=== PATIENT | female | born 1970 | race African-American/Black ===

== ENCOUNTER 2016-12-02 04:33 | Emergency (ER) | payer BC, OTHER ==
[2016-12-02 04:46] VITALS: BMI 28.7
--- NOTE | 2016-12-02 05:44 | PDOC ---
[id number] [id number] CHEST PAIN Time Seen by Provider: 12/02/16 05:09 History Source: Patient Exam Limitations: No Limitations - History of Present Illness Initial Comments: 12/02/16 05:37 46 yo Female patient presents to ED c/o chest pains, bilateral rib pain and left arm pain/heaviness. Patient states symptoms began at 0230 today, which woke her up out her sleep. She reports being recently diagnosed with Bronchitis at [facility] and prescribed Abx. Patient report hx HTN. LNMP: 4 months ago. Denies abd pain, back pain, n/v/d, fever, diff breathing, constipation, or any other complaints at this time. Presenting Symptoms: Chest Pain Severity/Quality: reports: moderate, sharp Location: reports: substernal Chest Pain Radiation: reports: arms (LEFT) Activities at Onset: reports: none Prior Chest Pain/Cardiac Workup: reports: No prior chest pain Modifying Factors: worse with: antacids, breathing, coughing, defecating, eating , exercise, lying down, morphine, movement, nitroglycerin, oxygen, palpation, rest, other Nitro Today/Relief: No: no nitro taken today, 0.4 mg x 1, 0.4 mg x 2, 0.4 mg x 3 , 0.4 mg x 4, provided by EMS, provided by ED, provided at home, no relief, mild relief, complete relief Aspirin Received prior to arrival (Core Measure): Yes: unknown Associated Symptoms: Yes: Cough. No: Denies symptoms, Abdominal pain, Back Pain , Chest Pain/pressure, Diaphoresis, Dizziness, Edema, Fatigue, Fever/chills, Headache, Heartburn, Loss of Appetite, Nausea, Palpitations, Rash, Shortness of Breath, Swelling/lump in chest, Syncope, Vomiting, Weakness Past History - Travel Traveled outside of the country in the last 30 days: No Close contact w/someone who was outside of country & ill: No - Past Medical History Allergies/Adverse Reactions: Allergies Allergy/AdvReac Type Severity Reaction Status Date / Time amoxicillin trihydrate Allergy Verified 12/02/16 04:43 [From Augmentin] azithromycin [From Zithromax] Allergy Verified 12/02/16 04:43 potassium clavulanate Allergy Verified 12/02/16 04:43 [From Augmentin] Home Medications: Ambulatory Orders Aspirin [ASA -] 81 mg PO DAILY 12/13/14 Colesevelam HCl [Welchol] 1,875 mg PO DAILY PRN 02/28/15 Albuterol Sulfate Inhaler - [Ventolin HFA Inhaler -] 1 - 2 inh PO Q4H #1 inhaler 07/04/16 Acetaminophen [Tylenol .Regular Strength -] 650 mg PO Q6H PRN #0 tablet Albuterol 0.083% Nebulizer Nida [Ventolin 0.083% Nebulizer Soln -] 1 amp NEB Q6H PRN #0 amp 01/09/17 Albuterol 2.5/Ipratropium 0.5 [Duoneb -] 1 amp NEB Q6H PRN #0 amp 01/09/17 Losartan Potassium [Cozaar -] 50 mg PO DAILY tablet 01/09/17 Pantoprazole Sodium [Protonix -] 40 mg PO DAILY #30 01/09/17 Rosuvastatin [Crestor -] 5 mg PO HS tablet 01/09/17 Sulfamethoxazole/Trimethoprim [Bactrim DS -] 1 each PO BID #14 tablet 01/09/17 Loratadine [Claritin -] 10 mg PO DAILY PRN 01/27/17 Anemia: No Asthma: Yes Cancer: No Cardiac Disorders: No CVA: No COPD: Yes CHF: No Dementia: No Diabetes: No GI Disorders: No Disorders: No HTN: Yes Hypercholesterolemia: Yes (on medication) Kidney Stones: No Liver Disease: No Psychiatric Problems: Yes (bipolar) Suicide Attempt (Hx): No Seizures: No Thyroid Disease: No - Surgical History Abdominal Surgery: No Appendectomy: No Cardiac Surgery: Yes (SX R CAROTID ARTERY FOR A CLOT IN 2004) Cholecystectomy: No Gastric Stapling: No GI Surgery: No Lung Surgery: No Neurologic Surgery: No Orthopedic Surgery: No - Reproductive History PID: No - Immunization History Td Vaccination: Yes Immunization Up to Date: Yes - Psycho/Social/Smoking Cessation Hx Anxiety: No Suicidal Ideation: No Smoking Status: Yes Smoking History: Former smoker Years of Tobacco Use: 20 Have you smoked in the past 12 months: No Number of Cigarettes Smoked Daily: 20 Cigars Per Day: 0 Information on smoking cessation initiated: No 'Breaking Loose' booklet given: 02/05/16 Hx Alcohol Use: No Drug/Substance Use Hx: No Substance Use Type: None, Opiates Hx Substance Use Treatment: Yes (IOP) Cardiac Specific PMH - Complaint Specific PMHX Abdominal Aortic Aneurysm: No Angina: No Cardiac Arrhythmia: No Cardiac Stent: No GERD: No Myocardial Infarction: No Pacemaker: No Pulmonary Embolus: No Valvular Heart Disease: No Peripheral Vascular Disease: No Review of Systems - Review of Systems Able to Perform ROS?: Yes Is the patient limited [place] proficient: No Constitutional: No: Chills, Fever Respiratory: Yes: Cough. No: Orthopnea, Shortness of Breath, Stridor, Wheezing Cardiac (ROS): Yes: Chest Pain. No: Edema, Lightheadedness, Palpitations, Syncope, Chest Tightness ABD/GI: No: Constipated, Diarrhea, Nausea, Poor Appetite, Poor Fluid Intake, Rectal Bleeding, Vomiting : No: Dysuria, Flank Pain, Hematuria Musculoskeletal: No: Back Pain, Gout, Joint Swelling, Muscle Weakness, Neck Pain Integumentary: No: Bruising, Erythema, Rash Neurological: No: Headache, Numbness, Paresthesia, Seizure, Tingling, Tremors, Weakness, Unsteady Gait, Ataxia, Dizziness All Other Systems: Reviewed and Negative *Physical Exam - Vital Signs Last Vital Signs Temp Pulse Resp BP Pulse Ox 97.3 F L 58 L 18 153/76 98 12/02/16 08:29 12/02/16 08:29 12/02/16 08:29 12/02/16 08:29 12/02/16 08:29 - Physical Exam General Appearance: Yes: Nourished, Appropriately Dressed. No: Apparent Distress, Mild Distress, Moderate Distress, Severe Distress Neck: positive: Trachea midline, Supple. negative: Decreased range of motion, Stridor, Lymphadenopathy (R), Lymphadenopathy (L) Respiratory/Chest: positive: Lungs Clear, Normal Breath Sounds. negative: Respiratory Distress, Accessory Muscle Use, Labored Respiration, Rapid RR Cardiovascular: positive: Regular Rhythm, Regular Rate. negative: Edema, JVD, Murmur Musculoskeletal: positive: Normal Inspection. negative: CVA Tenderness Extremity: positive: Normal Capillary Refill, Normal Inspection, Normal Range of Motion. negative: Pedal Edema, Swelling Integumentary: positive: Normal Color, Dry, Warm. 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, Fully Oriented, Alert, Normal Mood/ Affect, Normal Response, Motor Strength 03/07 ED Treatment Course - LABORATORY CBC & Chemistry Diagram: 12/02/16 05:35 12/02/16 05:35 - ADDITIONAL ORDERS Additional order review: 12/02/16 05:35 RBC 4.32 MCV 98.1 H MCHC 33.4 RDW 13.5 MPV 7.4 L Neutrophils % 30.0 L D Lymphocytes % 58.0 H D Monocytes % 11.0 H Eosinophils % 1.0 - RADIOLOGY Radiology Studies Ordered: Category Date Time Status CHEST CTA [CT] Stat CT Scan 12/02/16 06:43 Completed CHEST PA & LAT [RAD] Stat Radiology 12/02/16 05:22 Completed *DC/Admit/Observation/Transfer Diagnosis at time of Disposition: Atypical chest pain, Bronchitis - Discharge Dispostion Disposition: HOME Condition at time of disposition: Good Admit: No - Referrals Referrals: Marv Rm [Primary Care Provider] - Call tomorrow - Patient Instructions Printed Discharge Instructions: DI for Atypical Chest Pain Additional Instructions: Discharge Instructions: -The cat scan of your chest was normal -Your EKG and labs were normal -Please take Motrin for pain if needed with food -Follow up with Dr. Rm this week if symptoms continue Print Language: [place]OT[place]
[2016-12-02 05:50] LABS: MCH 32.8 pg (25.7-33.7); MCHC 33.4 g/dl (32.0-36.0); MEAN CELL VOLUME 98.1 fl (80-96); MEAN PLT VOLUME 7.4 fl (7.5-11.1); PLATELET COUNT 245 K/MM3 (134-434); RDW 13.5 % (11.6-15.6); WHITE BLOOD COUNT 7.5 K/mm3 (4.0-10.0)
[2016-12-02 05:55] LABS: URINE APPEARANCE CLEAR; URINE BILIRUBIN NEGATIVE (NEGATIVE); URINE COLOR STRAW; URINE GLUCOSE (UA) NEGATIVE (NEGATIVE); URINE KETONE NEGATIVE (NEGATIVE); URINE LEUK ESTERASE NEGATIVE (NEGATIVE); URINE NITRITE NEGATIVE (NEGATIVE); URINE PROTEIN NEGATIVE (NEGATIVE); URINE UROBILINOGEN NEGATIVE E.U./dl (0.2-1.0)
[2016-12-02 05:58] LABS: URINE BLOOD 2+ (NEGATIVE)
[2016-12-02 06:00] LABS: URINE HYALINE CAST 1 /lpf; URINE MUCUS RARE; URINE RBC 1 /hpf (0-3); URINE WBC <1 /hpf (3-5)
[2016-12-02 06:33] LABS: ALBUMIN 3.7 g/dl (3.4-5.0); ANION GAP 12 (8-16); BILIRUBIN,TOTAL 0.3 mg/dL (0.2-1.0); CO2 24 mmol/L (21-32); CREATININE 0.8 mg/dL (0.55-1.02); GLUCOSE,RANDOM 85 mg/dL (74-106); SGOT/AST 18 U/L (15-37); SGPT/ALT 17 U/L (12-78); TOT PROT 7.5 g/dl (6.4-8.2)
[2016-12-02 06:36] LABS: ALK PHOS 79 U/L (45-117); TROPONIN I < 0.02 ng/ml (0.00-0.05)
--- NOTE | 2016-12-02 07:20 | PDOC ---
ED Treatment Course - LABORATORY CBC & Chemistry Diagram: 12/02/16 05:35 12/02/16 05:35 - ADDITIONAL ORDERS Additional order review: Laboratory Results 12/02/16 12/02/16 12/02/16 05:35 05:35 05:35 D-Dimer 302 H Sodium 139 Potassium 3.6 Chloride 103 Carbon Dioxide 24 Anion Gap 12 BUN 16 Creatinine 0.8 Creat Clearance w eGFR > 60 Random Glucose 85 Calcium 9.0 Total Bilirubin 0.3 AST 18 ALT 17 Alkaline Phosphatase 79 Creatine Kinase 246 H D CK-MB (CK-2) 1.770 Troponin I < 0.02 Total Protein 7.5 Albumin 3.7 Urine Color Straw Urine Appearance Clear Urine pH 5.0 Ur Specific [place] 1.016 Urine Protein Negative Urine Glucose (UA) Negative Urine Ketones Negative Urine Blood 2+ H Urine Nitrite Negative Urine Bilirubin Negative Urine Urobilinogen Negative Ur Leukocyte Esterase Negative Urine RBC 1 Urine WBC <1 Ur Epithelial Cells Rare Hyaline Casts 1 Urine Mucus Rare Urine HCG, Qual Negative 12/02/16 05:35 RBC 4.32 MCV 98.1 H MCHC 33.4 RDW 13.5 MPV 7.4 L Neutrophils % Y Lymphocytes % Y Progress Note - Progress Note Progress Note: I have received report from CAROL Liao regarding this patient. Pt's initial chief complaint: chest pain, b/l rib pain, left arm pain. Pt's work up completed prior to sign out: labs, EKG, CXR Pt treatment given from prior staff: none Pt plan to be completed: U tox, chest CTA Dispo: Pending Medical Decision Making - Medical Decision Making A/P: 46 y/o female c/o CP, b/l rib pain and left arm pain. The patient was initially evaulated by CAROL Liao. Her D-dimer was found to be elevated. She is waiting for a chest CTA. The patient is comfortable without any pain medication. CTA IMPRESSION: No evidence of pulmonary embolism or acute pathology in the chest. The patient was given all of her results. She will be discharged to home with supportive care instructions. She was instructed to f/u with her PCP and return to the ER with any worsening or concerning symptoms. The patient verbalizes understanding of all instructions, has no further questions and is awaiting discharge. *DC/Admit/Observation/Transfer Diagnosis at time of Disposition: Atypical chest pain - Discharge Dispostion Disposition: HOME Condition at time of disposition: Good - Referrals Referrals: Marv Rm [Primary Care Provider] - Call tomorrow - Patient Instructions Printed Discharge Instructions: DI for Atypical Chest Pain Additional Instructions: Discharge Instructions: -The cat scan of your chest was normal -Your EKG and labs were normal -Please take Motrin for pain if needed with food -Follow up with Dr. Rm this week if symptoms continue
[2016-12-02 07:28] LABS: PLATELET ESTIMATE ADEQUATE (NORMAL)
[2016-12-02 08:30] VITALS: BP 153/76; PULSE 58; TEMP 97.3
[2016-12-02 15:04] LABS: URINE MARIJUANA THC NEGATIVE ng/ml (CUTOFF=50)
--- NOTE | 2016-12-10 17:52 | EKG ---
Test Reason : Blood Pressure : / mmHG Vent. Rate : 058 BPM Atrial Rate : 058 BPM P-R Int : 140 ms QRS Dur : 074 ms QT Int : 428 ms P-R-T Axes : 053 -13 -04 degrees QTc Int : 420 ms SINUS BRADYCARDIA OTHERWISE NORMAL ECG WHEN COMPARED WITH ECG OF 14-AUG-2016 03:43, NO SIGNIFICANT CHANGE WAS FOUND Confirmed by QUEENEI TY MD ([id number]) on 12/10/2016 5:52:13 PM Referred By: Confirmed By:QUEENIE TY MD
== END 2016-12-02 09:41 | disposition home or self-care (01) ==
LOC: JER 04:33
DX: R07.89 Other chest pain (principal); I10 Essential (primary) hypertension; J44.9 Chronic obstructive pulmonary disease, unspecified; J45.909 Unspecified asthma, uncomplicated; F31.9 Bipolar disorder, unspecified
CPT/HCPCS: 36415; 71020-TC; 71275-TC; 80053; 80307; 81003; 81015; 82550; 82553; 84484; 84703; 85025; 85379; 93005; 93010; 99282-25

== ENCOUNTER 2017-01-05 23:32 | Inpatient (IN) | payer BC, OTHER ==
--- NOTE | 2017-01-06 00:30 | PDOC ---
History of Present Illness - General History Source: Patient Exam Limitations: No Limitations - History of Present Illness Initial Comments: 01/06/17 02:03 The patient is a 46 year old female with a significant past medical history of bipolar disorder, rheumatoid arthritis, anxiety, HTN and asthma, who presents to the emergency department today for further evaluation of a wound for 2 days s /p abscess removal at [facility]. The patient reports that her wound is very painful. The patient states that she did not follow up to have the wound changed and dressed. The patient denies being given any antibiotics for her wound. In the ED the patients packing material was removed and pus was pouring out of the wound. The patient denies fever, chills, and sweats. The patient denies nausea, vomiting, and diarrhea. The patient denies chest pain, cough, and shortness of breath. PAST MEDICAL HISTORY: As per HPI PAST SURGICAL HISTORY: Recent abscess removal FAMILY HISTORY: No pertinent history reported SOCIAL HISTORY: None reported MEDICATIONS: Reviewed ALLERGIES: As per nursing notes <Jamie Berry - Last Filed: 01/06/17 02:02> <Dianna Aldana - Last Filed: 01/07/17 14:30> - General Chief Complaint: Pain, Acute Stated Complaint: PAIN Time Seen by Provider: 01/05/17 23:57 Past History <Jamie Berry - Last Filed: 01/06/17 02:02> - Past Medical History Anemia: No Asthma: Yes Cancer: No Cardiac Disorders: No CVA: No COPD: Yes CHF: No Dementia: No Diabetes: No GI Disorders: No Disorders: No HTN: Yes Hypercholesterolemia: Yes (on medication) Kidney Stones: No Liver Disease: No Psychiatric Problems: Yes (bipolar) Suicide Attempt (Hx): No Seizures: No Thyroid Disease: No - Surgical History Abdominal Surgery: No Appendectomy: No Cardiac Surgery: Yes (SX R CAROTID ARTERY FOR A CLOT IN 2004) Cholecystectomy: No Gastric Stapling: No GI Surgery: No Lung Surgery: No Neurologic Surgery: No Orthopedic Surgery: No - Reproductive History PID: No - Immunization History Td Vaccination: Yes Immunization Up to Date: Yes - Psycho/Social/Smoking Cessation Hx Anxiety: No Suicidal Ideation: No Smoking Status: Yes Smoking History: Current every day smoker Years of Tobacco Use: 20 Have you smoked in the past 12 months: No Number of Cigarettes Smoked Daily: 20 Cigars Per Day: 0 Information on smoking cessation initiated: No 'Breaking Loose' booklet given: 02/05/16 Hx Alcohol Use: No Drug/Substance Use Hx: No Substance Use Type: None, Opiates Hx Substance Use Treatment: Yes (IOP) <Dianna Aldana - Last Filed: 01/07/17 14:30> - Past Medical History Allergies/Adverse Reactions: Allergies Allergy/AdvReac Type Severity Reaction Status Date / Time amoxicillin trihydrate Allergy Verified 01/05/17 23:35 [From Augmentin] azithromycin [From Zithromax] Allergy Verified 01/05/17 23:35 potassium clavulanate Allergy Verified 01/05/17 23:35 [From Augmentin] Home Medications: Ambulatory Orders Aspirin [ASA -] 81 mg PO DAILY 12/13/14 Colesevelam HCl [Welchol] 1,875 mg PO DAILY 02/28/15 Olmesartan/Hydrochlorothiazide [Benicar Hct 20-12.5 mg Tablet] 1 tab PO DAILY Rosuvastatin Calcium [Crestor] 0 mg PO DAILY 02/05/16 Loratadine [Claritin] 10 mg PO DAILY #30 tablet 04/17/16 Albuterol Sulfate Inhaler - [Ventolin Hfa Inhaler -] 1 - 2 inh PO Q4H #1 inhaler 07/04/16 Review of Systems - Review of Systems Able to Perform ROS?: Yes Comments:: 01/06/17 02:03 GENERAL/CONSTITUTIONAL: No fever or chills. No weakness. HEAD, EYES, EARS, NOSE AND THROAT: No change in vision. No ear pain or discharge. No sore throat. CARDIOVASCULAR: No chest pain or shortness of breath. RESPIRATORY: No cough, wheezing, or hemoptysis. GASTROINTESTINAL: No nausea, vomiting, diarrhea or constipation. GENITOURINARY: No dysuria, frequency, or change in urination. MUSCULOSKELETAL: No joint or muscle swelling or pain. No neck or back pain. SKIN: No rash NEUROLOGIC: No headache, vertigo, loss of consciousness, or change in strength/ sensation. ENDOCRINE: No increased thirst. No abnormal weight change. HEMATOLOGIC/LYMPHATIC: No anemia, easy bleeding, or history of blood clots. ALLERGIC/IMMUNOLOGIC: No hives or skin allergy. <Jamie Berry - Last Filed: 01/06/17 02:02> *Physical Exam - Vital Signs Last Vital Signs Temp Pulse Resp BP Pulse Ox 98.6 F 100 H 22 116/77 97 01/05/17 23:42 01/05/17 23:42 01/05/17 23:42 01/05/17 23:42 01/05/17 23:42 - Physical Exam Comments: 01/06/17 02:03 GENERAL: Awake, alert, and fully oriented, in no acute distress HEAD: No signs of trauma EYES: PERRLA, EOMI, sclera anicteric, conjunctiva clear ENT: Auricles normal inspection, hearing grossly normal, nares patent, oropharynx clear without exudates. Moist mucosa NECK: Normal ROM, supple, no lymphadenopathy, JVD, or masses LUNGS: Breath sounds equal, clear to auscultation bilaterally. No wheezes, and no crackles HEART: Regular rate and rhythm, normal S1 and S2, no murmurs, rubs or gallops ABDOMEN: Soft, nontender, normoactive bowel sounds. No guarding, no rebound. No masses BUTTOX: (+) Infected abscess right medial buttox. EXTREMITIES: Normal range of motion, no edema. No clubbing or cyanosis. No cords, erythema, or tenderness NEUROLOGICAL: Cranial nerves II through XII grossly intact. Normal speech, normal gait SKIN: Warm, Dry, normal turgor, no rashes or lesions noted. <Jamie Berry - Last Filed: 01/06/17 02:02> - Vital Signs Last Vital Signs Temp Pulse Resp BP Pulse Ox 98.6 F 100 H 22 116/77 97 01/05/17 23:42 01/05/17 23:42 01/05/17 23:42 01/05/17 23:42 01/05/17 23:42 <Dianna Aldana - Last Filed: 01/07/17 14:30> ED Treatment Course - LABORATORY CBC & Chemistry Diagram: 01/07/17 07:15 01/07/17 07:15 <Dianna Aldana - Last Filed: 01/07/17 14:30> Medical Decision Making - Medical Decision Making 01/06/17 05:07 THIS IS A PRELIMINARY REPORT FROM [facility] DATE OF SERVICE: 2017-01-06 04:04:58.0 IMAGES: 308 EXAM: PELVIS CT WITH CONTRAST HISTORY:right buttock abscess COMPARISON: None. IMPRESSION: Right gluteal superficial soft tissue fat stranding and dermal thickening suggestive of cellulitis. Small area of phlegmonous change seen in the medial right buttock measuring 19.5 x 26.5 mm ( axial image 139) which may represent developing and/or partially drained/ draining abscess. No soft tissue emphysema. No CT evidence of osteomyelitis. Normal ischiorectal fossa. Suggestion of ileal wall thickening and fat stranding. correlate clinically to exclude enteritis. Small fat containing umbilical hernia. Normal appendix. No intra pelvic abscess. Arthrosis of the imaged spine and hip joints. Small posterior disc herniations at L4-5 with mild spinal stenosis at this level. Moderate sized herniation at L5-S1 causing spinal canal stenosis and lateral recess stenosis with mass effect on descending S1 nerve roots. Disc material at L5-S1 extends into the neural formani as well and is in close proximity to the L5 nerve roots. Underdistension versus wall thickening of bladder. Correlate clinically to exclude cystitis. A 2.5 cm right adnexal cyst ./follicle THIS DOCUMENT HAS BEEN ELECTRONICALLY SIGNED 01/07/17 14:26 Pt came after I+D was performed on her buttock 1 or 2 days ago at [facility]. She had minimal placement of packing strip placed in the wound. She had a small puncture site, which drained copious purulent material when I squeezed the right buttock. Wound culture was sent. Pt sent for CT scan. SHe will require proper I&D by surgical team. SHe was treated with Vancomycin and clinda. Pt states that she was given no antibiotics at [facility]; regardless, pt has not been on any antibiotics since the abscess began. SHe will be admitted for IV abx and for I&D. <Dianna Aldana - Last Filed: 01/07/17 14:30> *DC/Admit/Observation/Transfer - Attestations Scribe Attestion: 01/06/17 02:05 Documentation prepared by Jamie Berry, acting as biomedical equipment support specialist for Dianna Aldana MD/DO. <Jamie Berry - Last Filed: 01/06/17 02:02> - Discharge Dispostion Admit: Yes <Dianna Aldana - Last Filed: 01/07/17 14:30> Diagnosis at time of Disposition: Abscess of right buttock, Bipolar I disorder - Referrals
[2017-01-06] MEDS ORDERED: VANCOMYCIN 1,000 MG in DEXTROSE 5%-WATER - 250 ML IVPB ONE (01:46)
[2017-01-06] MEDS ORDERED: CLINDAMYCIN 900 MG PREMIX IVPB 50 ML IVPB ONE (01:47)
[2017-01-06] MEDS ORDERED: VANCOMYCIN 1 GRAM (PRE-DOCKED) 250 ML IVPB ONE (01:55)
[2017-01-06 02:10] LABS: BASOPHIL 0.4 % (0-2.0); EOSINOPHIL 0.1 % (0-4.5); MCH 32.5 pg (25.7-33.7); MCHC 33.6 g/dl (32.0-36.0); MEAN CELL VOLUME 96.5 fl (80-96); NEUTROPHILS 86.9 % (42.8-82.8); PLATELET COUNT 199 K/MM3 (134-434); RDW 13.3 % (11.6-15.6); WHITE BLOOD COUNT 13.5 K/mm3 (4.0-10.0)
[2017-01-06 02:53] LABS: INR 1.28 (0.82-1.09); PROTHROMBIN TIME (PATIENT) 14.2 SEC (9.98-11.88)
[2017-01-06 02:55] LABS: ACTIVATED PTT 35.7 SECONDS (26.9-34.4)
[2017-01-06 02:59] LABS: ALBUMIN 3.3 g/dl (3.4-5.0); BILIRUBIN,TOTAL 0.5 mg/dL (0.2-1.0); CALCIUM 9.1 mg/dL (8.5-10.1); TOT PROT 7.7 g/dl (6.4-8.2)
[2017-01-06] MEDS ORDERED: morphine CARPU-JECT 2 MG/1 ML DISP.SYRIN ONE (07:02)
[2017-01-06] MEDS ORDERED: morphine CARPU-JECT 2 MG/1 ML DISP.SYRIN IVPUSH ONE ×2 (07:05→07:18)
[2017-01-06] MEDS ORDERED: ALBUTEROL SO4 2.5/IPRATROPIUM 0.5 INH SOL 3 ML VIAL.NEB. NEB PRN (07:30)
--- NOTE | 2017-01-06 09:06 | CONSULT ---
[id number] Surgery) CONSULT REQUEST: We have been asked to surgically evaluate this patient for gluteal abscess. PCP: Quentin John HPI: Called to eval 46yo female with PMHx noted below. Presents to [facility] ED for further evaluation of her gluteal wound. Informs me that she was seen/evaluated at [facility] ER for same complaint and they performed an I&D 2 days ago. She is still c/o pain at said site. According to ER documentation, she is non- compliant with dressing changes. Her wound packing was removed in ED and found to have purulent drainage. A CT Scan 01/06/17 was performed in ED and identified a superficial subcutaneous gluteal region abscess with associated subcutaneous cellulitis. No deep extension identified. She denies n/v/f/c or diaphoresis. Denies CP or palpitation. Denies cough or SOB. Denies abd pain or melena. PMHx: COPD, RA, OA, HLD, HTN, IBS, glaucoma, bipolar disorder, asthma, cerebral aneurysm, DVT, CAD, PSA, bronchitis PSHx: Right carotid artery clot 2004 Social Hx: PCP, marijuana, EtOH, tranquilizer HOME MEDS: 3 Aspirin [ASA -] 81 mg PO DAILY 12/13/14 Colesevelam HCl [Welchol] 1,875 mg PO DAILY 02/28/15 Olmesartan/Hydrochlorothiazide 1 tab PO DAILY 08/03/15 [Benicar Hct 20-12.5 mg Tablet] Rosuvastatin Calcium [Crestor] 0 mg PO DAILY 02/05/16 Loratadine [Claritin] 10 mg PO DAILY #30 tablet 04/17/16 Albuterol Sulfate Inhaler - 1 - 2 inh PO Q4H #1 inhaler 07/04/16 Allergies 3 amoxicillin trihydrate Allergy Verified 01/05/17 23:35 azithromycin [From Zithromax] Allergy Verified 01/05/17 23:35 potassium clavulanate Allergy Verified 01/05/17 23:35 ROS: CONSTITUTIONAL: Absent: SEE ABOVE. generalized weakness, malaise, loss of appetite, weight change CARDIOVASCULAR: Absent: SEE ABOVE. syncope, irregular heart rate, lightheadedness, peripheral edema RESPIRATORY: Absent: SEE ABOVE. dyspnea with exertion, wheezing, stridor, hemoptysis GASTROINTESTINAL:Absent: SEE ABOVE. GENITOURINARY: Absent: dysuria, frequency, urgency, hesitancy, hematuria, flank pain, genital pain MUSCULOSKELETAL: Absent: myalgia, arthralgia, joint swelling, back pain, neck pain SKIN: Absent: SEE ABOVE. HEMATOLOGIC/IMMUNOLOGIC: Absent: easy bleeding, easy bruising, lymphadenopathy NEUROLOGIC: Absent: headache, focal weakness, paresthesias, dizziness, unsteady gait, seizure, mental status changes PSYCHIATRIC: Absent: anxiety, depression, suicidal or homicidal ideation, hallucinations. Last Vital Signs Temp Pulse Resp BP Pulse Ox 97.7 F 92 H 16 105/70 95 01/06/17 06:21 01/06/17 06:21 01/06/17 06:21 01/06/17 06:21 01/06/17 06:21 PE: GENERAL: Awake, alert, and fully oriented, in no acute distress. HEAD: Normal with no signs of trauma. EYES: PERRL, sclera anicteric, conjunctiva clear. NECK: Normal ROM, supple without lymphadenopathy, JVD, or masses. LUNGS: Clear to auscultation bilat anteriorly. No wheezes, and no crackles. No accessory muscle use. HEART: Regular rate and rhythm. No murmurs ABDOMEN: Soft, nontender, not distended, normoactive bowel sounds, no guarding, no rebound, no masses. No organomegaly. MUSCULOSKELETAL: Normal ROM at all joints. No bony deformities or tenderness. No CVA tenderness. UPPER EXTREMITIES: 2+ pulses, warm, well-perfused. No cyanosis. Cap refill <2 seconds. No peripheral edema. LOWER EXTREMITIES: 2+ pulses, warm, well-perfused. No calf tenderness. No peripheral edema. NEUROLOGICAL: Normal speech, gait not observed. PSYCH: Cooperative. Good eye contact. Appropriate mood and affect. SKIN: Right glute (superior aspect near fold), +induration/bogginess, surrounding erythema, painful to touch, purulent drainage CBC, BMP 01/06/17 01:52 01/06/17 01:52 INR, PTT INR 1.28 (0.82-1.09) H 01/06/17 01:52 Blood Type Blood Type A NEGATIVE 01/06/17 01:52 Problem List - Problems (1) Abscess of right buttock Assessment/Plan: Will need bedside I&D Risks, benefits, alternatives discussed with patient and she agrees with above procedure. Opportunity for questions, patient had none. Above discussed with Dr. Phelps and agrees. Code(s): L02.31 - CUTANEOUS ABSCESS OF BUTTOCK Visit type - Case Type Case Type: ED Admission - Emergency Emergency Visit: Yes ED Registration Date: 01/06/17 Care time: The patient presented to the Emergency Department on the above date and was hospitalized for further evaluation of their emergent condition. - New patient This patient is new to me today: Yes Date on this admission: 01/06/17 <Raad Phelps - Last Filed: 01/06/17 12:12> - Consultation REQUESTING PROVIDER: CONSULT REQUEST: We have been asked to surgically evaluate this patient for ( specify). PCP:Quentin John HISTORY OF PRESENT ILLNESS: PMHx: PSHx: Home Medications Medication Instructions Recorded Aspirin [ASA -] 81 mg PO DAILY 12/13/14 Colesevelam HCl [Welchol] 1,875 mg PO DAILY 02/28/15 Olmesartan/Hydrochlorothiazide 1 tab PO DAILY 08/03/15 [Benicar Hct 20-12.5 mg Tablet] Rosuvastatin Calcium [Crestor] 0 mg PO DAILY 02/05/16 Loratadine [Claritin] 10 mg PO DAILY #30 tablet 04/17/16 Albuterol Sulfate Inhaler - 1 - 2 inh PO Q4H #1 inhaler 07/04/16 [Ventolin Hfa Inhaler -] Allergies Allergy/AdvReac Type Severity Reaction Status Date / Time amoxicillin trihydrate Allergy Verified 01/05/17 23:35 [From Augmentin] azithromycin [From Zithromax] Allergy Verified 01/05/17 23:35 potassium clavulanate Allergy Verified 01/05/17 23:35 [From Augmentin] REVIEW OF SYSTEMS: CONSTITUTIONAL: Absent: fever, chills, diaphoresis, generalized weakness, malaise, loss of appetite, weight change CARDIOVASCULAR: Absent: chest pain, syncope, palpitations, irregular heart rate, lightheadedness , peripheral edema RESPIRATORY: Absent: cough, shortness of breath, dyspnea with exertion, wheezing, stridor, hemoptysis GASTROINTESTINAL: Absent: abdominal pain, abdominal distension, nausea, vomiting, diarrhea, constipation, melena, hematochezia GENITOURINARY: Absent: dysuria, frequency, urgency, hesitancy, hematuria, flank pain, genital pain MUSCULOSKELETAL: Absent: myalgia, arthralgia, joint swelling, back pain, neck pain SKIN: Absent: rash, itching, pallor HEMATOLOGIC/IMMUNOLOGIC: Absent: easy bleeding, easy bruising, lymphadenopathy NEUROLOGIC: Absent: headache, focal weakness, paresthesias, dizziness, unsteady gait, seizure, mental status changes, bladder or bowel incontinence PSYCHIATRIC: Absent: anxiety, depression, suicidal or homicidal ideation, hallucinations. PHYSICAL EXAM: GENERAL: Awake, alert, and fully oriented, in no acute distress. HEAD: Normal with no signs of trauma. EYES: PERRL, sclera anicteric, conjunctiva clear. NECK: Normal ROM, supple without lymphadenopathy, JVD, or masses. LUNGS: Clear to auscultation bilat anteriorly. No wheezes, and no crackles. No accessory muscle use. HEART: Regular rate and rhythm. No murmurs ABDOMEN: Soft, nontender, not distended, normoactive bowel sounds, no guarding, no rebound, no masses. No organomegaly. MUSCULOSKELETAL: Normal ROM at all joints. No bony deformities or tenderness. No CVA tenderness. UPPER EXTREMITIES: 2+ pulses, warm, well-perfused. No cyanosis. Cap refill <2 seconds. No peripheral edema. LOWER EXTREMITIES: 2+ pulses, warm, well-perfused. No calf tenderness. No peripheral edema. NEUROLOGICAL: Normal speech, gait not observed. PSYCH: Cooperative. Good eye contact. Appropriate mood and affect. SKIN: Warm, dry, normal turgor, no rashes or lesions noted. Vital Signs Temperature 97.7 F 01/06/17 06:21 Pulse Rate 92 H 01/06/17 06:21 Respiratory Rate 16 01/06/17 06:21 Blood Pressure 105/70 01/06/17 06:21 O2 Sat by Pulse Oximetry (%) 95 01/06/17 06:21 Lab Results WBC 13.5 K/mm3 (4.0-10.0) H D 01/06/17 01:52 RBC 3.59 M/mm3 (3.60-5.2) L 01/06/17 01:52 Hgb 11.7 GM/dL (10.7-15.3) D 01/06/17 01:52 Hct 34.7 % (32.4-45.2) D 01/06/17 01:52 MCV 96.5 fl (80-96) H 01/06/17 01:52 MCHC 33.6 g/dl (32.0-36.0) 01/06/17 01:52 RDW 13.3 % (11.6-15.6) 01/06/17 01:52 Plt Count 199 K/MM3 (134-434) 01/06/17 01:52 Sodium 139 mmol/L (136-145) 01/06/17 01:52 Potassium 3.7 mmol/L (3.5-5.1) 01/06/17 01:52 Chloride 100 mmol/L (98-107) 01/06/17 01:52 Carbon Dioxide 26 mmol/L (21-32) 01/06/17 01:52 Anion Gap 13 (8-16) 01/06/17 01:52 BUN 17 mg/dL (7-18) 01/06/17 01:52 Creatinine 1.0 mg/dL (0.55-1.02) D 01/06/17 01:52 Random Glucose 129 mg/dL (74-106) H D 01/06/17 01:52 Calcium 9.1 mg/dL (8.5-10.1) 01/06/17 01:52 Blood Type A NEGATIVE 01/06/17 01:52 Antibody Screen Negative 01/06/17 01:52 INR 1.28 (0.82-1.09) H 01/06/17 01:52 Agree Right buttock/gluteal abscess Incision and drainage Antibiotics Wound care
[2017-01-06] MEDS ORDERED: LIDOCAINE HCL/PF 2% SDV 5ML VIAL ONE ×2 (09:53)
[2017-01-06] MEDS ORDERED: LOSARTAN 50MG/HCTZ 12.5MG 1 TAB (FP) PO SCH (10:00)
--- NOTE | 2017-01-06 10:04 | PN ---
Progress Note (short form) - Note Progress Note: ID Consult dictated Selected Entries 01/06/17 06:21 Temperature 97.7 F Pulse Rate [ 92 H Left] Respiratory 16 Rate Blood Pressure 105/70 [Right Arm] Microbiology Laboratory Tests 01/06/17 01/06/17 01/06/17 01:52 01:52 01:52 WBC 13.5 H D Hgb 11.7 D Plt Count 199 INR 1.28 H Random Glucose 129 H D Total Protein 7.7 Serum , Qual 01/06/17 02:38 WBC Hgb Plt Count INR Random Glucose Total Protein Serum , Qual Negative Assessment RIght gluteal cellulitis with abscess ? MRSA Plan vancomycin Zosyn pendng c/s Tori OWEN Problem List - Problems (1) Abscess of right buttock Code(s): L02.31 - CUTANEOUS ABSCESS OF BUTTOCK (2) Cellulitis, gluteal Code(s): L03.317 - CELLULITIS OF BUTTOCK
--- NOTE | 2017-01-06 10:19 | PROC ---
Incision and Drainage Indication/Location: Right glute Risks and Benefits Explained: Yes Consent on Chart: Yes Betadine cleansed: Yes Anesthesia: 2% Lidocaine Blade Size: 11 Drainage: Willie pus (~5cc) Irrigated with Normal Saline: Yes (100mL) Iodinated Packin/2 in Sterile Dressing Applied: Yes - Remarks Remarks: Wound cultured. IV ABX per ID Patient tolerated procedure well.
[2017-01-06] MEDS ORDERED: ACETAMINOPHEN 1000 MG/100 ML VIAL (NON FORMULARY) IVPB ONE (10:45)
[2017-01-06] MEDS: HYDROCHLOROTHIAZIDE 12.5 MG CAPSULE (FP) PO SCH (11:08)
[2017-01-06] MEDS: LOSARTAN POTASSIUM 50 MG TABLET (FP) PO SCH (11:08)
[2017-01-06] MEDS ORDERED: TIGECYCLINE 100 MG in DEXTROSE 5%-WATER - 100 ML IVPB ONE (11:15)
[2017-01-06 14:37] VITALS: BMI 27.8
--- NOTE | 2017-01-06 17:55 | HP ---
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 Cardiovascular: Yes: HTN, Hyperlipdemia Pulmonary: Yes: COPD ...LMP: 07/06/16 ...: No Psych: Yes: Bipolar Rheumatology: Yes: Rheumatoid Arthritis - Smoking History Smoking history: Current every day smoker Have you smoked in the past 12 months: No Aproximately how many cigarettes per day: 10 - Alcohol/Substance Use Hx Alcohol Use: No History of Substance Use: reports: Marijuana (and PCP) - Social History ADL: Independent History of Recent Travel: No Home Medications - Allergies Allergies/Adverse Reactions: Allergies Allergy/AdvReac Type Severity Reaction Status Date / Time amoxicillin trihydrate Allergy Verified 01/05/17 23:35 [From Augmentin] azithromycin [From Zithromax] Allergy Verified 01/05/17 23:35 potassium clavulanate Allergy Verified 01/05/17 23:35 [From Augmentin] - Home Medications Home Medications: Ambulatory Orders Aspirin [ASA -] 81 mg PO DAILY 12/13/14 Colesevelam HCl [Welchol] 1,875 mg PO DAILY 02/28/15 Olmesartan/Hydrochlorothiazide [Benicar Hct 20-12.5 mg Tablet] 1 tab PO DAILY Rosuvastatin Calcium [Crestor] 0 mg PO DAILY 02/05/16 Loratadine [Claritin] 10 mg PO DAILY #30 tablet 04/17/16 Albuterol Sulfate Inhaler - [Ventolin Hfa Inhaler -] 1 - 2 inh PO Q4H #1 inhaler 07/04/16 Family Disease History - Family Disease History Family Disease History: Heart Disease: Grandparent, Father ( ETOH DEPENDENT AND FROM CAD), Mother ( FROM CAD), Brother (PARANOID SCHIZOPHRENIA) Review of Systems - Review of Systems Cardiovascular: denies: Chest Pain Respiratory: denies: SOB Gastrointestinal: denies: Abdominal Pain Physical Examination Vital Signs: Vital Signs Temperature 98.3 F 01/06/17 15:29 Pulse Rate 81 01/06/17 15:29 Respiratory Rate 20 01/06/17 15:29 Blood Pressure 111/66 01/06/17 15:29 O2 Sat by Pulse Oximetry (%) 95 03/06/17 14:41 Findings/Remarks: SITTING ON EDGE OF BED EATING NO COMPLAINTS PAIN NOW CONTROLLED Constitutional: Yes: Calm Cardiovascular: Yes: Regular Rate and Rhythm, S1, S2 Respiratory: Yes: CTA Bilaterally Gastrointestinal: Yes: Normal Bowel Sounds, Soft Edema: No Imaging - Results Chest X-ray: Report Reviewed Cat Scan: Report Reviewed Problem List - Problems (1) Abscess of right buttock Code(s): L02.31 - CUTANEOUS ABSCESS OF BUTTOCK (2) Bipolar I disorder Code(s): F31.9 - BIPOLAR DISORDER, UNSPECIFIED (3) COPD (chronic obstructive pulmonary disease) Code(s): J44.9 - CHRONIC OBSTRUCTIVE PULMONARY DISEASE, UNSPECIFIED (4) Hypertension Code(s): I10 - ESSENTIAL (PRIMARY) HYPERTENSION Qualifiers: Qualified Code(s): I10 - Essential (primary) hypertension (5) Rheumatoid arthritis Code(s): M06.9 - RHEUMATOID ARTHRITIS, UNSPECIFIED Assessment/Plan The patient is a 46 year old female with a significant past medical history of bipolar disorder, rheumatoid arthritis, anxiety, HTN and asthma, who presents to the emergency department today for further evaluation of a wound for 2 days s /p abscess removal at [facility]. The patient reports that her wound is very painful. The patient states that she did not follow up to have the wound changed and dressed. The patient denies being given any antibiotics for her wound. In the ED the patients packing material was removed and pus was pouring out of the wound. 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
[2017-01-06] MEDS ORDERED: ALBUTEROL SO4 0.083% IH SOL 2.5 MG/3 ML VIAL.NEB. NEB PRN (17:56)
[2017-01-06] MEDS: ACETAMINOPHEN 325 MG TABLET (FP) PO PRN (20:15)
--- NOTE | 2017-01-06 21:25 | CONS ---
DATE OF CONSULTATION: 01/06/2017 This is a 46-year-old female with a history of multiple co-morbidities including bipolar disorder who presented to the emergency room for evaluation of a draining right gluteal abscess. She has no idea how this started, and she denied any history of trauma to the area. She was in the [facility] emergency room where she had a stab-limited incision and drainage done. A culture may have been sent, and I am attempting to find out the results. She was prescribed Bactrim but apparently never took it. She had no fever or chills, and when she presented to the ER, had a packing in the area of the right buttock with purulent drainage noted. PAST MEDICAL HISTORY: Includes bipolar disorder, rheumatoid arthritis, hypertension, anxiety, and substance abuse. MEDICATIONS: Aspirin, Welchol, Benicar, Crestor, Claritin, Ventolin. ALLERGIES: TO AMOXICILLIN AND AZITHROMYCIN. SOCIAL HISTORY: Current every-day smoker, polysubstance abuse. States HIV tested previously. FAMILY HISTORY: Reviewed and noncontributory. REVIEW OF SYSTEMS: Respiratory: No cough, shortness of breath. Cardiac: No chest pain, palpitations, syncope. Gastrointestinal: No nausea, vomiting, diarrhea. Genitourinary: No dysuria, hematuria. PHYSICAL EXAMINATION: General: She was an alert female in no acute distress. Vital signs: The temperature was 97.7, pulse 92, blood pressure 105/70, respirations 16. Neck: Supple. Lungs: Clear. Heart: S1, S2, regular rhythm. Abdomen: Soft, nontender without hepatosplenomegaly. Extremities: Revealed a right gluteal abscess with a puncture wound noted, purulent drainage, diffuse tenderness, erythema and fluctuance. The white count is 13.5, hemoglobin 11.7, platelets of 199. BUN of 17, creatinine 1.0. Wound culture pending. ASSESSMENT: A 46-year-old female presents with right gluteal abscess, fluctuant. Needs to be incised and drained more thoroughly. Possibilities include staphylococcus including MRSA as well as streptococcus and gram-negative organisms. She has a history of AMOXICILLIN ALLERGY. In an effort to cover multiple organisms, will give her tigecycline and pending wound culture, we will attempt to get the culture report from [facility], which may be available by now. JACKIE MANDEL M.D. ARLINE/[id number]
[2017-01-06] MEDS ORDERED: PT OWN MED DRAWER 7, Y5N ONE (22:25)
[2017-01-06] MEDS: TIGECYCLINE 50 MG in DEXTROSE 5%-WATER - 100 ML IVPB SCH (22:29)
[2017-01-06] MEDS: oxyCODONE HCL 5 MG TABLET PO PRN (22:29)
[2017-01-07 01:36] LABS: URINE MARIJUANA THC NEGATIVE ng/ml (CUTOFF=50)
[2017-01-07] MEDS: HYDROmorphone HCL CARPU-JECT 1 MG/1 ML DISP.SYRIN IVPB PRN ×2 (01:49→13:22)
--- NOTE | 2017-01-07 03:22 | HOSP ---
Subjective - Review of Symptoms Events since last encounter: Nurse call to katlyn m that patient is complaining of itching all over her body and on face after getting dilaudid. patient seen and examined: Patient is lying in bed complaining of itching on whole body. Denies shortness of breath, chest pain, palpitations. T 97.6 bp 118/79 spo2 96 on room air Chest ; b/l air entry present no wheez cvs s1s2 normal skin: no urticarea, no erythema, patient kept on itching whole body Plan : IV benadryl 25 mg once monitor vitals Physical Examination Vital Signs: Vital Signs Temperature 97.7 F 01/06/17 18:33 Pulse Rate 79 01/06/17 18:33 Respiratory Rate 20 01/06/17 18:33 Blood Pressure 107/70 01/06/17 18:33 O2 Sat by Pulse Oximetry (%) 95 01/06/17 14:41 Visit type - Emergency Visit Emergency Visit: Yes ED Registration Date: 01/06/17 Care time: The patient presented to the Emergency Department on the above date and was hospitalized for further evaluation of their emergent condition. - New Patient This patient is new to me today: Yes Date on this admission: 01/07/17 - Critical Care Critical Care patient: No
[2017-01-07] MEDS: ROSUVASTATIN CA 5 MG TABLET (FP) PO SCH ×2 (03:30→21:17)
[2017-01-07] MEDS: oxyCODONE HCL 5 MG TABLET PO PRN ×2 (05:36→12:19)
[2017-01-07 08:49] LABS: ALBUMIN 2.8 g/dl (3.4-5.0); ANION GAP 8 (8-16); BILIRUBIN,TOTAL 0.2 mg/dL (0.2-1.0); CALCIUM 8.8 mg/dL (8.5-10.1); CO2 27 mmol/L (21-32); CREATININE 0.8 mg/dL (0.55-1.02); GLUCOSE,RANDOM 84 mg/dL (74-106); SGOT/AST 19 U/L (15-37); SGPT/ALT 30 U/L (12-78)
[2017-01-07 08:50] LABS: ALK PHOS 89 U/L (45-117)
[2017-01-07] MEDS: PANTOPRAZOLE 40 MG TABLET (FP) PO SCH (11:00)
[2017-01-07] MEDS: LOSARTAN POTASSIUM 50 MG TABLET (FP) PO SCH (11:00)
[2017-01-07] MEDS: HYDROCHLOROTHIAZIDE 12.5 MG CAPSULE (FP) PO SCH (11:00)
[2017-01-07] MEDS: TIGECYCLINE 50 MG in DEXTROSE 5%-WATER - 100 ML IVPB SCH (11:01)
[2017-01-07 13:12] LABS: MCHC 33.5 g/dl (32.0-36.0); MEAN CELL VOLUME 98.5 fl (80-96); PLATELET COUNT 221 K/MM3 (134-434); RDW 13.6 % (11.6-15.6); WHITE BLOOD COUNT 10.4 K/mm3 (4.0-10.0)
--- NOTE | 2017-01-07 14:28 | PN ---
Progress Note (short form) - Note Progress Note: still some pain no fevers Vital Signs Period Temp Pulse Resp BP Sys/Wilson Pulse Ox Last 24 Hr 97.5 F-98.3 F 69-96 14-20 107-127/66-80 95-95 cor-rrr llungs clear abd soft,nt dressing intact ext no edema CBC, BMP 01/07/17 07:15 01/07/17 07:15 Microbiology 01/06/17 10:00 Abscess Gram Stain - Final 01/06/17 10:00 Abscess Wound Culture - Preliminary Staphylococcus Latex Coag Pos 01/06/17 01:40 Buttock - Right Gram Stain - Final 01/06/17 01:40 Buttock - Right Wound Culture - Preliminary Staphylococcus Latex Coag Pos a/p staphylococcus gluteal abscess- s/p incision and drainage staph aureus , no GNR switch to vancomycin f/u culture in am
--- NOTE | 2017-01-07 16:04 | PN ---
Progress Note, Physician Chief Complaint: AWAKE, CRYING, I ADDRESSED HER PROBLEM FOR 2 MINUTES AND ASSURED HER THAT SHE WOULD BE FINE LONG SHE IS COMPLIANT WITH ABX AND WOUND CARE. - Current Medication List Current Medications: Active Medications Acetaminophen (Tylenol -) 650 mg PO Q6H PRN PRN Reason: FEVER OR PAIN Last Admin: 01/06/17 20:15 Dose: 650 mg Albuterol Sulfate (Ventolin 0.083% Nebulizer Soln -) 1 amp NEB Q6H PRN PRN Reason: SHORT OF BREATH/WHEEZING Albuterol/Ipratropium (Duoneb -) 1 amp NEB Q6H PRN PRN Reason: SHORTNESS OF BREATH Hydrochlorothiazide (Hctz -) 12.5 mg PO DAILY [facility] Last Admin: 01/07/17 11:00 Dose: 12.5 mg Hydromorphone HCl (Dilaudid Injection -) 1 mg IVPB Q6H PRN Last Admin: 01/07/17 13:22 Dose: 1 mg Losartan Potassium (Cozaar -) 50 mg PO DAILY [facility] Last Admin: 01/07/17 11:00 Dose: 50 mg Oxycodone HCl (Roxicodone -) 5 mg PO Q6H PRN PRN Reason: PAIN Last Admin: 01/07/17 12:19 Dose: 5 mg Pantoprazole Sodium (Protonix -) 40 mg PO DAILY [facility] Last Admin: 01/07/17 11:00 Dose: 40 mg Rosuvastatin Calcium (Crestor -) 5 mg PO HS [facility] Last Admin: 01/07/17 03:30 Dose: Not Given Vancomycin HCl (Vancomycin (Pre-Docked)) 1,000 mg IVPB BID [facility] PRN Reason: Protocol - Objective Vital Signs: Vital Signs Temperature 98.0 F 01/07/17 14:12 Pulse Rate 82 01/07/17 14:12 Respiratory Rate 20 01/07/17 14:12 Blood Pressure 116/71 01/07/17 14:12 O2 Sat by Pulse Oximetry (%) 95 01/06/17 21:00 Constitutional: Yes: Mild Distress Eyes: Yes: WNL HENT: Yes: WNL Neck: Yes: WNL Cardiovascular: Yes: WNL Respiratory: Yes: WNL Gastrointestinal: Yes: WNL Genitourinary: Yes: WNL Musculoskeletal: Yes: WNL Extremities: Yes: WNL Edema: No Peripheral Pulses WNL: Yes Integumentary: Yes: WNL Wound/Incision: Yes: Clean/Dry Neurological: Yes: WNL ...Motor Strength: WNL Psychiatric: Yes: Other Labs: CBC, BMP 01/07/17 07:15 01/07/17 07:15 INR, PTT INR 1.28 (0.82-1.09) H 01/06/17 01:52 Assessment/Plan IV ABX PER ID ON VANCO IV NOW WOUND CARE SURGERY EVAL APPRECIATED PSYCHIATRY EVAL FOR UTOX+ AND LABILE MOOD. NO SUICIDAL OR HOMICIDAL THOUGHTS.
[2017-01-07] MEDS ORDERED: KETOROLAC TROMETHAMINE 30 MG/1 ML VIAL IVPUSH ONE (16:57)
--- NOTE | 2017-01-07 17:51 | PN ---
Progress Note (short form) - Note Progress Note: s/p bedside i&d day 1 Alert. Doing well. C/o incisional tenderness but feeling much better compared to when she was admitted. Denies n/v/f/c. ID note appreciated. Last Vital Signs Temp Pulse Resp BP Pulse Ox 98.0 F 82 20 116/71 95 01/07/17 14:12 01/07/17 14:12 01/07/17 14:12 01/07/17 14:12 01/06/17 21:00 WBC TREND 01/06/17 01/07/17 01:52 07:15 WBC 13.5 H D 10.4 H Microbiology 01/06/17 01:40 Buttock - Right Gram Stain - Final 01/06/17 01:40 Buttock - Right Wound Culture - Preliminary: Presumptive Mssa (Pbp2a Neg) 01/06/17 10:00 Abscess Gram Stain - Final 01/06/17 10:00 Abscess Wound Culture - Preliminary: Staphylococcus Latex Coag Pos PE General: alert. nad. Pulm: cta b/l anteriorly Cor: rrr Skin: significant decrease in erythema to right glute. Less tissue induration compared to initial exam. Seropurulent drainage Problem List - Problems (1) Abscess of right buttock Assessment/Plan: Dressing changed on rounds and orders placed from continued wound care Patient started on Vanco per ID Continue medical management No further surgical intervention Reconsult prn Above plan discussed with Dr. Phelps and agrees. Code(s): L02.31 - CUTANEOUS ABSCESS OF BUTTOCK
[2017-01-07 18:47] LABS: TROPONIN I < 0.02 ng/ml (0.00-0.05)
[2017-01-07] MEDS ORDERED: PT OWN MED DRAWER 7, Y5N ONE (21:01)
[2017-01-07] MEDS: LATANOPROST 0.005% OU SCH (21:16)
[2017-01-07] MEDS: OPTHALMIC OU SCH (21:16)
[2017-01-07] MEDS: VANCOMYCIN 1 GRAM (PRE-DOCKED) 1,000 MG/250 ML BAG IVPB SCH (21:17)
[2017-01-08] MEDS: oxyCODONE HCL 5 MG TABLET PO PRN ×2 (00:02→22:36)
[2017-01-08] MEDS: ACETAMINOPHEN 325 MG TABLET (FP) PO PRN ×2 (00:03→22:36)
[2017-01-08 07:27] LABS: MCH 32.4 pg (25.7-33.7); MCHC 33.1 g/dl (32.0-36.0); MEAN CELL VOLUME 97.8 fl (80-96); MEAN PLT VOLUME 7.7 fl (7.5-11.1); PLATELET COUNT 233 K/MM3 (134-434); RDW 13.3 % (11.6-15.6); WHITE BLOOD COUNT 5.4 K/mm3 (4.0-10.0)
[2017-01-08] MEDS ORDERED: PT OWN MED DRAWER 7, Y5N ONE ×3 (07:33→22:29)
[2017-01-08 08:13] LABS: ALBUMIN 2.7 g/dl (3.4-5.0); ANION GAP 8 (8-16); CALCIUM 8.6 mg/dL (8.5-10.1); CO2 30 mmol/L (21-32); GLUCOSE,RANDOM 82 mg/dL (74-106)
[2017-01-08 08:16] LABS: ALK PHOS 83 U/L (45-117); BILIRUBIN,TOTAL 0.2 mg/dL (0.2-1.0); CREATININE 0.8 mg/dL (0.55-1.02); SGOT/AST 13 U/L (15-37); SGPT/ALT 24 U/L (12-78); TOT PROT 6.4 g/dl (6.4-8.2)
[2017-01-08] MEDS: HYDROmorphone HCL CARPU-JECT 1 MG/1 ML DISP.SYRIN IVPB PRN ×2 (08:36→15:07)
[2017-01-08] MEDS: LOSARTAN POTASSIUM 50 MG TABLET (FP) PO SCH (09:53)
[2017-01-08] MEDS: HYDROCHLOROTHIAZIDE 12.5 MG CAPSULE (FP) PO SCH (09:53)
[2017-01-08] MEDS: PANTOPRAZOLE 40 MG TABLET (FP) PO SCH (09:53)
[2017-01-08] MEDS: VANCOMYCIN 1 GRAM (PRE-DOCKED) 1,000 MG/250 ML BAG IVPB SCH ×2 (09:54→22:34)
--- NOTE | 2017-01-08 12:05 | PN ---
Progress Note (short form) - Note Progress Note: still some pain and drainage from the wound Vital Signs Period Temp Pulse Resp BP Sys/Wilson Pulse Ox Last 24 Hr 97.4 F-98.2 F 61-82 18-20 115-128/67-81 90 cor-rrr lungs clear abd soft, nt ext no edema still some induration and purulent drainage CBC, BMP 01/08/17 05:45 01/08/17 05:45 Microbiology 01/06/17 10:00 Abscess Gram Stain - Final 01/06/17 10:00 Abscess Wound Culture - Preliminary Staphylococcus Aureus 01/06/17 01:40 Buttock - Right Gram Stain - Final 01/06/17 01:40 Buttock - Right Wound Culture - Preliminary Staphylococcus Aureus a/p MSSA wound infection amox allergy continue vancomycin today suspect she can go home in am with po bactrim will need VNS for wound care
[2017-01-08] MEDS ORDERED: MAGNESIUM HYDROX 2400MG/30ML ORAL SUSPENSION 30 ML CUP PO ONE (13:15)
[2017-01-08] MEDS ORDERED: MAG HYDROX/AL HYDROX/SIMETH 30 ML UNIT-DOSE CUP PO ONE (13:20)
--- NOTE | 2017-01-08 14:12 | EKG ---
Test Reason : Blood Pressure : / mmHG Vent. Rate : 069 BPM Atrial Rate : 069 BPM P-R Int : 128 ms QRS Dur : 072 ms QT Int : 396 ms P-R-T Axes : 056 024 008 degrees QTc Int : 424 ms NORMAL SINUS RHYTHM WITH SINUS ARRHYTHMIA NORMAL ECG WHEN COMPARED WITH ECG OF 02-DEC-2016 05:27, NONSPECIFIC T WAVE ABNORMALITY, IMPROVED IN ANTERIOR LEADS Confirmed by DESIRAE OWEN, LANA ([id number]) on 01/08/2017 2:11:51 PM Referred By: Confirmed By:LANA MERRILL MD
--- NOTE | 2017-01-08 17:28 | DS ---
Physical Examination Vital Signs: Vital Signs Temperature 97.5 F L 01/08/17 14:00 Pulse Rate 67 01/08/17 14:00 Respiratory Rate 20 01/08/17 14:00 Blood Pressure 113/63 01/08/17 14:00 O2 Sat by Pulse Oximetry (%) 95 01/08/17 09:00 Constitutional: Yes: Mild Distress Eyes: Yes: WNL HENT: Yes: WNL Neck: Yes: WNL Cardiovascular: Yes: WNL Respiratory: Yes: WNL Gastrointestinal: Yes: WNL Renal/: Yes: WNL Musculoskeletal: Yes: WNL Extremities: Yes: WNL Edema: No Peripheral Pulses WNL: Yes Integumentary: Yes: Other Wound/Incision: Yes: Dressing Dry and Intact, Unapproximated Neurological: Yes: WNL ...Motor Strength: WNL Psychiatric: Yes: Other Labs: CBC, BMP 01/08/17 05:45 01/08/17 05:45 Discharge Summary Reason For Visit: ABSCESS OF RT BUTTOCK BIPOLAR DISORDER Current Active Problems Abscess of right buttock (Acute) Cellulitis, gluteal (Acute) Bipolar I disorder (Chronic) Procedures: Principal: I AND D WOUND BUTTOCK Other Procedures: LABS Hospital Course: ADMITTED I AND D BUTTOCK, IV ABX AND PAIN MEDS, PATIENT TO F/U WITH HOME VNS WOUND CARE AND SEE HER PMD IN 3-4 DAYS Condition: Improved - Instructions Diet, Activity, Other Instructions: LOW FAT/SODIUM Referrals: Marv Rm [Primary Care Provider] - Disposition: VNS/HOME HEALTH CARE - Home Medications Comprehensive Discharge Medication List: Ambulatory Orders Aspirin [ASA -] 81 mg PO DAILY 12/13/14 Colesevelam HCl [Welchol] 1,875 mg PO DAILY 02/28/15 Olmesartan/Hydrochlorothiazide [Benicar Hct 20-12.5 mg Tablet] 1 tab PO DAILY Rosuvastatin Calcium [Crestor] 0 mg PO DAILY 02/05/16 Loratadine [Claritin] 10 mg PO DAILY #30 tablet 04/17/16 Albuterol Sulfate Inhaler - [Ventolin Hfa Inhaler -] 1 - 2 inh PO Q4H #1 inhaler 07/04/16
[2017-01-08] MEDS: LATANOPROST 0.005% OU SCH (22:33)
[2017-01-08] MEDS: OPTHALMIC OU SCH (22:33)
[2017-01-08] MEDS: ROSUVASTATIN CA 5 MG TABLET (FP) PO SCH (23:02)
[2017-01-09] MEDS: LOSARTAN POTASSIUM 50 MG TABLET (FP) PO SCH (09:40)
[2017-01-09] MEDS: HYDROCHLOROTHIAZIDE 12.5 MG CAPSULE (FP) PO SCH (09:40)
[2017-01-09] MEDS: SULFAMETHOXAZOLE/TRIMETHOPRIM 800MG/160MG D.S. TABLET PO SCH ×2 (09:40→13:13)
[2017-01-09] MEDS: PANTOPRAZOLE 40 MG TABLET (FP) PO SCH (09:40)
[2017-01-09] MEDS: VANCOMYCIN 1 GRAM (PRE-DOCKED) 1,000 MG/250 ML BAG IVPB SCH (09:41)
[2017-01-09] MEDS ORDERED: MAG HYDROX/AL HYDROX/SIMETH 30 ML UNIT-DOSE CUP PO PRN (10:00)
[2017-01-09] MEDS: oxyCODONE HCL 5 MG TABLET PO PRN (14:00)
--- NOTE | 2017-01-09 18:03 | CONSULT ---
[id number] CONSULT REQUEST: We have been asked to surgically evaluate this patient for left arm swelling/pain. PCP:Wali Rascon HISTORY OF PRESENT ILLNESS:The patient is a 46 yo female who presented to the ER for right gluteal wound. She is s/p I&D x 2. The first I&D was completed by [facility] and recently at [facility] on 01/06 by the surgical team. She was found to have MSSA in her wound culture and is being treated with Bactrim. She is being discharged today and noted left deltoid pain/redness by herself and the nursing staff. She denies any vaccinations/shots/trauma to this arm and only noted the pain since this am. The patient has a history of a RUE DVT in 2005 for which she was on coumadin and then had a right first rib excision. She denies any further history of DVT/swelling and takes an aspirin daily. While in the hospital her IV was in the left hand. PMHx: COPD, RA, OA, HLD, HTN, IBS, glaucoma, bipolar disorder, asthma, cerebral aneurysm, DVT, CAD, PSA, bronchitis PSHx: Right first rib resection Social HX: smoker Home Medications Medication Instructions Recorded Aspirin [ASA -] 81 mg PO DAILY 12/13/14 Colesevelam HCl [Welchol] 1,875 mg PO DAILY 02/28/15 Olmesartan/Hydrochlorothiazide 1 tab PO DAILY 08/03/15 [Benicar Hct 20-12.5 mg Tablet] Rosuvastatin Calcium [Crestor] 0 mg PO DAILY 02/05/16 Loratadine [Claritin] 10 mg PO DAILY #30 tablet 04/17/16 Albuterol Sulfate Inhaler - 1 - 2 inh PO Q4H #1 inhaler 07/04/16 [Ventolin Hfa Inhaler -] Allergies Allergy/AdvReac Type Severity Reaction Status Date / Time amoxicillin trihydrate Allergy Verified 01/05/17 23:35 [From Augmentin] azithromycin [From Zithromax] Allergy Verified 01/05/17 23:35 potassium clavulanate Allergy Verified 01/05/17 23:35 [From Augmentin] REVIEW OF SYSTEMS: CONSTITUTIONAL: Absent: fever, chills. CARDIOVASCULAR: Absent: chest pain, palpitations, peripheral edema RESPIRATORY: Absent: cough, shortness of breath, dyspnea GENITOURINARY: Absent: dysuria, frequency MUSCULOSKELETAL: Absent: joint pain/swelling. PSYCHIATRIC: Present: bipolar. PHYSICAL EXAM: GENERAL: Awake, alert, and fully oriented, in no acute distress. HEAD: Normal with no signs of trauma. NECK: Normal ROM, supple without lymphadenopathy, JVD, or masses. LUNGS: Clear to auscultation bilat anteriorly. No wheezes, and no crackles. No accessory muscle use. HEART: Regular rate and rhythm. No murmurs MUSCULOSKELETAL: Normal ROM at all joints. No bony deformities or tenderness. No tenderness with palpation of left shoulder joint. left shoulder with normal ROM. UPPER EXTREMITIES: 2+ pulses, warm, well-perfused. No cyanosis. Cap refill <2 seconds. No peripheral edema. No erythema/masses noted to left deltoid. No palpable cord to left shoulder. No left hand swelling. Mild tenderness to touch to left deltoid. No open skin over this area. LOWER EXTREMITIES: 2+ pulses, warm, well-perfused. No calf tenderness. No peripheral edema. No calf tenderness. NEUROLOGICAL: Normal speech, gait normal. PSYCH: Cooperative. Good eye contact. Appropriate mood and affect. SKIN: Warm, dry, normal turgor, no rashes or lesions noted. Vital Signs Temperature 98.1 F 01/09/17 14:55 Pulse Rate 57 L 01/09/17 14:55 Respiratory Rate 20 01/09/17 14:55 Blood Pressure 108/58 01/09/17 14:55 O2 Sat by Pulse Oximetry (%) 96 01/09/17 10:00 Lab Results WBC 5.4 K/mm3 (4.0-10.0) D 01/08/17 05:45 RBC 3.54 M/mm3 (3.60-5.2) L 01/08/17 05:45 Hgb 11.5 GM/dL (10.7-15.3) 01/08/17 05:45 Hct 34.6 % (32.4-45.2) 01/08/17 05:45 MCV 97.8 fl (80-96) H 01/08/17 05:45 MCHC 33.1 g/dl (32.0-36.0) 01/08/17 05:45 RDW 13.3 % (11.6-15.6) 01/08/17 05:45 Plt Count 233 K/MM3 (134-434) 01/08/17 05:45 Sodium 139 mmol/L (136-145) 01/08/17 05:45 Potassium 4.1 mmol/L (3.5-5.1) 01/08/17 05:45 Chloride 101 mmol/L (98-107) 01/08/17 05:45 Carbon Dioxide 30 mmol/L (21-32) 01/08/17 05:45 Anion Gap 8 (8-16) 01/08/17 05:45 BUN 23 mg/dL (7-18) H 01/08/17 05:45 Creatinine 0.8 mg/dL (0.55-1.02) 01/08/17 05:45 Random Glucose 82 mg/dL (74-106) 01/08/17 05:45 Calcium 8.6 mg/dL (8.5-10.1) 01/08/17 05:45 Blood Type A NEGATIVE 01/06/17 01:52 Antibody Screen Negative 01/06/17 01:52 INR 1.28 (0.82-1.09) H 01/06/17 01:52 vascular study: 01/09- No evidnece of DVT to left cephalic/basilic/median/RIJ/ subclavian/axillary/radial or ulnar. A/P: 46 yo female s/p right gluteal I&D No evidence of DVT on radiographic studies or physical exam. Case D/w Dr. Wilson. Also of note, there is no evidence of any acute infectious process to the left deltoid. Plan is for discharge today to home on oral bactrim/local wound care. Recommend to follow-up with Dr. Phelps in the clinic next week to monitor wound healing. No acute further surgical needs. Visit type - Case Type Case Type: ED Admission - Emergency Emergency Visit: Yes ED Registration Date: 01/07/17 Care time: The patient presented to the Emergency Department on the above date and was hospitalized for further evaluation of their emergent condition. - New patient This patient is new to me today: No - Critical Care Critical Care patient: No <Óscar Wilson - Last Filed: 01/11/17 10:12> - Consultation REQUESTING PROVIDER: CONSULT REQUEST: We have been asked to surgically evaluate this patient for ( specify). PCP:Wali Rascon HISTORY OF PRESENT ILLNESS: PMHx: PSHx: Home Medications Medication Instructions Recorded Aspirin [ASA -] 81 mg PO DAILY 12/13/14 Colesevelam HCl [Welchol] 1,875 mg PO DAILY 02/28/15 Rosuvastatin Calcium [Crestor] 0 mg PO DAILY 02/05/16 Loratadine [Claritin -] 10 mg PO DAILY #30 tablet 04/17/16 Albuterol Sulfate Inhaler - 1 - 2 inh PO Q4H #1 inhaler 07/04/16 [Ventolin HFA Inhaler -] Acetaminophen [Tylenol .Regular 650 mg PO Q6H PRN #0 tablet 01/09/17 Strength -] Albuterol 0.083% Nebulizer Nida 1 amp NEB Q6H PRN #0 amp 01/09/17 [Ventolin 0.083% Nebulizer Soln -] Albuterol 2.5/Ipratropium 0.5 1 amp NEB Q6H PRN #0 amp 01/09/17 [Duoneb -] Hydrochlorothiazide [Hctz -] 12.5 mg PO DAILY cap 01/09/17 Losartan Potassium [Cozaar -] 50 mg PO DAILY tablet 01/09/17 Mag Hydrox/Al Hydrox/Simeth 30 ml PO DAILY PRN #1 bottle 01/09/17 [Mylanta Oral Suspension -] Pantoprazole Sodium [Protonix -] 40 mg PO DAILY #30 01/09/17 Rosuvastatin [Crestor -] 5 mg PO HS tablet 01/09/17 Sulfamethoxazole/Trimethoprim 1 each PO BID #14 tablet 01/09/17 [Bactrim DS -] Allergies Allergy/AdvReac Type Severity Reaction Status Date / Time amoxicillin trihydrate Allergy Verified 01/05/17 23:35 [From Augmentin] azithromycin [From Zithromax] Allergy Verified 01/05/17 23:35 potassium clavulanate Allergy Verified 01/05/17 23:35 [From Augmentin] REVIEW OF SYSTEMS: CONSTITUTIONAL: Absent: fever, chills, diaphoresis, generalized weakness, malaise, loss of appetite, weight change CARDIOVASCULAR: Absent: chest pain, syncope, palpitations, irregular heart rate, lightheadedness , peripheral edema RESPIRATORY: Absent: cough, shortness of breath, dyspnea with exertion, wheezing, stridor, hemoptysis GASTROINTESTINAL: Absent: abdominal pain, abdominal distension, nausea, vomiting, diarrhea, constipation, melena, hematochezia GENITOURINARY: Absent: dysuria, frequency, urgency, hesitancy, hematuria, flank pain, genital pain MUSCULOSKELETAL: Absent: myalgia, arthralgia, joint swelling, back pain, neck pain SKIN: Absent: rash, itching, pallor HEMATOLOGIC/IMMUNOLOGIC: Absent: easy bleeding, easy bruising, lymphadenopathy NEUROLOGIC: Absent: headache, focal weakness, paresthesias, dizziness, unsteady gait, seizure, mental status changes, bladder or bowel incontinence PSYCHIATRIC: Absent: anxiety, depression, suicidal or homicidal ideation, hallucinations. PHYSICAL EXAM: GENERAL: Awake, alert, and fully oriented, in no acute distress. HEAD: Normal with no signs of trauma. EYES: PERRL, sclera anicteric, conjunctiva clear. NECK: Normal ROM, supple without lymphadenopathy, JVD, or masses. LUNGS: Clear to auscultation bilat anteriorly. No wheezes, and no crackles. No accessory muscle use. HEART: Regular rate and rhythm. No murmurs ABDOMEN: Soft, nontender, not distended, normoactive bowel sounds, no guarding, no rebound, no masses. No organomegaly. MUSCULOSKELETAL: Normal ROM at all joints. No bony deformities or tenderness. No CVA tenderness. UPPER EXTREMITIES: 2+ pulses, warm, well-perfused. No cyanosis. Cap refill <2 seconds. No peripheral edema. LOWER EXTREMITIES: 2+ pulses, warm, well-perfused. No calf tenderness. No peripheral edema. NEUROLOGICAL: Normal speech, gait not observed. PSYCH: Cooperative. Good eye contact. Appropriate mood and affect. SKIN: Warm, dry, normal turgor, no rashes or lesions noted. Vital Signs Temperature 98.2 F 01/09/17 18:00 Pulse Rate 74 01/09/17 18:00 Respiratory Rate 20 01/09/17 18:00 Blood Pressure 122/74 01/09/17 18:00 O2 Sat by Pulse Oximetry (%) 96 01/09/17 10:00 Lab Results WBC 5.4 K/mm3 (4.0-10.0) D 01/08/17 05:45 RBC 3.54 M/mm3 (3.60-5.2) L 01/08/17 05:45 Hgb 11.5 GM/dL (10.7-15.3) 01/08/17 05:45 Hct 34.6 % (32.4-45.2) 01/08/17 05:45 MCV 97.8 fl (80-96) H 01/08/17 05:45 MCHC 33.1 g/dl (32.0-36.0) 01/08/17 05:45 RDW 13.3 % (11.6-15.6) 01/08/17 05:45 Plt Count 233 K/MM3 (134-434) 01/08/17 05:45 Sodium 139 mmol/L (136-145) 01/08/17 05:45 Potassium 4.1 mmol/L (3.5-5.1) 01/08/17 05:45 Chloride 101 mmol/L (98-107) 01/08/17 05:45 Carbon Dioxide 30 mmol/L (21-32) 01/08/17 05:45 Anion Gap 8 (8-16) 01/08/17 05:45 BUN 23 mg/dL (7-18) H 01/08/17 05:45 Creatinine 0.8 mg/dL (0.55-1.02) 01/08/17 05:45 Random Glucose 82 mg/dL (74-106) 01/08/17 05:45 Calcium 8.6 mg/dL (8.5-10.1) 01/08/17 05:45 Blood Type A NEGATIVE 01/06/17 01:52 Antibody Screen Negative 01/06/17 01:52 INR 1.28 (0.82-1.09) H 01/06/17 01:52 Case discussed with SIVAN. No evidence for phlebitis. Analgesia ordered.
[2017-01-09 18:42] VITALS: BP 122/74; PULSE 74; TEMP 98.2
[2017-01-09] MEDS ORDERED: PT OWN MED DRAWER 7, Y5N ONE (20:20)
== END 2017-01-09 20:22 | disposition home health service (06) | DRG 580 ==
LOC: JER 23:32 → UNDOADMOB 01-06 05:29 → INTOOBSV 01-06 05:29 → JERBED 01-06 05:29 → J5S 01-06 08:44 → JERBED 01-06 08:44 → J5S 01-06 12:20 → OBSVTOIN 01-07 09:00
PROVIDERS: ADMIT Family Medicine; ATTEND Family Medicine
PROC: 0J990ZZ Drainage of Buttock Subcutaneous Tissue and Fascia, Open Approach (ICD-10-PCS; principal; 2017-01-06)
DX: L02.31 Cutaneous abscess of buttock (principal); F31.89 Other bipolar disorder; J44.9 Chronic obstructive pulmonary disease, unspecified; M06.80 Other specified rheumatoid arthritis, unspecified site; E78.5 Hyperlipidemia, unspecified; I10 Essential (primary) hypertension; H40.89 Other specified glaucoma; J45.909 Unspecified asthma, uncomplicated; I25.10 Atherosclerotic heart disease of native coronary artery without angina pectoris; K58.8 Other irritable bowel syndrome; L03.317 Cellulitis of buttock; F17.210 Nicotine dependence, cigarettes, uncomplicated; A49.01 Methicillin susceptible Staphylococcus aureus infection, unspecified site; M79.89 Other specified soft tissue disorders; Z86.73 Personal history of transient ischemic attack (TIA), and cerebral infarction without residual deficits; Z86.718 Personal history of other venous thrombosis and embolism
CPT/HCPCS: 36415; 71010-TC; 72193-TC; 80053; 80307; 82550; 84484; 84703; 85025; 85027; 85610; 85651; 85730; 86140; 86850; 86900; 86901; 87070; 87186; 87205; 93005; 93010; 93971; 94640; 99285-25; G0378; J3243

== ENCOUNTER 2017-01-15 05:25 | Emergency (ER) | payer BC, OTHER ==
[2017-01-15 05:33] VITALS: TEMP 97.7; BMI 26.5
--- NOTE | 2017-01-15 06:03 | PDOC ---
History of Present Illness - General Chief Complaint: Wound Infection Stated Complaint: ABSCESS Time Seen by Provider: 01/15/17 05:37 - History of Present Illness Initial Comments: 01/15/17 06:02 CHIEF COMPLAINT: needs packing for abscess HISTORY OF PRESENT ILLNESS: 46 yo with a significant PMH of COPD, glaucoma, cerebral aneurysm, DVT, CAD, IBS, bipolar disorder, rheumatoid arthritis, anxiety, HTN and asthma presents to the ED today for "packing of my abscess that was drained five days ago." Patient had I&D procedure completed in this hospital last week. Patient denies fever, nausea, vomiting, diarrhea. No recent travel or sick contacts. PAST MEDICAL HISTORY: Denies past medical history FAMILY HISTORY: Denies SOCIAL HISTORY: Current smoker, ~15 cigarettes daily. PCP, etOH, tranquilizer use. SURGICAL HISTORY: right rib resection ALLERGIES: amoxicillin, azithromycin, potassium clavulanate REVIEW OF SYSTEMS General/Constitutional: Denies fever or chills. Denies weakness, weight change. HEENT: Denies change in vision. Denies ear pain or discharge. Denies sore throat. Cardiovascular: Denies chest pain or shortness of breath. Respiratory: Denies cough, wheezing, or hemoptysis. Gastrointestinal: Denies nausea, vomiting, diarrhea or constipation. Denies rectal bleeding. Genitourinary: Denies dysuria, frequency, or change in urination. Musculoskeletal: Denies joint or muscle swelling or pain. Denies neck or back pain. Skin and breasts: abscess to buttock Neurologic: Denies headache, vertigo, loss of consciousness, or loss of sensation. PHYSICAL EXAM General Appearance: Well-appearing, appropriately dressed. No apparent distress , no intoxication. Respiratory/Chest: Lungs CTAB. Cardiovascular: RRR. S1, S2. Musculoskeletal/Extremities: Normal inspection. FROM of all extremities, normal capillary refill. No tenderness to extremities, pedal edema, swelling, erythema or deformity. Integumentary: Indurated abscess to right buttock s/p I&D with 1cm x 1 cm open wound, tender to touch. No redness, warmth, swelling. 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 Fully oriented, alert. Appropriate mood/affect. Motor strength 5/5. No appreciable EOM palsy, facial droop or sensory deficit. Past History - Past Medical History Allergies/Adverse Reactions: Allergies Allergy/AdvReac Type Severity Reaction Status Date / Time amoxicillin trihydrate Allergy Verified 01/15/17 05:33 [From Augmentin] azithromycin [From Zithromax] Allergy Verified 01/15/17 05:33 potassium clavulanate Allergy Verified 01/15/17 05:33 [From Augmentin] Home Medications: Ambulatory Orders Aspirin [ASA -] 81 mg PO DAILY 12/13/14 Colesevelam HCl [Welchol] 1,875 mg PO DAILY 02/28/15 Loratadine [Claritin -] 10 mg PO DAILY #30 tablet 04/17/16 Albuterol Sulfate Inhaler - [Ventolin HFA Inhaler -] 1 - 2 inh PO Q4H #1 inhaler 07/04/16 Acetaminophen [Tylenol .Regular Strength -] 650 mg PO Q6H PRN #0 tablet Albuterol 0.083% Nebulizer Nida [Ventolin 0.083% Nebulizer Soln -] 1 amp NEB Q6H PRN #0 amp 01/09/17 Albuterol 2.5/Ipratropium 0.5 [Duoneb -] 1 amp NEB Q6H PRN #0 amp 01/09/17 Hydrochlorothiazide [Hctz -] 12.5 mg PO DAILY cap 01/09/17 Losartan Potassium [Cozaar -] 50 mg PO DAILY tablet 01/09/17 Mag Hydrox/Al Hydrox/Simeth [Mylanta Oral Suspension -] 30 ml PO DAILY PRN #1 bottle 01/09/17 Pantoprazole Sodium [Protonix -] 40 mg PO DAILY #30 01/09/17 Rosuvastatin [Crestor -] 5 mg PO HS tablet 01/09/17 Sulfamethoxazole/Trimethoprim [Bactrim DS -] 1 each PO BID #14 tablet 01/09/17 Anemia: No Asthma: Yes Cancer: No Cardiac Disorders: No CVA: No COPD: Yes CHF: No Dementia: No Diabetes: No GI Disorders: No Disorders: No HTN: Yes Hypercholesterolemia: Yes (on medication) Kidney Stones: No Liver Disease: No Psychiatric Problems: Yes (bipolar) Suicide Attempt (Hx): No Seizures: No Thyroid Disease: No - Surgical History Abdominal Surgery: No Appendectomy: No Cardiac Surgery: Yes (SX R CAROTID ARTERY FOR A CLOT IN 2004) Cholecystectomy: No Gastric Stapling: No GI Surgery: No Lung Surgery: No Neurologic Surgery: No Orthopedic Surgery: No - Reproductive History PID: No - Immunization History Td Vaccination: Yes Immunization Up to Date: Yes - Psycho/Social/Smoking Cessation Hx Anxiety: No Suicidal Ideation: No Smoking Status: Yes Smoking History: Current every day smoker Years of Tobacco Use: 20 Have you smoked in the past 12 months: No Number of Cigarettes Smoked Daily: 20 Cigars Per Day: 0 Information on smoking cessation initiated: No 'Breaking Loose' booklet given: 02/05/16 Hx Alcohol Use: No Drug/Substance Use Hx: No Substance Use Type: None, Opiates Hx Substance Use Treatment: Yes (IOP) *Physical Exam - Vital Signs Last Vital Signs Temp Pulse Resp BP Pulse Ox 97.7 F 96 H 18 136/80 98 01/15/17 05:32 01/15/17 05:32 01/15/17 05:32 01/15/17 05:32 01/15/17 05:32 Medical Decision Making - Medical Decision Making 01/15/17 06:08 46 year old female with a significant past medical history of bipolar disorder, rheumatoid arthritis, anxiety, HTN and asthma, who presents to the emergency department today for repacking of wound. -Wound repacked with packing material, covered with xeroform dressing and dry gauze. ADvised patient to follow up with Dr. Rascon this week. Advised patient of signs and symptoms for return to ER; patient verbalized understanding and agrees to plan. 01/15/17 06:13 *DC/Admit/Observation/Transfer Diagnosis at time of Disposition: Cellulitis, gluteal, Wound check, abscess - Discharge Dispostion Disposition: HOME Condition at time of disposition: Stable Admit: No - Referrals Referrals: Marv Rm [Primary Care Provider] - - Patient Instructions Printed Discharge Instructions: DI for Wound Infection Additional Instructions: Please keep the area of the abscess clean and dry. You MUST follow up with Dr. Rascon within the next 48 hours. If you experience any fever, nausea, vomiting , diarrhea, or notice any spreading, redness, warmth, of the site of your abscess, please return to the ER.
--- NOTE | 2017-01-15 06:24 | PDOC ---
*Physical Exam - Vital Signs Last Vital Signs Temp Pulse Resp BP Pulse Ox 97.7 F 96 H 18 136/80 98 01/15/17 05:32 01/15/17 05:32 01/15/17 05:32 01/15/17 05:32 01/15/17 05:32 Medical Decision Making - Medical Decision Making 01/15/17 06:23 agree with care from CAROL Short. *DC/Admit/Observation/Transfer Diagnosis at time of Disposition: Cellulitis, gluteal, Wound check, abscess - Discharge Dispostion Disposition: HOME Condition at time of disposition: Stable - Referrals Referrals: Marv Rm [Primary Care Provider] - - Patient Instructions Printed Discharge Instructions: DI for Wound Infection Additional Instructions: Please keep the area of the abscess clean and dry. You MUST follow up with Dr. Rascon within the next 48 hours. If you experience any fever, nausea, vomiting , diarrhea, or notice any spreading, redness, warmth, of the site of your abscess, please return to the ER. - Post Discharge Activity
[2017-01-15 11:23] VITALS: BP 132/78; PULSE 88
== END 2017-01-15 07:40 | disposition home or self-care (01) ==
LOC: JER 05:25
DX: Z48.01 Encounter for change or removal of surgical wound dressing (principal); L02.31 Cutaneous abscess of buttock; L03.317 Cellulitis of buttock; Z86.718 Personal history of other venous thrombosis and embolism; I10 Essential (primary) hypertension; E78.00 Pure hypercholesterolemia, unspecified; F31.9 Bipolar disorder, unspecified; J45.909 Unspecified asthma, uncomplicated; J44.9 Chronic obstructive pulmonary disease, unspecified; I67.1 Cerebral aneurysm, nonruptured; K58.9 Irritable bowel syndrome, unspecified; I25.10 Atherosclerotic heart disease of native coronary artery without angina pectoris; F17.210 Nicotine dependence, cigarettes, uncomplicated
CPT/HCPCS: 99281-25

== ENCOUNTER 2017-01-15 09:42 | Emergency (ER) | payer BC, OTHER ==
[2017-01-15 09:50] VITALS: BP 135/89; PULSE 89; TEMP 97.9; BMI 28.0
[2017-01-15] MEDS ORDERED: IBUPROFEN 600 MG TABLET (FP) PO ONE ×2 (10:46→10:47)
--- NOTE | 2017-01-15 10:50 | PDOC ---
History of Present Illness - General Chief Complaint: Pain Stated Complaint: FEVER, SWOLLEN RT LEG Time Seen by Provider: 01/15/17 10:26 History Source: Patient Exam Limitations: No Limitations - History of Present Illness Initial Comments: 01/15/17 10:49 Patient just discharged from emergency department for reevaluation and wound check/wound care of abscess to her right leg. Upon discharge from main emergency department , SHE reinstated for a new ER visit to be evaluated for hand pain . Patient has multiple complaints, but appears to be manic, talking in some gibberish, with multiple questions about discharge planning, and follow- up purpose. when asked specific questions, patient unwilling to answer directly , changes subject and reverts back to "VEIN PAIN and her blood illness".Has changed stories 3 times discussing medications and that reports has not taken medications for 3 weeks as she had some insurance issues, then changed saying that Dr. Rascon renewed all of her medications including the Seraquel, but diod not report that she was taking them. Patient continues to complain of multiple medical problems including blood problems and stated had not taken medications for 3 weeks. Had been admitted for 5 days for wound management. Has history of bipolar disease and multiple other medical issues including COPD , glaucoma, cerebral aneurysm, DVT, CAD, IBS, bipolar disorder, rheumatoid arthritis, anxiety, HTN and asthma. 01/15/17 10:51 Severity: reports: mild, moderate Pain Location: reports: upper extremity (handsa ) Associated Symptoms (Fall): denies symptoms Past History - Travel Traveled outside of the country in the last 30 days: No Close contact w/someone who was outside of country & ill: No - Past Medical History Allergies/Adverse Reactions: Allergies Allergy/AdvReac Type Severity Reaction Status Date / Time amoxicillin trihydrate Allergy Verified 01/15/17 09:51 [From Augmentin] azithromycin [From Zithromax] Allergy Verified 01/15/17 09:51 potassium clavulanate Allergy Verified 01/15/17 09:51 [From Augmentin] Home Medications: Ambulatory Orders Aspirin [ASA -] 81 mg PO DAILY 12/13/14 Colesevelam HCl [Welchol] 1,875 mg PO DAILY 02/28/15 Loratadine [Claritin -] 10 mg PO DAILY #30 tablet 04/17/16 Albuterol Sulfate Inhaler - [Ventolin HFA Inhaler -] 1 - 2 inh PO Q4H #1 inhaler 07/04/16 Acetaminophen [Tylenol .Regular Strength -] 650 mg PO Q6H PRN #0 tablet Albuterol 0.083% Nebulizer Nida [Ventolin 0.083% Nebulizer Soln -] 1 amp NEB Q6H PRN #0 amp 01/09/17 Albuterol 2.5/Ipratropium 0.5 [Duoneb -] 1 amp NEB Q6H PRN #0 amp 01/09/17 Hydrochlorothiazide [Hctz -] 12.5 mg PO DAILY cap 01/09/17 Losartan Potassium [Cozaar -] 50 mg PO DAILY tablet 01/09/17 Mag Hydrox/Al Hydrox/Simeth [Mylanta Oral Suspension -] 30 ml PO DAILY PRN #1 bottle 01/09/17 Pantoprazole Sodium [Protonix -] 40 mg PO DAILY #30 01/09/17 Rosuvastatin [Crestor -] 5 mg PO HS tablet 01/09/17 Sulfamethoxazole/Trimethoprim [Bactrim DS -] 1 each PO BID #14 tablet 01/09/17 Anemia: No Asthma: Yes Cancer: No Cardiac Disorders: No CVA: No COPD: Yes CHF: No Dementia: No Diabetes: No GI Disorders: No Disorders: No HTN: Yes Hypercholesterolemia: Yes (on medication) Kidney Stones: No Liver Disease: No Psychiatric Problems: Yes (bipolar) Suicide Attempt (Hx): No Seizures: No Thyroid Disease: No Other medical history: GLAUCOMA, ARTHRITIS - Surgical History Abdominal Surgery: No Appendectomy: No Cardiac Surgery: Yes (SX R CAROTID ARTERY FOR A CLOT IN 2004) Cholecystectomy: No Gastric Stapling: No GI Surgery: No Lung Surgery: No Neurologic Surgery: No Orthopedic Surgery: No - Reproductive History PID: No - Immunization History Td Vaccination: Yes Immunization Up to Date: Yes - Psycho/Social/Smoking Cessation Hx Anxiety: Yes Suicidal Ideation: No Smoking Status: Yes Smoking History: Current every day smoker Years of Tobacco Use: 20 Have you smoked in the past 12 months: No Number of Cigarettes Smoked Daily: 10 Cigars Per Day: 0 Information on smoking cessation initiated: No 'Breaking Loose' booklet given: 02/05/16 Hx Alcohol Use: No Drug/Substance Use Hx: Yes (PCP) Substance Use Type: Opiates Hx Substance Use Treatment: Yes (IOP) Trauma Specific PMHX - Complaint Specific PMHX Arthritis: Yes (Osteoarthritis) Review of Systems - Review of Systems Able to Perform ROS?: Yes Is the patient limited Kyrgyz proficient: Yes Constitutional: Yes: Symptoms Reported, See HPI, Malaise HEENTM: No: Symptoms Reported Respiratory: Yes: See HPI. No: Symptoms reported, Cough Musculoskeletal: Yes: See HPI, Joint Swelling. No: Symptoms Reported Integumentary: Yes: Symptoms Reported Neurological: Yes: Symptoms reported, See HPI All Other Systems: Reviewed and Negative *Physical Exam - Vital Signs Last Vital Signs Temp Pulse Resp BP Pulse Ox 97.9 F 89 18 135/89 98 01/15/17 09:46 01/15/17 09:46 01/15/17 09:46 01/15/17 09:46 01/15/17 09:46 - Physical Exam General Appearance: Yes: Nourished, Appropriately Dressed. No: Apparent Distress, Mild Distress HEENT: positive: MAX, Normal ENT Inspection, Normal Voice, TMs Normal, Pharynx Normal Neck: positive: Supple. negative: Lymphadenopathy (R), Lymphadenopathy (L) Respiratory/Chest: positive: Lungs Clear, Normal Breath Sounds Musculoskeletal: positive: Normal Inspection Extremity: positive: Normal Capillary Refill, Normal Inspection, Normal Range of Motion (patient without swelling, sweats redness, immobility to hands. No phlebitis noted, has full range of motion all digits with strong grasp flexion and extension to fingers. Neurovascular intact.) Integumentary: positive: Normal Color, Dry, Warm. negative: Erythema, Ecchymosis, Bruising Neurologic: positive: steel cutter II-XII NML intact, Alert, Normal Mood/Affect (patient appears agitated with excessive talking and sometimes gibberish), Normal Response, Motor Strength 5/5 Progress Note - Progress Note Progress Note: Gen. hand pain treated with ibuprofen. She need, social work assisted patient in obtaining transportation home from this emergency department. *DC/Admit/Observation/Transfer Diagnosis at time of Disposition: Bilateral hand pain - Discharge Dispostion Disposition: HOME Condition at time of disposition: Stable Admit: No - Referrals Referrals: Marv Rm [Primary Care Provider] - - Patient Instructions Printed Discharge Instructions: DI for Hand Pain Additional Instructions: Keep hand elevated, keep dry and warm May use ibuprofen for pain relief Continue all other medications as prescribed See Dr. Rm or private physician for follow-up
== END 2017-01-15 10:53 | disposition home or self-care (01) ==
LOC: JERFT 09:42
DX: M79.642 Pain in left hand (principal); M79.641 Pain in right hand; F31.9 Bipolar disorder, unspecified; I10 Essential (primary) hypertension; E78.00 Pure hypercholesterolemia, unspecified; J44.9 Chronic obstructive pulmonary disease, unspecified; J45.909 Unspecified asthma, uncomplicated
CPT/HCPCS: 99281-25

== ENCOUNTER 2017-01-26 22:54 | Emergency (ER) | payer BC, OTHER ==
[2017-01-26 23:03] VITALS: BMI 28.0
--- NOTE | 2017-01-26 23:17 | PDOC ---
[id number]: No Limitations - History of Present Illness Initial Comments: 01/27/17 00:04 The patient is a 46 year old female, poor historian, with a significant past medical history of bipolar disorder, rheumatoid arthritis, anxiety, HTN and asthma, who presents to the emergency room today s/p mechanical fall. The patient reports that this morning she was sitting in the chair when the chair gave way and she hit her head. The patient reports associated general left sided pain and headache. In the emergency department, upon examination, the patient has slurred speech. <Jamie Berry - Last Filed: 01/27/17 01:35> <Tiffani Haque - Last Filed: 01/27/17 16:43> - General Chief Complaint: Injury Stated Complaint: FALL Time Seen by Provider: 01/26/17 23:16 Past History <Jamie Berry - Last Filed: 01/27/17 01:35> - Past Medical History Anemia: No Asthma: Yes Cancer: No Cardiac Disorders: No CVA: No COPD: Yes CHF: No Dementia: No Diabetes: No GI Disorders: No Disorders: No HTN: Yes Hypercholesterolemia: Yes (on medication) Kidney Stones: No Liver Disease: No Psychiatric Problems: Yes (bipolar) Suicide Attempt (Hx): No Seizures: No Thyroid Disease: No - Surgical History Abdominal Surgery: No Appendectomy: No Cardiac Surgery: Yes (SX R CAROTID ARTERY FOR A CLOT IN 2004) Cholecystectomy: No Gastric Stapling: No GI Surgery: No Lung Surgery: No Neurologic Surgery: No Orthopedic Surgery: No - Reproductive History PID: No - Immunization History Td Vaccination: Yes Immunization Up to Date: Yes - Psycho/Social/Smoking Cessation Hx Anxiety: Yes Suicidal Ideation: No Smoking Status: Yes Smoking History: Current every day smoker Years of Tobacco Use: 20 Have you smoked in the past 12 months: No Number of Cigarettes Smoked Daily: 20 Cigars Per Day: 0 Information on smoking cessation initiated: No 'Breaking Loose' booklet given: 02/05/16 Hx Alcohol Use: No Drug/Substance Use Hx: No Substance Use Type: Opiates Hx Substance Use Treatment: Yes (IOP) <Tiffani Haque - Last Filed: 01/27/17 16:43> - Past Medical History Allergies/Adverse Reactions: Allergies Allergy/AdvReac Type Severity Reaction Status Date / Time amoxicillin trihydrate Allergy Verified 01/26/17 23:01 [From Augmentin] azithromycin [From Zithromax] Allergy Verified 01/26/17 23:01 potassium clavulanate Allergy Verified 01/26/17 23:01 [From Augmentin] Home Medications: Ambulatory Orders Aspirin [ASA -] 81 mg PO DAILY 12/13/14 Colesevelam HCl [Welchol] 1,875 mg PO DAILY PRN 02/28/15 Albuterol Sulfate Inhaler - [Ventolin HFA Inhaler -] 1 - 2 inh PO Q4H #1 inhaler 07/04/16 Acetaminophen [Tylenol .Regular Strength -] 650 mg PO Q6H PRN #0 tablet Albuterol 0.083% Nebulizer Nida [Ventolin 0.083% Nebulizer Soln -] 1 amp NEB Q6H PRN #0 amp 01/09/17 Albuterol 2.5/Ipratropium 0.5 [Duoneb -] 1 amp NEB Q6H PRN #0 amp 01/09/17 Losartan Potassium [Cozaar -] 50 mg PO DAILY tablet 01/09/17 Pantoprazole Sodium [Protonix -] 40 mg PO DAILY #30 01/09/17 Rosuvastatin [Crestor -] 5 mg PO HS tablet 01/09/17 Sulfamethoxazole/Trimethoprim [Bactrim DS -] 1 each PO BID #14 tablet 01/09/17 Loratadine [Claritin -] 10 mg PO DAILY PRN 01/27/17 Trauma Specific PMHX - Complaint Specific PMHX Arthritis: Yes (Osteoarthritis) <Tiffani Haque - Last Filed: 01/27/17 16:43> Review of Systems - Review of Systems Able to Perform ROS?: Yes Comments:: 01/27/17 00:05 CONSTITUTIONAL: Absent: fever, chills, diaphoresis, generalized weakness, malaise, loss of appetite HEENT: Absent: rhinorrhea, nasal congestion, throat pain, throat swelling, difficulty swallowing, mouth swelling, ear pain, eye pain, visual Changes CARDIOVASCULAR: Absent: chest pain, syncope, palpitations, irregular heart rate, lightheadedness , peripheral edema RESPIRATORY: Absent: cough, shortness of breath, dyspnea with exertion, orthopnea, wheezing, stridor, hemoptysis GASTROINTESTINAL: Absent: abdominal pain, abdominal distension, nausea, vomiting, diarrhea, constipation, melena, hematochezia GENITOURINARY: Absent: dysuria, frequency, urgency, hesitancy, hematuria, flank pain, genital pain MUSCULOSKELETAL: Present: Left sided pain Absent: myalgia, arthralgia, joint swelling SKIN: Absent: rash, itching, pallor HEMATOLOGIC/IMMUNOLOGIC: Absent: easy bleeding, easy bruising, lymphadenopathy, frequent infections ENDOCRINE: Absent: unexplained weight gain, unexplained weight loss, heat intolerance, cold intolerance NEUROLOGIC: Present: headache Absent: focal weakness or paresthesias, dizziness, unsteady gait, seizure, mental status changes, bladder or bowel incontinence PSYCHIATRIC: Absent: anxiety, depression, suicidal or homicidal ideation, hallucinations. <Jamie Berry - Last Filed: 01/27/17 01:35> *Physical Exam - Vital Signs Last Vital Signs Temp Pulse Resp BP Pulse Ox 97.8 F 103 H 14 111/75 97 01/26/17 23:02 01/26/17 23:02 01/26/17 23:02 01/26/17 23:02 01/26/17 23:02 - Physical Exam Comments: 01/27/17 00:05 GENERAL: Well developed, well nourished. Awake and alert. No acute distress. HEENT: Normocephalic, atraumatic. PERRLA, EOMI. No conjunctival pallor. Sclera are non- icteric. Moist mucous membranes. Oropharynx is clear. NECK: Supple. Full ROM. No JVD. Carotid pulses 2+ and symmetric, without bruits. No thyromegaly. No lymphadenopathy. CARDIOVASCULAR: Regular rate and rhythm. No murmurs, rubs, or gallops. Distal pulses are 2+ and symmetric. PULMONARY: No evidence of respiratory distress. Lungs clear to auscultation bilaterally. No wheezing, rales or rhonchi. ABDOMINAL: Soft. Non-tender. Non-distended. No rebound or guarding. No organomegaly. Normoactive bowel sounds. MUSCULOSKELETAL Normal range of motion at all joints. No bony deformities or tenderness. No CVA tenderness. EXTREMITIES: No cyanosis. No clubbing. No edema. No calf tenderness. SKIN: Warm and dry. Normal capillary refill. No rashes. No jaundice. NEUROLOGICAL: (+) Slurred speech. Alert, awake, appropriate. Cranial nerves 2- 12 intact. No deficits to light touch and temperature in face, upper extremities and lower extremities. No motor deficits in the in face, upper extremities and lower extremities. Normoreflexic in the upper and lower extremities. Toes are down-going bilaterally. Gait is normal without ataxia. PSYCHIATRIC: Cooperative. Good eye contact. Appropriate mood and affect. <Jamie Berry - Last Filed: 01/27/17 01:35> - Vital Signs Last Vital Signs Temp Pulse Resp BP Pulse Ox 97.8 F 103 H 14 111/75 97 01/26/17 23:02 01/26/17 23:02 01/26/17 23:02 01/26/17 23:02 01/26/17 23:02 <Tiffani Haque - Last Filed: 01/27/17 16:43> ED Treatment Course - RADIOLOGY Radiograph Interpretation: 01/27/17 01:36 EXAM: CT brain without contrast IMAGES: 135 EXAM DATE AND TIME: 2017-01-27 00: 46:47.0 REASON FOR EXAM: Patient fell COMPARISON: None FINDINGS: Normal brain. No acute intracranial abnormality. No hemorrhage. No visible infarct or mass. Osseous structures are intact. THIS DOCUMENT HAS BEEN ELECTRONICALLY SIGNED Jonatan Pedersen MD <Jamie Berry - Last Filed: 01/27/17 01:35> *DC/Admit/Observation/Transfer - Attestations Scribe Attestion: 01/27/17 00:05 Documentation prepared by Jamie Berry, acting as medical attendant for Tiffani Haque MD. <Jamie Berry - Last Filed: 01/27/17 01:35> <Tiffani Haque - Last Filed: 01/27/17 16:43> Diagnosis at time of Disposition: Pain - Discharge Dispostion Disposition: HOME Condition at time of disposition: Good - Patient Instructions Additional Instructions: Please follow up with your PMD. Do not use PCP.
[2017-01-27] MEDS ORDERED: ACETAMINOPHEN 500 MG TABLET (FP) PO ONE (01:35)
[2017-01-27] MEDS ORDERED: ACETAMINOPHEN 325 MG TABLET (FP) ONE (01:43)
[2017-01-27] MEDS ORDERED: KETOROLAC TROMETHAMINE 60 MG/2 ML VIAL IM ONE (02:12)
[2017-01-27] MEDS ORDERED: KETOROLAC TROMETHAMINE 60 MG/2 ML VIAL ONE (02:28)
[2017-01-27 03:11] VITALS: BP 139/91; PULSE 86; TEMP 98.1
--- NOTE | 2017-01-27 03:18 | PDOC ---
*Physical Exam - Vital Signs Last Vital Signs Temp Pulse Resp BP Pulse Ox 98.1 F 86 17 139/91 100 01/27/17 03:10 01/27/17 03:10 01/27/17 03:10 01/27/17 03:10 01/27/17 03:10 ED Treatment Course - Medications Given in the ED: ED Medications Discontinued Medications Generic Name Dose Route Start Last Admin Trade Name Yves PRN Reason Stop Dose Admin Acetaminophen 975 mg 01/27/17 01:35 01/27/17 01:47 Tylenol - PO 01/27/17 01:36 975 mg ONCE ONE Administration Ketorolac Tromethamine 60 mg 01/27/17 02:12 01/27/17 02:33 Toradol Injection - IM 01/27/17 02:13 60 mg ONCE ONE Administration *DC/Admit/Observation/Transfer Diagnosis at time of Disposition: Pain - Discharge Dispostion Disposition: HOME Condition at time of disposition: Good Admit: No Decision to Admit order Date/Time: 01/27/17 03:16 - Patient Instructions Additional Instructions: Please follow up with your PMD. Do not use PCP. - Attestations Physician Attestion: 01/27/17 03:18 01/27/17 03:18
== END 2017-01-27 04:02 | disposition home or self-care (01) ==
LOC: JER 22:54
PROC: 3E0233Z Introduction of Anti-inflammatory into Muscle, Percutaneous Approach (ICD-10-PCS; principal; 2017-01-26)
DX: R52 Pain, unspecified (principal); W07.XXXA Fall from chair, initial encounter; Y93.89 Activity, other specified; Y92.89 Other specified places as the place of occurrence of the external cause; I10 Essential (primary) hypertension; J45.909 Unspecified asthma, uncomplicated; F41.9 Anxiety disorder, unspecified; F31.9 Bipolar disorder, unspecified
CPT/HCPCS: 70450-TC; 96372; 99282-25

== ENCOUNTER 2017-04-07 12:59 | Emergency (ER) | payer BC, OTHER ==
[2017-04-07 13:09] VITALS: TEMP 97.6; BMI 35.4
--- NOTE | 2017-04-07 13:18 | PDOC ---
History of Present Illness - General History Source: Patient Exam Limitations: No Limitations - History of Present Illness Initial Comments: 04/07/17 15:27 The patient is a 46 year old female with a significant past medical history of HTN, HLD, COPD, TIA, bipolar disorder, rheumatoid arthritis, anxiety, and asthma , who presents to the ED from [facility] with left sided weakness, and drooling since yesterday. Patient complains of numbness in the left hand and left foot as well. Patient states she went to [facility] yesterday for left sided pain but was discharged with normal labs. Patient denies fever, chills, nausea, vomiting, diarrhea. Patient denies chest pain, SOB, palpitations. <Jorge L Sierra - Last Filed: 04/07/17 18:32> <Sarah Neff - Last Filed: 04/11/17 16:58> - General Chief Complaint: Weakness Stated Complaint: WEAKNESS Time Seen by Provider: 04/07/17 13:17 tPA Exclusion checklist 3-4.5h - Time Elapsed Date last known well: 04/06/17 Time last known well: 23:30 Elaspsed time: 4 Day(s) and 17 Hour(s) and 28 Minutes - Thrombolytic Therapy Candidate Is patient eligible for thrombolytic therapy: No - Ineligibility reason(s) Reasons No tPA given: Outside of window - delayed arrival <Sarah Neff - Last Filed: 04/11/17 16:58> NIH Stroke Scale - Last Known Well Date/Time & Onset Date Last Known Well: 04/06/17 Time Last Known Well: 23:30 - Initial Evaluation Level of consciousness: Alert Ask patient the month and their age: Answers both correctly Ask patient to open & close eyes; make fist and let go: Obeys both correctly Best gaze (horizontal eye movement): Normal Visual field testing: No visual field loss Facial paresis (Show teeth/raise eyebrows/close eyes tight): Normal symmetrical movement Motor Function: Left Arm: Normal Motor Function: Right Arm: Normal (extends arm 90 (or 45) degrees for 10 seconds without drift Motor Function: Left Leg: Normal (extends leg 30 degrees for 5 seconds without drift) Motor Function: Right Leg: Normal (extends leg 30 degrees for 5 seconds without drift) Limb Ataxia: No ataxia Sensory(Use pinprick test arms,legs,trunk,face/side to side): Normal Best language (Describe picture, name items, read sentences): No Aphasia Dysarthria (read several words): Normal articulation Extinction and Inattention: No abnormality - Total Score NIH Stroke Scale Score: 0 <Sarah Neff - Last Filed: 04/11/17 16:58> Past History <Jorge L Sierra - Last Filed: 04/07/17 18:32> - Past Medical History Anemia: No Asthma: Yes Cancer: No Cardiac Disorders: No CVA: No COPD: Yes CHF: No Dementia: No Diabetes: No GI Disorders: No Disorders: No HTN: Yes Hypercholesterolemia: Yes (on medication) Kidney Stones: No Liver Disease: No Psychiatric Problems: Yes (bipolar) Suicide Attempt (Hx): No Seizures: No Thyroid Disease: No Other medical history: pcp user - Surgical History Abdominal Surgery: No Appendectomy: No Cardiac Surgery: Yes (SX R CAROTID ARTERY FOR A CLOT IN 2004) Cholecystectomy: No Gastric Stapling: No GI Surgery: No Lung Surgery: No Neurologic Surgery: No Orthopedic Surgery: No - Reproductive History PID: No - Immunization History Td Vaccination: Yes Immunization Up to Date: Yes - Psycho/Social/Smoking Cessation Hx Anxiety: Yes Suicidal Ideation: No Smoking Status: Yes Smoking History: Current every day smoker Years of Tobacco Use: 20 Have you smoked in the past 12 months: No Number of Cigarettes Smoked Daily: 20 Cigars Per Day: 0 Information on smoking cessation initiated: No 'Breaking Loose' booklet given: 02/05/16 Hx Alcohol Use: No Drug/Substance Use Hx: No Substance Use Type: None, Opiates Hx Substance Use Treatment: Yes (IOP) <Sarah Neff - Last Filed: 04/11/17 16:58> - Past Medical History Allergies/Adverse Reactions: Allergies Allergy/AdvReac Type Severity Reaction Status Date / Time amoxicillin trihydrate Allergy Verified 04/07/17 13:11 [From Augmentin] azithromycin [From Zithromax] Allergy Verified 04/07/17 13:11 potassium clavulanate Allergy Verified 04/07/17 13:11 [From Augmentin] Home Medications: Ambulatory Orders Aspirin [ASA -] 81 mg PO DAILY 12/13/14 Colesevelam HCl [Welchol] 1,875 mg PO DAILY PRN 02/28/15 Albuterol Sulfate Inhaler - [Ventolin HFA Inhaler -] 1 - 2 inh PO Q4H #1 inhaler 07/04/16 Acetaminophen [Tylenol .Regular Strength -] 650 mg PO Q6H PRN #0 tablet Albuterol 0.083% Nebulizer Nida [Ventolin 0.083% Nebulizer Soln -] 1 amp NEB Q6H PRN #0 amp 01/09/17 Losartan Potassium [Cozaar -] 50 mg PO DAILY tablet 01/09/17 Pantoprazole Sodium [Protonix -] 40 mg PO DAILY #30 01/09/17 Rosuvastatin [Crestor -] 5 mg PO HS tablet 01/09/17 Loratadine [Claritin -] 10 mg PO DAILY PRN 01/27/17 Review of Systems - Review of Systems Able to Perform ROS?: Yes Comments:: 04/07/17 15:27 GENERAL/CONSTITUTIONAL: No fever or chills. + drooling. HEAD, EYES, EARS, NOSE AND THROAT: No change in vision. No ear pain or discharge. No sore throat. CARDIOVASCULAR: No chest pain or shortness of breath. RESPIRATORY: No cough, wheezing, or hemoptysis. GASTROINTESTINAL: No nausea, vomiting, diarrhea or constipation. GENITOURINARY: No dysuria, frequency, or change in urination. MUSCULOSKELETAL: No joint or muscle swelling or pain. No neck or back pain. SKIN: No rash NEUROLOGIC: + left sided weakness. + numbness in the left hand and left foot. No headache, vertigo, loss of consciousness. ENDOCRINE: No increased thirst. No abnormal weight change. HEMATOLOGIC/LYMPHATIC: No anemia, easy bleeding, or history of blood clots. ALLERGIC/IMMUNOLOGIC: No hives or skin allergy. <Jorge L Sierra - Last Filed: 04/07/17 18:32> *Physical Exam - Vital Signs Last Vital Signs Temp Pulse Resp BP Pulse Ox 97.6 F 70 18 183/127 100 04/07/17 12:59 04/07/17 12:59 04/07/17 12:59 04/07/17 12:59 04/07/17 12:59 - Physical Exam Comments: 04/07/17 15:30 GENERAL: Awake, alert, and fully oriented, in no acute distress HEAD: No signs of trauma EYES: PERRLA, EOMI, sclera anicteric, conjunctiva clear ENT: Auricles normal inspection, hearing grossly normal, nares patent, oropharynx clear without exudates. Moist mucosa NECK: Normal ROM, supple, no lymphadenopathy, JVD, or masses LUNGS: Breath sounds equal, clear to auscultation bilaterally. No wheezes, and no crackles HEART: Regular rate and rhythm, normal S1 and S2, no murmurs, rubs or gallops ABDOMEN: Soft, nontender, normoactive bowel sounds. No guarding, no rebound. No masses EXTREMITIES: Normal range of motion, no edema. No clubbing or cyanosis. No cords, erythema, or tenderness NEUROLOGICAL: Cranial nerves II through XII grossly intact. Alert and oriented x3. She is slumping to the left side but jose to right herself with re- direction. Neuro exam is limited due to lack of cooperation. Was able to lift both her extremities with no pronator drift. Able to extend both her arms without pronator drift. 5/5 strength bilaterally in biceps and triceps. Able to lift both legs against gravity. 5/5 strength plantar flexion bilaterally. Speech was fluent and clear. SKIN: Warm, Dry, normal turgor, no rashes or lesions noted. <Jorge L Sierra - Last Filed: 04/07/17 18:32> - Vital Signs Last Vital Signs Temp Pulse Resp BP Pulse Ox 97.6 F 70 18 183/127 100 04/07/17 12:59 04/07/17 12:59 04/07/17 12:59 04/07/17 12:59 04/07/17 12:59 <Sarah Neff - Last Filed: 04/11/17 16:58> ED Treatment Course - LABORATORY CBC & Chemistry Diagram: 04/07/17 14:15 04/07/17 14:15 <Jorge L Sierra - Last Filed: 04/07/17 18:32> - LABORATORY CBC & Chemistry Diagram: 04/07/17 14:15 04/07/17 14:15 <Sarha Neff - Last Filed: 04/11/17 16:58> Medical Decision Making - Medical Decision Making 04/07/17 18:[address] Berman. Dr. Berman is familiar with him. He is attempting to attain records for patient and possible prior TIA's <Jorge L Sierra - Last Filed: 04/07/17 18:32> - Medical Decision Making 04/07/17 18:50 Pt presents to the ED complaining of L sided weakness that began at 11:30 last night. States that she was seen at [facility] last night, where they did " nothing" for her. Presents to the ED today because she fell out of a chair in rehab. Also complaining of sharp left sided chest pain. Patient is poorly cooperative with neurologic exam, but with maximal encouragement NIH stroke scale is 0. Given hypertension and CVA symptoms, initial plan was to admit the patient for TIA work up. Case discussed with Dr. Berman, who is familiar with the patient and recalls her having a recent TIA work up. Dr. Berman is attempting to obtain old records. <Sarha Neff - Last Filed: 04/11/17 16:58> *DC/Admit/Observation/Transfer - Attestations Scribe Attestion: 04/07/17 15:31 Documentation prepared by Jorge L Sierra, acting as biomedical field service engineer for Sarah Neff MD, . <Jorge L Sierra - Last Filed: 04/07/17 18:32> <Sarah Neff - Last Filed: 04/11/17 16:58> Diagnosis at time of Disposition: Pain - Discharge Dispostion Disposition: HOME Condition at time of disposition: Stable - Referrals Referrals: Marv Rm [Primary Care Provider] - Wali Rascon MD [Staff Physician] - - Patient Instructions Printed Discharge Instructions: DI for Musculoskeletal Pain Additional Instructions: Please follow up with DR. Rascon tomorrow in the morning. Go to his office for follow up. Your Head CT and blood work showed no acute findings.
[2017-04-07 16:07] LABS: ALBUMIN 3.6 g/dl (3.4-5.0); ANION GAP 11 (8-16); BILIRUBIN,TOTAL 0.3 mg/dL (0.2-1.0); CALCIUM 9.1 mg/dL (8.5-10.1); CO2 27 mmol/L (21-32); COCKROFT - GAULT 124.4995; CREATININE 0.8 mg/dL (0.55-1.02); GLUCOSE,RANDOM 82 mg/dL (74-106); SGOT/AST 19 U/L (15-37); SGPT/ALT 32 U/L (12-78); TOT PROT 7.2 g/dl (6.4-8.2)
[2017-04-07 16:08] LABS: BASOPHIL 0.2 % (0-2.0); EOSINOPHIL 0.9 % (0-4.5); MCH 33.1 pg (25.7-33.7); MEAN CELL VOLUME 100.2 fl (80-96); MEAN PLT VOLUME 8.1 fl (7.5-11.1); NEUTROPHILS 50.3 % (42.8-82.8); PLATELET COUNT 191 K/MM3 (134-434); RDW 14.5 % (11.6-15.6); WHITE BLOOD COUNT 6.4 K/mm3 (4.0-10.0)
[2017-04-07 16:10] LABS: ALK PHOS 78 U/L (45-117); TROPONIN I < 0.02 ng/ml (0.00-0.05)
[2017-04-07 19:11] VITALS: BP 144/86; PULSE 82
[2017-04-07 20:14] LABS: PLATELET ESTIMATE ADEQUATE (NORMAL)
--- NOTE | 2017-04-07 20:21 | PDOC ---
*Physical Exam - Vital Signs Last Vital Signs Temp Pulse Resp BP Pulse Ox 97.6 F 82 18 144/86 98 04/07/17 12:59 04/07/17 18:55 04/07/17 18:55 04/07/17 18:55 04/07/17 18:55 ED Treatment Course - LABORATORY CBC & Chemistry Diagram: 04/07/17 14:15 04/07/17 14:15 - ADDITIONAL ORDERS Additional order review: Laboratory Results 04/07/17 14:15 Sodium 143 Potassium 3.8 Chloride 105 Carbon Dioxide 27 Anion Gap 11 BUN 20 H Creatinine 0.8 Creat Clearance w eGFR > 60 Random Glucose 82 Calcium 9.1 Total Bilirubin 0.3 D AST 19 D ALT 32 D Alkaline Phosphatase 78 Creatine Kinase 211 H D CK-MB (CK-2) 2.128 Troponin I < 0.02 Total Protein 7.2 Albumin 3.6 D 04/07/17 14:15 RBC 3.91 MCV 100.2 H MCHC 33.0 RDW 14.5 MPV 8.1 Neutrophils % 50.3 D Lymphocytes % 43.6 H D Monocytes % 5.0 Eosinophils % 0.9 D Basophils % 0.2 Medical Decision Making - Medical Decision Making 04/07/17 20:21 Sign-out received from outgoing Emergency Physician Dr. Neff Pt interviewed and examined Ancillary studies reviewed Case discussed in detail with oncoming Emergency Physician including history, physical exam and ancillary studies. Pt had told me that the pain is a twisting type of pain and that she feels like she is having spasms. She denies any illicit drug use or other regular drug use. At this time, patient does not want any medications or prescriptions. Case discussed with DR. Rascon, who knows her well and wants her to follow up in his office tomorrow AM. Imaging and labs reviewed. Will follow up tomorrow morning in Dr. Rascon's office. Pt given results of tests. I discussed the physical exam findings, ancillary test results and final diagnoses with the patient. I answered all of the patient's questions. The patient was satisfied with the care received and felt comfortable with the discharge plan and treatment plan. The patient will call their primary care physician within 24 hours to arrange follow-up and will return to the Emergency Department with any new, persistant or worsening symptoms. 04/07/17 20:39 *DC/Admit/Observation/Transfer Diagnosis at time of Disposition: Pain - Discharge Dispostion Disposition: HOME Condition at time of disposition: Stable Admit: No - Referrals Referrals: Marv Rm [Primary Care Provider] - Wali Rascon MD [Staff Physician] - - Patient Instructions Printed Discharge Instructions: DI for Musculoskeletal Pain Additional Instructions: Please follow up with DR. Rascon tomorrow in the morning. Go to his office for follow up. Your Head CT and blood work showed no acute findings. - Post Discharge Activity
--- NOTE | 2017-04-08 11:42 | EKG ---
Test Reason : Blood Pressure : / mmHG Vent. Rate : 062 BPM Atrial Rate : 062 BPM P-R Int : 138 ms QRS Dur : 068 ms QT Int : 412 ms P-R-T Axes : 052 030 -02 degrees QTc Int : 418 ms NORMAL SINUS RHYTHM NORMAL ECG WHEN COMPARED WITH ECG OF 07-APR-2017 13:05, NO SIGNIFICANT CHANGE WAS FOUND Confirmed by SHANE STODDARD MD ([id number]) on 04/08/2017 11:41:49 AM Referred By: Confirmed By:SHANE STODDARD MD
--- NOTE | 2017-04-13 15:43 | EKG ---
Test Reason : Blood Pressure : / mmHG Vent. Rate : 059 BPM Atrial Rate : 059 BPM P-R Int : 128 ms QRS Dur : 070 ms QT Int : 414 ms P-R-T Axes : 058 023 006 degrees QTc Int : 409 ms SINUS BRADYCARDIA OTHERWISE NORMAL ECG WHEN COMPARED WITH ECG OF 07-JAN-2017 16:51, NO SIGNIFICANT CHANGE WAS FOUND Confirmed by SHANE STODDARD MD ([id number]) on 04/13/2017 3:43:30 PM Referred By: Confirmed By:SHANE STODDARD MD
== END 2017-04-07 20:44 | disposition home or self-care (01) ==
LOC: JER 12:59
DX: M62.81 Muscle weakness (generalized) (principal); R52 Pain, unspecified; I10 Essential (primary) hypertension; E78.00 Pure hypercholesterolemia, unspecified; J44.9 Chronic obstructive pulmonary disease, unspecified; F31.9 Bipolar disorder, unspecified; F41.9 Anxiety disorder, unspecified; J45.909 Unspecified asthma, uncomplicated; M06.9 Rheumatoid arthritis, unspecified; F17.210 Nicotine dependence, cigarettes, uncomplicated
CPT/HCPCS: 36415; 70450-TC; 71010-TC; 80053; 82550; 82553; 84484; 85025; 93005; 93010; 99285-25

== ENCOUNTER 2017-06-22 09:40 | Inpatient (IN) | payer BC, OTHER ==
[2017-06-22 09:49] VITALS: BMI 30.4
--- NOTE | 2017-06-22 09:57 | PDOC ---
History of Present Illness <Willie Crowley - Last Filed: 06/22/17 11:19> - General History Source: Patient, Old Records Exam Limitations: Other (poor historian) - History of Present Illness Initial Comments: 06/22/17 10:50 The patient is a 46 year old female with past medical history of hypertension, hyperlipidemia, COPD, asthma, bipolar disorder, anxiety, RA, alcohol abuse with multiple visits to detox who presents to the ED with multiple complaints. The patient was initially seen at [facility] where she was treated for her wheezing. In the ED, she is complaining of chest pressure, a pressure-like headache as well left arm and leg numbness and weakness which all began once she arrived to the ED. She states her last drink was yesterday where she shared a Nutcracker with a friend. The patient is a poor historian and is changing her story multiple times upon presentation. No further history is obtained. PCP: Marv Rm <Ange Dominguez - Last Filed: 06/22/17 12:00> - General Chief Complaint: Chest Pain Stated Complaint: WHEEZING Time Seen by Provider: 06/22/17 09:55 NIH Stroke Scale - Last Known Well Date/Time & Onset Date Last Known Well: 06/22/17 Time Last Known Well: 10:27 (Started 5 minutes ago) - Initial Evaluation Level of consciousness: Alert Ask patient the month and their age: Answers both correctly Ask patient to open & close eyes; make fist and let go: Obeys both correctly Best gaze (horizontal eye movement): Normal Visual field testing: No visual field loss Facial paresis (Show teeth/raise eyebrows/close eyes tight): Normal symmetrical movement Motor Function: Left Arm: Drift Motor Function: Right Arm: Normal (extends arm 90 (or 45) degrees for 10 seconds without drift Motor Function: Left Leg: Normal (extends leg 30 degrees for 5 seconds without drift) Motor Function: Right Leg: Normal (extends leg 30 degrees for 5 seconds without drift) Limb Ataxia: No ataxia Sensory(Use pinprick test arms,legs,trunk,face/side to side): Normal Best language (Describe picture, name items, read sentences): No Aphasia Dysarthria (read several words): Normal articulation Extinction and Inattention: No abnormality - Total Score NIH Stroke Scale Score: 1 <Willie Crowley - Last Filed: 06/22/17 11:19> Past History - Past Medical History Anemia: No Asthma: Yes Cancer: No Cardiac Disorders: No CVA: No COPD: Yes CHF: No Dementia: No Diabetes: No GI Disorders: No Disorders: No HTN: Yes Hypercholesterolemia: Yes (on medication) Kidney Stones: No Liver Disease: No Psychiatric Problems: Yes (bipolar) Suicide Attempt (Hx): No Seizures: No Thyroid Disease: No - Surgical History Abdominal Surgery: No Appendectomy: No Cardiac Surgery: Yes (SX R CAROTID ARTERY FOR A CLOT IN 2004) Cholecystectomy: No Gastric Stapling: No GI Surgery: No Lung Surgery: No Neurologic Surgery: No Orthopedic Surgery: No - Reproductive History PID: No - Immunization History Td Vaccination: Yes Immunization Up to Date: Yes - Psycho/Social/Smoking Cessation Hx Anxiety: Yes Suicidal Ideation: No Smoking Status: Yes Smoking History: Current every day smoker Years of Tobacco Use: 20 Have you smoked in the past 12 months: No Number of Cigarettes Smoked Daily: 20 Cigars Per Day: 0 Information on smoking cessation initiated: No 'Breaking Loose' booklet given: 02/05/16 Hx Alcohol Use: No Drug/Substance Use Hx: No Substance Use Type: None, Opiates Hx Substance Use Treatment: Yes (IOP) <Willie Crowley - Last Filed: 06/22/17 11:19> <Ange Dominguez - Last Filed: 06/22/17 12:00> - Past Medical History Allergies/Adverse Reactions: Allergies Allergy/AdvReac Type Severity Reaction Status Date / Time amoxicillin trihydrate Allergy Verified 06/22/17 09:50 [From Augmentin] azithromycin [From Zithromax] Allergy Verified 06/22/17 09:50 potassium clavulanate Allergy Verified 06/22/17 09:50 [From Augmentin] Home Medications: Ambulatory Orders Aspirin [ASA -] 81 mg PO DAILY 06/22/17 Atorvastatin Ca [Lipitor] 40 mg PO HS 06/22/17 Olmesartan/Hydrochlorothiazide [Benicar Hct 40-12.5 mg Tablet] 1 each PO DAILY 06/22/17 Review of Systems - Review of Systems Able to Perform ROS?: Yes Comments:: 06/22/17 10:50 GENERAL/CONSTITUTIONAL: No fever or chills. No weakness. HEAD, EYES, EARS, NOSE AND THROAT: No change in vision. No ear pain or discharge. No sore throat. CARDIOVASCULAR: Present: chest pain No shortness of breath. RESPIRATORY: No cough, wheezing, or hemoptysis. GASTROINTESTINAL: No nausea, vomiting, diarrhea or constipation. GENITOURINARY: No dysuria, frequency, or change in urination. MUSCULOSKELETAL: No joint or muscle swelling or pain. No neck or back pain. SKIN: No rash NEUROLOGIC: Pressure: headache, LUE and LLE weakness No vertigo, loss of consciousness ENDOCRINE: No increased thirst. No abnormal weight change. HEMATOLOGIC/LYMPHATIC: No anemia, easy bleeding, or history of blood clots. ALLERGIC/IMMUNOLOGIC: No hives or skin allergy. All Other Systems: Reviewed and Negative <Ange Dominguez - Last Filed: 06/22/17 12:00> *Physical Exam - Vital Signs Last Vital Signs Temp Pulse Resp BP Pulse Ox 97.3 F L 82 18 157/105 99 06/22/17 09:44 06/22/17 09:44 06/22/17 09:44 06/22/17 09:44 06/22/17 09:44 <Willie Crowley - Last Filed: 06/22/17 11:19> - Vital Signs Last Vital Signs Temp Pulse Resp BP Pulse Ox 97.3 F L 82 18 157/105 99 06/22/17 09:44 06/22/17 09:44 06/22/17 09:44 06/22/17 09:44 06/22/17 09:44 - Physical Exam Comments: 06/22/17 10:53 GENERAL: Awake, alert, and fully oriented, hysterical and crying HEAD: No signs of trauma EYES: PERRLA, EOMI, sclera anicteric, conjunctiva clear ENT: Auricles normal inspection, hearing grossly normal, nares patent, oropharynx clear without exudates. Moist mucosa NECK: Normal ROM, supple, no lymphadenopathy, JVD, or masses LUNGS: Breath sounds equal, clear to auscultation bilaterally. No wheezes, and no crackles HEART: Regular rate and rhythm, normal S1 and S2, no murmurs, rubs or gallops ABDOMEN: Soft, nontender, normoactive bowel sounds. No guarding, no rebound. No masses EXTREMITIES: Normal range of motion, no edema. No clubbing or cyanosis. No cords, erythema, or tenderness NEUROLOGICAL: Cranial nerves II through XII grossly intact. Normal speech. Weakness of left hand only, arm appears to be uninvolved. SKIN: Warm, Dry, normal turgor, no rashes or lesions noted. <Ange Dominguez - Last Filed: 06/22/17 12:00> ED Treatment Course - LABORATORY CBC & Chemistry Diagram: 06/22/17 10:25 06/22/17 10:25 <Willie Crowley - Last Filed: 06/22/17 11:19> - LABORATORY CBC & Chemistry Diagram: 06/22/17 10:25 06/22/17 10:25 - ADDITIONAL ORDERS Additional order review: 06/22/17 10:25 RBC 4.02 MCV 99.4 H MCHC 33.4 RDW 14.3 MPV 7.6 Neutrophils % 44.3 Lymphocytes % 48.0 H Monocytes % 5.4 Eosinophils % 0.6 Basophils % 1.7 D - RADIOLOGY Radiograph Interpretation: 06/22/17 11:[address] as reviewed by Dr. Pollard reports no acute intracranial pathology. Chest X-ray as reviewed by Dr. Bunch reports no acute pathology with good inspiration. <Ange Dominguez Filed: 06/22/17 12:00> Medical Decision Making - Medical Decision Making 06/22/17 11:19 Dr. Harper correctional supply supervisor for Neuro..... low NISS scale, no evidence of large vessel disease, No TPA Will admit to Stroke Tele Will call Dr. Rascon <Willie Crowley - Last Filed: 06/22/17 11:19> - Medical Decision Making 06/22/17 10:55 It appears to be that the best we could possibly give the patient on the NIHSS was a score of 1, possibly 2. The patient is not a candidate for TPA. 06/22/17 11:31 Case discussed with Neuro correctional supply supervisor, Dr. Varner and case discusssed. Phone call placed to admitting physician Dr. Rascon for patient's PCP Dr. Rm. Awaiting call back. 06/22/17 11:37 Phone call returned by the [facility] working with Dr. Rascon, case discussed. <Ange Dominguez - Last Filed: 06/22/17 12:00> *DC/Admit/Observation/Transfer - Discharge Dispostion Admit: Yes - Attestations Physician Attestion: 06/22/17 09:56 I, Dr. Willie Crowley, attest that this document has been prepared under my direction and personally reviewed by me in its entirety. I further attest, that it accurately reflects all work, treatment, procedures and medical decision -making performed by me. <Willie Crowley - Last Filed: 06/22/17 11:19> - Attestations Scribe Attestion: 06/22/17 11:01 Documentation prepared by Ange Dominguez, acting as medical screener for Willie Crowley DO. <Ange Dominguez - Last Filed: 06/22/17 12:00> Diagnosis at time of Disposition: Chest pain at rest, Bipolar depression, Hysteria, Malingering TIA (transient ischemic attack) Qualifiers: Transient cerebral ischemia type: unspecified Qualified Code(s): G45.9 - Transient cerebral ischemic attack, unspecified - Discharge Dispostion Condition at time of disposition: Unchanged/Unknown - Referrals Referrals: Marv Rm [Primary Care Provider] -
[2017-06-22 10:39] LABS: BASOPHIL 1.7 % (0-2.0); EOSINOPHIL 0.6 % (0-4.5); MCH 33.2 pg (25.7-33.7); MCHC 33.4 g/dl (32.0-36.0); MEAN CELL VOLUME 99.4 fl (80-96); MEAN PLT VOLUME 7.6 fl (7.5-11.1); NEUTROPHILS 44.3 % (42.8-82.8); PLATELET COUNT 272 K/MM3 (134-434); RDW 14.3 % (11.6-15.6); WHITE BLOOD COUNT 11.3 K/mm3 (4.0-10.0)
[2017-06-22 10:53] LABS: INR 0.95 (0.82-1.09); PROTHROMBIN TIME (PATIENT) 10.4 SEC (9.98-11.88)
[2017-06-22 11:16] LABS: ALBUMIN 3.8 g/dl (3.4-5.0); ANION GAP 7 (8-16); BILIRUBIN,TOTAL 0.2 mg/dL (0.2-1.0); CALCIUM 8.9 mg/dL (8.5-10.1); CO2 27 mmol/L (21-32); CREATININE 0.8 mg/dL (0.55-1.02); GLUCOSE,RANDOM 86 mg/dL (74-106); MAGNESIUM 2.4 mg/dL (1.8-2.4); SGOT/AST 13 U/L (15-37); SGPT/ALT 21 U/L (12-78); TOT PROT 7.5 g/dl (6.4-8.2)
[2017-06-22 11:18] LABS: ALK PHOS 75 U/L (45-117); CPK 186 IU/L (26-192); TROPONIN I < 0.02 ng/ml (0.00-0.05)
[2017-06-22] MEDS ORDERED: METOPROLOL TARTRATE 25 MG TABLET (FP) PO ONE (11:28)
[2017-06-22] MEDS ORDERED: NITROGLYCERIN SUBLINGUAL 1/150 0.4 MG TAB SL ONE (11:28)
[2017-06-22] MEDS ORDERED: ASPIRIN 81 MG CHEWABLE TABLETS PO ONE (11:28)
[2017-06-22] MEDS ORDERED: METOPROLOL TARTRATE 25 MG TABLET (FP) ONE (11:32)
[2017-06-22] MEDS ORDERED: ASPIRIN 81 MG CHEWABLE TABLETS ONE (11:32)
[2017-06-22 11:44] LABS: URINE APPEARANCE SLCLOUDY; URINE BILIRUBIN NEGATIVE (NEGATIVE); URINE BLOOD 1+ (NEGATIVE); URINE COLOR YELLOW; URINE GLUCOSE (UA) NEGATIVE (NEGATIVE); URINE KETONE NEGATIVE (NEGATIVE); URINE LEUK ESTERASE TRACE (NEGATIVE); URINE NITRITE NEGATIVE (NEGATIVE); URINE PROTEIN NEGATIVE (NEGATIVE); URINE UROBILINOGEN NEGATIVE mg/dL (0.2-1.0)
[2017-06-22 11:46] LABS: URINE MUCUS FEW; URINE RBC 10 /hpf (0-3); URINE WBC 3 /hpf (3-5)
[2017-06-22 12:08] LABS: URINE MARIJUANA THC NEGATIVE ng/ml (CUTOFF=50)
--- NOTE | 2017-06-22 12:47 | EKG ---
Test Reason : Blood Pressure : / mmHG Vent. Rate : 082 BPM Atrial Rate : 082 BPM P-R Int : 136 ms QRS Dur : 074 ms QT Int : 374 ms P-R-T Axes : 055 011 -01 degrees QTc Int : 436 ms NORMAL SINUS RHYTHM NORMAL ECG WHEN COMPARED WITH ECG OF 07-APR-2017 19:19, NO SIGNIFICANT CHANGE WAS FOUND Confirmed by HAWK PICKERING MD ([id number]) on 06/22/2017 12:47:12 PM Referred By: Confirmed By:HAWK PICKERING MD
[2017-06-22] MEDS ORDERED: PATIENT'S OWN MEDICATION (NON-FORMULARY) (Olmesartan/Hydrochlorothiazide [Benicar Hct 40-1 PO SCH (16:45)
[2017-06-22] MEDS ORDERED: VALSARTAN 80 MG TABLET (UD) ONE (17:43)
[2017-06-22] MEDS ORDERED: HYDROCHLOROTHIAZIDE 25 MG TABLET (FP) ONE (17:43)
[2017-06-22] MEDS: VALSARTAN 160 MG TABLET (UD) PO SCH (17:52)
[2017-06-22] MEDS: HYDROCHLOROTHIAZIDE 12.5 MG CAPSULE (FP) PO SCH (17:52)
--- NOTE | 2017-06-22 18:31 | HP ---
Admitting History and Physical - Primary Care Physician PCP: Wali Rascon - Admission Chief Complaint: I have chest pain and weakness on my left hand History of Present Illness: The patient is a 46 year old female with past medical history of HTN, HLD, CAD, COPD, asthma, bipolar disorder, anxiety, RA, ETOH abuse with multiple visits to detox who presents to the ED with multiple complaints. A week prior to admission, patient have cough and colds which she claimed was bothering her but did not take any medications. She also complained of pressure in the head 2 days prior and complained of chest and dizziness today. The patient was initially seen at [facility] where she was treated for her wheezing. In the ED, she is complaining of chest pressure, a pressure-like headache as well left arm and leg numbness and weakness. The patient is a poor historian and is changing her story multiple times upon presentation. In the ED, patient was given nitrol and lopressor. At the time I saw the patient, she denies chest pain, SOB, and palpitation. Although she still complains of pressure in her head and weakness on her left hand. 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 Cardiovascular: Yes: CAD, HTN, Hyperlipdemia Pulmonary: Yes: COPD ...LMP: 07/06/16 Psych: Yes: Bipolar Rheumatology: Yes: Rheumatoid Arthritis - Smoking History Smoking history: Current every day smoker Have you smoked in the past 12 months: No Aproximately how many cigarettes per day: 20 - Alcohol/Substance Use Hx Alcohol Use: No History of Substance Use: reports: Marijuana (and PCP) - Social History ADL: Independent History of Recent Travel: No Home Medications - Allergies Allergies/Adverse Reactions: Allergies Allergy/AdvReac Type Severity Reaction Status Date / Time amoxicillin trihydrate Allergy Verified 06/22/17 09:50 [From Augmentin] azithromycin [From Zithromax] Allergy Verified 06/22/17 09:50 potassium clavulanate Allergy Verified 06/22/17 09:50 [From Augmentin] - Home Medications Home Medications: Ambulatory Orders Aspirin [ASA -] 81 mg PO DAILY 06/22/17 Atorvastatin Ca [Lipitor] 40 mg PO HS 06/22/17 Olmesartan/Hydrochlorothiazide [Benicar Hct 40-12.5 mg Tablet] 1 each PO DAILY 06/22/17 Family Disease History - Family Disease History Family Disease History: Diabetes: Brother (HTN, Cancer), Heart Disease: Grandparent, Father ( ETOH DEPENDENT AND FROM CAD), Mother ( FROM CAD) , Brother, [place]: Brother Review of Systems - Review of Systems Constitutional: denies: Chills, Fever Eyes: denies: Blurred Vision, Double Vision HENT: denies: Ear Discharge, Ear Pain Neck: denies: Stiffness Cardiovascular: denies: Palpitations, Shortness of Breath Respiratory: reports: Cough Gastrointestinal: denies: Abdominal Pain Genitourinary: denies: Dysuria Musculoskeletal: reports: Muscle Weakness (Left hand weakness and numbness) Neurological: reports: Headache (Described as deep pressure inside her head) Hematology/Lymphatic: denies: Excessive Bleeding Psychiatric: reports: Altered Sleep Pattern Physical Examination Vital Signs: Vital Signs Temperature 97.3 F L 06/22/17 09:44 Pulse Rate 66 06/22/17 17:02 Respiratory Rate 20 06/22/17 17:02 Blood Pressure 123/92 06/22/17 17:02 O2 Sat by Pulse Oximetry (%) 99 06/22/17 17:02 Constitutional: Yes: No Distress Eyes: Yes: Conjunctiva Clear, EOM Intact HENT: Yes: Normocephalic Neck: Yes: Supple Cardiovascular: Yes: Regular Rate and Rhythm Respiratory: Yes: Regular, CTA Bilaterally Gastrointestinal: Yes: Normal Bowel Sounds, Soft Musculoskeletal: Yes: Muscle Weakness (left hand) Extremities: Yes: Other (Left extremity, strenght 4/5, decreased sensation 80%) . No: Calf Tenderness Edema: No Peripheral Pulses WNL: Yes Neurological: Yes: Alert, Oriented Problem List - Problems (1) TIA (transient ischemic attack) Code(s): G45.9 - TRANSIENT CEREBRAL ISCHEMIC ATTACK, UNSPECIFIED Qualifiers: Transient cerebral ischemia type: unspecified Qualified Code(s): G45.9 - Transient cerebral ischemic attack, unspecified (2) Chest pain Code(s): R07.9 - CHEST PAIN, UNSPECIFIED Qualifiers: Chest pain type: unspecified Qualified Code(s): R07.9 - Chest pain, unspecified (3) Hypertension Code(s): I10 - ESSENTIAL (PRIMARY) HYPERTENSION Qualifiers: Hypertension type: essential hypertension Qualified Code(s): I10 - Essential (primary) hypertension (4) CAD (coronary artery disease) Code(s): I25.10 - ATHSCL HEART DISEASE OF [place] CORONARY ARTERY W/O ANG PCTRS Assessment/Plan (1) TIA (transient ischemic attack) Code(s): G45.9 - TRANSIENT CEREBRAL ISCHEMIC ATTACK, UNSPECIFIED Qualifiers: Transient cerebral ischemia type: unspecified Qualified Code(s): G45.9 - Transient cerebral ischemic attack, unspecified -CT head --> no acute process -Neurology referral -Neuro checks (2) Chest pain Code(s): R07.9 - CHEST PAIN, UNSPECIFIED Qualifiers: Chest pain type: unspecified Qualified Code(s): R07.9 - Chest pain, unspecified -Received a dose of Nitrol in the ED -Presently denies chest pain -Will monitor CE -Cardiology referral (3) Hypertension Code(s): I10 - ESSENTIAL (PRIMARY) HYPERTENSION Qualifiers: Hypertension type: essential hypertension Qualified Code(s): I10 - Essential (primary) hypertension -Continue valsartan and thiazide -Monitor BP (4) CAD (coronary artery disease) Code(s): I25.10 - ATHSCL HEART DISEASE OF [place] CORONARY ARTERY W/O ANG PCTRS -Continue statin and aspirin -Cardiology referral
[2017-06-22 18:58] LABS: CPK 140 IU/L (26-192); TROPONIN I < 0.02 ng/ml (0.00-0.05)
[2017-06-22] MEDS ORDERED: ATORVASTATIN CA 40 MG TABLET (FP) ONE (21:31)
[2017-06-22] MEDS: ATORVASTATIN CA 40 MG TABLET (FP) PO SCH (22:00)
[2017-06-23] MEDS: DOCUSATE SODIUM 100 MG CAPSULE (FP) PO PRN ×3 (00:35→21:53)
[2017-06-23] MEDS: ACETAMINOPHEN 325 MG TABLET (FP) PO PRN ×3 (00:36→21:54)
--- NOTE | 2017-06-23 05:03 | PN ---
Progress Note (short form) - Note Progress Note: Paged to evaluate EKG on Dr. Rascon's pt experiencing chest pain and having the appropriate interventions done. EKG -- NSR; bradycardiat at 55bpm. QTc 430. [place] interval WNL. No change from previous EKG Saw pt sleeping comfortably at bedside. Explained how EKG was unchanged.
[2017-06-23 06:41] LABS: BASOPHIL 0.2 % (0-2.0); EOSINOPHIL 1.5 % (0-4.5); MCH 33.6 pg (25.7-33.7); MCHC 33.5 g/dl (32.0-36.0); MEAN CELL VOLUME 100.2 fl (80-96); MEAN PLT VOLUME 7.4 fl (7.5-11.1); NEUTROPHILS 46.1 % (42.8-82.8); PLATELET COUNT 274 K/MM3 (134-434); WHITE BLOOD COUNT 7.2 K/mm3 (4.0-10.0)
[2017-06-23 07:24] LABS: ALBUMIN 3.5 g/dl (3.4-5.0); ANION GAP 9 (8-16); BILIRUBIN,TOTAL 0.4 mg/dL (0.2-1.0); CALCIUM 8.8 mg/dL (8.5-10.1); CO2 29 mmol/L (21-32); CREATININE 0.9 mg/dL (0.55-1.02); GLUCOSE,RANDOM 87 mg/dL (74-106); MAGNESIUM 2.3 mg/dL (1.8-2.4); PHOSPHOROUS 3.3 mg/dL (2.5-4.9); SGOT/AST 14 U/L (15-37); SGPT/ALT 23 U/L (12-78); TOT PROT 7.2 g/dl (6.4-8.2)
[2017-06-23 07:27] LABS: ALK PHOS 71 U/L (45-117); TROPONIN I < 0.02 ng/ml (0.00-0.05)
--- NOTE | 2017-06-23 07:30 | DS ---
Physical Examination Vital Signs: Vital Signs Temperature 97.7 F 06/23/17 05:23 Pulse Rate 67 06/23/17 05:23 Respiratory Rate 14 06/23/17 05:23 Blood Pressure 127/90 06/23/17 05:23 O2 Sat by Pulse Oximetry (%) 98 06/22/17 23:45 Findings/Remarks: Positive PCP on toxicology, will need outpatient rehab/support group, long history of ETOH Abuse/SUbstance Abuse I spoke with neurology over the phone last night, Dr Cruz reports all of her symptoms are from chronic substance abuse and can be managed as an outpatient. Constitutional: Yes: Mild Distress Eyes: Yes: WNL HENT: Yes: WNL Neck: Yes: WNL Cardiovascular: Yes: WNL Respiratory: Yes: WNL Gastrointestinal: Yes: WNL Renal/: Yes: WNL Musculoskeletal: Yes: Muscle Pain Extremities: Yes: WNL Edema: No Peripheral Pulses WNL: Yes Integumentary: Yes: WNL Wound/Incision: Yes: Clean/Dry Neurological: Yes: Pre-Existing Deficit ...Motor Strength: LLE, RLE Psychiatric: Yes: Other Labs: CBC, BMP 06/23/17 05:20 Discharge Summary Reason For Visit: TRANSIENT ISCHEMIC ATTACK;CHEST PAIN; BIPOLAR Current Active Problems Abscess of right buttock (Acute) Bipolar depression (Acute) CAD (coronary artery disease) (Acute) Chest pain at rest (Acute) Hysteria (Acute) Malingering (Acute) TIA (transient ischemic attack) (Acute) Bipolar I disorder (Chronic) Procedures: Principal: ct head Hospital Course: admitted for rule out cva, neurology and cardiology workup done with no acute changes, will need case managment to schedule outpatient support group for detox /rehab, follow up with neurology. Condition: Stable - Instructions Diet, Activity, Other Instructions: outpatient detox/rehab see pmd in 1-2 days neurology outpatient Referrals: Marv Rm [Primary Care Provider] - Disposition: VNS/HOME HEALTH CARE - Home Medications Comprehensive Discharge Medication List: Ambulatory Orders Aspirin [ASA -] 81 mg PO DAILY 06/22/17 Atorvastatin Ca [Lipitor] 40 mg PO HS 06/22/17 Olmesartan/Hydrochlorothiazide [Benicar Hct 40-12.5 mg Tablet] 1 each PO DAILY 06/22/17 Acetaminophen [Tylenol .Regular Strength -] 650 mg PO Q6H PRN #0 tablet
[2017-06-23 08:37] LABS: CHOLESTEROL 228 mg/dL (50-200); LDL CHOLESTEROL (ONLY SJRH) 142 mg/dL (5-100)
[2017-06-23] MEDS: ASPIRIN 81 MG CHEWABLE TABLETS PO SCH (09:32)
[2017-06-23] MEDS: VALSARTAN 160 MG TABLET (UD) PO SCH (09:32)
[2017-06-23] MEDS: HYDROCHLOROTHIAZIDE 12.5 MG CAPSULE (FP) PO SCH (09:32)
--- NOTE | 2017-06-23 10:59 | EKG ---
Test Reason : Blood Pressure : / mmHG Vent. Rate : 055 BPM Atrial Rate : 055 BPM P-R Int : 124 ms QRS Dur : 072 ms QT Int : 448 ms P-R-T Axes : 057 022 001 degrees QTc Int : 428 ms SINUS BRADYCARDIA OTHERWISE NORMAL ECG WHEN COMPARED WITH ECG OF 22-JUN-2017 18:24, NO SIGNIFICANT CHANGE WAS FOUND Confirmed by QUEENIE TY MD ([id number]) on 06/23/2017 10:58:53 AM Referred By: Confirmed By:QUEENIE TY MD
--- NOTE | 2017-06-23 11:25 | EKG ---
Test Reason : Blood Pressure : / mmHG Vent. Rate : 067 BPM Atrial Rate : 067 BPM P-R Int : 134 ms QRS Dur : 072 ms QT Int : 420 ms P-R-T Axes : 074 043 013 degrees QTc Int : 443 ms NORMAL SINUS RHYTHM NONSPECIFIC T WAVE ABNORMALITY ABNORMAL ECG WHEN COMPARED WITH ECG OF 22-JUN-2017 09:53, NO SIGNIFICANT CHANGE WAS FOUND Confirmed by QUEENIE TY MD ([id number]) on 06/23/2017 11:25:17 AM Referred By: Confirmed By:QUEENIE TY MD
--- NOTE | 2017-06-23 15:07 | CON.CARD ---
Consult Consult Specialty:: Cardiology Reason for Consultation:: Chest pain - History of Present Illness History of Present Illness: 46 F with HTN , COPD, ETOH abuse, smoker, RA who was admitted with arm numbness and episodic complaints of chest discomfort. SHe describes chronic intermittent pressure which is reproducible with cough and palpation. Able to walk long distances without CP. A stress echocardiogram 1 year a go was negative. 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 Cardio/Vascular: Yes: CAD, HTN, Hyperlipdemia Pulmonary: Yes: COPD ...LMP: 07/06/16 Psych: Yes: Bipolar Rheumatology: Yes: Rheumatoid Arthritis - Alcohol/Substance Use Hx Alcohol Use: Yes History of Substance Use: reports: Marijuana (and PCP) - Smoking History Smoking history: Current every day smoker Have you smoked in the past 12 months: No Aproximately how many cigarettes per day: 20 - Social History ADL: Independent History of Recent Travel: No Home Medications - Allergies Allergies/Adverse Reactions: Allergies Allergy/AdvReac Type Severity Reaction Status Date / Time amoxicillin trihydrate Allergy Verified 06/22/17 09:50 [From Augmentin] azithromycin [From Zithromax] Allergy Verified 06/22/17 09:50 potassium clavulanate Allergy Verified 06/22/17 09:50 [From Augmentin] - Home Medications Home Medications: Ambulatory Orders Aspirin [ASA -] 81 mg PO DAILY 06/22/17 Atorvastatin Ca [Lipitor] 40 mg PO HS 06/22/17 Olmesartan/Hydrochlorothiazide [Benicar Hct 40-12.5 mg Tablet] 1 each PO DAILY 06/22/17 Acetaminophen [Tylenol .Regular Strength -] 650 mg PO Q6H PRN #0 tablet Family Disease History - Family Disease History Family Disease History: Diabetes: Brother (HTN, Cancer), Heart Disease: Grandparent, Father ( ETOH DEPENDENT AND FROM CAD), Mother ( FROM CAD) , Brother, [place]: Brother Review of Systems - Review of Systems Constitutional: reports: No Symptoms Eyes: reports: No Symptoms HENT: reports: No Symptoms Neck: reports: Decreased ROM, Pain on Movement Cardiovascular: reports: No Symptoms Respiratory: reports: Cough Endocrine: reports: No Symptoms Hematology/Lymphatic: reports: No Symptoms Vital Signs: Vital Signs Temperature 98.2 F 06/23/17 10:00 Pulse Rate 100 H 06/23/17 10:00 Respiratory Rate 16 06/23/17 10:00 Blood Pressure 120/93 06/23/17 10:00 O2 Sat by Pulse Oximetry (%) 97 06/23/17 10:00 Constitutional: Yes: Well Nourished, No Distress, Calm Eyes: Yes: WNL HENT: Yes: Atraumatic, Normocephalic Neck: Yes: Supple Respiratory: Yes: Regular, Wheezes Gastrointestinal: Yes: Normal Bowel Sounds Cardiovascular: Yes: Regular Rate and Rhythm JVD: No Carotid Bruit: No Heart Sounds: Yes: S1, S2 Extremities: Yes: WNL Edema: No Integumentary: Yes: WNL Neurological: Yes: WNL - Other Data Labs, Other Data: CBC, BMP 06/23/17 05:20 06/23/17 05:20 INR, PTT INR 0.95 (0.82-1.09) 06/22/17 10:25 Troponin, BNP 06/22/17 06/23/17 18:20 05:20 Troponin I < 0.02 < 0.02 Troponin, BNP 06/22/17 06/23/17 18:20 05:20 Troponin I < 0.02 < 0.02 NSR no STT changes Echo: Report Reviewed Stress Echo: Report Reviewed Ejection Fraction %: LVEF > or = 40 % Problem List - Problems (1) Chest pain at rest Code(s): R07.9 - CHEST PAIN, UNSPECIFIED Assessment/Plan Atypical CP. Chronic and worsened when her COPD is exacerbated. Likely due to reactive airway disease. A stress test recently was negative. ECG shows no dynamic changes. Reconsult as needed.
[2017-06-23] MEDS ORDERED: MAGNESIUM HYDROX 2400MG/30ML ORAL SUSPENSION 30 ML CUP PO ONE (16:00)
[2017-06-23] MEDS: ATORVASTATIN CA 40 MG TABLET (FP) PO SCH (21:53)
--- NOTE | 2017-06-23 23:47 | CON.NEURO ---
Consult Consult Specialty:: NEUROLOGY-KENDRA OWEN Reason for Consultation:: left hand weakness upon admission and head"pressure" - History of Present Illness History of Present Illness: The patient is a 46 year old female with past medical history of HTN, HLD, CAD, COPD, asthma, bipolar disorder, anxiety, RA, ETOH abuse with multiple visits to detox who presents to the ED with multiple complaints. A week prior to admission, patient have cough and colds which she claimed was bothering her but did not take any medications. She also complained of pressure in the head 2 days prior and complained of chest and dizziness yesterday, the night prior to admission she reports using PCP"a little" . The patient was initially seen at [facility] where she was treated for her wheezing. In the ED, she complained of chest pressure, a pressure-like headache as well left arm and leg numbness and weakness. The patient is a poor historian and is changing her story multiple times upon presentation. In the ED, patient was given nitrol and lopressor. Now reports on admission she had 'tingling" in both legs that has waned off in addition to pressure type mild 2/10 intensity headache that has waned off too. She reports her bmother had a "blood disorder" and she had "clotting of vesewls in the neck 9 years ago ". Denies gait d/o, denies all other neurologic symptoms. 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 Cardio/Vascular: Yes: CAD, HTN, Hyperlipdemia Pulmonary: Yes: COPD ...LMP: 07/06/16 Psych: Yes: Bipolar Rheumatology: Yes: Rheumatoid Arthritis - Alcohol/Substance Use Hx Alcohol Use: Yes History of Substance Use: reports: Marijuana (and PCP) - Smoking History Smoking history: Current every day smoker Have you smoked in the past 12 months: No Aproximately how many cigarettes per day: 20 - Social History ADL: Independent History of Recent Travel: No Home Medications - Allergies Allergies/Adverse Reactions: Allergies Allergy/AdvReac Type Severity Reaction Status Date / Time amoxicillin trihydrate Allergy Verified 06/22/17 09:50 [From Augmentin] azithromycin [From Zithromax] Allergy Verified 06/22/17 09:50 potassium clavulanate Allergy Verified 06/22/17 09:50 [From Augmentin] - Home Medications Home Medications: Ambulatory Orders Aspirin [ASA -] 81 mg PO DAILY 06/22/17 Atorvastatin Ca [Lipitor] 40 mg PO HS 06/22/17 Olmesartan/Hydrochlorothiazide [Benicar Hct 40-12.5 mg Tablet] 1 each PO DAILY 06/22/17 Acetaminophen [Tylenol .Regular Strength -] 650 mg PO Q6H PRN #0 tablet Family Disease History - Family Disease History Family Disease History: Diabetes: Brother (HTN, Cancer), Heart Disease: Grandparent, Father ( ETOH DEPENDENT AND FROM CAD), Mother ( FROM CAD) , Brother, CA: Brother Physical Exam-Neuro Vital Signs: Vital Signs Temperature 98.2 F 06/23/17 19:00 Pulse Rate 93 H 06/23/17 19:00 Respiratory Rate 18 06/23/17 19:00 Blood Pressure 118/82 06/23/17 19:00 O2 Sat by Pulse Oximetry (%) 98 06/23/17 13:30 Labs: CBC, BMP 06/23/17 05:20 06/23/17 05:20 INR, PTT INR 0.95 (0.82-1.09) 06/22/17 10:25 - Neuro Exam Level Of Consciousness: Yes: Alert, Oriented to Person, Oriented to Place, Oriented to Time Eyes: Yes: PERRLA Speech: WNL Dominant Hand: Right (Right hand- swelling of PIP index finger) Cranial Nerves II-XII Intact: Yes DTR's: 2+ Left Bicep, 2+ Right Bicep, 2+ Left Tricep, 2+ Right Tricep, 2+ Left Brachioradialis, 2+ Right Brachioradialis, 2+ Left Achilles, 2+ Right Achilles Response to light touch: Normal Response to pain prick: Normal Response to vibration: Normal Coordination: Normal: Finger to Nose (Normal coordination) Motor Strength: 5/5: Left Arm, Right Arm, Left Leg, Right Leg Imaging - Results Cat Scan: Report Reviewed (CT head without acute abn.) Assessment/Plan Pt presented with chest pressure and now tells me she had bilat LE and left hanf tingling and weakness left hand that have resolved. She does not have weakness upon examination, her exam. is non-focal neurologically. One possibility is an acute self-limited neuropathy she may have had due to use of an illicit subsatnce(prob. mixed with unknown substances). Other diagnostic possibility is a chronic immune process trhat causes her to have neuropathic symptoms. I doubt any central process. Pt. is neurologically stable at this time , can be w/u as an outpatient- will obtain anticardiolipin antibodies, B12/B1/ B6 levels/EMGs as part of out pt. w/u. Kindly have the patient call my office to set up an appt. in my office as outpt.([place] [facility]). I have given her my # too). Thank you, Ashley Cruz MD. [phone]
[2017-06-24] MEDS: ACETAMINOPHEN 325 MG TABLET (FP) PO PRN (06:52)
[2017-06-24] MEDS ORDERED: ALBUTEROL SO4 2.5/IPRATROPIUM 0.5 INH SOL 3 ML VIAL.NEB. NEB ONE (07:30)
[2017-06-24] MEDS: HYDROCHLOROTHIAZIDE 12.5 MG CAPSULE (FP) PO SCH (09:11)
[2017-06-24] MEDS: VALSARTAN 160 MG TABLET (UD) PO SCH (09:12)
[2017-06-24] MEDS: ASPIRIN 81 MG CHEWABLE TABLETS PO SCH (09:12)
--- NOTE | 2017-06-24 11:20 | HOSP ---
Subjective - Review of Symptoms Events since last encounter: I was called to evaluate patient for chest pain. She describes 9/10 chest pressure that is constant and non-radiating. She states pain is worse with deep inspiration and palpation. No alleviating factors. Not related to activity or diaphoresis. Denies SOB, palpitations, abd. pain, n/v. General: No: Chills, Night Sweats, Fatigue HEENT: No: Head Aches, Visual Changes Pulmonary: Yes: Pleuritic Chest Pain Cardiovascular: Yes: Chest Pain Gastrointestinal: No: Nausea, Vomiting Musculoskeletal: Yes: No Symptoms Neurological: No: Weakness, Numbness Physical Examination Vital Signs: Vital Signs Temperature 98.4 F 06/24/17 09:16 Pulse Rate 81 06/24/17 09:16 Respiratory Rate 20 06/24/17 09:16 Blood Pressure 116/81 06/24/17 09:16 O2 Sat by Pulse Oximetry (%) 96 06/23/17 21:00 Constitutional: Yes: Calm Eyes: Yes: Conjunctiva Clear HENT: Yes: Atraumatic, Normocephalic Neck: Yes: Supple, Trachea Midline Cardiovascular: Yes: Regular Rate and Rhythm Respiratory: Yes: Regular, CTA Bilaterally Gastrointestinal: Yes: Normal Bowel Sounds Extremities: No: Calf Tenderness Peripheral Pulses WNL: Yes Peripheral Pulses: Left Radial: 2+, Right Radial: 2+, Left Doralis Pedis: 2+, Right Dorsalis Pedis: 2+, Left Femoral: 2+, Right Femoral: 2+ Neurological: Yes: Alert, Oriented Psychiatric: Yes: Alert, Oriented Labs: CBC, BMP 06/23/17 05:20 06/23/17 05:20 Hospitalist Encounter Assessment: A:46 F with HTN , COPD, ETOH abuse, smoker, RA who was admitted with arm numbness and episodic complaints of chest discomfort with recurrent chest pain P: * This atypical chest pain does not appear cardiac in nature. Will order stat: * STAT EKG * STAT CXR Outcome: * EKG shows no interval change * CXR shows no acute pathology. * CP most likely Musculoskeletal Visit type - Emergency Visit Emergency Visit: Yes ED Registration Date: 06/22/17 Care time: The patient presented to the Emergency Department on the above date and was hospitalized for further evaluation of their emergent condition. - New Patient This patient is new to me today: Yes Date on this admission: 06/27/17 - Critical Care Critical Care patient: No
--- NOTE | 2017-06-24 12:59 | EKG ---
Test Reason : Blood Pressure : / mmHG Vent. Rate : 084 BPM Atrial Rate : 084 BPM P-R Int : 118 ms QRS Dur : 072 ms QT Int : 352 ms P-R-T Axes : 057 027 -16 degrees QTc Int : 415 ms NORMAL SINUS RHYTHM NONSPECIFIC ST AND T WAVE ABNORMALITY ABNORMAL ECG WHEN COMPARED WITH ECG OF 23-JUN-2017 03:50, VENT. RATE HAS INCREASED BY 29 BPM Confirmed by MARINA LUJAN MD ([id number]) on 06/24/2017 12:59:11 PM Referred By: Garret ANTHONY Confirmed By:MARINA LUJAN MD
[2017-06-24 14:44] VITALS: BP 109/77; PULSE 88; TEMP 98.4
--- NOTE | 2017-06-24 16:04 | DS ---
Physical Examination Vital Signs: Vital Signs Temperature 98.4 F 06/24/17 14:41 Pulse Rate 88 06/24/17 14:41 Respiratory Rate 19 06/24/17 14:41 Blood Pressure 109/77 06/24/17 14:41 O2 Sat by Pulse Oximetry (%) 96 06/24/17 09:00 Findings/Remarks: discussed with nurse ashley and patient, ekg no acute changes, cxr normal, labs and troponins no active cardiac disease. LFT are elevated and needs a strong follow up with her PMD because she is on Lipitor and Tylenol and needs her liver examined by a GI specialist as an outpatient. Qould stop tylenol for now, but continue lipitor because of CAD. Constitutional: Yes: No Distress Eyes: Yes: WNL HENT: Yes: WNL Neck: Yes: WNL Cardiovascular: Yes: WNL Respiratory: Yes: WNL Gastrointestinal: Yes: WNL Renal/: Yes: WNL Musculoskeletal: Yes: Muscle Pain Extremities: Yes: WNL Edema: No Peripheral Pulses WNL: Yes Integumentary: Yes: WNL Wound/Incision: Yes: Clean/Dry Neurological: Yes: WNL ...Motor Strength: WNL Psychiatric: Yes: Agitated, Other Labs: CBC, BMP 06/23/17 05:20 06/23/17 05:20 Discharge Summary Reason For Visit: TRANSIENT ISCHEMIC ATTACK;CHEST PAIN; BIPOLAR Current Active Problems Abscess of right buttock (Acute) Bipolar depression (Acute) CAD (coronary artery disease) (Acute) Chest pain at rest (Acute) Hysteria (Acute) Malingering (Acute) TIA (transient ischemic attack) (Acute) Bipolar I disorder (Chronic) LFT Transaminitis Procedures: Principal: Ct Head Other Procedures: labs Hospital Course: admitted for headache/copd/fatigue and chest pain. PATIENT WORKED UP AND SEEN BY CARDIOLOGY AND NEUROLOGY CLEARED TO GO HOME AND F/U AN OUTPATIENT. PATIENT HAS ELEVATED LFT'S AND NEEDS A GI WORKUP AN OUTPATIENT. WILL NEED TO STOP TYLENOL FOR NOW, ON LIPITOR WITH HX OF CAD. NEEDS F/U IN MORNING WITH DR RM HER PMD. Condition: Stable - Instructions Diet, Activity, Other Instructions: outpatient detox/rehab see pmd in 1-2 days neurology outpatient GI EVAL STOP TYLENOL NEEDS LIVER FUNCTION FOLLOW UP WITH PRIMARY DOCTOR VNS FOLLOW UP AT HOME SMOKING CESSATION Referrals: Marv Rm [Primary Care Provider] - Disposition: VNS/HOME HEALTH CARE - Home Medications Comprehensive Discharge Medication List: Ambulatory Orders Aspirin [ASA -] 81 mg PO DAILY 06/22/17 Atorvastatin Ca [Lipitor] 40 mg PO HS 06/22/17 Olmesartan/Hydrochlorothiazide [Benicar Hct 40-12.5 mg Tablet] 1 each PO DAILY 06/22/17 Acetaminophen [Tylenol .Regular Strength -] 650 mg PO Q6H PRN #0 tablet
== END 2017-06-24 18:15 | disposition home health service (06) | DRG 313 ==
LOC: JER 09:40 → JERBED 11:25 → J2W 23:50 → J5S 06-23 13:04
PROVIDERS: ADMIT Family Medicine; ATTEND Family Medicine
DX: R07.89 Other chest pain (principal); I10 Essential (primary) hypertension; E78.5 Hyperlipidemia, unspecified; J44.9 Chronic obstructive pulmonary disease, unspecified; F31.9 Bipolar disorder, unspecified; F41.9 Anxiety disorder, unspecified; J45.909 Unspecified asthma, uncomplicated; F10.10 Alcohol abuse, uncomplicated; F17.210 Nicotine dependence, cigarettes, uncomplicated; I25.10 Atherosclerotic heart disease of native coronary artery without angina pectoris; M06.9 Rheumatoid arthritis, unspecified
CPT/HCPCS: 36415; 70450-TC; 71010-TC; 80053; 80061; 80307; 81003; 81015; 82553; 83721; 83735; 84100; 84484; 84703; 85025; 85610; 93005; 93010; 94640; 97116-GP; 97161-GP; 99285-25

== ENCOUNTER 2017-06-30 04:16 | Emergency (ER) | payer BC, OTHER ==
--- NOTE | 2017-06-30 06:53 | PDOC ---
History of Present Illness - General Chief Complaint: Pain Stated Complaint: STOMACH PAIN Time Seen by Provider: 06/30/17 06:06 History Source: Patient Exam Limitations: No Limitations - History of Present Illness Initial Comments: 06/30/17 06:43 Patient patient is a 46-year-old female with history of HTN, HLD, CAD, COPD/ asthma, bipolar disorder, anxiety, RA, EtOH abuse, "liver problems" complaining of abdominal pain and distention which started last night. Patient states she has a history of constipation and was recently admitted to the hospital. During her hospital stay she was given medications to have her passive bowel last bowel movement was Friday last week. Since then she's been straining to go with and thinks her abdomen looks more distended. She however has been eating well. Denies nausea, vomiting, dysuria. Also complains of her rash on her buttocks which is itching started 3 days ago. States she's thinks that the abscesses returning. Denies pain to the area. PMD: Dr. Llanes PMH: As above PSOCHx: etoh abuse, neg drug, ALL: PCN, zithromax, Potassium GENERAL/CONSTITUTIONAL: [No fever or chills. No weakness. No weight change.] HEAD, EYES, EARS, NOSE AND THROAT: [No change in vision. No ear pain or discharge. No sore throat.] CARDIOVASCULAR: [No chest pain or shortness of breath.] RESPIRATORY: (+) cough, wheezing, (-) hemoptysis.] GASTROINTESTINAL: [No nausea, vomiting, diarrhea or constipation. No rectal bleeding.] GENITOURINARY: [No dysuria, frequency, or change in urination.] MUSCULOSKELETAL: [No joint or muscle swelling or pain. No neck or back pain.] SKIN AND BREASTS: (+) rash (-) easy bruising.] NEUROLOGIC: [No headache, vertigo, loss of consciousness, or loss of sensation.] PSYCHIATRIC: [No depression or anxiety.] ENDOCRINE: [No increased thirst. No abnormal weight change.] HEMATOLOGIC/LYMPHATIC: [No anemia, easy bleeding, or history of blood clots.] ALLERGIC/IMMUNOLOGIC: [No hives or skin allergy. No latex allergy.] GENERAL: [The patient is awake, alert, and fully oriented, in no acute distress , coughing.] HEAD: [Normal with no signs of trauma.] EYES: [Pupils equal, round and reactive to light, extraocular movements intact, sclera anicteric, conjunctiva clear.] ENT: [Ears normal, nares patent, oropharynx clear without exudates. Moist mucous membranes.] NECK: [Normal range of motion, supple without lymphadenopathy, JVD, or masses.] LUNGS: [Breath sounds equal, clear to auscultation bilaterally. No wheezes, and no crackles.] HEART: [Regular rate and rhythm, normal S1 and S2 without murmur, rub.] ABDOMEN: [Soft, nontender, normoactive bowel sounds. No guarding, no rebound. No masses.] RECTAL: No stool in the vault, good tone EXTREMITIES: [Normal range of motion, no edema. No clubbing or cyanosis. No cords, erythema, or tenderness.] NEUROLOGICAL: [Cranial nerves II through XII grossly intact. Normal speech, normal gait.] PSYCH: [Normal mood, normal affect.] SKIN: [Herpetic lesion to the right buttocks, Warm, Dry, normal turgor. Past History - Past Medical History Allergies/Adverse Reactions: Allergies Allergy/AdvReac Type Severity Reaction Status Date / Time amoxicillin trihydrate Allergy Verified 06/22/17 09:50 [From Augmentin] azithromycin [From Zithromax] Allergy Verified 06/22/17 09:50 potassium clavulanate Allergy Verified 06/22/17 09:50 [From Augmentin] Home Medications: Ambulatory Orders Aspirin [ASA -] 81 mg PO DAILY 06/22/17 Atorvastatin Ca [Lipitor] 40 mg PO HS 06/22/17 Olmesartan/Hydrochlorothiazide [Benicar Hct 40-12.5 mg Tablet] 1 each PO DAILY 06/22/17 Anemia: No Asthma: Yes Cancer: No Cardiac Disorders: No CVA: No COPD: Yes CHF: No DVT: No Dementia: No Diabetes: No Dialysis: No GI Disorders: No Disorders: No HTN: Yes Hypercholesterolemia: Yes (on medication) HIV: No Kidney Stones: No Liver Disease: No Psychiatric Problems: No Suicide Attempt (Hx): No Seizures: No Thyroid Disease: No Lung CA: No - Surgical History Abdominal Surgery: No Appendectomy: No Cardiac Surgery: Yes (SX R CAROTID ARTERY FOR A CLOT IN 2004) Cholecystectomy: No Gastric Stapling: No GI Surgery: No Lung Surgery: No Neurologic Surgery: No Orthopedic Surgery: No - Reproductive History PID: No - Immunization History Td Vaccination: Yes Immunization Up to Date: Yes - Psycho/Social/Smoking Cessation Hx Anxiety: No Suicidal Ideation: No Smoking Status: Yes Smoking History: Current every day smoker Years of Tobacco Use: 20 Have you smoked in the past 12 months: Yes Number of Cigarettes Smoked Daily: 20 Cigars Per Day: 0 Information on smoking cessation initiated: No 'Breaking Loose' booklet given: 02/05/16 Hx Alcohol Use: No Drug/Substance Use Hx: No Substance Use Type: Alcohol Hx Substance Use Treatment: Yes (IOP) Abd/GI Specific PMHX - Complaint Specific PMHX GERD: No Hepatitis: No Pancreatitis: No *Physical Exam - Vital Signs Last Vital Signs Temp Pulse Resp BP Pulse Ox 97.7 F 73 18 131/93 100 06/30/17 05:15 06/30/17 05:15 06/30/17 05:15 06/30/17 05:15 06/30/17 05:15 ED Treatment Course - RADIOLOGY Radiology Studies Ordered: Category Date Time Status ABDOMEN-KUB FLAT PLATE [RAD] Stat Radiology 06/30/17 06:39 Ordered Medical Decision Making - Medical Decision Making 06/30/17 06:53 1. Patient patient is a 46-year-old female with history of HTN, HLD, CAD, COPD/ asthma, bipolar disorder, anxiety, RA, EtOH abuse, "liver problems" complaining of abdominal pain and distention which started last night consistent with constipation. xray abd KUB miralax for home duo neb treatment for the cough 2. Rash to the buttock consistent with herpetic lesion but out of the window for antiviral. will endorsed to the day team pending xray and discharge *DC/Admit/Observation/Transfer Diagnosis at time of Disposition: Constipation Qualifiers: Constipation type: unspecified constipation type Qualified Code(s): K59.00 - Constipation, unspecified - Patient Instructions Additional Instructions: Your Discharge Instructions: You must call primary care physician within 24 hours to arrange follow-up. Return to the Emergency Department with any new, persistent or worsening symptoms, for fever, chills, SOB, dizziness or any other concerning changes that may occur.
[2017-06-30 07:01] VITALS: TEMP 97.7; BMI 30.1
--- NOTE | 2017-06-30 07:30 | PDOC ---
*Physical Exam - Vital Signs Last Vital Signs Temp Pulse Resp BP Pulse Ox 97.7 F 73 18 131/93 100 06/30/17 05:15 06/30/17 05:15 06/30/17 05:15 06/30/17 05:15 06/30/17 05:15 ED Treatment Course - LABORATORY CBC & Chemistry Diagram: 06/30/17 09:34 06/30/17 09:34 - ADDITIONAL ORDERS Additional order review: Laboratory Results 06/30/17 06:45 Urine HCG, Qual Negative Medical Decision Making - Medical Decision Making 06/30/17 07:30 This is a 46-year-old female with history of HTN, HLD, CAD, COPD/asthma, bipolar disorder, anxiety, RA, EtOH abuse, "liver problems" who presented complaining of abdominal pain, subjective distention, and constipation. Exam is notable for: -Abdomen soft and non-tender -Scant wheezing Plan: -Abdominal labs -KUB to screen for obstruction -Miralax given 06/30/17 12:56 Labs unremarkable. AXR: Constipation, no obstructive pattern. Tolerated lunch. Will dc with Miralax, PCP followup. Return precautions reviewed. *DC/Admit/Observation/Transfer Diagnosis at time of Disposition: Constipation Qualifiers: Constipation type: unspecified constipation type Qualified Code(s): K59.00 - Constipation, unspecified - Discharge Dispostion Disposition: HOME Condition at time of disposition: Stable - Prescriptions Prescriptions: Polyethylene Glycol 3350 [Miralax (For Daily Use) -] 17 gm PO DAILY #1 bottle - Referrals Referrals: Marv Rm [Primary Care Provider] - Call tomorrow - Patient Instructions Printed Discharge Instructions: DI for Constipation, Increased Dietary Fiber May Improve Constipation Conditions With Pelvic Jose Additional Instructions: Drink plenty of fluids and eat a high fiber diet. Take Miralax as prescribed. Follow up with your primary care doctor this week. Return here if you are vomiting/unable to keep down fluids or if you have any other concerning symptoms. - Post Discharge Activity
[2017-06-30 09:53] LABS: BASOPHIL 1.7 % (0-2.0); EOSINOPHIL 1.4 % (0-4.5); MCH 33.6 pg (25.7-33.7); MEAN CELL VOLUME 98.7 fl (80-96); MEAN PLT VOLUME 7.1 fl (7.5-11.1); NEUTROPHILS 50.6 % (42.8-82.8); PLATELET COUNT 213 K/MM3 (134-434); RDW 13.8 % (11.6-15.6); WHITE BLOOD COUNT 5.9 K/mm3 (4.0-10.0)
[2017-06-30 10:13] LABS: ALBUMIN 3.1 g/dl (3.4-5.0); ALK PHOS 78 U/L (45-117); ANION GAP 7 (8-16); BILIRUBIN,TOTAL 0.3 mg/dL (0.2-1.0); CALCIUM 8.8 mg/dL (8.5-10.1); CO2 28 mmol/L (21-32); CREATININE 0.9 mg/dL (0.55-1.02); GLUCOSE,RANDOM 89 mg/dL (74-106); SGOT/AST 16 U/L (15-37); SGPT/ALT 25 U/L (12-78); TOT PROT 6.5 g/dl (6.4-8.2)
[2017-06-30 11:17] LABS: HIV 1 & 2 AB NEGATIVE; HIV 1 AGp24 NEGATIVE
[2017-06-30] MEDS ORDERED: MAGNESIUM CITRATE 300 ML BOTTLE PO ONE (12:09)
[2017-06-30] MEDS ORDERED: MAGNESIUM CITRATE 300 ML BOTTLE ONE (12:19)
[2017-06-30] MEDS ORDERED: ALBUTEROL SO4 2.5/IPRATROPIUM 0.5 INH SOL 3 ML VIAL.NEB. NEB ONE ×2 (12:56→13:00)
[2017-06-30 13:13] VITALS: BP 111/76; PULSE 72
== END 2017-06-30 13:14 | disposition home or self-care (01) ==
LOC: JER 04:16
PROC: 3E0F7GC Introduction of Other Therapeutic Substance into Respiratory Tract, Via Natural or Artificial Opening (ICD-10-PCS; principal; 2017-06-30)
DX: K59.09 Other constipation (principal); I25.10 Atherosclerotic heart disease of native coronary artery without angina pectoris; I10 Essential (primary) hypertension; F17.210 Nicotine dependence, cigarettes, uncomplicated; J44.9 Chronic obstructive pulmonary disease, unspecified; J45.909 Unspecified asthma, uncomplicated; E78.00 Pure hypercholesterolemia, unspecified; F31.9 Bipolar disorder, unspecified; F41.9 Anxiety disorder, unspecified; F10.10 Alcohol abuse, uncomplicated; M06.9 Rheumatoid arthritis, unspecified
CPT/HCPCS: 36415; 74000-TC; 80053; 83690; 84703; 85025; 87389; 94640; 99284-25

== ENCOUNTER 2017-09-15 12:41 | Emergency (ER) | payer BC, OTHER ==
[2017-09-15 12:53] VITALS: BP 143/80; PULSE 115; TEMP 97.7; BMI 30.1
[2017-09-15 15:10] LABS: BASOPHIL 0.2 % (0-2.0); EOSINOPHIL 0.8 % (0-4.5); MCH 32.4 pg (25.7-33.7); MCHC 33.8 g/dl (32.0-36.0); MEAN CELL VOLUME 95.8 fl (80-96); MEAN PLT VOLUME 7.3 fl (7.5-11.1); NEUTROPHILS 38.3 % (42.8-82.8); PLATELET COUNT 222 K/MM3 (134-434); RDW 13.3 % (11.6-15.6); WHITE BLOOD COUNT 5.9 K/mm3 (4.0-10.0)
--- NOTE | 2017-09-15 15:11 | PDOC ---
History of Present Illness - General Chief Complaint: Asthma Stated Complaint: Asthma Time Seen by Provider: 09/15/17 13:50 History Source: Patient Exam Limitations: No Limitations Past History - Past Medical History Allergies/Adverse Reactions: Allergies Allergy/AdvReac Type Severity Reaction Status Date / Time amoxicillin trihydrate Allergy Verified 09/15/17 12:49 [From Augmentin] azithromycin [From Zithromax] Allergy Verified 09/15/17 12:49 potassium clavulanate Allergy Verified 09/15/17 12:49 [From Augmentin] Home Medications: Ambulatory Orders Aspirin [ASA -] 81 mg PO DAILY 06/22/17 Atorvastatin Ca [Lipitor] 40 mg PO HS 06/22/17 Olmesartan/Hydrochlorothiazide [Benicar Hct 40-12.5 mg Tablet] 1 each PO DAILY 06/22/17 Gabapentin [Neurontin -] 300 mg PO DAILY 09/04/17 Linaclotide [Linzess] 72 mcg PO DAILY 09/12/17 Naproxen [Naprosyn -] 500 mg PO DAILY PRN 09/12/17 Albuterol Sulfate Inhaler - [Ventolin HFA Inhaler -] 1 - 2 inh PO Q4H #1 inhaler 09/15/17 Prednisone [Deltasone -] 40 mg PO DAILY #10 tablet 09/15/17 Anemia: No Asthma: Yes Cancer: No Cardiac Disorders: No CVA: No COPD: Yes CHF: No DVT: No Dementia: No Diabetes: No Dialysis: No GI Disorders: No Disorders: No HTN: Yes Hypercholesterolemia: Yes Kidney Stones: No Liver Disease: No Psychiatric Problems: No Seizures: No Thyroid Disease: No Lung CA: No - Surgical History Abdominal Surgery: No Appendectomy: No Cardiac Surgery: Yes (SX R CAROTID ARTERY FOR A CLOT IN 2004) Cholecystectomy: No Gastric Stapling: No GI Surgery: No Lung Surgery: No Neurologic Surgery: No Orthopedic Surgery: No - Reproductive History PID: No - Immunization History Td Vaccination: Yes Immunization Up to Date: Yes - Suicide/Smoking/Psychosocial Hx Smoking Status: Yes Smoking History: Current every day smoker Years of Tobacco Use: 20 Have you smoked in the past 12 months: Yes Number of Cigarettes Smoked Daily: 10 Cigars Per Day: 0 Information on smoking cessation initiated: No 'Breaking Loose' booklet given: 02/05/16 Hx Alcohol Use: No Drug/Substance Use Hx: No Substance Use Type: Alcohol Hx Substance Use Treatment: Yes (Positive Directions) Review of Systems - Review of Systems Able to Perform ROS?: Yes Comments:: 09/15/17 16:51 CONSTITUTIONAL: Absent: fever, chills, diaphoresis, generalized weakness, malaise, loss of appetite HEENT: Absent: rhinorrhea, nasal congestion, throat pain, throat swelling, difficulty swallowing, mouth swelling, ear pain, eye pain, visual Changes CARDIOVASCULAR: Present: chest pain Absent: chest pain, loss of consciousness, palpitations, irregular heart rate, peripheral edema RESPIRATORY: Present: productive cough, SOB Absent: dyspnea with exertion, orthopnea, wheezing, stridor, hemoptysis GASTROINTESTINAL: Absent: abdominal pain, abdominal distension, nausea, vomiting, diarrhea, constipation, melena, hematochezia GENITOURINARY: Absent: dysuria, frequency, urgency, hesitancy, hematuria, flank pain, genital pain MUSCULOSKELETAL: Absent: myalgia, arthralgia, joint swelling SKIN: Absent: rash, itching, pallor HEMATOLOGIC/IMMUNOLOGIC: Absent: easy bleeding, easy bruising, lymphadenopathy, frequent infections ENDOCRINE: Absent: unexplained weight gain, unexplained weight loss, heat intolerance, cold intolerance NEUROLOGIC: Absent: headache, focal weakness or paresthesias, dizziness, unsteady gait, seizure, mental status changes, bladder or bowel incontinence PSYCHIATRIC: Absent: anxiety, depression, suicidal or homicidal ideation, hallucinations. Is the patient limited Cuban proficient: No *Physical Exam - Vital Signs Last Vital Signs Temp Pulse Resp BP Pulse Ox 97.7 F 115 H 20 143/80 96 09/15/17 12:50 09/15/17 12:50 09/15/17 12:50 09/15/17 12:50 09/15/17 12:50 - Physical Exam Comments: 09/15/17 16:52 GENERAL: Well developed, well nourished. Awake and alert. No acute distress. HEENT: Normocephalic, atraumatic. PERRLA, EOMI. No conjunctival pallor. Sclera are non- icteric. Moist mucous membranes. Oropharynx is clear. NECK: Supple. Full ROM. No JVD. Carotid pulses 2+ and symmetric, without bruits. No thyromegaly. No lymphadenopathy. CARDIOVASCULAR: TTP of the mid chest and under the L breast. Regular rate and rhythm. No murmurs , rubs, or gallops. Distal pulses are 2+ and symmetric. PULMONARY: No evidence of respiratory distress. Lungs clear to auscultation bilaterally with fair aeration to bases. No wheezing, rales or rhonchi. ABDOMINAL: Soft. Non-tender. Non-distended. No rebound or guarding. No organomegaly. Normoactive bowel sounds. MUSCULOSKELETAL Normal range of motion at all joints. No bony deformities or tenderness. No CVA tenderness. EXTREMITIES: No cyanosis. No clubbing. No edema. No calf tenderness. SKIN: Warm and dry. Normal capillary refill. No rashes. No jaundice. NEUROLOGICAL: Alert, awake, appropriate. Cranial nerves 2-12 intact. No deficits to light touch and temperature in face, upper extremities and lower extremities. No motor deficits in the in face, upper extremities and lower extremities. Normoreflexic in the upper and lower extremities. Normal speech. Toes are down- going bilaterally. Gait is normal without ataxia. PSYCHIATRIC: Cooperative. Good eye contact. Appropriate mood and affect. Heart Score/ECG Review - History History: Slightly suspicious - Electrocardiogram EKG: Normal - Age Age: 45-65 - Risk Factors Risk Factors Heart Score: Yes Hx Hypercholesterolemia, Yes Hx Hypertension, Yes Hx Obesity Based on the list above the patient has:: >/=3 risk factors or Hx atherosclerotic disease - Troponin Troponin: </= normal limit - Score Heart Score - Total: 3 - [place]: Normal ED Treatment Course - LABORATORY CBC & Chemistry Diagram: 09/15/17 14:44 09/15/17 14:44 - ADDITIONAL ORDERS Additional order review: Laboratory Results 09/15/17 14:20 Urine HCG, Qual Negative - RADIOLOGY Radiology Studies Ordered: Category Date Time Status CHEST PA & LAT [RAD] Stat Radiology 09/15/17 13:50 Taken Medical Decision Making - Medical Decision Making 09/15/17 22:42 EKG: NSR, rate 94 normal intervals, non-specific t wave abnormality. No acute ST -T wave changes. Unchanged from EKG o 09/12/17 *DC/Admit/Observation/Transfer Diagnosis at time of Disposition: Atypical chest pain, Asthma exacerbation in COPD - Discharge Dispostion Disposition: HOME Condition at time of disposition: Improved Admit: No - Prescriptions Prescriptions: Albuterol Sulfate Inhaler - [Ventolin HFA Inhaler -] 1 - 2 inh PO Q4H #1 inhaler Prednisone [Deltasone -] 40 mg PO DAILY #10 tablet - Referrals Referrals: Marv Rm [Primary Care Provider] - - Patient Instructions Printed Discharge Instructions: Asthma -- Adult, DI for Atypical Chest Pain Additional Instructions: You had an asthma attack today. Please use your inhaler every 4 hours for the next week to help with the attack. Please take prednisose 40mg for 5 days to help with your symptoms. Drink plenty of fluids and follow up with your primary care doctor tomorrow. Return to the ED if your pain is worsening, you have trouble breathing, or have any changes in your symptoms - Post Discharge Activity
[2017-09-15 15:12] LABS: ALBUMIN 3.7 g/dl (3.4-5.0); ALK PHOS 79 U/L (45-117); ANION GAP 12 (8-16); BILIRUBIN,TOTAL 0.2 mg/dL (0.2-1.0); CALCIUM 9.2 mg/dL (8.5-10.1); CO2 24 mmol/L (21-32); CREATININE 0.9 mg/dL (0.55-1.02); GLUCOSE,RANDOM 110 mg/dL (74-106); SGOT/AST 18 U/L (15-37); SGPT/ALT 26 U/L (12-78); TOT PROT 7.5 g/dl (6.4-8.2)
[2017-09-15] MEDS ORDERED: ACETAMINOPHEN 325 MG TABLET (FP) PO ONE (15:12)
[2017-09-15 15:15] LABS: CPK 285 IU/L (26-192); TROPONIN I < 0.02 ng/ml (0.00-0.05)
[2017-09-15] MEDS ORDERED: ACETAMINOPHEN 325 MG TABLET (FP) ONE (15:19)
[2017-09-15] MEDS ORDERED: ALBUTEROL SO4 2.5/IPRATROPIUM 0.5 INH SOL 3 ML VIAL.NEB. NEB ONE ×2 (16:09→16:15)
--- NOTE | 2017-09-16 14:09 | EKG ---
Test Reason : Blood Pressure : / mmHG Vent. Rate : 094 BPM Atrial Rate : 094 BPM P-R Int : 130 ms QRS Dur : 072 ms QT Int : 348 ms P-R-T Axes : 050 004 -06 degrees QTc Int : 435 ms NORMAL SINUS RHYTHM POSSIBLE LEFT ATRIAL ENLARGEMENT NONSPECIFIC T WAVE ABNORMALITY ABNORMAL ECG WHEN COMPARED WITH ECG OF 12-SEP-2017 10:26, NO SIGNIFICANT CHANGE WAS FOUND Confirmed by MARINA LUJAN MD ([id number]) on 09/16/2017 2:08:50 PM Referred By: ROXIE Confirmed By:MARINA LUJAN MD
== END 2017-09-15 16:50 | disposition home or self-care (01) ==
LOC: JERFT 12:41
PROC: 3E0F7GC Introduction of Other Therapeutic Substance into Respiratory Tract, Via Natural or Artificial Opening (ICD-10-PCS; principal; 2017-09-15)
DX: J44.1 Chronic obstructive pulmonary disease with (acute) exacerbation (principal); J45.998 Other asthma; I10 Essential (primary) hypertension; E78.00 Pure hypercholesterolemia, unspecified
CPT/HCPCS: 36415; 71020-TC; 80053; 82550; 82553; 84484; 84703; 85025; 93005; 93010; 94640; 99282-25

== ENCOUNTER 2017-11-14 00:20 | Emergency (ER) | payer BC, OTHER ==
[2017-11-14 01:13] VITALS: BMI 30.4
--- NOTE | 2017-11-14 04:06 | PDOC ---
History of Present Illness - General Chief Complaint: Pain Stated Complaint: RIB PAIN Time Seen by Provider: 11/14/17 02:06 History Source: Patient Exam Limitations: No Limitations - History of Present Illness Initial Comments: 11/14/17 04:01 This 47-year-old patient with past medical history of hypertension presents emergency Department with 2 weeks of productive cough which is no causing her pain to her left upper quadrant. Patient states she's been unable to control her cough for the past 2 weeks which is productive with white sputum. She has not checked her temperature but reports subjective fevers. She states she's become increasingly short of breath with the cough. She denies chest pain, sore throat, headaches, nausea, vomiting. Past History - Past Medical History Allergies/Adverse Reactions: Allergies Allergy/AdvReac Type Severity Reaction Status Date / Time amoxicillin trihydrate Allergy Verified 11/14/17 01:11 [From Augmentin] azithromycin [From Zithromax] Allergy Verified 11/14/17 01:11 potassium clavulanate Allergy Verified 11/14/17 01:11 [From Augmentin] Home Medications: Ambulatory Orders Aspirin [ASA -] 81 mg PO DAILY 06/22/17 Atorvastatin Ca [Lipitor] 40 mg PO HS 06/22/17 Olmesartan/Hydrochlorothiazide [Benicar Hct 40-12.5 mg Tablet] 1 each PO DAILY 06/22/17 Gabapentin [Neurontin -] 300 mg PO DAILY 09/04/17 Linaclotide [Linzess] 72 mcg PO DAILY 09/12/17 Naproxen [Naprosyn -] 500 mg PO DAILY PRN 09/12/17 Albuterol Sulfate Inhaler - [Ventolin HFA Inhaler -] 1 - 2 inh PO Q4H #1 inhaler 09/15/17 Prednisone [Deltasone -] 40 mg PO DAILY #10 tablet 09/15/17 Anemia: No Asthma: Yes Cancer: No Cardiac Disorders: No CVA: No COPD: Yes CHF: No DVT: No Dementia: No Diabetes: No Dialysis: No GI Disorders: No Disorders: No HTN: Yes Hypercholesterolemia: Yes Kidney Stones: No Liver Disease: No Psychiatric Problems: No Seizures: No Thyroid Disease: No Lung CA: No - Surgical History Abdominal Surgery: No Appendectomy: No Cardiac Surgery: Yes (SX R CAROTID ARTERY FOR A CLOT IN 2004) Cholecystectomy: No Gastric Stapling: No GI Surgery: No Lung Surgery: No Neurologic Surgery: No Orthopedic Surgery: No - Reproductive History PID: No - Immunization History Td Vaccination: Yes Immunization Up to Date: Yes - Suicide/Smoking/Psychosocial Hx Smoking Status: Yes Smoking History: Current every day smoker Years of Tobacco Use: 20 Have you smoked in the past 12 months: Yes Number of Cigarettes Smoked Daily: 6 Cigars Per Day: 0 Information on smoking cessation initiated: No 'Breaking Loose' booklet given: 02/05/16 Hx Alcohol Use: No Drug/Substance Use Hx: Yes (pcp) Substance Use Type: Alcohol Hx Substance Use Treatment: Yes (Positive Directions) Respiratory Specific PMHX - Complaint Specific PMHX Angina: No Bronchitis: Yes Pulmonary Embolus: No TB (Tuberculosis): No Review of Systems - Review of Systems Able to Perform ROS?: Yes Is the patient limited Estonian proficient: No Constitutional: Yes: See HPI HEENTM: No: Symptoms Reported Respiratory: Yes: See HPI Cardiac (ROS): No: Symptoms Reported ABD/GI: Yes: See HPI : No: Symptoms Reported Musculoskeletal: No: Symptoms Reported Integumentary: No: Symptoms Reported Neurological: No: Symptoms reported *Physical Exam - Vital Signs Last Vital Signs Temp Pulse Resp BP Pulse Ox 98.5 F 95 H 18 132/92 100 11/14/17 01:11 11/14/17 01:11 11/14/17 01:11 11/14/17 01:11/14/17 01:11 - Physical Exam General Appearance: Yes: Appropriately Dressed. No: Apparent Distress HEENT: positive: Normal ENT Inspection Neck: positive: Trachea midline, Supple Respiratory/Chest: positive: Chest Tender (7th intercostal space midaxillary), Rhonchi (bibasal), Wheezing (bibasal). negative: Respiratory Distress, Accessory Muscle Use Cardiovascular: positive: Regular Rhythm, Regular Rate, S1, S2. negative: Edema , Murmur Gastrointestinal/Abdominal: positive: Normal Bowel Sounds, Soft. negative: Tender Musculoskeletal: positive: Normal Inspection. negative: CVA Tenderness Extremity: positive: Normal Inspection, Normal Range of Motion Integumentary: positive: Normal Color, Dry, Warm Neurologic: positive: track leader II-XII NML intact, Fully Oriented, Alert, Normal Mood/ Affect, Normal Response, Motor Strength 5/5 ED Treatment Course - RADIOLOGY Radiology Studies Ordered: Category Date Time Status CHEST PA & LAT [RAD] Stat Radiology 11/14/17 04:00 Ordered Medical Decision Making - Medical Decision Making 11/14/17 04:03 A/P: This 47-year-old patient with past medical history of hypertension presents emergency Department with 2 weeks of productive cough which is no causing her pain to her left upper quadrant. Patient states she's been unable to control her cough for the past 2 weeks which is productive with white sputum. She has not checked her temperature but reports subjective fevers. She states she's become increasingly short of breath with the cough. She denies chest pain, sore throat, headaches, nausea, vomiting. Breath sounds with wheezes and rhonchi at the bases. Respirations even and unlabored. Patient is speaking in full sentences. Chest tender between seventh and eighth ribs in the left midaxillary area. RRR. S1 and S2 present. No murmur rub or gallop noted. No pedal edema. Abdomen soft nontender nondistended. Normoactive bowel sounds present. Differential diagnoses include pneumonia versus bronchitis I'll perform a chest x-ray. I'll give the patient DuoNeb's 4. I'll reevaluate patient told test is complete. 11/14/17 07:04 X-rays read by me: Mediastinum is within normal limits. No infiltrates seen. Otoscopic a visualized osseous structures intact. All times discussed with patient's lung exam has improved and her lungs are currently clear to auscultation bilaterally. I will discharge the patient *DC/Admit/Observation/Transfer Diagnosis at time of Disposition: Bronchitis - Discharge Dispostion Disposition: HOME Condition at time of disposition: Stable Admit: No - Referrals Referrals: Marv Rm [Primary Care Provider] - - Patient Instructions Additional Instructions: Keep well-hydrated. Take DayQuil to help alleviate her symptoms. Use albuterol pump as needed to help to breathe better. Return to emergency department for worsening shortness of breath, fevers, worsening cough, chest pain or any other concerns. Thank you very much for choosing us to provide your emergent healthcare needs. - Post Discharge Activity
[2017-11-14] MEDS ORDERED: ALBUTEROL SO4 2.5/IPRATROPIUM 0.5 INH SOL 3 ML VIAL.NEB. NEB ONE (04:10)
[2017-11-14] MEDS: ALBUTEROL SO4 2.5/IPRATROPIUM 0.5 INH SOL 3 ML VIAL.NEB. NEB SCH ×3 (04:15→04:49)
[2017-11-14 05:25] VITALS: BP 132/88; PULSE 94; TEMP 98
--- NOTE | 2017-11-14 06:00 | PDOC ---
*Physical Exam - Vital Signs Last Vital Signs Temp Pulse Resp BP Pulse Ox 98 F 94 H 18 132/88 100 11/14/17 02:21 11/14/17 02:21 11/14/17 02:21 11/14/17 02:21 11/14/17 01:11 ED Treatment Course - Medications Given in the ED: ED Medications Discontinued Medications Generic Name Dose Route Start Last Admin Trade Name Freq PRN Reason Stop Dose Admin Albuterol/Ipratropium 1 amp 11/14/17 04:00 11/14/17 04:49 Duoneb - NEB 11/14/17 04:46 1 amp Q15M DELFINO Administration Medical Decision Making - Medical Decision Making 11/14/17 05:59 agree with care from CAROL Kraft *DC/Admit/Observation/Transfer Diagnosis at time of Disposition: Pain - Referrals Referrals: Marv Rm [Primary Care Provider] - - Patient Instructions - Post Discharge Activity
[2017-11-14] MEDS ORDERED: IBUPROFEN 400 MG TABLET (FP) PO ONE ×2 (07:18→07:21)
== END 2017-11-14 07:24 | disposition home or self-care (01) ==
LOC: JER 00:20
PROC: 3E0F7GC Introduction of Other Therapeutic Substance into Respiratory Tract, Via Natural or Artificial Opening (ICD-10-PCS; principal; 2017-11-14)
DX: J40 Bronchitis, not specified as acute or chronic (principal); I10 Essential (primary) hypertension; J45.909 Unspecified asthma, uncomplicated; J44.9 Chronic obstructive pulmonary disease, unspecified; F17.210 Nicotine dependence, cigarettes, uncomplicated
CPT/HCPCS: 71046-TC; 94640; 99282-25

== ENCOUNTER 2017-12-01 23:09 | Emergency (ER) | payer BC, OTHER ==
[2017-12-01 23:22] VITALS: BP 143/82; PULSE 88; TEMP 98.2; BMI 30.4
--- NOTE | 2017-12-02 01:07 | PDOC ---
History of Present Illness - General History Source: Patient Exam Limitations: No Limitations - History of Present Illness Initial Comments: 12/02/17 02:40 Patient is a 47 year old female who presents to the ED with complaints of Left sided abdominal pain that began 2 days ago. Patient reports experiencing sudden onset of left upper quadrant pain 2 days ago and has increased in pain over time. She reports left upper quadrant pain increases in intensity with exertion and stimulus. Patient reports experiencing headache, that she states is a pressure pain. She reports experiencing intermittent episodes of nasal bleeding, that began 2 days ago. Denies chest pain, Sob. Denies nausea, vomiting. Denies fevers, chills. Denies contact with sick individuals, out of state travels. Denies any other symptoms. PMHx: HTN, HLD, CAD, COPD, bipolar disorder, anxiety, RA, alcohol abuse and phencyclidine use Allergies: Amoxicillin trihydrate, Azithromycin, Potassium clavulanate Social history: Current smoker. No alcohol. Current PCP use (Last 2 weeks ago). Surgical history: Cardiac surgery. PMD: Dr. Rm <Kamari Fernandez - Last Filed: 12/02/17 03:45> <Marilyn Stevenson - Last Filed: 12/02/17 04:57> - General Chief Complaint: Pain Stated Complaint: PAIN Time Seen by Provider: 12/02/17 00:37 Past History <Kamari Fernandez - Last Filed: 12/02/17 03:45> - Past Medical History Anemia: No Asthma: Yes Cancer: No Cardiac Disorders: No CVA: No COPD: Yes CHF: No DVT: No Dementia: No Diabetes: No Dialysis: No GI Disorders: No Disorders: No HTN: Yes Hypercholesterolemia: Yes Kidney Stones: No Liver Disease: No Psychiatric Problems: No Seizures: No Thyroid Disease: No Lung CA: No - Surgical History Abdominal Surgery: No Appendectomy: No Cardiac Surgery: Yes (SX R CAROTID ARTERY FOR A CLOT IN 2004) Cholecystectomy: No Gastric Stapling: No GI Surgery: No Lung Surgery: No Neurologic Surgery: No Orthopedic Surgery: No - Reproductive History PID: No - Immunization History Td Vaccination: Yes Immunization Up to Date: Yes - Suicide/Smoking/Psychosocial Hx Smoking Status: Yes Smoking History: Current every day smoker Years of Tobacco Use: 20 Have you smoked in the past 12 months: Yes Number of Cigarettes Smoked Daily: 10 Cigars Per Day: 0 Information on smoking cessation initiated: No 'Breaking Loose' booklet given: 02/05/16 Hx Alcohol Use: No Drug/Substance Use Hx: No Substance Use Type: Alcohol Hx Substance Use Treatment: Yes (Positive Directions) <Marilyn Stevenson - Last Filed: 12/02/17 04:57> - Past Medical History Allergies/Adverse Reactions: Allergies Allergy/AdvReac Type Severity Reaction Status Date / Time amoxicillin trihydrate Allergy Verified 12/01/17 23:18 [From Augmentin] azithromycin [From Zithromax] Allergy Verified 12/01/17 23:18 potassium clavulanate Allergy Verified 12/01/17 23:18 [From Augmentin] Home Medications: Ambulatory Orders Aspirin [ASA -] 81 mg PO DAILY 06/22/17 Atorvastatin Ca [Lipitor] 40 mg PO HS 06/22/17 Olmesartan/Hydrochlorothiazide [Benicar Hct 40-12.5 mg Tablet] 1 each PO DAILY 06/22/17 Gabapentin [Neurontin -] 300 mg PO DAILY 09/04/17 Linaclotide [Linzess] 72 mcg PO DAILY 09/12/17 Albuterol Sulfate Inhaler - [Ventolin HFA Inhaler -] 1 - 2 inh PO Q4H #1 inhaler 09/15/17 Naproxen [Naprosyn -] 500 mg PO BID 7 Days #14 tablet 12/02/17 Review of Systems - Review of Systems Able to Perform ROS?: Yes Comments:: 12/02/17 03:45 See HPI. All other systems reviewed and unremarkable <Kamari Fernandez - Last Filed: 12/02/17 03:45> *Physical Exam - Vital Signs Last Vital Signs Temp Pulse Resp BP Pulse Ox 98.2 F 88 20 143/82 100 12/01/17 23:19 12/01/17 23:19 12/01/17 23:19 12/01/17 23:19 12/01/17 23:19 <Kamari Fernandez - Last Filed: 12/02/17 03:45> - Vital Signs Last Vital Signs Temp Pulse Resp BP Pulse Ox 98.2 F 88 20 143/82 100 12/01/17 23:19 12/01/17 23:19 12/01/17 23:19 12/01/17 23:19 12/01/17 23:19 - Physical Exam Comments: 12/02/17 03:42 NAD EOMI RRR CTABL soft NTND no rash tr peripheral edema A&O x 3 <Marilyn Stevenson - Last Filed: 12/02/17 04:57> ED Treatment Course - LABORATORY CBC & Chemistry Diagram: 12/02/17 01:40 12/02/17 01:40 - ADDITIONAL ORDERS Additional order review: Laboratory Results 12/02/17 01:40 Sodium 140 Potassium 4.0 Chloride 105 Carbon Dioxide 27 Anion Gap 8 BUN 24 H Creatinine 1.0 Creat Clearance w eGFR 59.18 Random Glucose 117 H Calcium 9.1 Total Bilirubin 0.3 D AST 43 H ALT 58 Alkaline Phosphatase 66 Total Protein 6.7 Albumin 3.4 12/02/17 01:40 RBC 3.50 L MCV 99.2 H MCHC 33.6 RDW 14.3 MPV 7.6 Neutrophils % 63.7 D Lymphocytes % 31.2 D Monocytes % 3.9 Eosinophils % 0.3 Basophils % 0.9 D - Medications Given in the ED: ED Medications Discontinued Medications Generic Name Dose Route Start Last Admin Trade Name Freq PRN Reason Stop Dose Admin Acetaminophen 650 mg 12/02/17 01:18 12/02/17 01:31 Tylenol - PO 12/02/17 01:19 650 mg ONCE ONE Administration Al Hydroxide/Mg Hydroxide 30 ml 12/02/17 01:18 12/02/17 01:31 Mylanta Oral Suspension - PO 12/02/17 01:19 30 ml ONCE ONE Administration Sodium Chloride 1,000 mls @ 1,000 mls/hr 12/02/17 01:19 12/02/17 01:43 Normal Saline - IV 12/02/17 02:18 1,000 mls/hr ASDIR STA Administration Metoclopramide HCl 10 mg 12/02/17 01:19 12/02/17 01:43 Reglan Injection - IVPUSH 12/02/17 01:20 10 mg ONCE ONE Administration Ranitidine HCl 150 mg 12/02/17 01:18 12/02/17 01:31 Zantac - PO 12/02/17 01:19 150 mg ONCE ONE Administration <Kamari Fernandez - Last Filed: 12/02/17 03:45> - LABORATORY CBC & Chemistry Diagram: 12/02/17 01:40 12/02/17 01:40 - RADIOLOGY Chest X-Ray Result: No Infiltrates <Marilyn Stevenson - Last Filed: 12/02/17 04:57> Medical Decision Making - Medical Decision Making 12/02/17 02:10 47yoF hx of PCP abuse presents w/ LUQ pain worse w/ movement and without accompanying /GI/Resp symptoms and a mild headache x 2 days. - labs - sxs control - CXR - reeval for dispo, likely DC home. 12/02/17 04:42 labs unremarkalbe. LFTs/lipase WNL Laboratory Tests 12/02/17 12/02/17 01:40 01:45 AST 43 H ALT 58 Alkaline Phosphatase 66 Lipase 161 CXR clear Cleared for DC. Musculoskeletal pain. <Marilyn Stevenson - Last Filed: 12/02/17 04:57> *DC/Admit/Observation/Transfer - Attestations Scribe Attestion: 12/02/17 02:41 Documentation prepared by Kamari Fernandez, acting as dental assistant medical assistant for Marilyn Stevenson MD, /DO. <Kamari Fernandez - Last Filed: 12/02/17 03:45> - Discharge Dispostion Admit: No <Marilyn Stevenson - Last Filed: 12/02/17 04:57> Diagnosis at time of Disposition: Musculoskeletal pain, chronic - Discharge Dispostion Disposition: HOME Condition at time of disposition: Good - Prescriptions Prescriptions: Naproxen [Naprosyn -] 500 mg PO BID 7 Days #14 tablet - Referrals Referrals: Marv Rm [Primary Care Provider] - - Patient Instructions Additional Instructions: medications have been sent to your pharmacy: naproxen take as directed see your primary doctor this week. - Post Discharge Activity
[2017-12-02] MEDS ORDERED: MAG HYDROX/AL HYDROX/SIMETH 30 ML UNIT-DOSE CUP PO ONE (01:18)
[2017-12-02] MEDS ORDERED: ACETAMINOPHEN 325 MG TABLET (FP) PO ONE (01:18)
[2017-12-02] MEDS ORDERED: RANITIDINE HCL 150 MG TABLET (FP) PO ONE (01:18)
[2017-12-02] MEDS ORDERED: SODIUM CHLORIDE 1,000 ML IV STA (01:19)
[2017-12-02] MEDS ORDERED: METOCLOPRAMIDE HCL INJECTION 10 MG/2 ML VIAL IVPUSH ONE (01:19)
[2017-12-02] MEDS ORDERED: KETOROLAC TROMETHAMINE 30 MG/1 ML VIAL ONE ×2 (01:24→05:09)
[2017-12-02] MEDS ORDERED: guaiFENesin 200 MG/10 ML 10 ML UNIT-DOSE CUPS ONE (01:24)
[2017-12-02] MEDS ORDERED: ACETAMINOPHEN 325 MG TABLET (FP) ONE ×2 (01:24→01:26)
[2017-12-02] MEDS ORDERED: METOCLOPRAMIDE HCL INJECTION 10 MG/2 ML VIAL ONE (01:26)
[2017-12-02] MEDS ORDERED: MAG HYDROX/AL HYDROX/SIMETH 30 ML UNIT-DOSE CUP ONE (01:27)
[2017-12-02] MEDS ORDERED: RANITIDINE HCL 150 MG TABLET (FP) ONE (01:27)
[2017-12-02 01:50] LABS: BASO % 0.9 % (0-2.0); EOS % 0.3 % (0-4.5); HEMATOCRIT 34.8 % (32.4-45.2); HEMOGLOBIN 11.7 GM/dL (10.7-15.3); LYMPH % 31.2 % (8-40); MCH 33.4 pg (25.7-33.7); MCHC 33.6 g/dl (32.0-36.0); MEAN CELL VOLUME 99.2 fl (80-96); MEAN PLT VOLUME 7.6 fl (7.5-11.1); MONO % 3.9 % (3.8-10.2); NEUT % 63.7 % (42.8-82.8); PLATELET COUNT 196 K/MM3 (134-434); RDW 14.3 % (11.6-15.6); WHITE BLOOD COUNT 5.7 K/mm3 (4.0-10.0)
[2017-12-02 02:19] LABS: ALBUMIN 3.4 g/dl (3.4-5.0); ALK PHOS 66 U/L (45-117); ANION GAP 8 (8-16); BILIRUBIN,TOTAL 0.3 mg/dL (0.2-1.0); BLOOD UREA NITROGEN 24 mg/dL (7-18); CALCIUM 9.1 mg/dL (8.5-10.1); CHLORIDE 105 mmol/L (98-107); CO2 27 mmol/L (21-32); GLUCOSE,RANDOM 117 mg/dL (74-106); SGOT/AST 43 U/L (15-37); SGPT/ALT 58 U/L (12-78); SODIUM 140 mmol/L (136-145); TOT PROT 6.7 g/dl (6.4-8.2)
[2017-12-02] MEDS ORDERED: KETOROLAC TROMETHAMINE 30 MG/1 ML VIAL IM ONE (04:49)
[2017-12-02] MEDS ORDERED: IBUPROFEN 600 MG TABLET (FP) PO ONE (05:08)
[2017-12-02] MEDS: IBUPROFEN 600 MG TABLET (FP) PO ONE ×2 (05:09→05:35)
== END 2017-12-02 05:56 | disposition home or self-care (01) ==
LOC: JER 23:09
PROC: 3E0333Z Introduction of Anti-inflammatory into Peripheral Vein, Percutaneous Approach (ICD-10-PCS; principal; 2017-12-01)
PROC: 3E033GC Introduction of Other Therapeutic Substance into Peripheral Vein, Percutaneous Approach (ICD-10-PCS; 2017-12-01)
DX: R10.12 Left upper quadrant pain (principal); I10 Essential (primary) hypertension; E78.00 Pure hypercholesterolemia, unspecified; J45.909 Unspecified asthma, uncomplicated; J44.9 Chronic obstructive pulmonary disease, unspecified
CPT/HCPCS: 36415; 71046-TC; 80053; 83690; 85025; 96372; 96374; 99281-25

== ENCOUNTER 2017-12-06 04:23 | Emergency (ER) | payer BC, OTHER ==
[2017-12-06] MEDS ORDERED: KETOROLAC TROMETHAMINE 60 MG/2 ML VIAL IM ONE (04:39)
[2017-12-06 04:41] VITALS: BP 123/89; PULSE 75; TEMP 98.7; BMI 30.7
--- NOTE | 2017-12-06 04:44 | PDOC ---
History of Present Illness - General Chief Complaint: Injury Stated Complaint: FALL Time Seen by Provider: 12/06/17 04:38 History Source: Patient Exam Limitations: No Limitations - History of Present Illness Initial Comments: 12/06/17 04:39 47-year-old female with a history of hyperlipidemia, hypertension, arthritis, glaucoma biba complaining of 2/10 dull nonradiating intermittent left occipital headache with left-sided body aches after falling 36 hours ago. Patient states while she was sitting on a chair, she fell asleep and fell onto her left side on carpeted area. Patient denies LOC, dizziness, lightheadedness, facial pain, neck pain/stiffness, back pains, chest pain, shortness of breath, abdominal pain , flank pains, urinary symptoms, extremity numbness or tingling sensation, bladder or bowel dysfunction. Patient states she is able to eat, ambulate without any difficulties. Patient states she was fine but her cousin was coming to the ER and asked Johanna to accompany him to br seen in the ER as well. Patient refuses any images but is requesting for pain medication. Patient advised she can get Toradol nothing stronger, patient agree with the plan. Occurred: reports: other (x1d ago) Past History - Past Medical History Allergies/Adverse Reactions: Allergies Allergy/AdvReac Type Severity Reaction Status Date / Time amoxicillin trihydrate Allergy Verified 12/01/17 23:18 [From Augmentin] azithromycin [From Zithromax] Allergy Verified 12/01/17 23:18 potassium clavulanate Allergy Verified 12/01/17 23:18 [From Augmentin] Home Medications: Ambulatory Orders Aspirin [ASA -] 81 mg PO DAILY 06/22/17 Atorvastatin Ca [Lipitor] 40 mg PO HS 06/22/17 Olmesartan/Hydrochlorothiazide [Benicar Hct 40-12.5 mg Tablet] 1 each PO DAILY 06/22/17 Gabapentin [Neurontin -] 300 mg PO DAILY 09/04/17 Linaclotide [Linzess] 72 mcg PO DAILY 09/12/17 Albuterol Sulfate Inhaler - [Ventolin HFA Inhaler -] 1 - 2 inh PO Q4H #1 inhaler 09/15/17 Naproxen [Naprosyn -] 500 mg PO BID 7 Days #14 tablet 12/02/17 Anemia: No Asthma: Yes Cancer: No Cardiac Disorders: No CVA: No COPD: Yes CHF: No DVT: No Dementia: No Diabetes: No Dialysis: No GI Disorders: No Disorders: No HTN: Yes Hypercholesterolemia: Yes Kidney Stones: No Liver Disease: No Psychiatric Problems: No Seizures: No Thyroid Disease: No Lung CA: No - Surgical History Abdominal Surgery: No Appendectomy: No Cardiac Surgery: Yes (SX R CAROTID ARTERY FOR A CLOT IN 2004) Cholecystectomy: No Gastric Stapling: No GI Surgery: No Lung Surgery: No Neurologic Surgery: No Orthopedic Surgery: No - Reproductive History PID: No - Immunization History Td Vaccination: Yes Immunization Up to Date: Yes - Suicide/Smoking/Psychosocial Hx Smoking Status: Yes Smoking History: Unknown if ever smoked Years of Tobacco Use: 20 Have you smoked in the past 12 months: Yes Number of Cigarettes Smoked Daily: 10 Cigars Per Day: 0 Information on smoking cessation initiated: No 'Breaking Loose' booklet given: 02/05/16 Hx Alcohol Use: No Drug/Substance Use Hx: No Substance Use Type: Alcohol Hx Substance Use Treatment: Yes (Positive Directions) Trauma Specific PMHX - Complaint Specific PMHX Arthritis: Yes (Osteoarthritis) Review of Systems - Review of Systems Able to Perform ROS?: Yes Comments:: 12/06/17 04:39 CONSTITUTIONAL: Absent: fever, chills, diaphoresis, generalized weakness, malaise, loss of appetite HEENT: Absent: rhinorrhea, nasal congestion, throat pain, throat swelling, difficulty swallowing, mouth swelling, ear pain, eye pain, visual Changes CARDIOVASCULAR: Absent: chest pain, loss of consciousness, palpitations, irregular heart rate, peripheral edema RESPIRATORY: Absent: cough, shortness of breath, dyspnea with exertion, orthopnea, wheezing, stridor, hemoptysis GASTROINTESTINAL: Absent: abdominal pain, abdominal distension, nausea, vomiting, diarrhea, constipation, melena, hematochezia GENITOURINARY: Absent: dysuria, frequency, urgency, hesitancy, hematuria, flank pain, genital pain MUSCULOSKELETAL: +myalgia Absent: arthralgia, joint swelling SKIN: Absent: rash, itching, pallor HEMATOLOGIC/IMMUNOLOGIC: Absent: easy bleeding, easy bruising, lymphadenopathy, frequent infections ENDOCRINE: Absent: unexplained weight gain, unexplained weight loss, heat intolerance, cold intolerance NEUROLOGIC: +left occipital erwin Absent: focal weakness or paresthesias, dizziness, unsteady gait, seizure, mental status changes, bladder or bowel incontinence PSYCHIATRIC: Absent: anxiety, depression, suicidal or homicidal ideation, hallucinations. Is the patient limited Mal[place]ian proficient: No *Physical Exam - Vital Signs Last Vital Signs Temp Pulse Resp BP Pulse Ox 98.7 F 75 14 123/89 100 12/06/17 04:28 12/06/17 04:28 12/06/17 04:28 12/06/17 04:28 12/06/17 04:28 - Physical Exam Comments: 12/06/17 04:39 GENERAL: +AOB Well developed, well nourished. Awake and alert. No acute distress. HEENT: Normocephalic, atraumatic. PERRLA, EOMI. No conjunctival pallor. Sclera are non- icteric. Moist mucous membranes. Oropharynx is clear. NECK: Supple. Full ROM. No JVD. Carotid pulses 2+ and symmetric, without bruits. No thyromegaly. No lymphadenopathy. CARDIOVASCULAR: Regular rate and rhythm. No murmurs, rubs, or gallops. Distal pulses are 2+ and symmetric. PULMONARY: No evidence of respiratory distress. Lungs clear to auscultation bilaterally. No wheezing, rales or rhonchi. ABDOMINAL: Soft. Non-tender. Non-distended. No rebound or guarding. No organomegaly. Normoactive bowel sounds. MUSCULOSKELETAL Normal range of motion at all joints. No bony deformities or tenderness. No CVA tenderness. EXTREMITIES: No cyanosis. No clubbing. No edema. No calf tenderness. SKIN: Warm and dry. Normal capillary refill. No rashes. No jaundice. NEUROLOGICAL: Alert, awake, appropriate. Cranial nerves 2-12 intact. No deficits to light touch and temperature in face, upper extremities and lower extremities. No motor deficits in the in face, upper extremities and lower extremities. Normoreflexic in the upper and lower extremities. Normal speech. Toes are down- going bilaterally. Gait is normal without ataxia. PSYCHIATRIC: Cooperative. Good eye contact. Appropriate mood and affect. *DC/Admit/Observation/Transfer Diagnosis at time of Disposition: Muscle ache Fall Qualifiers: Encounter type: initial encounter Qualified Code(s): W19.XXXA - Unspecified fall, initial encounter Headache Qualifiers: Headache type: other headache syndrome Qualified Code(s): G44.89 - Other headache syndrome - Discharge Dispostion Condition at time of disposition: Stable Admit: No - Referrals Referrals: Jonatan Jacobsen MD [Staff Physician] - Jonatan Berman MD [Staff Physician] - - Patient Instructions Printed Discharge Instructions: DI for Headache Additional Instructions: Please follow up with Dr. Jacobsen/orthopedics within 48 hours Tylenol alternating with motrin every 6 hours as needed for pain Return to the ER for severe/persistent/worsening symptoms - Post Discharge Activity
[2017-12-06] MEDS ORDERED: KETOROLAC TROMETHAMINE 60 MG/2 ML VIAL ONE (05:10)
--- NOTE | 2017-12-06 05:11 | PDOC ---
*Physical Exam - Vital Signs Last Vital Signs Temp Pulse Resp BP Pulse Ox 98.7 F 75 14 123/89 100 12/06/17 04:28 12/06/17 04:28 12/06/17 04:28 12/06/17 04:28 12/06/17 04:28 Medical Decision Making - Medical Decision Making 12/06/17 05:11 Pt seen by the Advanced Practice Provider under my direct supervision Ancillary studies reviewed I agree with plan as outlined by the Advanced Practice Provider SIVAN Turner *DC/Admit/Observation/Transfer Diagnosis at time of Disposition: Muscle ache Fall Qualifiers: Encounter type: initial encounter Qualified Code(s): W19.XXXA - Unspecified fall, initial encounter Headache Qualifiers: Headache type: other headache syndrome Qualified Code(s): G44.89 - Other headache syndrome - Discharge Dispostion Condition at time of disposition: Stable - Referrals Referrals: Jonatan Berman MD [Staff Physician] - Jonatan Jacobsen MD [Staff Physician] - - Patient Instructions Printed Discharge Instructions: DI for Headache Additional Instructions: Please follow up with Dr. Jacobsen/orthopedics within 48 hours Tylenol alternating with motrin every 6 hours as needed for pain Return to the ER for severe/persistent/worsening symptoms - Post Discharge Activity
== END 2017-12-06 05:47 | disposition home or self-care (01) ==
LOC: JER 04:23
PROC: 3E0233Z Introduction of Anti-inflammatory into Muscle, Percutaneous Approach (ICD-10-PCS; principal; 2017-12-06)
DX: G44.89 Other headache syndrome (principal); W07.XXXA Fall from chair, initial encounter; Y93.89 Activity, other specified; Y92.89 Other specified places as the place of occurrence of the external cause; Y99.8 Other external cause status; I10 Essential (primary) hypertension; M12.2 Villonodular synovitis (pigmented)
CPT/HCPCS: 96372; 99282-25

== ENCOUNTER 2017-12-29 10:17 | Emergency (ER) | payer BC, OTHER ==
[2017-12-29 10:26] VITALS: BP 138/84; PULSE 87; TEMP 98; BMI 31.5
--- NOTE | 2017-12-29 10:32 | PDOC ---
History of Present Illness - General History Source: Patient Exam Limitations: No Limitations - History of Present Illness Initial Comments: 12/29/17 10:56 The patient is a 47 year old female with a significant PMH of HLD, HTN, CAD, COPD, arthritis, bipolar disorder, anxiety, alcohol abuse and phencyclidine use who presents to the emergency department with worsening headache and left sided body aches. The patient reports she fell off a chair onto her left side approximately three weeks ago and has been experiencing headaches since. The patient describes the headache as constant, frontal, sharp, and worsened by light. The patient denies emesis, LOC, dizziness, lightheadedness, and extremity numbness or tingling sensation. Patient states she has been able to eat and is limping secondary to left sided body aches after falling. The patient was seen at our facility on 12/06/17 and told to return if the headaches worsened. The patient states she also had imaging done at [facility] recently and was told she had a contusion then. The patient denies chest pain, shortness of breath, headache and dizziness. Denies fever, chills, nausea, vomit, diarrhea and constipation. Denies dysuria, frequency, urgency and hematuria. Allergies: Amoxicillin trihydrate, Asithromycin, Potassium clavulanate. Past surgical history: Cardiac surgery. Social history: Current smoker. No alcohol use. PCP: Dr. Rm <Angelic Arriaga - Last Filed: 12/29/17 11:10> <Sarah Neff - Last Filed: 12/29/17 13:55> - General Chief Complaint: Pain Stated Complaint: Headache Time Seen by Provider: 12/29/17 10:32 Past History <Angelic Arriaga - Last Filed: 12/29/17 11:10> - Past Medical History Anemia: No Asthma: Yes Cancer: No Cardiac Disorders: No CVA: No COPD: No CHF: No DVT: No Dementia: No Diabetes: No Dialysis: No GI Disorders: No Disorders: No HTN: Yes Hypercholesterolemia: Yes Kidney Stones: No Liver Disease: No Psychiatric Problems: No Seizures: No Thyroid Disease: No Lung CA: No Other medical history: arthritis - Surgical History Abdominal Surgery: No Appendectomy: No Cardiac Surgery: Yes (SX R CAROTID ARTERY FOR A CLOT IN 2004) Cholecystectomy: No Gastric Stapling: No GI Surgery: No Lung Surgery: No Neurologic Surgery: No Orthopedic Surgery: No - Reproductive History PID: No - Immunization History Td Vaccination: Yes Immunization Up to Date: Yes - Suicide/Smoking/Psychosocial Hx Smoking Status: Yes Smoking History: Current every day smoker Years of Tobacco Use: 20 Have you smoked in the past 12 months: Yes Number of Cigarettes Smoked Daily: 10 Cigars Per Day: 0 Information on smoking cessation initiated: No 'Breaking Loose' booklet given: 02/05/16 Hx Alcohol Use: No Drug/Substance Use Hx: No Substance Use Type: Alcohol Hx Substance Use Treatment: Yes (Positive Directions) <Sarah Neff - Last Filed: 12/29/17 13:55> - Past Medical History Allergies/Adverse Reactions: Allergies Allergy/AdvReac Type Severity Reaction Status Date / Time amoxicillin trihydrate Allergy Verified 12/06/17 05:21 [From Augmentin] azithromycin [From Zithromax] Allergy Verified 12/06/17 05:21 potassium clavulanate Allergy Verified 12/06/17 05:21 [From Augmentin] Home Medications: Ambulatory Orders Aspirin [ASA -] 81 mg PO DAILY 06/22/17 Atorvastatin Ca [Lipitor] 40 mg PO HS 06/22/17 Olmesartan/Hydrochlorothiazide [Benicar Hct 40-12.5 mg Tablet] 1 each PO DAILY 06/22/17 Gabapentin [Neurontin -] 300 mg PO DAILY 09/04/17 Linaclotide [Linzess] 72 mcg PO DAILY 09/12/17 Albuterol Sulfate Inhaler - [Ventolin HFA Inhaler -] 1 - 2 inh PO Q4H #1 inhaler 09/15/17 Naproxen [Naprosyn -] 500 mg PO BID 7 Days #14 tablet 12/02/17 Review of Systems - Review of Systems Able to Perform ROS?: Yes Comments:: 12/29/17 10:55 GENERAL/CONSTITUTIONAL: No fever or chills. No weakness. HEAD, EYES, EARS, NOSE AND THROAT: No change in vision. No ear pain or discharge. No sore throat. CARDIOVASCULAR: No chest pain or shortness of breath. RESPIRATORY: No cough, wheezing, or hemoptysis. GASTROINTESTINAL: No nausea, vomiting, diarrhea or constipation. GENITOURINARY: No dysuria, frequency, or change in urination. MUSCULOSKELETAL: (+) Left sided body aches. No joint or muscle swelling or pain. No neck or back pain. SKIN: No rash NEUROLOGIC: (+) Headache. No vertigo, loss of consciousness, or change in strength/sensation. ENDOCRINE: No increased thirst. No abnormal weight change. HEMATOLOGIC/LYMPHATIC: No anemia, easy bleeding, or history of blood clots. ALLERGIC/IMMUNOLOGIC: No hives or skin allergy. <Angelic Arriaga - Last Filed: 12/29/17 11:10> *Physical Exam - Vital Signs Last Vital Signs Temp Pulse Resp BP Pulse Ox 98 F 87 20 138/84 98 12/29/17 10:22 12/29/17 10:22 12/29/17 10:22 12/29/17 10:22 12/29/17 10:22 - Physical Exam Comments: 12/29/17 10:55 GENERAL: Awake, alert, and fully oriented, in no acute distress HEAD: No signs of trauma EYES: PERRLA, EOMI, sclera anicteric, conjunctiva clear ENT: Auricles normal inspection, hearing grossly normal, nares patent, oropharynx clear without exudates. Moist mucosa NECK: Normal ROM, supple, no lymphadenopathy, JVD, or masses LUNGS: Breath sounds equal, clear to auscultation bilaterally. No wheezes, and no crackles HEART: Regular rate and rhythm, normal S1 and S2, no murmurs, rubs or gallops ABDOMEN: Soft, nontender, normoactive bowel sounds. No guarding, no rebound. No masses EXTREMITIES: Normal range of motion, no edema. No clubbing or cyanosis. No cords, erythema, or tenderness NEUROLOGICAL: Cranial nerves II through XII grossly intact. Normal speech. SKIN: Warm, Dry, normal turgor, no rashes or lesions noted. <Angelic Arriaga - Last Filed: 12/29/17 11:10> - Vital Signs Last Vital Signs Temp Pulse Resp BP Pulse Ox 98 F 87 20 138/84 98 12/29/17 10:22 12/29/17 10:22 12/29/17 10:22 12/29/17 10:22 12/29/17 10:22 <Sarah Neff - Last Filed: 12/29/17 13:55> ED Treatment Course - LABORATORY CBC & Chemistry Diagram: 12/29/17 11:09 12/29/17 11:09 <Sarah Neff - Last Filed: 12/29/17 13:55> Medical Decision Making - Medical Decision Making 12/29/17 11:56 Pt presents to the ED complaining of generalized body pain and headache after fall from a chair two weeks ago. Symptoms are unconcerning for intracranial or internal bleeding, but given that the headache is persistent and the patient was not imaged on her first visit, will check CT head now. Patient had been seen in the ED for both headache and abdominal pain prior to the fall two weeks ago. Will discharge home if CT head is negative. 12/29/17 13:43 Ct is negative. PAtient is resting comfortably. Will discharge home. <Sarah Neff - Last Filed: 12/29/17 13:55> *DC/Admit/Observation/Transfer - Attestations Scribe Attestion: 12/29/17 11:11 Documentation prepared by Angelic Arriaga, acting as medical lead for Sarah Neff MD. <Angelic Arriaga - Last Filed: 12/29/17 11:10> - Discharge Dispostion Admit: No <Sarah Neff - Last Filed: 12/29/17 13:55> Diagnosis at time of Disposition: Concussion Qualifiers: Encounter type: subsequent encounter Loss of consciousness presence/duration: without LOC Qualified Code(s): S06.0X0D - Concussion without loss of consciousness, subsequent encounter - Discharge Dispostion Disposition: HOME Condition at time of disposition: Good - Referrals Referrals: Marv Rm [Primary Care Provider] - - Patient Instructions Printed Discharge Instructions: DI for Concussion Additional Instructions: return to the ED for severe headache, passing out, severe nausea and vomiting, severe abdominal pain. Make sure that you follow up with your doctor within one week. - Post Discharge Activity
[2017-12-29] MEDS ORDERED: ACETAMINOPHEN 325 MG TABLET (FP) PO ONE (10:49)
[2017-12-29] MEDS ORDERED: ACETAMINOPHEN 325 MG TABLET (FP) ONE (10:53)
[2017-12-29 11:30] LABS: BASO % 0.8 % (0-2.0); EOS % 0.7 % (0-4.5); HEMATOCRIT 37.7 % (32.4-45.2); HEMOGLOBIN 12.4 GM/dL (10.7-15.3); MCHC 32.9 g/dl (32.0-36.0); MEAN PLT VOLUME 7.3 fl (7.5-11.1); MONO % 9.2 % (3.8-10.2); NEUT % 40.3 % (42.8-82.8); PLATELET COUNT 231 K/MM3 (134-434); RBC 3.77 M/mm3 (3.60-5.2); RDW 13.9 % (11.6-15.6); WHITE BLOOD COUNT 4.5 K/mm3 (4.0-10.0)
[2017-12-29 11:53] LABS: ALBUMIN 3.5 g/dl (3.4-5.0); ANION GAP 7 (8-16); BLOOD UREA NITROGEN 19 mg/dL (7-18); CALCIUM 8.7 mg/dL (8.5-10.1); CHLORIDE 111 mmol/L (98-107); CO2 27 mmol/L (21-32); CREATININE 0.9 mg/dL (0.55-1.02); GLUCOSE,RANDOM 92 mg/dL (74-106); POTASSIUM 3.7 mmol/L (3.5-5.1); SGOT/AST 24 U/L (15-37); SGPT/ALT 32 U/L (12-78); SODIUM 145 mmol/L (136-145)
[2017-12-29 11:56] LABS: ALK PHOS 75 U/L (45-117); BILIRUBIN,TOTAL 0.7 mg/dL (0.2-1.0); TOT PROT 7.1 g/dl (6.4-8.2)
== END 2017-12-29 14:30 | disposition home or self-care (01) ==
LOC: JER 10:17
DX: S06.0X9D Concussion with loss of consciousness of unspecified duration, subsequent encounter (principal); W07.XXXD Fall from chair, subsequent encounter; I10 Essential (primary) hypertension; E78.00 Pure hypercholesterolemia, unspecified; J44.9 Chronic obstructive pulmonary disease, unspecified; M12.9 Arthropathy, unspecified; F31.9 Bipolar disorder, unspecified; F41.9 Anxiety disorder, unspecified; F10.10 Alcohol abuse, uncomplicated; F16.10 Hallucinogen abuse, uncomplicated; F17.210 Nicotine dependence, cigarettes, uncomplicated
CPT/HCPCS: 36415; 70450-TC; 80053; 84702; 85025; 99283-25

== ENCOUNTER 2017-12-31 05:11 | Emergency (ER) | payer BC, OTHER ==
[2017-12-31 05:21] VITALS: BP 151/97; PULSE 66; TEMP 97.8; BMI 31.5
--- NOTE | 2017-12-31 05:41 | PDOC ---
History of Present Illness - General Chief Complaint: Headache Stated Complaint: PAIN Time Seen by Provider: 12/31/17 05:29 History Source: Patient - History of Present Illness Initial Comments: 12/31/17 05:47 The patient is a 47 year old female with a significant PMH of HLD, HTN, CAD, COPD, arthritis, bipolar disorder, anxiety, alcohol abuse and phencyclidine use who presents to the emergency department with worsening headache and left sided body aches. The patient reports she fell off a chair onto her left side approximately three weeks ago and has been experiencing headaches since. The patient describes the headache as constant. The patient denies emesis, LOC, dizziness, lightheadedness, and extremity numbness or tingling sensation. Patient states she has been able to eat and is limping secondary to left sided body aches after falling. The patient was seen at our facility on 12/06/17 and told to return if the headaches worsened. The patient states she also had imaging done at [facility] recently and was told she had a contusion then. Patient was most recenbtly seen in this ED on 12/29 and she was seen last night at [facility] for same symptoms. Head CT with no acute changes on 12/29. offered patient toradol for pain. Past History - Past Medical History Allergies/Adverse Reactions: Allergies Allergy/AdvReac Type Severity Reaction Status Date / Time amoxicillin trihydrate Allergy Verified 12/31/17 05:19 [From Augmentin] azithromycin [From Zithromax] Allergy Verified 12/31/17 05:19 potassium clavulanate Allergy Verified 12/31/17 05:19 [From Augmentin] Home Medications: Ambulatory Orders Aspirin [ASA -] 81 mg PO DAILY 06/22/17 Atorvastatin Ca [Lipitor] 40 mg PO HS 06/22/17 Olmesartan/Hydrochlorothiazide [Benicar Hct 40-12.5 mg Tablet] 1 each PO DAILY 06/22/17 Gabapentin [Neurontin -] 300 mg PO DAILY 09/04/17 Linaclotide [Linzess] 72 mcg PO DAILY 09/12/17 Albuterol Sulfate Inhaler - [Ventolin HFA Inhaler -] 1 - 2 inh PO Q4H #1 inhaler 09/15/17 Naproxen [Naprosyn -] 500 mg PO BID 7 Days #14 tablet 12/02/17 Anemia: No Asthma: Yes Cancer: No Cardiac Disorders: No CVA: No COPD: No CHF: No DVT: No Dementia: No Diabetes: No Dialysis: No GI Disorders: No Disorders: No HTN: Yes Hypercholesterolemia: Yes Kidney Stones: No Liver Disease: No Psychiatric Problems: No Seizures: No Thyroid Disease: No Lung CA: No - Surgical History Abdominal Surgery: No Appendectomy: No Cardiac Surgery: Yes (SX R CAROTID ARTERY FOR A CLOT IN 2004) Cholecystectomy: No Gastric Stapling: No GI Surgery: No Lung Surgery: No Neurologic Surgery: No Orthopedic Surgery: No - Reproductive History PID: No - Immunization History Td Vaccination: Yes Immunization Up to Date: Yes - Suicide/Smoking/Psychosocial Hx Smoking Status: Yes Smoking History: Never smoked Years of Tobacco Use: 20 Have you smoked in the past 12 months: No Number of Cigarettes Smoked Daily: 10 Cigars Per Day: 0 Information on smoking cessation initiated: No 'Breaking Loose' booklet given: 02/05/16 Hx Alcohol Use: No Drug/Substance Use Hx: No Substance Use Type: Alcohol Hx Substance Use Treatment: Yes (Positive Directions) Review of Systems - Review of Systems Able to Perform ROS?: Yes Is the patient limited French proficient: No Constitutional: No: Symptoms Reported, See HPI, Chills, Diaphoresis, Fever, Loss of Appetite, Malaise, Night Sweats, Weakness, Weight Stable, Unintentional Wgt. Loss, Unexplained wgt Loss, Other Neurological: Yes: Headache, Other (left sided pain). No: Symptoms reported, See HPI, Numbness, Paresthesia, Pre-Existing Deficit, Seizure, Tingling, Tremors , Weakness, Unsteady Gait, Ataxia, Dizziness *Physical Exam - Vital Signs Last Vital Signs Temp Pulse Resp BP Pulse Ox 97.8 F 66 20 151/97 99 12/31/17 05:19 12/31/17 05:19 12/31/17 05:19 12/31/17 05:19 12/31/17 05:19 - Physical Exam General Appearance: Yes: Appropriately Dressed Respiratory/Chest: positive: Lungs Clear, Normal Breath Sounds Gastrointestinal/Abdominal: positive: Normal Bowel Sounds, Soft Musculoskeletal: positive: Normal Inspection Extremity: positive: Normal Capillary Refill, Normal Inspection, Normal Range of Motion Integumentary: positive: Normal Color, Dry, Warm Neurologic: positive: Fully Oriented, Alert, Normal Mood/Affect *DC/Admit/Observation/Transfer Diagnosis at time of Disposition: Headache Qualifiers: Headache type: tension-type Headache chronicity pattern: chronic headache Intractability: not intractable Qualified Code(s): G44.229 - Chronic tension- type headache, not intractable - Discharge Dispostion Disposition: HOME - Referrals Referrals: Lonnie Stapleton MD [Staff Physician] - Call tomorrow - Patient Instructions Printed Discharge Instructions: DI for Headache Additional Instructions: follow up with neurology as soon as possible, return to the ER if symptoms worsen - Post Discharge Activity
[2017-12-31] MEDS ORDERED: KETOROLAC TROMETHAMINE 60 MG/2 ML VIAL ONE (05:42)
[2017-12-31] MEDS ORDERED: METOCLOPRAMIDE HCL 10 MG TABLET (FP) PO ONE ×2 (05:43→06:14)
[2017-12-31] MEDS ORDERED: KETOROLAC TROMETHAMINE 60 MG/2 ML VIAL IM ONE (05:43)
== END 2017-12-31 06:42 | disposition home or self-care (01) ==
LOC: JER 05:11
PROC: 3E0233Z Introduction of Anti-inflammatory into Muscle, Percutaneous Approach (ICD-10-PCS; principal; 2017-12-31)
DX: G44.229 Chronic tension-type headache, not intractable (principal); J45.909 Unspecified asthma, uncomplicated; I10 Essential (primary) hypertension; E78.00 Pure hypercholesterolemia, unspecified
CPT/HCPCS: 99281-25

== ENCOUNTER 2018-03-18 23:12 | Emergency (ER) | payer BC, OTHER ==
[2018-03-18 23:17] VITALS: PULSE 67; TEMP 97.9; BMI 31.3
--- NOTE | 2018-03-18 23:51 | PDOC ---
Attending Attestation - HPI HPI: 03/18/18 23:57 The patient is a 47 year old female with past medical history of HLD, Hypercholesterolemia, HTN, CAD, COPD, arthritis, bipolar disorder, anxiety presents to the emergency department with elevated blood pressure. The patient reports she hasn't taken her HTN medication for the past 3-4 days, she presents to the ED with blood pressure of 160/100. The patient reports currently she has a mild headache. Denies fever, chills, cough or wheezing. Denies nausea, vomiting, diarrhea or constipation. Denies dysuria, hematuria, frequency or urgency to urinate. Allergies: Amoxicillin trihydrate, Asithromycin, Potassium clavulanate. Past surgical history: Cardiac surgery (SX R CAROTID ARTERY FOR A CLOT IN 2004) Social history: Current smoker. alcohol abuse and phencyclidine use. PCP: Dr. Marv Rm - Medical Decision Making 03/18/18 23:58 Documentation prepared by Elda Carrasco, acting as medical practice administrator for Johann Serrano DO <Elda Carrasco - Last Filed: 03/18/18 23:57> - Resident Resident Name: Frederic Wilhelm - ED Attending Attestation I have performed the following: I have examined & evaluated the patient, The case was reviewed & discussed with the resident, I agree w/resident's findings & plan, Exceptions are as noted - Physicial Exam PE: 03/19/18 19:30 *Physical Exam General Appearance: Yes: Appropriately Dressed. No: Apparent Distress, Intoxicated HEENT: positive: EOMI, MAX, Normal ENT Inspection, Normal Voice, TMs Normal, Pharynx Normal. negative: Pale Conjunctivae, Photophobia, Scleral Icterus (R), Scleral Icterus (L) Neck: positive: Trachea midline, Normal Thyroid, Supple. negative: Tender, Rigid, Carotid bruit, Stridor, Lymphadenopathy (R), Lymphadenopathy (L), Thyromegaly Respiratory/Chest: positive: Lungs Clear, Normal Breath Sounds. negative: Chest Tender, Respiratory Distress, Accessory Muscle Use, Labored Respiration, RES, Crackles, Rales, Rhonchi, Stridor, Wheezing, Dullness Cardiovascular: positive: Regular Rhythm, Regular Rate, S1, S2. negative: Edema , JVD, Murmur, Bradycardia, Tachycardia Vascular Pulses: Dorsalis-Pedis (R): 2+, Doralis-Pedis (L): 2+ Gastrointestinal/Abdominal: positive: Normal Bowel Sounds, Flat, Soft. negative : Tender, Organomegaly, Pulsatile Mass, Increased Bowel Sounds, Decreased BS, Distended, Guarding, Rebound, Hernia, Hepatomegaly, Spleenomegaly Lymphatic: negative: Adenopathy, Tenderness Musculoskeletal: positive: Normal Inspection. negative: CVA Tenderness, Decreased Range of Motion Extremity: positive: Normal Capillary Refill, Normal Inspection, Normal Range of Motion, Pelvis Stable. negative: Tender, Pedal Edema, Swelling, Erythema Integumentary: positive: Normal Color, Dry, Warm. 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 negative: EOM Palsy, Facial Droop, Sensory Deficit - Medical Decision Making 03/19/18 19:30 Pt treated and released <Johann Serrano - Last Filed: 03/19/18 19:30>
[2018-03-19] MEDS ORDERED: VALSARTAN 160 MG TABLET (UD) PO ONE (00:12)
[2018-03-19] MEDS ORDERED: HYDROCHLOROTHIAZIDE 12.5 MG CAPSULE (FP) PO ONE (00:14)
[2018-03-19] MEDS ORDERED: ACETAMINOPHEN 325 MG TABLET (FP) PO ONE (00:16)
--- NOTE | 2018-03-19 00:16 | PDOC ---
History of Present Illness - General Chief Complaint: Blood Pressure Problem Stated Complaint: HYPERTENSION Time Seen by Provider: 03/18/18 23:44 History Source: Patient Exam Limitations: No Limitations - History of Present Illness Initial Comments: 03/19/18 00:15 The patient is a 47F with a PMH of HTN, bipolar, and anxiety disorder who presents to the ER stating that her BP has been elevated for the past few days. She states that she ran out of her BP meds 3-4 days ago and it has been elevated since. The patient denies any CP, SOB, fever, chills, nausea, vomiting , numbness, tingling, or weakness. She is complaining of a mild headache that is diffuse and is described as pressure that started today. She denies any FND. Past History - Past Medical History Allergies/Adverse Reactions: Allergies Allergy/AdvReac Type Severity Reaction Status Date / Time amoxicillin trihydrate Allergy Verified 03/18/18 23:14 [From Augmentin] azithromycin [From Zithromax] Allergy Verified 03/18/18 23:14 potassium clavulanate Allergy Verified 03/18/18 23:14 [From Augmentin] Home Medications: Ambulatory Orders Aspirin [ASA -] 81 mg PO DAILY 06/22/17 Atorvastatin Ca [Lipitor] 40 mg PO HS 06/22/17 Olmesartan/Hydrochlorothiazide [Benicar Hct 40-12.5 mg Tablet] 1 each PO DAILY 06/22/17 Gabapentin [Neurontin -] 300 mg PO DAILY 09/04/17 Linaclotide [Linzess] 72 mcg PO DAILY 09/12/17 Albuterol Sulfate Inhaler - [Ventolin HFA Inhaler -] 1 - 2 inh PO Q4H #1 inhaler 09/15/17 Naproxen [Naprosyn -] 500 mg PO BID 7 Days #14 tablet 12/02/17 Olmesartan/Hydrochlorothiazide [Benicar Hct 40-12.5MG Tab] 1 tab PO DAILY #14 tab 03/19/18 Anemia: No Asthma: Yes Cancer: No Cardiac Disorders: No CVA: No COPD: No CHF: No DVT: No Dementia: No Diabetes: No Dialysis: No GI Disorders: No Disorders: No HTN: Yes Hypercholesterolemia: Yes Kidney Stones: No Liver Disease: No Psychiatric Problems: No Seizures: No Thyroid Disease: No Lung CA: No - Surgical History Abdominal Surgery: No Appendectomy: No Cardiac Surgery: Yes (SX R CAROTID ARTERY FOR A CLOT IN 2005) Cholecystectomy: No Gastric Stapling: No GI Surgery: No Lung Surgery: No Neurologic Surgery: No Orthopedic Surgery: No - Reproductive History PID: No - Immunization History Td Vaccination: Yes Immunization Up to Date: Yes - Suicide/Smoking/Psychosocial Hx Smoking Status: Yes Smoking History: Current every day smoker Years of Tobacco Use: 20 Have you smoked in the past 12 months: No Number of Cigarettes Smoked Daily: 10 Cigars Per Day: 0 Information on smoking cessation initiated: No 'Breaking Loose' booklet given: 02/05/16 Hx Alcohol Use: Yes Drug/Substance Use Hx: No Substance Use Type: Alcohol Hx Substance Use Treatment: Yes (Positive Directions) Review of Systems - Review of Systems Able to Perform ROS?: Yes Comments:: 03/19/18 00:21 GENERAL/CONSTITUTIONAL: No fever or chills. No weakness. HEAD, EYES, EARS, NOSE AND THROAT: No change in vision. No ear pain or discharge. No sore throat. CARDIOVASCULAR: No chest pain, palpitations, or lightheadedness. RESPIRATORY: No cough, wheezing, shortness of breath, or hemoptysis. GASTROINTESTINAL: No nausea, vomiting, diarrhea, constipation, or abdominal pain. GENITOURINARY: No dysuria, frequency, hematuria, or change in urination. MUSCULOSKELETAL: No joint or muscle swelling or pain. No neck or back pain. SKIN: No rash or lesions. NEUROLOGIC: Positive for headache. No numbness, tingling, weakness, loss of consciousness, or change in strength/sensation. ENDOCRINE: No increased thirst. No abnormal weight change. HEMATOLOGIC/LYMPHATIC: No anemia, easy bleeding, or history of blood clots. ALLERGIC/IMMUNOLOGIC: No hives or skin allergy. Is the patient limited Sudanese proficient: No *Physical Exam - Vital Signs Last Vital Signs Temp Pulse Resp BP Pulse Ox 97.9 F 67 18 160/100 100 03/18/18 23:15 03/18/18 23:15 03/18/18 23:15 03/18/18 23:15 03/18/18 23:15 - Physical Exam Comments: 03/19/18 00:22 GENERAL: Well developed, well nourished. Awake and alert. No acute distress. HEENT: Normocephalic, atraumatic. Hearing grossly normal. Moist mucous membranes. PERRLA, EOMI. No conjunctival pallor. Sclera are non-icteric. Oropharynx is clear. NECK: Supple. Full ROM. CARDIOVASCULAR: Regular rate and rhythm. No murmurs, rubs, or gallops. PULMONARY: No evidence of respiratory distress. Lungs clear to auscultation bilaterally. No wheezing, rales or rhonchi. ABDOMINAL: Soft. Non-tender. Non-distended. No rebound or guarding. GENITOURINARY: No CVA tenderness bilaterally. MUSCULOSKELETAL: Normal range of motion at all joints. No bony deformities or tenderness. EXTREMITIES: No cyanosis. No clubbing. No edema. No calf tenderness or swelling. SKIN: Warm and dry. Normal capillary refill. No rashes. No jaundice. NEUROLOGICAL: Alert, awake, appropriate. Cranial nerves 2-12 intact. No deficits to light touch and temperature in face, upper extremities and lower extremities. No motor deficits in the in face, upper extremities and lower extremities. Finger to nose normal bilaterally. Normal speech. Gait is normal without ataxia. PSYCHIATRIC: Cooperative. Good eye contact. Appropriate mood and affect. ED Treatment Course - LABORATORY CBC & Chemistry Diagram: 03/19/18 04:42 03/19/18 04:42 Medical Decision Making - Medical Decision Making 03/19/18 00:23 The patient is a 47F with a PMH of HTN, bipolar, and anxiety disorder who presents to the ER with complaints of high BP readings. She has no other acute complaints and no FND on exam. Will tx her headache with acetaminophen and give home BP meds with prescription for 14 days until she can follow up with PCP. I am not concerned for intracranial process as the patient denies any numbness, tingling, weakness, or FND and has a negative neurologic exam. 03/19/18 03:39 BP is still high 180's/100's. Will give nitro and reassess. CTH negative. Pt complained of CP. EKG negative. Will give toradol for pain control. 03/19/18 04:[address] orders for troponin, CBC, and CMP to r/o other causes of HTN and CP. 03/19/18 06:10 CBC and CMP WNL. Will d/c pt back to [facility]. *DC/Admit/Observation/Transfer Diagnosis at time of Disposition: Hypertension Qualifiers: Hypertension type: unspecified Qualified Code(s): I10 - Essential (primary) hypertension - Discharge Dispostion Disposition: HOME Condition at time of disposition: Stable Decision to Admit order: No - Prescriptions Prescriptions: Olmesartan/Hydrochlorothiazide [Benicar Hct 40-12.5MG Tab] 1 tab PO DAILY #14 tab - Referrals - Patient Instructions Printed Discharge Instructions: DI for High Blood Pressure Additional Instructions: Please follow up with your primary care physician in 2-3 days. Please return to the ER if you have any signs or symptoms of chest pain, shortness of breath, uncontrollable fever, chills, nausea, vomiting, numbness, tingling, or weakness in any part of your body, changes in vision, or slurred speech. Please take your medications as prescribed. Please return to the ER if symptoms persist, worsen, or new symptoms arise. - Post Discharge Activity
[2018-03-19] MEDS ORDERED: HYDROCHLOROTHIAZIDE 25 MG TABLET (FP) ONE (00:23)
[2018-03-19] MEDS ORDERED: ACETAMINOPHEN 325 MG TABLET (FP) ONE (00:23)
[2018-03-19] MEDS ORDERED: VALSARTAN 80 MG TABLET (UD) ONE (00:23)
[2018-03-19] MEDS ORDERED: ALBUTEROL SO4 2.5/IPRATROPIUM 0.5 INH SOL 3 ML VIAL.NEB. NEB ONE (00:50)
[2018-03-19] MEDS ORDERED: KETOROLAC TROMETHAMINE 60 MG/2 ML VIAL IM ONE (03:10)
[2018-03-19] MEDS ORDERED: NITROGLYCERIN SUBLINGUAL 1/150 0.4 MG TAB SL ONE (03:10)
[2018-03-19] MEDS ORDERED: KETOROLAC TROMETHAMINE 60 MG/2 ML VIAL ONE (03:41)
[2018-03-19 04:33] VITALS: BP 131/94
[2018-03-19 05:02] LABS: BASO % 0.8 % (0-2.0); HEMATOCRIT 39.2 % (32.4-45.2); HEMOGLOBIN 13.2 GM/dL (10.7-15.3); MCH 32.5 pg (25.7-33.7); MCHC 33.6 g/dl (32.0-36.0); MEAN CELL VOLUME 96.9 fl (80-96); MEAN PLT VOLUME 7.4 fl (7.5-11.1); NEUT % 45.2 % (42.8-82.8); PLATELET COUNT 226 K/MM3 (134-434); RBC 4.05 M/mm3 (3.60-5.2); RDW 13.4 % (11.6-15.6); WHITE BLOOD COUNT 5.8 K/mm3 (4.0-10.0)
[2018-03-19 05:49] LABS: ALBUMIN 3.5 g/dl (3.4-5.0); ANION GAP 7 (8-16); BILIRUBIN,TOTAL 0.5 mg/dL (0.2-1.0); BLOOD UREA NITROGEN 17 mg/dL (7-18); CALCIUM 8.6 mg/dL (8.5-10.1); CHLORIDE 107 mmol/L (98-107); CO2 28 mmol/L (21-32); CREATININE 0.8 mg/dL (0.55-1.02); GLUCOSE,RANDOM 91 mg/dL (74-106); POTASSIUM 3.5 mmol/L (3.5-5.1); SGOT/AST 23 U/L (15-37); SGPT/ALT 25 U/L (12-78); SODIUM 142 mmol/L (136-145)
[2018-03-19 05:51] LABS: ALK PHOS 88 U/L (45-117)
--- NOTE | 2018-03-19 11:58 | EKG ---
Test Reason : Blood Pressure : / mmHG Vent. Rate : 074 BPM Atrial Rate : 074 BPM P-R Int : 128 ms QRS Dur : 076 ms QT Int : 406 ms P-R-T Axes : 058 -04 001 degrees QTc Int : 450 ms NORMAL SINUS RHYTHM POSSIBLE LEFT ATRIAL ENLARGEMENT NONSPECIFIC ST AND T WAVE ABNORMALITY ABNORMAL ECG WHEN COMPARED WITH ECG OF 15-SEP-2017 16:00, NO SIGNIFICANT CHANGE WAS FOUND Confirmed by JOHANA OWEN, RAMIREZ ([id number]) on 03/19/2018 11:58:24 AM Referred By: Confirmed By:RAMIREZ VAUGHN MD
== END 2018-03-19 06:25 | disposition home or self-care (01) ==
LOC: JER 23:12
PROC: 3E0233Z Introduction of Anti-inflammatory into Muscle, Percutaneous Approach (ICD-10-PCS; principal; 2018-03-18)
PROC: 3E0F7GC Introduction of Other Therapeutic Substance into Respiratory Tract, Via Natural or Artificial Opening (ICD-10-PCS; 2018-03-18)
DX: I10 Essential (primary) hypertension (principal); I25.10 Atherosclerotic heart disease of native coronary artery without angina pectoris; E78.00 Pure hypercholesterolemia, unspecified; E78.5 Hyperlipidemia, unspecified; J44.9 Chronic obstructive pulmonary disease, unspecified; F31.9 Bipolar disorder, unspecified; F41.9 Anxiety disorder, unspecified; M12.9 Arthropathy, unspecified; F17.210 Nicotine dependence, cigarettes, uncomplicated; J45.909 Unspecified asthma, uncomplicated; Z91.14 Patient's other noncompliance with medication regimen
CPT/HCPCS: 36415; 70450-TC; 80053; 82550; 82553; 84484; 84703; 85025; 93005; 93010; 99282-25; J7620

== ENCOUNTER 2018-03-19 06:54 | Emergency (ER) | payer BC, OTHER ==
[2018-03-19 07:08] VITALS: BMI 31.3
--- NOTE | 2018-03-19 07:27 | PDOC ---
History of Present Illness - General Chief Complaint: Blood Pressure Problem Stated Complaint: BLOOD PRESSURE PROBLEM - History of Present Illness Initial Comments: patient is a 47 year old female, with a significant past medical history of HTN , bipolar, and anxiety disorder, who recently presented to the emergency department complaining of COLON and chest pain secondary to HTN, now returning 10 minutes after discharge with complaints of COLON and HTN. Pt was seen in ED last night for same symptoms due to 3-4 days without BP meds due to lack of rx, received equivalent dose of home diuretics, toradol, nitro, asa. Chest pain resolved and work-up was unremarkable, so pt discharged. Then 10 minutes late, pt called 911 complaining of high blood pressure and was brought back in. Pt currently complaining of frontal COLON, L eye pain. Last BP was 150s/100s per pt. Unable to obtain bed at [facility] for PCP detox during visit due to lack of beds. Pt requesting detox. Patient denies chest pain, shortness of breath or dizziness. Denies fever, chills, nausea, vomiting, diarrhea.Denies dysuria, frequency, urgency and hematuria. +chronic constipation Allergies: Amoxicillin - hives Past surgical history: R arm blood clot Social History: Current smoker, 10 cigs/day; no alcohol; prior PCP use 5 days ago PMD: Dr. Rm 03/19/18 07:26 Past History - Past Medical History Allergies/Adverse Reactions: Allergies Allergy/AdvReac Type Severity Reaction Status Date / Time amoxicillin trihydrate Allergy Verified 03/19/18 07:08 [From Augmentin] azithromycin [From Zithromax] Allergy Verified 03/19/18 07:08 potassium clavulanate Allergy Verified 03/19/18 07:08 [From Augmentin] Home Medications: Ambulatory Orders Aspirin [ASA -] 81 mg PO DAILY 06/22/17 Atorvastatin Ca [Lipitor] 40 mg PO HS 06/22/17 Olmesartan/Hydrochlorothiazide [Benicar Hct 40-12.5 mg Tablet] 1 each PO DAILY 06/22/17 Gabapentin [Neurontin -] 300 mg PO DAILY 09/04/17 Linaclotide [Linzess] 72 mcg PO DAILY 09/12/17 Albuterol Sulfate Inhaler - [Ventolin HFA Inhaler -] 1 - 2 inh PO Q4H #1 inhaler 09/15/17 Naproxen [Naprosyn -] 500 mg PO BID 7 Days #14 tablet 12/02/17 Olmesartan/Hydrochlorothiazide [Benicar Hct 40-12.5MG Tab -] 1 tab PO DAILY #14 tab 03/19/18 Anemia: No Asthma: Yes Cancer: No Cardiac Disorders: No CVA: No COPD: No CHF: No DVT: No Dementia: No Diabetes: No Dialysis: No GI Disorders: No Disorders: No HTN: Yes Hypercholesterolemia: Yes Kidney Stones: No Liver Disease: No Psychiatric Problems: No Seizures: No Thyroid Disease: No Lung CA: No - Surgical History Abdominal Surgery: No Appendectomy: No Cardiac Surgery: Yes (SX R CAROTID ARTERY FOR A CLOT IN 2004) Cholecystectomy: No Gastric Stapling: No GI Surgery: No Lung Surgery: No Neurologic Surgery: No Orthopedic Surgery: No - Reproductive History PID: No - Immunization History Td Vaccination: Yes Immunization Up to Date: Yes - Suicide/Smoking/Psychosocial Hx Smoking Status: Yes Smoking History: Current every day smoker Years of Tobacco Use: 20 Have you smoked in the past 12 months: No Number of Cigarettes Smoked Daily: 10 Cigars Per Day: 0 Information on smoking cessation initiated: No 'Breaking Loose' booklet given: 02/05/16 Hx Alcohol Use: No Drug/Substance Use Hx: No Substance Use Type: Alcohol Hx Substance Use Treatment: Yes (Positive Directions) Review of Systems - Review of Systems Comments:: GENERAL/CONSTITUTIONAL: No fever or chills. No weakness. HEAD, EYES, EARS, NOSE AND THROAT: No change in vision. No ear pain or discharge. No sore throat. CARDIOVASCULAR: No chest pain or shortness of breath RESPIRATORY: No cough, wheezing, or hemoptysis. GASTROINTESTINAL: No nausea, vomiting, diarrhea or constipation. GENITOURINARY: No dysuria, frequency, or change in urination. MUSCULOSKELETAL: No joint or muscle swelling or pain. No neck or back pain. SKIN: No rash NEUROLOGIC: +COLON, left eye pain. vertigo, loss of consciousness, or change in strength/sensation. ENDOCRINE: No increased thirst. No abnormal weight change HEMATOLOGIC/LYMPHATIC: No anemia, easy bleeding, or history of blood clots. ALLERGIC/IMMUNOLOGIC: No hives or skin allergy. 03/19/18 07:26 *Physical Exam - Vital Signs Last Vital Signs Temp Pulse Resp BP Pulse Ox 97.6 F 72 20 158/104 97 03/19/18 07:04 03/19/18 07:04 03/19/18 07:04 03/19/18 07:04 03/19/18 07:04 - Physical Exam Comments: GENERAL: [place] woman, Awake, alert, and fully oriented, in no acute distress HEAD: No signs of trauma, normocephalic, atraumatic EYES: PERRLA, EOMI, sclera anicteric, conjunctiva clear ENT: Poor dentition. Auricles normal inspection, hearing grossly normal, nares patent, oropharynx clear without exudates. Moist mucosa NECK: Normal ROM, supple, no lymphadenopathy, JVD, or masses LUNGS: No distress, speaks full sentences, clear to auscultation bilaterally HEART: Regular rate and rhythm, normal S1 and S2, no murmurs, rubs or gallops, peripheral pulses normal and equal bilaterally. ABDOMEN: Soft, nontender, normoactive bowel sounds. No guarding, no rebound. No masses EXTREMITIES : Normal inspection, Normal range of motion, trace pedal edema. No clubbing or cyanosis. NEUROLOGICAL: Cranial nerves II through XII grossly intact. Normal speech, normal gait, no focal sensorimotor deficits SKIN: Warm, Dry, normal turgor, no rashes or lesions noted 03/19/18 07:27 Medical Decision Making - Medical Decision Making 47 year old female, with a significant past medical history of HTN, bipolar, and anxiety disorder, who recently presented to the emergency department complaining of COLON and chest pain secondary to HTN, now returning 10 minutes after discharge with complaints of COLON and HTN. Will give equivalent home dose of benicar and recheck BP, tylenol. Will discharge with list of local rehab centers for PCP detox. 03/19/18 08:07 03/19/18 09:14 Pt vitals stable, no pain. Will discharge home with outpt f/u with PMD for further BP management. Provided pt with list of rehab facilities for PCP detox. Provided a two week rx of benicar for interim time. *DC/Admit/Observation/Transfer Diagnosis at time of Disposition: Hypertension Qualifiers: Hypertension type: essential hypertension Qualified Code(s): I10 - Essential ( primary) hypertension - Discharge Dispostion Disposition: HOME Condition at time of disposition: Good Decision to Admit order: No - Prescriptions Prescriptions: Olmesartan/Hydrochlorothiazide [Benicar Hct 40-12.5MG Tab -] 1 tab PO DAILY #14 tab - Referrals Referrals: Marv Rm [Primary Care Provider] - - Patient Instructions Additional Instructions: You were seen at ED for headache and high blood pressure. You received a dose of your home blood pressure meds with improvement in your blood pressure and tylenol for your headache. You are being discharged home with a list of available drug detox centers for follow-up with your desired plan for PCP detox. Please follow-up with primary care provider within one week for further management of your blood pressure. You were provided a two week supply of your home BP meds (Benicar) - Post Discharge Activity
[2018-03-19] MEDS ORDERED: VALSARTAN 160 MG TABLET (UD) PO ONE (07:49)
[2018-03-19] MEDS ORDERED: HYDROCHLOROTHIAZIDE 12.5 MG CAPSULE (FP) PO ONE (07:53)
[2018-03-19] MEDS ORDERED: ACETAMINOPHEN 325 MG TABLET (FP) PO ONE (07:57)
[2018-03-19] MEDS ORDERED: ACETAMINOPHEN 325 MG TABLET (FP) ONE (08:01)
[2018-03-19] MEDS ORDERED: VALSARTAN 80 MG TABLET (UD) ONE (08:01)
[2018-03-19] MEDS ORDERED: HYDROCHLOROTHIAZIDE 25 MG TABLET (FP) ONE (08:01)
--- NOTE | 2018-03-19 08:18 | PDOC ---
Attending Attestation - Resident Resident Name: Michael Lee - ED Attending Attestation I have performed the following: I have examined & evaluated the patient, The case was reviewed & discussed with the resident, I agree w/resident's findings & plan, Exceptions are as noted - HPI HPI: 03/19/18 08:12 "The patient is a 47 year old female, with a significant past medical history of ETOH and PCP abuse, hypertension, COPD, asthma, bipolar disorder, and anxiety , who presents to the emergency department complaining of elevated blood pressure and requesting detox. Patient reports she was evaluated in the ED last night for chest pain, which has since resolved. At the time, patient was given Hydrochlorothiazide and Diovan. She returns because she states her BP is still elevated. Pt takes benicar and reports intermittent compliance. Pt also states that she wants detox for PCP. Pt was told last night that [facility] did not have any beds available. She denies any CP, shortness of breath, diaphoresis, or palpitations. She denies any fever, chills, cough, or dizziness. She denies any abdominal pain, nausea, vomiting, or changes in bowel/bladder habits. Patient reports she last used PCP 5 days ago and is a current everyday smoker. Denies daily ETOH use. " - Physicial Exam PE: 03/19/18 08:19 "GENERAL: Awake, alert, and fully oriented, in no acute distress. HEAD: No signs of trauma EYES: PERRLA, EOMI, sclera anicteric, conjunctiva clear ENT: Auricles normal inspection, hearing grossly normal, nares patent, oropharynx clear without exudates. Moist mucosa NECK: Nontender, no stepoffs, Normal ROM, supple, no lymphadenopathy, JVD, or masses LUNGS: Breath sounds equal, clear to auscultation bilaterally. No wheezes, and no crackles HEART: Regular rate and rhythm, normal S1 and S2, no murmurs, rubs or gallops ABDOMEN: Soft, nontender, normoactive bowel sounds. No guarding, no rebound. No masses EXTREMITIES: Normal range of motion, no edema. No clubbing or cyanosis. No cords, erythema, or tenderness NEUROLOGICAL: Cranial nerves II through XII intact. 5/5 strength and sensation in all extremities, Normal speech, normal gait, normal cerebellar function SKIN: Warm, Dry, normal turgor, no rashes or lesions noted. " - Medical Decision Making 03/19/18 08:19 47 F requesting detox for PCP. Pt with no signs of active withdrawal or intoxication on exam. Was seen here last night and cleared medically. Pt with no new complaints at this time other than elevated BP. - Home dose of benicar - Refer to detox/rehab facilities - F/u PMD for further BP management Pt is well appearing, with normal vitals. Clinically stable for DC at this time. I discussed the physical exam findings, ancillary test results and final diagnoses with the patient. I answered all of the patient's questions. The patient was satisfied with the care received and felt comfortable with the discharge plan and treatment plan. The patient agrees to follow up with the primary care physician within 24-72 hours.
[2018-03-19 09:24] VITALS: BP 135/95; PULSE 83; TEMP 98.3
[2018-03-19] MEDS ORDERED: ASPIRIN COATED 81 MG TABLET.EC PO SCH (10:00)
== END 2018-03-19 09:24 | disposition home or self-care (01) ==
LOC: JER 06:54
DX: I10 Essential (primary) hypertension (principal); F41.9 Anxiety disorder, unspecified; I25.10 Atherosclerotic heart disease of native coronary artery without angina pectoris; E78.5 Hyperlipidemia, unspecified; E78.00 Pure hypercholesterolemia, unspecified; J44.9 Chronic obstructive pulmonary disease, unspecified; J45.909 Unspecified asthma, uncomplicated; F31.9 Bipolar disorder, unspecified; M12.9 Arthropathy, unspecified; F17.210 Nicotine dependence, cigarettes, uncomplicated; F16.10 Hallucinogen abuse, uncomplicated; Z91.14 Patient's other noncompliance with medication regimen
CPT/HCPCS: 99281-25

== ENCOUNTER 2018-04-09 12:22 | Inpatient (IN) | payer BC, OTHER ==
--- NOTE | 2018-04-09 12:28 | PDOC ---
Attending Attestation - Resident Resident Name: Elliot Presleyson - ED Attending Attestation I have performed the following: I have examined & evaluated the patient, The case was reviewed & discussed with the resident, I agree w/resident's findings & plan, Exceptions are as noted - HPI HPI: 04/09/18 12:27 47y F hx of htn, hl, copd, asthma, substance abuse, bipolar disorder, tia presents with L sided weakness. Pt states she originally had a complaint of chest pain and hemoptysis around 4am went to [facility], was evalutaed and discharged. pt notes she felt mild weakness in her L arm at that time, she went to her day program and felt like the sypmtoms worsened around 9am and spoke to her counsolor who recommended talking to the nurse at 11am. On arrival the pt had some slurring of her speech and weakness of the LUE and LLE. code dodd was activated upon arrival (per EMS, onset was 1hr but after more careful history, pt notes sypmtoms started around 4am). ddx for pts symps include cva/tia, consider possible dissection in light of her complaint of L sided chest pain that started around the same time CT neg for blood neuro consulted, agree, outside of TPA window pt on cardiac omnitor CRITICAL CARE DOCUMENTATION: I spent ~35 minutes of Critical Care time, excluding separately billable procedures, involving high complexity decision making to assess, manipulate and support vital system function(s) to treat single or multiple vital organ system failure and/or to prevent further life threatening deterioration of the patient' s condition. - Physicial Exam PE: 04/13/18 17:45 see above - Medical Decision Making 04/13/18 17:45 see above Heart Score/ECG Review - ECG Impressions Comment:: 04/09/18 14:36 Twelve-lead EKG was performed and reviewed by me. There is normal sinus rhythm with a rate of 55 T wave inversion in V3 V4, flattening in V5 and V6 NIH Stroke Scale - Last Known Well Date/Time & Onset Date Last Known Well: 04/09/18 Time Last Known Well: 04:00 - Initial Evaluation Level of consciousness: Alert Ask patient the month and their age: Answers both correctly Ask patient to open & close eyes; make fist and let go: Obeys both correctly Best gaze (horizontal eye movement): Normal Visual field testing: No visual field loss Facial paresis (Show teeth/raise eyebrows/close eyes tight): Minor paralysis ( flattened nasolabial fold, asymmetry on smiling) Motor Function: Left Arm: Drift Motor Function: Right Arm: Normal (extends arm 90 (or 45) degrees for 10 seconds without drift Motor Function: Left Leg: Drift Motor Function: Right Leg: Normal (extends leg 30 degrees for 5 seconds without drift) Limb Ataxia: No ataxia Sensory(Use pinprick test arms,legs,trunk,face/side to side): Normal Best language (Describe picture, name items, read sentences): No Aphasia Dysarthria (read several words): Mild to moderate slurring of words Extinction and Inattention: No abnormality - Total Score NIH Stroke Scale Score: 4 tPA Exclusion checklist 3-4.5h - Time Elapsed Date last known well: 04/09/18 Time last known well: 04:00 Elaspsed time: 4 Day(s) and 13 Hour(s) and 45 Minutes - Thrombolytic Therapy Candidate Is patient eligible for thrombolytic therapy: No - Ineligibility reason(s) Reasons No tPA given: Outside of window - delayed arrival
--- NOTE | 2018-04-09 12:51 | PDOC ---
History of Present Illness - General Chief Complaint: CVA/TIA Stated Complaint: CVA/TIA Time Seen by Provider: 04/09/18 12:24 - History of Present Illness Initial Comments: 04/09/18 12:48 47 yo F h/o of HTN, bipolar, and anxiety disorder, TIA, polysubstance/PCP use ( seen at [facility] and [facility]) who p/w L sided weakness. Patient is poor historian. She reports acute onset of L sided weakness and sensation of "not feeling right." at approximately 0400 AM this morning while in ED at [facility] , being worked up for self reported hemoptysis and chest pain. Patient was discharged from facility and attended [facility]" for PCP use, polysubstance abuse/rehab. While in waiting room patient notedleft sided facial droop, worsening left arm, and leg weakness at approximately 0900 AM. The nurse at the facility called EMS at 1100. EMS states that patient has been seen in [place] for TIA in past. Patient currently endorsing left sided arm, leg, and facial weakness. Now endorses retrosternal, non radiating chest pain with no identifiable triggers or alleviators and SOB.+ Chronic cough, with absent hemoptysis. Denies fall, head/neck/back trauma, F/C, N/V, orthopnea, palpitations, PND, leg swelling/pain, abdominal pain, diarrhea, constipation, urinary complaints, weakness, lightheadedness, sensory changes. PMHx: as noted above. Denies h/o ACS/RI, stent, stress testing, or CABG. Does not f/w Neurology. ROS: as noted above SHx: PCP use for unknown amount of years. 1/2 ppd for 26 years. Denies Etoh use. Past History - Past Medical History Allergies/Adverse Reactions: Allergies Allergy/AdvReac Type Severity Reaction Status Date / Time amoxicillin trihydrate Allergy Verified 04/09/18 12:47 [From Augmentin] azithromycin [From Zithromax] Allergy Verified 04/09/18 12:47 potassium clavulanate Allergy Verified 04/09/18 12:47 [From Augmentin] Home Medications: Ambulatory Orders Aspirin [ASA -] 81 mg PO DAILY 06/22/17 Albuterol Sulfate Inhaler - [Ventolin Hfa Inhaler -] 2 inh PO Q4H PRN 03/19/18 Timolol 0.25% [Timoptic 0.25%] 1 drop BID 03/19/18 Budesonide/Formeterol Fumarate [SYMBICORT 160/4.5mcg -] 1 inh PO BID 04/09/18 Clonidine HCl [Clonidine HCl ER] 0.1 mg PO TID 04/09/18 Cyclobenzaprine HCl 10 mg PO TID PRN 04/09/18 Docusate Sodium 100 mg PO BID 04/09/18 Nicotine [Nicotine Patch 14mg/24 hr] 1 each TD DAILY 04/09/18 Pantoprazole Sodium 40 mg PO DAILY 04/09/18 Quetiapine Fumarate [Seroquel -] 25 mg PO AM 04/09/18 Quetiapine Fumarate [Seroquel] 100 mg PO HS 04/09/18 Sennosides [Senna] 8.6 mg PO HS 04/09/18 Topiramate [Topamax] 100 mg PO BID 04/09/18 Anemia: No Asthma: Yes Cancer: No Cardiac Disorders: No CVA: No COPD: No CHF: No DVT: No Dementia: No Diabetes: No Dialysis: No GI Disorders: No Disorders: No HTN: Yes Hypercholesterolemia: Yes Kidney Stones: No Liver Disease: No Psychiatric Problems: No Seizures: No Thyroid Disease: No Lung CA: No - Surgical History Abdominal Surgery: No Appendectomy: No Cardiac Surgery: Yes (SX R CAROTID ARTERY FOR A CLOT IN 2004) Cholecystectomy: No Gastric Stapling: No GI Surgery: No Lung Surgery: No Neurologic Surgery: No Orthopedic Surgery: No - Reproductive History PID: No - Immunization History Td Vaccination: Yes Immunization Up to Date: Yes - Suicide/Smoking/Psychosocial Hx Smoking Status: Yes Smoking History: Current every day smoker Years of Tobacco Use: 20 Have you smoked in the past 12 months: No Number of Cigarettes Smoked Daily: 10 Cigars Per Day: 0 'Breaking Loose' booklet given: 02/05/16 Hx Alcohol Use: No Drug/Substance Use Hx: No Substance Use Type: Alcohol Hx Substance Use Treatment: Yes ([facility]) Review of Systems - Review of Systems Comments:: 04/09/18 13:09 GENERAL/CONSTITUTIONAL: No fever or chills. No weakness. HEAD, EYES, EARS, NOSE AND THROAT: No change in vision. No ear pain or discharge. No sore throat. CARDIOVASCULAR: + chest pain and shortness of breath RESPIRATORY: No cough, wheezing, or hemoptysis. GASTROINTESTINAL: No nausea, vomiting, diarrhea or constipation. GENITOURINARY: No dysuria, frequency, or change in urination. MUSCULOSKELETAL: No joint or muscle swelling or pain. No neck or back pain. SKIN: No rash NEUROLOGIC:+ change in strength/sensation. No headache, vertigo, loss of consciousness, or ENDOCRINE: No increased thirst. No abnormal weight change HEMATOLOGIC/LYMPHATIC: No anemia, easy bleeding, or history of blood clots. ALLERGIC/IMMUNOLOGIC: No hives or skin allergy. *Physical Exam - Physical Exam Comments: 04/09/18 13:10 GENERAL: Awake, alert, and fully oriented, in no acute distress HEAD: No signs of trauma, normocephalic, atraumatic EYES: PERRLA, EOMI, sclera anicteric, conjunctiva clear ENT: Auricles normal inspection, hearing grossly normal, nares patent, oropharynx clear without exudates. Moist mucosa NECK: Normal ROM, supple, no lymphadenopathy, JVD, or masses LUNGS: No distress, speaks full sentences, clear to auscultation bilaterally HEART: Regular rate and rhythm, normal S1 and S2, no murmurs, rubs or gallops, peripheral pulses normal and equal bilaterally. ABDOMEN: Soft, nontender, normoactive bowel sounds. No guarding, no rebound. No masses EXTREMITIES : Normal inspection, Normal range of motion, no edema. No clubbing or cyanosis. NEUROLOGICAL: LUE/LLE strength 4/5. Cranial nerves II through XII grossly intact. Normal speech, normal gait, no focal sensorimotor deficits. SKIN: Warm, Dry, normal turgor, no rashes or lesions noted BP L arm 155/97 BP R arm 157/104 NIH Stroke Scale - Last Known Well Date/Time & Onset Date Last Known Well: 04/09/18 Time Last Known Well: 04:00 - Initial Evaluation Level of consciousness: Alert Ask patient the month and their age: Answers both correctly Ask patient to open & close eyes; make fist and let go: Obeys both correctly Best gaze (horizontal eye movement): Normal Visual field testing: No visual field loss Facial paresis (Show teeth/raise eyebrows/close eyes tight): Minor paralysis ( flattened nasolabial fold, asymmetry on smiling) Motor Function: Left Arm: Drift Motor Function: Right Arm: Normal (extends arm 90 (or 45) degrees for 10 seconds without drift Motor Function: Left Leg: Drift Motor Function: Right Leg: Normal (extends leg 30 degrees for 5 seconds without drift) Limb Ataxia: No ataxia Sensory(Use pinprick test arms,legs,trunk,face/side to side): Normal Best language (Describe picture, name items, read sentences): No Aphasia Dysarthria (read several words): Normal articulation Extinction and Inattention: No abnormality - Total Score NIH Stroke Scale Score: 3 tPA Exclusion checklist 3-4.5h - Time Elapsed Date last known well: 04/09/18 Time last known well: 04:00 Elaspsed time: Day(s) and 12 Hour(s) and 13 Minutes - Thrombolytic Therapy Candidate Is patient eligible for thrombolytic therapy: No - Exclusion Criteria 3-4.5 hr SBP greater than 185 or DBP greater than 110mmHg despite tx: No Recent IC/spinal surgery,head trauma or stroke<3mos.: No Hx IC hemorrhage, IC neoplasm, AV malformation or aneurysm: No Active internal bleeding: No Blding diathesis(low plt ct, inc PTT,INR>1.7 or use of NOAC): No Symptoms suggest subarachnoid hemorrhage: No CT demonstrates multilobar infarct(>1/3 cerebral hemiphere): No Arterial puncture at noncompressible site in previous 7 days: No Blood glucose concentration less than 50mg/dL (2.7mmol/L): No - Relative Exclusion Criteria 3-4.5 hr Life expectancy <1 yr or severe co-morbid illness: No : No Patient/family refused: No Rapid improvement: No Stroke severity too mild: Yes Recent acute RI (w/in previous 3 months): No Seizure at onset with postictal residual neuro impairments: No Major surgery or serious trauma w/in previous 14 days: No Recent GI or hemorrhage (w/in previous 21 days): No - Add'l Relative Exclusion 3-4.5 hr Age > 80: No Taking an oral anticoagulant regardless of INR: No NIHSS >25: No - Ineligibility reason(s) Reasons No tPA given: Outside of window - delayed arrival Critical Care Time/MDM Note - Medical Decision Making Note: 04/09/18 13:20 47 yo F h/o of CAD, HTN, bipolar, and anxiety disorder, TIA, polysubstance/PCP use ( seen at out. [facility]) who p/w L sided weakness. BP L arm 155/97, BP R arm 157/104, AF, A&Ox3. NIHSS 3, LUE, LLE weakness. Patient does not meet TpA criteria ( Outside TpA window- Last known well 0400 04/08/18). Will consider CVA/TIA, hypoglycemia,.In setting of chest pain and neuro deficits, I will consider Ao dissection, AAA. Code Barrios activated upon arrival at 1130. ED Course: 04/09/18 13:29 CTH: No acute intracranial pathology Repeat neruo exam with improved LUE and LLE motor strength. Per Neruology, patient is outside TpA window. CBC: Unremarkable 04/09/18 15:22 CK: 601 CBC, CMP: Unremarkable UA: Neg Admitted to Dr. Yepez Med/surg obs. Discharge Disposition - Referrals Referrals: Marv Rm [Non Staff, Medical] - - Patient Instructions - Post Discharge Activity
[2018-04-09 13:01] VITALS: BMI 31.8
[2018-04-09 13:04] LABS: BASO % 1.3 % (0-2.0); EOS % 0.9 % (0-4.5); HEMATOCRIT 39.3 % (32.4-45.2); HEMOGLOBIN 13.3 GM/dL (10.7-15.3); LYMPH % 41.4 % (8-40); MCHC 33.9 g/dl (32.0-36.0); MEAN CELL VOLUME 97.3 fl (80-96); MEAN PLT VOLUME 7.1 fl (7.5-11.1); MONO % 7.3 % (3.8-10.2); NEUT % 49.1 % (42.8-82.8); PLATELET COUNT 297 K/MM3 (134-434); RBC 4.04 M/mm3 (3.60-5.2); RDW 13.8 % (11.6-15.6); WHITE BLOOD COUNT 6.2 K/mm3 (4.0-10.0)
[2018-04-09 13:05] LABS: URINE APPEARANCE CLEAR; URINE BILIRUBIN NEGATIVE (<2.0 mg/dL); URINE BLOOD NEGATIVE (NEGATIVE); URINE COLOR STRAW; URINE GLUCOSE (UA) NEGATIVE (NEGATIVE); URINE KETONE NEGATIVE (NEGATIVE); URINE LEUK ESTERASE NEGATIVE (NEGATIVE); URINE NITRITE NEGATIVE (NEGATIVE); URINE PROTEIN NEGATIVE (NEGATIVE); URINE UROBILINOGEN NEGATIVE mg/dL (0.2-1.0)
[2018-04-09 13:19] LABS: INR 0.99 (0.82-1.09); PROTHROMBIN TIME (PATIENT) 11.2 SEC (9.7-13.0)
[2018-04-09] MEDS: SODIUM CHLORIDE 1,000 ML IV SCH (13:33)
[2018-04-09 13:43] LABS: ALBUMIN 3.9 g/dl (3.4-5.0); ANION GAP 8 (8-16); BILIRUBIN,TOTAL 0.2 mg/dL (0.2-1.0); BLOOD UREA NITROGEN 25 mg/dL (7-18); CHLORIDE 103 mmol/L (98-107); CHOLESTEROL 278 mg/dL (50-200); CO2 28 mmol/L (21-32); GLUCOSE,RANDOM 94 mg/dL (74-106); SGOT/AST 30 U/L (15-37); SGPT/ALT 65 U/L (12-78); SODIUM 139 mmol/L (136-145); TOT PROT 8.2 g/dl (6.4-8.2); TRIGLYCERIDES 336 mg/dL (35-160)
[2018-04-09 13:44] LABS: ALK PHOS 103 U/L (45-117); HDL CHOLESTEROL 41 mg/dL (40-60)
--- NOTE | 2018-04-09 16:10 | EKG ---
Test Reason : Blood Pressure : / mmHG Vent. Rate : 055 BPM Atrial Rate : 055 BPM P-R Int : 130 ms QRS Dur : 078 ms QT Int : 448 ms P-R-T Axes : 042 010 006 degrees QTc Int : 428 ms SINUS BRADYCARDIA WITH SINUS ARRHYTHMIA T WAVE ABNORMALITY, CONSIDER ANTERIOR ISCHEMIA ABNORMAL ECG WHEN COMPARED WITH ECG OF 19-MAR-2018 02:43, ST NO LONGER ELEVATED IN ANTERIOR LEADS INVERTED T WAVES HAVE REPLACED NONSPECIFIC T WAVE ABNORMALITY IN ANTERIOR LEADS Confirmed by RAMIREZ VAUGHN MD ([id number]) on 04/09/2018 4:10:13 PM Referred By: Confirmed By:RAMIREZ VAUGHN MD
--- NOTE | 2018-04-09 17:19 | HP ---
Admitting History and Physical - Admission Chief Complaint: chest pain History of Present Illness: HPI: This is a 47 year old female of HTN, bipolar, and anxiety disorder, TIA[facility] This morning at 4 am she went [facility] for coughing up blood. They sent her home. About 1 week ago she was hospitalized for TIA. She then took the bus to her [facility] for pcp use and when she go there she started feeling chest pressure, let eye drop and weakness and feeling something was crawling on her head. EMS was called and she was brought to [facility]. While in the ED she reported retro sternal chest pain, and sob. Currently, she has chest pressure and head ache. She denies trauma or heavy lifting. She has Left sided shoulder discomfort. SHx: PCP use for unknown amount of years. 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 Cardiovascular: Yes: CAD, HTN, Hyperlipdemia Pulmonary: Yes: COPD ...LMP: 07/06/16 Psych: Yes: Bipolar Rheumatology: Yes: Rheumatoid Arthritis - Smoking History Smoking history: Current every day smoker Have you smoked in the past 12 months: No Aproximately how many cigarettes per day: 10 - Alcohol/Substance Use Hx Alcohol Use: No History of Substance Use: reports: Marijuana (and PCP) - Social History Usual Living Arrangement: Yes: Alone ADL: Independent History of Recent Travel: No Home Medications - Allergies Allergies/Adverse Reactions: Allergies Allergy/AdvReac Type Severity Reaction Status Date / Time amoxicillin trihydrate Allergy Verified 04/09/18 12:47 [From Augmentin] azithromycin [From Zithromax] Allergy Verified 04/09/18 12:47 potassium clavulanate Allergy Verified 04/09/18 12:47 [From Augmentin] - Home Medications Home Medications: Ambulatory Orders Aspirin [ASA -] 81 mg PO DAILY 06/22/17 Albuterol Sulfate Inhaler - [Ventolin Hfa Inhaler -] 2 inh PO Q4H PRN 03/19/18 Timolol 0.25% [Timoptic 0.25%] 1 drop BID 03/19/18 Budesonide/Formeterol Fumarate [SYMBICORT 160/4.5mcg -] 1 inh PO BID 04/09/18 Clonidine HCl [Clonidine HCl ER] 0.1 mg PO TID 04/09/18 Cyclobenzaprine HCl 10 mg PO TID PRN 04/09/18 Docusate Sodium 100 mg PO BID 04/09/18 Nicotine [Nicotine Patch 14mg/24 hr] 1 each TD DAILY 04/09/18 Pantoprazole Sodium 40 mg PO DAILY 04/09/18 Quetiapine Fumarate [Seroquel -] 25 mg PO AM 04/09/18 Quetiapine Fumarate [Seroquel] 100 mg PO HS 04/09/18 Sennosides [Senna] 8.6 mg PO HS 04/09/18 Topiramate [Topamax] 100 mg PO BID 04/09/18 Family Disease History - Family Disease History Family Disease History: Diabetes: Brother (HTN, Cancer), Heart Disease: Grandparent, Father ( ETOH DEPENDENT AND FROM CAD), Mother ( FROM CAD) , Brother, CA: Brother Review of Systems - Review of Systems Constitutional: reports: Weakness (left side) Eyes: reports: No Symptoms HENT: reports: No Symptoms Neck: reports: No Symptoms Cardiovascular: reports: Chest Pain Respiratory: reports: SOB Gastrointestinal: reports: No Symptoms Genitourinary: reports: No Symptoms Musculoskeletal: reports: No Symptoms Integumentary: reports: No Symptoms Neurological: reports: Change in Speech, Headache Endocrine: reports: No Symptoms Hematology/Lymphatic: reports: No Symptoms Psychiatric: reports: No Symptoms Physical Examination Vital Signs: Vital Signs Temperature 98.0 F 04/09/18 12:47 Pulse Rate 56 L 04/09/18 15:23 Respiratory Rate 20 04/09/18 15:23 Blood Pressure 161/98 04/09/18 15:23 O2 Sat by Pulse Oximetry (%) 98 04/09/18 15:23 Constitutional: Yes: Well Nourished Eyes: Yes: Conjunctiva Clear HENT: Yes: Atraumatic Neck: Yes: Supple Cardiovascular: Yes: Regular Rate and Rhythm, S1, S2 Respiratory: Yes: Regular, Diminished Gastrointestinal: Yes: Normal Bowel Sounds, Soft Renal/: Yes: WNL Musculoskeletal: Yes: WNL Extremities: Yes: WNL Edema: No Neurological: Yes: Alert, Oriented, Cran Nerves II-XII Intact Labs: CBC, BMP 04/09/18 12:45 04/09/18 12:45 Imaging - Results Chest X-ray: Report Reviewed X-ray: Report Reviewed Cat Scan: Report Reviewed Problem List - Problems (1) Atypical chest pain Code(s): R07.89 - OTHER CHEST PAIN (2) Back pain Code(s): M54.9 - DORSALGIA, UNSPECIFIED Qualifiers: Back pain location: low back pain Back pain laterality: unspecified Sciatica presence: without sciatica (3) Bipolar depression Code(s): F31.30 - BIPOLAR DISORD, CRNT EPSD DEPRESS, MILD OR MOD SEVERT, UNSP (4) CAD (coronary artery disease) Code(s): I25.10 - ATHSCL HEART DISEASE OF [place] CORONARY ARTERY W/O ANG PCTRS Assessment/Plan Assessment: 47 year old female presenting with chest pain and left sided weakness Plan: 1. Left sided weakness, hx of TIA - r/o CVA vs TIA - Head CT neg - Outside window for TpA - CTA neg for dissection - MRI brain, ECHO, carotid dopplers ordered - Lipid panel noted - Will start high dose statin - Continue asa 81 mg daily - D/w Neurology consulted 2. Chest pain/pressure - Trend trops r/o ACS - See above 3. Psych - Cont psych meds - On Clonidine TID (Change to short acting, ER is NF here) 4. HTN - Elevated, no protein in urine - Medical records show has been on lzbrmmi04/10/08, will restart diovan 320mg, hctz 12.5 5. COPD/Asthma - Symbicort HS - Albuterol prn 6. HLD, hypertriglycerides - Statin started 7. DVT - Heparin sq Visit type - Emergency Visit Emergency Visit: Yes ED Registration Date: 04/09/18 Care time: The patient presented to the Emergency Department on the above date and was hospitalized for further evaluation of their emergent condition. - New Patient This patient is new to me today: Yes Date on this admission: 04/09/18 - Critical Care Critical Care patient: No Hospitalist Screening - Colonoscopy Questionnaire Colonoscopy Questionnaire: Colonoscopy Questionnaire - Patient: 50 - 75 years old and never had a screening colonoscopy: Unknown History of colon or rectal polyps, or CA: Unknown History of IBD, Crohn's disease or UC: Unknown History of abdominal radiation therapy as a child: Unknown - Relative: 1 with colon or rectal CA, or polyps at age 60 or younger: Unknown Colon or rectal CA diagnosed at age 45 or younger: Unknown Multiple relatives with colon or rectal CA: Unknown - Outcome: Screening Result: Negative Screen
[2018-04-09] MEDS ORDERED: ACETAMINOPHEN 1000 MG/100 ML VIAL (NON FORMULARY) IVPB ONE (17:32)
[2018-04-09] MEDS ORDERED: ACETAMINOPHEN INJECTION 100 ML IVPB ONE (17:35)
[2018-04-09] MEDS ORDERED: ALBUTEROL SO4 18 GM HFA INHALER IH PRN (18:13)
[2018-04-09] MEDS ORDERED: amLODIPine BESYLATE 5 MG TABLET (FP) PO SCH (18:30)
[2018-04-09] MEDS ORDERED: VALSARTAN 40 MG TABLET (FP) PO SCH (18:30)
[2018-04-09] MEDS ORDERED: QUEtiapine FUMARATE 50 MG TABLET ONE (21:35)
[2018-04-09] MEDS: HYDROCHLOROTHIAZIDE 12.5 MG CAPSULE (FP) PO SCH (21:44)
[2018-04-09] MEDS: VALSARTAN 160 MG TABLET (UD) PO SCH (21:44)
[2018-04-09] MEDS: cloNIDine HCL 0.1 MG TABLET PO SCH (21:45)
[2018-04-09] MEDS: ATORVASTATIN CA 80 MG TABLET (FP) PO SCH (21:45)
[2018-04-09] MEDS: QUEtiapine FUMARATE 100 MG TABLET (FP) PO SCH (21:45)
[2018-04-09] MEDS: HEPARIN NA (PORCINE) 5,000 UNITS/ML 1ML VIAL SQ SCH (21:45)
[2018-04-09] MEDS: BUDESONIDE/FORMETEROL FUMARATE 160/4.5 mcg INHALER IH SCH (22:18)
[2018-04-09] MEDS: TOPIRAMATE 100 MG TABLET PO SCH (22:38)
[2018-04-10] MEDS: ACETAMINOPHEN 325 MG TABLET (FP) PO PRN ×2 (03:05→13:53)
[2018-04-10] MEDS: CYCLOBENZAPRINE HCL 10 MG TABLET (FP) PO PRN ×3 (03:05→21:40)
[2018-04-10] MEDS: QUEtiapine FUMARATE 25 MG TABLET (FP) PO SCH ×2 (06:40→07:28)
[2018-04-10] MEDS: HEPARIN NA (PORCINE) 5,000 UNITS/ML 1ML VIAL SQ SCH ×3 (06:40→21:39)
[2018-04-10] MEDS: cloNIDine HCL 0.1 MG TABLET PO SCH ×3 (06:40→21:40)
--- NOTE | 2018-04-10 08:59 | CON.NEURO ---
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 Cardio/Vascular: Yes: CAD, HTN, Hyperlipdemia Pulmonary: Yes: COPD ...LMP: 07/06/16 ...: No Psych: Yes: Bipolar Rheumatology: Yes: Rheumatoid Arthritis - Alcohol/Substance Use Hx Alcohol Use: No History of Substance Use: reports: Marijuana (and PCP) - Smoking History Smoking history: Current every day smoker Have you smoked in the past 12 months: Yes Aproximately how many cigarettes per day: 10 - Social History ADL: Independent History of Recent Travel: No Home Medications - Allergies Allergies/Adverse Reactions: Allergies Allergy/AdvReac Type Severity Reaction Status Date / Time amoxicillin trihydrate Allergy Verified 04/09/18 12:47 [From Augmentin] azithromycin [From Zithromax] Allergy Verified 04/09/18 12:47 potassium clavulanate Allergy Verified 04/09/18 12:47 [From Augmentin] - Home Medications Home Medications: Ambulatory Orders Aspirin [ASA -] 81 mg PO DAILY 06/22/17 Albuterol Sulfate Inhaler - [Ventolin Hfa Inhaler -] 2 inh PO Q4H PRN 03/19/18 Timolol 0.25% [Timoptic 0.25%] 1 drop BID 03/19/18 Budesonide/Formeterol Fumarate [SYMBICORT 160/4.5mcg -] 1 inh PO BID 04/09/18 Clonidine HCl [Clonidine HCl ER] 0.1 mg PO TID 04/09/18 Cyclobenzaprine HCl 10 mg PO TID PRN 04/09/18 Docusate Sodium 100 mg PO BID 04/09/18 Nicotine [Nicotine Patch 14mg/24 hr] 1 each TD DAILY 04/09/18 Pantoprazole Sodium 40 mg PO DAILY 04/09/18 Quetiapine Fumarate [Seroquel -] 25 mg PO AM 04/09/18 Quetiapine Fumarate [Seroquel] 100 mg PO HS 04/09/18 Sennosides [Senna] 8.6 mg PO HS 04/09/18 Topiramate [Topamax] 100 mg PO BID 04/09/18 Family Disease History - Family Disease History Family Disease History: Diabetes: Brother (HTN, Cancer), Heart Disease: Grandparent, Father ( ETOH DEPENDENT AND FROM CAD), Mother ( FROM CAD) , Brother, CA: Brother Physical Exam-Neuro Vital Signs: Vital Signs Temperature 98.1 F 04/10/18 07:46 Pulse Rate 90 04/10/18 07:46 Respiratory Rate 20 04/10/18 07:50 Blood Pressure 115/78 04/10/18 07:46 O2 Sat by Pulse Oximetry (%) 99 04/10/18 07:50 Labs: CBC, BMP 04/09/18 12:45 04/09/18 12:45 INR, PTT INR 0.99 (0.82-1.09) 04/09/18 12:45 Assessment/Plan Left sided Hemiparesis HPI 47 Year old female history of HTN, Bipolar, Anxiety,CAD, HLD, Poly substance abuse and Rheumatoid arthritis . Patient was recently to hospital and was diagnosed with TIA. Patient came to hospital for chest pain and left sided weakness. Patient still feeling left sided weakness. She refused to go for mri ofbrain. Patient denies any dysphagia, diplopia or sensory loss. PAST Medical History as above. Smoker and lives in senior care SH,ROS,FH reviewed in chart Allergies/Adverse Reactions: Allergies Allergy/AdvReac Type Severity Reaction Status Date / Time amoxicillin trihydrate Allergy Verified 04/09/18 12:47 [From Augmentin] azithromycin [From Zithromax] Allergy Verified 04/09/18 12:47 potassium clavulanate Allergy Verified 04/09/18 12:47 [From Augmentin] Home Medications: Aspirin [ASA -] 81 mg PO DAILY 06/22/17 Albuterol Sulfate Inhaler - [Ventolin Hfa Inhaler -] 2 inh PO Q4H PRN 03/19/18 Timolol 0.25% [Timoptic 0.25%] 1 drop BID 03/19/18 Budesonide/Formeterol Fumarate [SYMBICORT 160/4.5mcg -] 1 inh PO BID 04/09/18 Clonidine HCl [Clonidine HCl ER] 0.1 mg PO TID 04/09/18 Cyclobenzaprine HCl 10 mg PO TID PRN 04/09/18 Docusate Sodium 100 mg PO BID 04/09/18 Nicotine [Nicotine Patch 14mg/24 hr] 1 each TD DAILY 04/09/18 Pantoprazole Sodium 40 mg PO DAILY 04/09/18 Quetiapine Fumarate [Seroquel -] 25 mg PO AM 04/09/18 Quetiapine Fumarate [Seroquel] 100 mg PO HS 04/09/18 Sennosides [Senna] 8.6 mg PO HS 04/09/18 Topiramate [Topamax] 100 mg PO BID 04/09/18 Neurological Examination Alert follow command, oriented x 3 EOMI, pupils reactive, no face asymmetry, also noticed mild speech dysarthria There is subjective weakness on left hand dust sampler and left leg strength ( She says she is feeling better and not back to normal yet) sensation is normal reflex are symmetrical, planter is withdrawal bilateral ct head is normal, carotid ultrasound and mri of brain pending Assessment- Right sided stroke , symptoms are improving but sitll have residual symptoms. Patient has multiple risk factor including HTN,HLD,SMOKER AND CAD. Plan- Continue aspirin and statin - speech, PT , and DVT prophylaxis - MRI of brain and carotid ultrasound -stroke education and smoking cessation Thanking you so much Humberto Nevarez MD
[2018-04-10 09:22] LABS: BASO % 0.7 % (0-2.0); EOS % 0.9 % (0-4.5); HEMATOCRIT 37.4 % (32.4-45.2); LYMPH % 31.5 % (8-40); MCH 33.3 pg (25.7-33.7); MCHC 34.7 g/dl (32.0-36.0); MEAN CELL VOLUME 95.9 fl (80-96); MEAN PLT VOLUME 7.1 fl (7.5-11.1); MONO % 9.2 % (3.8-10.2); NEUT % 57.7 % (42.8-82.8); PLATELET COUNT 260 K/MM3 (134-434); RDW 13.7 % (11.6-15.6); WHITE BLOOD COUNT 5.3 K/mm3 (4.0-10.0)
[2018-04-10] MEDS: HYDROCHLOROTHIAZIDE 12.5 MG CAPSULE (FP) PO SCH (09:37)
[2018-04-10] MEDS: VALSARTAN 160 MG TABLET (UD) PO SCH (09:37)
[2018-04-10] MEDS: TOPIRAMATE 100 MG TABLET PO SCH ×2 (09:37→21:39)
[2018-04-10] MEDS: ASPIRIN 81 MG CHEWABLE TABLETS PO SCH (09:37)
[2018-04-10] MEDS: BUDESONIDE/FORMETEROL FUMARATE 160/4.5 mcg INHALER IH SCH ×2 (09:37→21:40)
[2018-04-10 09:58] LABS: ALBUMIN 3.6 g/dl (3.4-5.0); ALK PHOS 99 U/L (45-117); ANION GAP 7 (8-16); BILIRUBIN,TOTAL 0.6 mg/dL (0.2-1.0); BLOOD UREA NITROGEN 19 mg/dL (7-18); CALCIUM 9.6 mg/dL (8.5-10.1); CHLORIDE 105 mmol/L (98-107); CO2 27 mmol/L (21-32); CREATININE 0.9 mg/dL (0.55-1.02); GLUCOSE,RANDOM 117 mg/dL (74-106); PHOSPHOROUS 3.7 mg/dL (2.5-4.9); POTASSIUM 3.7 mmol/L (3.5-5.1); SGOT/AST 24 U/L (15-37); SGPT/ALT 51 U/L (12-78); SODIUM 139 mmol/L (136-145); TOT PROT 7.5 g/dl (6.4-8.2)
--- NOTE | 2018-04-10 11:49 | CONSULT ---
Admitting History and Physical - Primary Care Physician PCP: Daniela Smith - Admission History of Present Illness: Per EMR: HPI: This is a 47 year old female of HTN, bipolar, and anxiety disorder, TIA, [facility] This morning at 4 am she went [facility] for coughing up blood. They sent her home. About 1 week ago she was hospitalized for TIA. She then took the bus to her [facility] for pcp use and when she go there she started feeling chest pressure, let eye drop and weakness and feeling something was crawling on her head. EMS was called and she was brought to [facility]. While in the ED she reported retro sternal chest pain, and sob. Currently, she has chest pressure and head ache. She denies trauma or heavy lifting. She has Left sided shoulder discomfort. 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 Cardiovascular: Yes: CAD, HTN, Hyperlipdemia Pulmonary: Yes: COPD ...LMP: 07/06/16 ...: No Psych: Yes: Bipolar Rheumatology: Yes: Rheumatoid Arthritis - Smoking History Smoking history: Current every day smoker Have you smoked in the past 12 months: Yes Aproximately how many cigarettes per day: 10 - Alcohol/Substance Use Hx Alcohol Use: No History of Substance Use: reports: Marijuana (and PCP) - Social History ADL: Independent History of Recent Travel: No History - Admission Reason For Visit: WEAKNESS;CP AT REST;TRANSIENT CEREBRAL ISCHEMIA - Diagnostics X-ray: Report Reviewed CT Scan: Report Reviewed - General Mental Status: Awake and Alert, Able to Follow Commands, Vague Attention: Intact Ability to Follow Directions: Good Head/Neck Control: WFL - Hearing Hearing: Normal Hearing Aide: No With Patient: No Speech Evaluation - Communication Primary Language: HUNGARIAN Communication: Yes: Simple Responses (Slow to respond) - Speech Production Able to Make Needs Known: Yes: WNL Intelligibility: Yes: WNL - Speech Characteristics Voice Loudness: Normal Voice Pitch: Yes: Normal Voice Phonatory-based Quality: Yes: Normal Speech Clarity: < 100% Nasal Resonance: Normal Articulation: Yes: Imprecise (intermittent. Functional?) Rate of Speech: Too Slow - Language/Verbal Expression Able to Respond to Simple Queries: Yes: WNL Able to Communicate Wants and Needs: Yes: WNL - Swallow Evaluation/Bedside Assessment Current Nutritional Intake: Regular, Thin Liquids Oral Secretions: Yes: WFL Dentition: Yes: Adequate Facial Symmetry on Retraction: Symmetrical (Intermittent. Functional?) Pucker Lips: Normal, Weak Smile: Normal, Weak Lingual Movement: Symmetric Laryngeal Movement: Able to Palpate Rate of Intake: WFL Bolus Size: WFL Labial Seal: WFL Chewing: WFL Oral Prep Time: WFL A-P Transit: WFL Pocketing: None Timing of Swallow: WFL Coughing/Throat Clear: No Change in Voice: No Recommendations - Speech Evaluation, Impression/Plan Impression: Verbal. Slow to respond. Swallowing overtly intact - Dysphagia Impressions/Plan Swallowing Skills: WF Dysphagia Impressions: No Impairment *Silent aspiration: cannot be R/O at bedside - Recommendations Diet Consistency: Regular Medication Administration: Whole with water Liquids: Thin Liquids
--- NOTE | 2018-04-10 12:10 | PN ---
Progress Note (short form) - Note Progress Note: c/o left sided weakness and numbness. states it started suddenly yesterday. pt is a poor historian and changes her story on further questioning. but first states she was on aspirin for a blood clot, which she does not know where it was. she was in the hospital for 3 weeks on coumadin but was not discharged on it. but was told she had a blood clot this order but was told she did not need a blood thinner. also was told she had a mini stroke before with bleeding but with no residual deficits. never had a cardiac workup in the past. upon reviewing the chat seems shes had multiple admission with complaints of L hand weakness of B/L LE weakness and stories always documented to not be consistent with physical exam. Current Medications Generic Name Dose Route Start Last Admin Trade Name Freq PRN Reason Stop Dose Admin Acetaminophen 650 mg 04/09/18 17:59 04/10/18 03:05 Tylenol - PO 650 mg Q4H PRN Administration PAIN LEVEL 1 - 3 Albuterol Sulfate 2 puff 04/09/18 18:13 Ventolin Hfa Inhaler - IH Q4H PRN ASTHMA Aspirin 81 mg 04/10/18 10:00 04/10/18 09:37 Asa - PO 81 mg DAILY DELFINO Administration Atorvastatin Calcium 80 mg 04/09/18 22:00 04/09/18 21:45 Lipitor - PO 80 mg HS DELFINO Administration Budesonide/Formoterol Fumarate 1 puff 04/09/18 22:00 04/10/18 09:37 Symbicort 160/4.5mcg - IH 1 puff BID DELFINO Administration Clonidine 0.1 mg 04/09/18 22:00 04/10/18 06:40 Catapres - PO 0.1 mg TID DELFINO Administration Cyclobenzaprine HCl 10 mg 04/09/18 18:01 04/10/18 03:05 Flexeril - PO 10 mg TID PRN Administration PAIN LEVEL 4 - 6 Heparin Sodium (Porcine) 5,000 unit 04/09/18 22:00 04/10/18 06:40 Heparin - SQ 5,000 unit TID DELFINO Administration Hydrochlorothiazide 12.5 mg 04/09/18 18:45 04/10/18 09:37 Hctz - PO 12.5 mg DAILY DELFINO Administration Sodium Chloride 1,000 mls @ 42 mls/hr 04/09/18 12:30 04/09/18 13:33 Normal Saline - IV 42 mls/hr ASDIR DELFINO Administration Quetiapine Fumarate 100 mg 04/09/18 22:00 04/09/18 21:45 Seroquel - PO 100 mg HS DELFINO Administration Quetiapine Fumarate 25 mg 04/10/18 07:00 04/10/18 07:28 Seroquel - PO 25 mg AM DELFINO Administration Topiramate 100 mg 04/09/18 22:00 04/10/18 09:37 Topamax - PO 100 mg BID DELFINO Administration Valsartan 320 mg 04/09/18 18:45 04/10/18 09:37 Diovan - PO 320 mg DAILY DELFINO Administration Last Vital Signs Temp Pulse Resp BP Pulse Ox 98.1 F 90 20 115/78 99 04/10/18 07:46 04/10/18 07:46 04/10/18 07:50 04/10/18 07:46 04/10/18 07:50 General NAD, slow to respond CV S1 S2 RRR no murmur/rub/gallop + chest wall tenderness Lungs CTA B/L no wheezing/rales/rhonchi Abdomen soft NT/ND Extremities no pedal edema Neuro CN II-XII grossly intact. +dysmetria on the L (she states difficult to perform due to weakness). no pronator drift, sensation equal in all 4 extremities (she reports decreased sensation in the LUE and LLE but moves in response to light pinching), strength 5/5 in all extremities. negative heel to cruz. negative rhomberg. gait is slow but does not favor one side over the other CBCD WBC 5.3 K/mm3 (4.0-10.0) 04/10/18 09:05 RBC 3.90 M/mm3 (3.60-5.2) 04/10/18 09:05 Hgb 13.0 GM/dL (10.7-15.3) 04/10/18 09:05 Hct 37.4 % (32.4-45.2) 04/10/18 09:05 MCV 95.9 fl (80-96) 04/10/18 09:05 MCHC 34.7 g/dl (32.0-36.0) 04/10/18 09:05 RDW 13.7 % (11.6-15.6) 04/10/18 09:05 Plt Count 260 K/MM3 (134-434) 04/10/18 09:05 MPV 7.1 fl (7.5-11.1) L 04/10/18 09:05 CMP Sodium 139 mmol/L (136-145) 04/10/18 09:05 Potassium 3.7 mmol/L (3.5-5.1) 04/10/18 09:05 Chloride 105 mmol/L (98-107) 04/10/18 09:05 Carbon Dioxide 27 mmol/L (21-32) 04/10/18 09:05 Anion Gap 7 (8-16) L 04/10/18 09:05 BUN 19 mg/dL (7-18) H 04/10/18 09:05 Creatinine 0.9 mg/dL (0.55-1.02) 04/10/18 09:05 Creat Clearance w eGFR > 60 (>60) 04/10/18 09:05 Calcium 9.6 mg/dL (8.5-10.1) 04/10/18 09:05 Total Bilirubin 0.6 mg/dL (0.2-1.0) D 04/10/18 09:05 AST 24 U/L (15-37) 04/10/18 09:05 ALT 51 U/L (12-78) 04/10/18 09:05 Alkaline Phosphatase 99 U/L (45-117) 04/10/18 09:05 Total Protein 7.5 g/dl (6.4-8.2) 04/10/18 09:05 Albumin 3.6 g/dl (3.4-5.0) 04/10/18 09:05 Assessment and PLan: 47 year old female with PMH HTN, CAD, smoker, anxiety, RA, bipolar presenting with chest pain and left sided weakness 1. Left sided weakness, hx of TIA- r/o CVA. pt complaints are not consistent with physical exam as she reports weakness and decreased sensation however has good general office assistant strength and good extension/flexion of upper extremities with no pronator drift and responds to light sensation. refused MRI last night but now more agreeable. echo and carotid doppler negative. no sign of afib on the monitor. would need to start plavix if + CVA on the MRI however with reports of intracranial bleeding would hold at the present time. on further reviewing the chart. MRI 2013 negative for CVA and multiple head CT done and none reviewed appears to have +CVA or intracranial bleeding. neuro on board. passed speech and swallow eval. PT assessment. and high intensity CVA 2. HTN urgency- claims medication compliance. re-started home medications. d/c IVF 3. CP- +chest wall tenderness. no more report of chest pain. cardiac enzymes neg here. negative stress echo in 2016. can f/u with cardio as outpatient for further testing. 4. depression- on seroquel/topamax 5. Continuous ETOH abuse- CIWA 0 here. not interested in inpatient rehab at this time. counseled on abstinence 6. COPD- no signs of acute exacerbation. cont inhalers 7. DVT pp-hep sq 8. low concern for CVA. physical exam not consistent with complaints. f/u MRI if negative can d/c home with neuro outpatient follow up Visit type - Emergency Visit Emergency Visit: Yes ED Registration Date: 04/10/18 Care time: The patient presented to the Emergency Department on the above date and was hospitalized for further evaluation of their emergent condition. - New Patient This patient is new to me today: Yes Date on this admission: 04/10/18 - Critical Care Critical Care patient: No - Discharge Referral Referred to [facility] Med P.C.: No
[2018-04-10] MEDS: SODIUM CHLORIDE 1,000 ML IV SCH (12:29)
[2018-04-10] MEDS ORDERED: QUEtiapine FUMARATE 50 MG TABLET ONE (21:31)
[2018-04-10] MEDS ORDERED: PT OWN MED DRAWER 7, Y5N ONE (21:32)
[2018-04-10] MEDS: ATORVASTATIN CA 80 MG TABLET (FP) PO SCH (21:40)
[2018-04-10] MEDS: QUEtiapine FUMARATE 100 MG TABLET (FP) PO SCH (21:40)
[2018-04-11] MEDS: HEPARIN NA (PORCINE) 5,000 UNITS/ML 1ML VIAL SQ SCH (06:00)
[2018-04-11] MEDS: QUEtiapine FUMARATE 25 MG TABLET (FP) PO SCH ×2 (06:00→06:05)
[2018-04-11] MEDS: cloNIDine HCL 0.1 MG TABLET PO SCH (06:00)
[2018-04-11] MEDS ORDERED: PT OWN MED DRAWER 7, Y5N ONE (09:34)
--- NOTE | 2018-04-11 09:36 | DS ---
Physical Exam: SUBJECTIVE: Patient seen and examined OBJECTIVE: Vital Signs Period Temp Pulse Resp BP Sys/Wilson Pulse Ox Last 24 Hr 97 F-98.6 F 86-109 20-20 98-137/52-88 95 PHYSICAL EXAM GENERAL: The patient is awake, alert, and fully oriented, in no acute distress. HEAD: Normal with no signs of trauma. EYES: PERRL, extraocular movements intact, sclera anicteric, conjunctiva clear. ENT: Ears normal, nares patent, oropharynx clear without exudates, moist mucous membranes. NECK: Trachea midline, full range of motion, supple. LUNGS: Breath sounds equal, clear to auscultation bilaterally, no wheezes, no crackles, no accessory muscle use. HEART: Regular rate and rhythm, S1, S2 without murmur, rub or gallop. ABDOMEN: Soft, nontender, nondistended, normoactive bowel sounds, no guarding, no rebound, no hepatosplenomegaly, no masses. EXTREMITIES: 2+ pulses, warm, well-perfused, no edema. NEUROLOGICAL: Cranial nerves II through XII grossly intact. Normal speech, gait not observed. PSYCH: Normal mood, normal affect. SKIN: Warm, dry, normal turgor, no rashes or lesions noted. LABS Laboratory Results - last 24 hr 04/10/18 09:05 Sodium 139 Potassium 3.7 Chloride 105 Carbon Dioxide 27 Anion Gap 7 L BUN 19 H Creatinine 0.9 Creat Clearance w eGFR > 60 Random Glucose 117 H Calcium 9.6 Phosphorus 3.7 Magnesium 2.0 Total Bilirubin 0.6 D AST 24 ALT 51 Alkaline Phosphatase 99 Total Protein 7.5 Albumin 3.6 HOSPITAL COURSE: Date of Admission:04/10/18 Date of Discharge: 04/11/18 Minutes to complete discharge: 35 Discharge Summary Reason For Visit: WEAKNESS;CP AT REST;TRANSIENT CEREBRAL ISCHEMIA Condition: Improved - Instructions Diet, Activity, Other Instructions: During your hospital stay an ultrasound of your carotid arteries was performed which shows plaque buildup. Your cholesterol LDL level is very high. It is important you take high-dose Lipitor and ASA and prescriptions have been sent to your pharmacy for these medications. It is recommended you follow up with your primary care provider within 1-2 weeks and advise him of these findings. A third prescription has been sent to your pharmacy for Benicar which is for your high blood pressure. Take all medications as directed. Return to the emergency department for any new or worsening symptoms. Referrals: Marv Rm [Non Staff, Medical] - 1 Week Disposition: HOME - Home Medications Comprehensive Discharge Medication List: Ambulatory Orders Albuterol Sulfate Inhaler - [Ventolin HFA Inhaler -] 2 inh PO Q4H PRN 03/19/18 Timolol 0.25% [Timoptic 0.25%] 1 drop BID 03/19/18 Budesonide/Formeterol Fumarate [SYMBICORT 160/4.5mcg -] 1 inh PO BID 04/09/18 Clonidine HCl [Clonidine HCl ER] 0.1 mg PO TID 04/09/18 Cyclobenzaprine HCl 10 mg PO TID PRN 04/09/18 Docusate Sodium 100 mg PO BID 04/09/18 Nicotine [Nicotine Patch 14mg/24 hr] 1 each TD DAILY 04/09/18 Pantoprazole Sodium 40 mg PO DAILY 04/09/18 Quetiapine Fumarate [Seroquel -] 25 mg PO AM 04/09/18 Quetiapine Fumarate [Seroquel] 100 mg PO HS 04/09/18 Sennosides [Senna] 8.6 mg PO HS 04/09/18 Topiramate [Topamax] 100 mg PO BID 04/09/18 Aspirin [ASA -] 81 mg PO DAILY #30 tab.chew 04/11/18 Atorvastatin Ca [Lipitor] 80 mg PO HS #30 tablet 04/11/18 Olmesartan Medoxomil [Benicar (Nf)] 40 mg PO DAILY #30 tablet 04/11/18 This patient is new to me today: Yes Date on this admission: 04/11/18 Emergency Visit: Yes ED Registration Date: 04/10/18 Care time: The patient presented to the Emergency Department on the above date and was hospitalized for further evaluation of their emergent condition. Critical Care patient: No - Discharge Referral Referred to [facility] Med P.C.: No
[2018-04-11 09:56] VITALS: BP 104/65; PULSE 105; TEMP 97.9
[2018-04-11] MEDS: BUDESONIDE/FORMETEROL FUMARATE 160/4.5 mcg INHALER IH SCH (09:58)
[2018-04-11] MEDS: VALSARTAN 160 MG TABLET (UD) PO SCH (09:58)
[2018-04-11] MEDS: ASPIRIN 81 MG CHEWABLE TABLETS PO SCH (09:59)
[2018-04-11] MEDS: TOPIRAMATE 100 MG TABLET PO SCH (09:59)
[2018-04-11] MEDS: HYDROCHLOROTHIAZIDE 12.5 MG CAPSULE (FP) PO SCH (09:59)
--- NOTE | 2018-04-11 10:15 | PN ---
Progress Note (short form) - Note Progress Note: 47 Year old female history of HTN, Bipolar, Anxiety,CAD, HLD, Poly substance abuse and Rheumatoid arthritis . Patient was recently to hospital and was diagnosed with TIA. Patient came to hospital for chest pain and left sided weakness. Patient still feeling left sided weakness. She refused to go for mri ofbrain. Patient denies any dysphagia, diplopia or sensory loss. Her mri of brain and carotid ultrasound is normal. 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 Neurological Examination Alert follow command, oriented x 3 EOMI, pupils reactive, no face asymmetry, speech is better ( She says she is feeling better and not back to normal yet) Mild subjective left hand network technical analyst weakness She is feel diminisehd sesationon left arm and leg She is able to walk on toe, heel reflex are symmetrical, planter is withdrawal bilateral ct head is normal, carotid ultrasound and mri of brain pending Assessment- Subjective left sided sensory symptoms and left hand network technical analyst weakness , mri of brain and work up has been negative. Unlikely to stroke. Plan- Continue aspirin and statin - Follow up outpatient -stroke education and smoking cessation Thanking you so much Humberto Nevarez MD
== END 2018-04-11 13:10 | disposition home or self-care (01) | DRG 313 ==
LOC: JER 12:22 → JERBED 16:12 → J4W 19:15 → OBSVTOIN 04-10 10:15
PROVIDERS: ADMIT Internal Medicine; ATTEND Nurse Practitioner Acute Care
DX: R07.89 Other chest pain (principal); F31.30 Bipolar disorder, current episode depressed, mild or moderate severity, unspecified; G81.94 Hemiplegia, unspecified affecting left nondominant side; M54.9 Dorsalgia, unspecified; I25.10 Atherosclerotic heart disease of native coronary artery without angina pectoris; I10 Essential (primary) hypertension; J44.9 Chronic obstructive pulmonary disease, unspecified; J45.909 Unspecified asthma, uncomplicated; E78.5 Hyperlipidemia, unspecified; E78.1 Pure hyperglyceridemia; F41.8 Other specified anxiety disorders; F17.210 Nicotine dependence, cigarettes, uncomplicated
CPT/HCPCS: 36415; 70450-TC; 70544-TC; 70551-TC; 71045-TC-FY; 71275-TC; 80053; 81003; 82465; 82550; 82553; 83718; 83721; 83735; 84100; 84478; 84484; 84703; 85025; 85610; 86850; 86900; 86901; 93005; 93010; 93306-TC; 93880-TC; 97116-GP; 99285-25; G0378; J0131; J0735; J1644; J7030

== ENCOUNTER 2018-04-16 00:46 | Observation (INO) | payer BC, OTHER ==
[2018-04-16 01:03] VITALS: BMI 31.8
[2018-04-16] MEDS ORDERED: SODIUM CHLORIDE 1,000 ML IV SCH ×2 (01:15→20:30)
[2018-04-16] MEDS ORDERED: ALBUTEROL SO4 2.5/IPRATROPIUM 0.5 INH SOL 3 ML VIAL.NEB. NEB ONE (01:43)
[2018-04-16 09:30] LABS: COCAINE, UR NEGATIVE ng/ml (CUTOFF=300); METHADONE, UR NEGATIVE ng/ml (CUTOFF=300); OPIATES, URI NEGATIVE ng/ml (CUTOFF=300); URINE AMPHETAMINES NEGATIVE ng/ml (CUTOFF=500); URINE BARBITURATES NEGATIVE ng/ml (CUTOFF=200); URINE BENZODIAZEPINES NEGATIVE ng/ml (CUTOFF=200)
[2018-04-16 09:31] LABS: PHENCYCLIDINE,URINE POSITIVE ng/ml (CUTOFF=25)
[2018-04-16 10:06] LABS: ALBUMIN 2.9 g/dl (3.4-5.0); ALK PHOS 82 U/L (45-117); ANION GAP 11 (8-16); BILIRUBIN,TOTAL 0.1 mg/dL (0.2-1.0); BLOOD UREA NITROGEN 28 mg/dL (7-18); CALCIUM 8.2 mg/dL (8.5-10.1); CHLORIDE 113 mmol/L (98-107); CO2 21 mmol/L (21-32); CREATININE 0.9 mg/dL (0.55-1.02); GLUCOSE,RANDOM 105 mg/dL (74-106); POTASSIUM 3.4 mmol/L (3.5-5.1); SGOT/AST 15 U/L (15-37); SGPT/ALT 26 U/L (12-78); SODIUM 145 mmol/L (136-145); TOT PROT 6.2 g/dl (6.4-8.2)
[2018-04-16 10:34] LABS: BASO % 0.3 % (0-2.0); EOS % 1.6 % (0-4.5); HEMATOCRIT 32.6 % (32.4-45.2); HEMOGLOBIN 10.9 GM/dL (10.7-15.3); MCH 32.5 pg (25.7-33.7); MCHC 33.4 g/dl (32.0-36.0); MEAN CELL VOLUME 97.2 fl (80-96); MEAN PLT VOLUME 7.3 fl (7.5-11.1); MONO % 7.4 % (3.8-10.2); NEUT % 31.7 % (42.8-82.8); PLATELET COUNT 228 K/MM3 (134-434); RBC 3.35 M/mm3 (3.60-5.2); RDW 13.8 % (11.6-15.6); WHITE BLOOD COUNT 5.3 K/mm3 (4.0-10.0)
[2018-04-16 11:59] LABS: URINE APPEARANCE CLEAR; URINE BILIRUBIN NEGATIVE (<2.0 mg/dL); URINE COLOR LTYELLOW; URINE GLUCOSE (UA) NEGATIVE (NEGATIVE); URINE KETONE NEGATIVE (NEGATIVE); URINE LEUK ESTERASE TRACE (NEGATIVE); URINE NITRITE NEGATIVE (NEGATIVE); URINE PROTEIN NEGATIVE (NEGATIVE); URINE UROBILINOGEN NEGATIVE mg/dL (0.2-1.0)
[2018-04-16 12:01] LABS: EPI CELLS RARE /HPF (FEW); URINE MUCUS RARE
[2018-04-16] MEDS ORDERED: MORPHINE SULFATE 2 MG/ML VIAL ONE (15:13)
[2018-04-16] MEDS ORDERED: ACETAMINOPHEN 325 MG TABLET (FP) ONE (15:15)
[2018-04-16] MEDS ORDERED: POTASSIUM CHLORIDE TABS 20 MEQ TABLET.ER (FP) PO ONE ×2 (15:15→15:30)
[2018-04-16] MEDS: morphine SULFATE 4 MG/ML VIAL IVPUSH PRN ×2 (15:22→19:52)
[2018-04-16] MEDS: ACETAMINOPHEN 325 MG TABLET (FP) PO PRN (15:23)
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
[2018-04-16] MEDS ORDERED: ACETAMINOPHEN 325 MG TABLET (FP) PO SCH (17:30)
--- NOTE | 2018-04-16 20:11 | PN ---
Teaching Attending Note Name of Resident: Arya Forte ATTENDING PHYSICIAN STATEMENT I saw and evaluated the patient. I reviewed the resident's note and discussed the case with the resident. I agree with the resident's findings and plan as documented. SUBJECTIVE: Patient is a 47 year old woman with history of Hypertension, bipolar/anxiety disorder, Asthma, HIV disease, TIA, hemoptysis, and polysubstance/PCP use (seen at [facility]) who presents with left-sided weakness that has been going on for four days. In the ER she was very drowsy and admits to using PCP recently. She denies fever, chills, nausea, vomiting or change in urinary or bowel habits. She has a frontal headache but no blurring of vision or photophobia. She denies trauma or heavy lifting but also has low back pain. OBJECTIVE: Drowsy but readily arousable. Not in respiratory distress. Vital Signs Period Temp Pulse Resp BP Sys/Wilson Pulse Ox Last 24 Hr 97.4 F-98.2 F 73-82 18-20 88-133/56-88 96-100 HEENT: No facial asymmetry. No Jaundice, eye redness or discharge, PERRLA, EOMI. Normocephalic, atraumatic. External ears are normal and hearing is grossly intact. No nasal discharge. Neck: Supple, nontender. No palpable adenopathy or thyromegaly. No JVD Chest: Good effort. Clear to auscultation and percussion. Heart: Regular. No S3, rub or murmur Abdomen: Not distended, soft, nontender and no HSM. No rebound or guarding. Normoactive bowel sounds. Ext: Peripheral pulses intact. No leg edema. Skin: Warm and dry. No petechiae, rash or ecchymosis. Neuro: Left hemiparesis. Oriented to person and place. CN 2-12 grossly intact. Sensation grossly intact in all four extremities. Plantar reflexes are flexor. Current Medications Generic Name Dose Route Start Last Admin Trade Name Freq PRN Reason Stop Dose Admin Acetaminophen 650 mg 04/16/18 14:53 04/16/18 15:23 Tylenol - PO 650 mg Q6H PRN Administration PAIN LEVEL 4 - 6 Aspirin 81 mg 04/17/18 10:00 Asa - PO DAILY [facility] Atorvastatin Calcium 80 mg 04/16/18 22:00 Lipitor - PO HS [facility] Budesonide/Formoterol Fumarate 2 puff 04/16/18 22:00 Symbicort 160/4.5mcg - IH BID [facility] Docusate Sodium 100 mg 04/16/18 22:00 Colace - PO BID [facility] Gabapentin 100 mg 04/16/18 22:00 Neurontin - PO TID [facility] Hydrochlorothiazide 12.5 mg 04/17/18 10:00 Hctz - PO DAILY [facility] Morphine Sulfate 2 mg 04/16/18 14:51 04/16/18 15:22 Morphine Sulfate IVPUSH 2 mg Q4H PRN Administration PAIN 7-10 Multivitamins/Minerals/Vitamin C 1 tab 04/17/18 10:00 Tab-A-Vit - PO DAILY [facility] Paroxetine HCl 10 mg 04/17/18 10:00 Paxil - PO DAILY [facility] Quetiapine Fumarate 100 mg 04/16/18 22:00 Seroquel - PO [facility] Timolol Maleate 1 drop 04/16/18 22:00 Timoptic 0.25% OD BID [facility] Topiramate 100 mg 04/16/18 22:00 Topamax - PO BID [facility] Valsartan 320 mg 04/17/18 10:00 Diovan - PO DAILY [facility] Home Medications Medication Instructions Recorded Albuterol Sulfate Inhaler - 2 inh PO Q4H PRN 03/19/18 [Ventolin HFA Inhaler -] Timolol 0.25% [Timoptic 0.25%] 1 drop BID 03/19/18 Budesonide/Formeterol Fumarate 2 inh PO BID 04/09/18 [SYMBICORT 160/4.5mcg -] Clonidine HCl [Clonidine HCl ER] 0.1 mg PO TID 04/09/18 Cyclobenzaprine HCl 10 mg PO QID PRN 04/09/18 Docusate Sodium 100 mg PO BID 04/09/18 Nicotine [Nicotine Patch 14mg/24 1 each TD DAILY 04/09/18 hr] Pantoprazole Sodium 40 mg PO DAILY 04/09/18 Quetiapine Fumarate [Seroquel -] 25 mg PO DAILY 04/09/18 Quetiapine Fumarate [Seroquel] 100 mg PO HS 04/09/18 Sennosides [Senna] 8.6 mg PO HS 04/09/18 Topiramate [Topamax] 100 mg PO BID 04/09/18 Aspirin [ASA -] 81 mg PO DAILY #30 tab.chew 04/11/18 Atorvastatin Ca [Lipitor] 80 mg PO HS #30 tablet 04/11/18 Olmesartan Medoxomil [Benicar (Nf)] 40 mg PO DAILY #30 tablet 04/11/18 Acetaminophen [Tylenol] 1 tab PO PRN 04/16/18 Calcium Carbonate/Vitamin D3 1 tab PO DAILY 04/16/18 [Calcium 500-Vit D3 400 Tablet] Emtricitabine/Tenofovir [Truvada -] 3 tab HS 04/16/18 Gabapentin 1 tab PO TID 04/16/18 Multivitamin [Daily Multiple 1 tab PO DAILY 04/16/18 Vitamin] Paroxetine HCl [Paxil] 1 tablet PO DAILY 04/16/18 Abnormal Lab Results 04/16/18 04/16/18 01:27 01:47 RBC 3.35 L MCV 97.2 H MPV 7.3 L Neutrophils % 31.7 L D Lymphocytes % 59.0 H D Potassium 3.4 L Chloride 113 H BUN 28 H Calcium 8.2 L Total Bilirubin 0.1 L D Creatine Kinase 235 H Total Protein 6.2 L Albumin 2.9 L ASSESSMENT AND PLAN: 1. CVA - Findings are consistent with CVA though noncontrast head CT does not show any evidence of CVA. Because her symptoms have been going on for about 4 days, she is outside the window for TPa therapy. Will admit her to telemetry, consult neurology, implement permissive hypertension, treat with Lipitor and get an MRI of her brain as well as carotid doppler and ECHO. Her drowsiness may be due to seroquel or illicit drug use. Will get uriine toxicology and also rule out infection. Will hold seroquel, paxil and any other sedating drugs. 2. Low back pain - will get MRI of her lumbosacral spine. 3. Hemoptysis - In view of lymphocytosis, anemia and low albumin, must send sputum to rule out Tuberculosis. Pulmonary consult. 4. HIV Disease - Patient is on Truvada, though she didnot give us history of HIV disease. Will investigate. 5. Hypokalemia - Etiology unclear. Will check Mg level and treat with KCL 40 meq tid. 6. DVT prophylaxis - SCD 7. Advance directives - Full code
[2018-04-16] MEDS ORDERED: ACETAMINOPHEN 325 MG TABLET (FP) PO PRN (20:20)
[2018-04-16] MEDS ORDERED: PT OWN MED DRAWER 7, Y5N ONE (20:24)
[2018-04-16] MEDS ORDERED: ATORVASTATIN CA 80 MG TABLET (FP) PO SCH ×2 (22:00)
[2018-04-16] MEDS ORDERED: QUEtiapine FUMARATE 100 MG TABLET (FP) PO SCH (22:00)
[2018-04-16] MEDS ORDERED: EMTRICITABINE 200MG/TENOFOVIR 300MG PO SCH (22:00)
[2018-04-16] MEDS: TOPIRAMATE 100 MG TABLET PO SCH (22:03)
[2018-04-16] MEDS: DOCUSATE SODIUM 100 MG CAPSULE (FP) PO SCH (22:03)
[2018-04-16] MEDS: GABAPENTIN 100 MG CAPSULE (FP) PO SCH (22:03)
[2018-04-16] MEDS: BUDESONIDE/FORMETEROL FUMARATE 160/4.5 mcg INHALER IH SCH (22:03)
[2018-04-16] MEDS: TIMOLOL 0.25% OPHTHALMIC SOL 5 ML BOTTLE OD SCH (22:03)
[2018-04-16 23:30] LABS: CHOLESTEROL 154 mg/dL (50-200); TRIGLYCERIDES 240 mg/dL (35-160)
[2018-04-16 23:31] LABS: HDL CHOLESTEROL 33 mg/dL (40-60)
[2018-04-16] MEDS: ALBUTEROL SO4 2.5/IPRATROPIUM 0.5 INH SOL 3 ML VIAL.NEB. NEB PRN (23:43)
[2018-04-17] MEDS: morphine SULFATE 4 MG/ML VIAL IVPUSH PRN ×4 (00:04→17:38)
--- NOTE | 2018-04-17 00:28 | HOSP ---
Subjective - Review of Symptoms Events since last encounter: Hospitalist Encounter Was notified by the RN, that the patient reported having chest pain, back pain, tooth abscess, abdominal pain. Arrived to bedside, patient lying supine, alert, awake, oriented with a flat affect noted Patient reports having the chest and back pain for several days- chest pain now resolved per pt. Patient reports having burning pain to her epigastrium. She now reports feeling like she has an abscess and requests antibiotics. See PE Plan: After careful exam of patient, no s/s of abscess noted, will not start ABX, but will continue to monitor, patient has pain medication regimen and will continue PPI offered to pt, she declined EKG reviewed- NSR no ST or TWI noted, Troponin I- nl Continue cardiac monitoring In light of patient's irratic behavior, I will order a Psych Consult AM Addendum Was notified by the RN, Patient became agitated and threw her Tele box out of the room, a condition 10 was called Ativan 1mg IV was ordered Continue tele monitoring O2 Will inform Day Team of overnight's events HEENT: Yes: Other (mouth pain) Cardiovascular: Yes: Chest Pain Gastrointestinal: Yes: Abdominal Pain Musculoskeletal: Yes: Back Pain Physical Examination Vital Signs: Vital Signs Temperature 98.3 F 04/16/18 21:58 Pulse Rate 80 04/16/18 21:58 Respiratory Rate 20 04/16/18 21:58 Blood Pressure 131/86 04/16/18 21:58 O2 Sat by Pulse Oximetry (%) 98 04/16/18 18:21 Constitutional: Yes: Anxious, Moderate Distress Eyes: Yes: Conjunctiva Clear, EOM Intact, PERRL HENT: Yes: WNL, Atraumatic, Normocephalic Neck: Yes: WNL, Supple, Trachea Midline Cardiovascular: Yes: WNL, Regular Rate and Rhythm, S1, S2 Respiratory: Yes: WNL, Regular, CTA Bilaterally Gastrointestinal: Yes: Normal Bowel Sounds, Soft, Abdomen, Obese Renal/: Yes: WNL Breast(s): Yes: WNL Musculoskeletal: Yes: Back Pain Extremities: Yes: WNL Edema: No Peripheral Pulses WNL: Yes Neurological: Yes: Alert, Cran Nerves II-XII Intact ...Motor Strength: WNL Psychiatric: Yes: Agitated Labs: CBC, BMP 04/16/18 01:47 04/16/18 01:27 Laboratory Results - last 24 hr 04/16/18 04/16/18 04/16/18 01:27 01:27 01:47 WBC 5.3 RBC 3.35 L Hgb 10.9 D Hct 32.6 MCV 97.2 H MCH 32.5 MCHC 33.4 RDW 13.8 Plt Count 228 MPV 7.3 L Absolute Neuts (auto) 1.7 Neutrophils % 31.7 L D Lymphocytes % 59.0 H D Monocytes % 7.4 Eosinophils % 1.6 Basophils % 0.3 Nucleated RBC % 0 PTT (Actin FS) Sodium 145 Potassium 3.4 L Chloride 113 H Carbon Dioxide 21 Anion Gap 11 BUN 28 H Creatinine 0.9 Creat Clearance w eGFR > 60 Random Glucose 105 Calcium 8.2 L Magnesium 2.0 Total Bilirubin 0.1 L D AST 15 ALT 26 Alkaline Phosphatase 82 Creatine Kinase 235 H Creatine Kinase Index 0.8 CK-MB (CK-2) 2.01 Troponin I < 0.02 Total Protein 6.2 L Albumin 2.9 L Triglycerides Cholesterol Total LDL Cholesterol HDL Cholesterol Urine Color Urine Appearance Urine pH Ur Specific [place] Urine Protein Urine Glucose (UA) Urine Ketones Urine Blood Urine Nitrite Urine Bilirubin Urine Urobilinogen Ur Leukocyte Esterase Urine WBC (Auto) Urine RBC (Auto) Ur Epithelial Cells Urine Mucus Opiates Screen Methadone Screen Barbiturate Screen Phencyclidine Screen Ur Amphetamines Screen MDMA (Ecstasy) Screen Benzodiazepines Screen Cocaine Screen U Marijuana (THC) Screen Alcohol, Quantitative < 5.0 Blood Type A NEGATIVE Antibody Screen Negative 04/16/18 04/16/18 04/16/18 01:47 01:47 04:54 WBC RBC Hgb Hct MCV MCH MCHC RDW Plt Count MPV Absolute Neuts (auto) Neutrophils % Lymphocytes % Monocytes % Eosinophils % Basophils % Nucleated RBC % PTT (Actin FS) 33.5 Sodium Potassium Chloride Carbon Dioxide Anion Gap BUN Creatinine Creat Clearance w eGFR Random Glucose Calcium Magnesium Total Bilirubin AST ALT Alkaline Phosphatase Creatine Kinase Creatine Kinase Index CK-MB (CK-2) Troponin I Total Protein Albumin Triglycerides Cholesterol Total LDL Cholesterol HDL Cholesterol Urine Color Ltyellow Urine Appearance Clear Urine pH 5.0 D Ur Specific [place] 1.024 Urine Protein Negative Urine Glucose (UA) Negative Urine Ketones Negative Urine Blood Negative Urine Nitrite Negative Urine Bilirubin Negative Urine Urobilinogen Negative Ur Leukocyte Esterase Trace Urine WBC (Auto) 9 Urine RBC (Auto) 3 Ur Epithelial Cells Rare Urine Mucus Rare Opiates Screen Negative Methadone Screen Negative Barbiturate Screen Negative Phencyclidine Screen Positive Ur Amphetamines Screen Negative MDMA (Ecstasy) Screen Negative Benzodiazepines Screen Negative Cocaine Screen Negative U Marijuana (THC) Screen Negative Alcohol, Quantitative Blood Type Antibody Screen 04/16/18 04/16/18 04/16/18 15:10 21:40 21:40 WBC RBC Hgb Hct MCV MCH MCHC RDW Plt Count MPV Absolute Neuts (auto) Neutrophils % Lymphocytes % Monocytes % Eosinophils % Basophils % Nucleated RBC % PTT (Actin FS) Sodium Potassium Chloride Carbon Dioxide Anion Gap BUN Creatinine Creat Clearance w eGFR Random Glucose Calcium Magnesium Total Bilirubin AST ALT Alkaline Phosphatase Creatine Kinase Creatine Kinase Index CK-MB (CK-2) Troponin I < 0.02 < 0.02 Total Protein Albumin Triglycerides 240 H Cholesterol 154 Total LDL Cholesterol 100 HDL Cholesterol 33 L Urine Color Urine Appearance Urine pH Ur Specific [place] Urine Protein Urine Glucose (UA) Urine Ketones Urine Blood Urine Nitrite Urine Bilirubin Urine Urobilinogen Ur Leukocyte Esterase Urine WBC (Auto) Urine RBC (Auto) Ur Epithelial Cells Urine Mucus Opiates Screen Methadone Screen Barbiturate Screen Phencyclidine Screen Ur Amphetamines Screen MDMA (Ecstasy) Screen Benzodiazepines Screen Cocaine Screen U Marijuana (THC) Screen Alcohol, Quantitative Blood Type Antibody Screen 04/17/18 04/17/18 06:30 06:30 WBC 5.1 RBC 3.55 L Hgb 11.7 Hct 34.8 MCV 98.0 H MCH 32.9 MCHC 33.6 RDW 13.8 Plt Count 213 MPV 7.5 Absolute Neuts (auto) 2.3 Neutrophils % 46.0 D Lymphocytes % 46.1 H D Monocytes % 6.2 Eosinophils % 1.4 Basophils % 0.3 Nucleated RBC % 0 PTT (Actin FS) Sodium Potassium Chloride Carbon Dioxide Anion Gap BUN Creatinine Creat Clearance w eGFR Random Glucose Calcium Magnesium Total Bilirubin AST ALT Alkaline Phosphatase Creatine Kinase Creatine Kinase Index CK-MB (CK-2) Troponin I Total Protein Albumin Triglycerides 194 H Cholesterol 166 Total LDL Cholesterol 106 H HDL Cholesterol 36 L Urine Color Urine Appearance Urine pH Ur Specific [place] Urine Protein Urine Glucose (UA) Urine Ketones Urine Blood Urine Nitrite Urine Bilirubin Urine Urobilinogen Ur Leukocyte Esterase Urine WBC (Auto) Urine RBC (Auto) Ur Epithelial Cells Urine Mucus Opiates Screen Methadone Screen Barbiturate Screen Phencyclidine Screen Ur Amphetamines Screen MDMA (Ecstasy) Screen Benzodiazepines Screen Cocaine Screen U Marijuana (THC) Screen Alcohol, Quantitative Blood Type Antibody Screen Current Medications Generic Name Dose Route Start Last Admin Trade Name Freq PRN Reason Stop Dose Admin Acetaminophen 650 mg 04/16/18 14:53 04/16/18 15:23 Tylenol - PO 650 mg Q6H PRN Administration PAIN LEVEL 4 - 6 Acetaminophen 650 mg 04/16/18 20:20 04/16/18 22:09 Tylenol - PO 650 mg Q4H PRN Administration FEVER Albuterol/Ipratropium 1 amp 04/16/18 20:44 04/16/18 23:43 Duoneb - NEB 1 amp Q4H PRN Administration SHORTNESS OF BREATH, WHEEZING Aspirin 81 mg 04/17/18 10:00 Asa - PO DAILY [facility] Atorvastatin Calcium 80 mg 04/16/18 22:00 04/16/18 22:03 Lipitor - PO 80 mg HS [facility] Administration Budesonide/Formoterol Fumarate 2 puff 04/16/18 22:00 04/16/18 22:03 Symbicort 160/4.5mcg - IH 2 puff BID [facility] Administration Docusate Sodium 100 mg 04/16/18 22:00 04/16/18 22:03 Colace - PO 100 mg BID [facility] Administration Enoxaparin Sodium 40 mg 04/17/18 10:00 Lovenox - SQ DAILY [facility] Gabapentin 100 mg 04/16/18 22:00 04/17/18 06:18 Neurontin - PO Not Given TID [facility] Hydrochlorothiazide 12.5 mg 04/17/18 10:00 Hctz - PO DAILY [facility] Lorazepam 1 mg 04/17/18 08:44 Ativan - PO TID PRN [facility] Morphine Sulfate 2 mg 04/16/18 14:51 04/17/18 04:16 Morphine Sulfate IVPUSH 2 mg Q4H PRN Administration PAIN 7-10 Multivitamins/Minerals/Vitamin C 1 tab 04/17/18 10:00 Tab-A-Vit - PO DAILY [facility] Nicotine 14 mg 04/17/18 10:00 Nicoderm Patch - TD DAILY [facility] Paroxetine HCl 20 mg 04/17/18 10:00 Paxil - PO DAILY [facility] Quetiapine Fumarate 100 mg 04/16/18 22:00 04/16/18 22:03 Seroquel - PO 100 mg HS [facility] Administration Timolol Maleate 1 drop 04/16/18 22:00 04/16/18 22:03 Timoptic 0.25% OD 1 drop BID [facility] Administration Topiramate 100 mg 04/16/18 22:00 04/16/18 22:03 Topamax - PO 100 mg BID [facility] Administration Valsartan 320 mg 04/17/18 10:00 Diovan - PO DAILY [facility]
[2018-04-17] MEDS ORDERED: RANITIDINE HCL 150 MG TABLET (FP) PO ONE (00:31)
[2018-04-17] MEDS ORDERED: LORazepam 2 MG/ML SDV VIAL IVPUSH ONE (01:49)
[2018-04-17] MEDS: GABAPENTIN 100 MG CAPSULE (FP) PO SCH ×2 (06:18→14:30)
[2018-04-17 08:26] LABS: BASO % 0.3 % (0-2.0); EOS % 1.4 % (0-4.5); HEMATOCRIT 34.8 % (32.4-45.2); HEMOGLOBIN 11.7 GM/dL (10.7-15.3); LYMPH % 46.1 % (8-40); MCH 32.9 pg (25.7-33.7); MCHC 33.6 g/dl (32.0-36.0); MEAN PLT VOLUME 7.5 fl (7.5-11.1); MONO % 6.2 % (3.8-10.2); PLATELET COUNT 213 K/MM3 (134-434); RBC 3.55 M/mm3 (3.60-5.2); RDW 13.8 % (11.6-15.6); WHITE BLOOD COUNT 5.1 K/mm3 (4.0-10.0)
--- NOTE | 2018-04-17 08:36 | PN ---
Mental Health Exam - Mental Status Exam Alert and Oriented to: Time, Place, Person Cognitive Function: Grossly Intact Patient Appearance: Unkempt, Disheveled Mood: Nervous, Anxious, Apprehensive, Expansive Affect: Appropriate Patient Behavior: Dependent, Distractible, Impulsive, Resitive to Care Speech Pattern: Garbled, Pressured, Perseverating, Tangential Voice Loudness: Mildly Loud Thought Process: Intact Thought Disorder: Not Present Hallucinations: None Suicidal Ideation: None Homicidal Ideation: None Insight/Judgement: Fair Sleep: Fair Appetite: Fair Muscle strength/Tone: Normal Gait/Station: Deferred
--- NOTE | 2018-04-17 08:41 | PN ---
Progress Note (short form) - Note Progress Note: 47 YO FEMALE WITH bIPOLAR DISORDER, PCP USE. SHE HAS MULTIPLE SOMATIC/PHYSICAL SYMPTOMS. FIRST PSYCH DEPRESSION BREAK IN 1998 AFTER WITTNESS OF HER FRIEND. SEN BY DR JAYLEN JAMA IN [facility]. PRESSURED SPEECH, DISORGANIZED, SHE IS A 1/2 PACK DAY CIGARETTE SMOKER, DENIES ALCHOL, NO PCP IN PAST WEEK, INVOLVED IN A PROGRAM TO REDUCE HARM. dx. sUBSTANCE INDUCED HYPOMANIA MOD DISORDER. PLAN CONTINUE SEROQUEL ORDERED. PAXIL 20MG IN THE AM
[2018-04-17] MEDS ORDERED: LORazepam 1 MG TABLET PO PRN (08:44)
[2018-04-17 08:57] LABS: CHOLESTEROL 166 mg/dL (50-200); TRIGLYCERIDES 194 mg/dL (35-160)
--- NOTE | 2018-04-17 08:57 | CON.NEURO ---
Consult - History of Present Illness History of Present Illness: 47 year old woman with history of Hypertension, bipolar/anxiety disorder, Asthma , HIV disease, TIA, hemoptysis, and [facility] who presents with left-sided weakness that has been going on for four days. In the ER she was very drowsy and admits to using PCP recently. pain in left Costovertebral area L. She has a frontal headache but no blurring of vision or photophobia. She denies trauma or heavy lifting but also has low back pain. just admitted on 04/10/18-04/11/18 ; MRI BRAIN (-) at time. Doppler (-).Was belligerent this AM and threw her holter. as per nurse refused pills last night. 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 Cardio/Vascular: Yes: CAD, HTN, Hyperlipdemia Pulmonary: Yes: COPD ...LMP: 07/06/16 Psych: Yes: Bipolar Rheumatology: Yes: Rheumatoid Arthritis - Alcohol/Substance Use Hx Alcohol Use: No History of Substance Use: reports: Marijuana (and PCP) - Smoking History Smoking history: Never smoked Have you smoked in the past 12 months: No Aproximately how many cigarettes per day: 10 - Social History ADL: Independent History of Recent Travel: No Home Medications - Allergies Allergies/Adverse Reactions: Allergies Allergy/AdvReac Type Severity Reaction Status Date / Time amoxicillin trihydrate Allergy Verified 04/16/18 00:54 [From Augmentin] azithromycin [From Zithromax] Allergy Verified 04/16/18 00:54 potassium clavulanate Allergy Verified 04/16/18 00:54 [From Augmentin] - Home Medications Home Medications: Ambulatory Orders Albuterol Sulfate Inhaler - [Ventolin HFA Inhaler -] 2 inh PO Q4H PRN 03/19/18 Timolol 0.25% [Timoptic 0.25%] 1 drop BID 03/19/18 Budesonide/Formeterol Fumarate [SYMBICORT 160/4.5mcg -] 2 inh PO BID 04/09/18 Clonidine HCl [Clonidine HCl ER] 0.1 mg PO TID 04/09/18 Cyclobenzaprine HCl 10 mg PO QID PRN 04/09/18 Docusate Sodium 100 mg PO BID 04/09/18 Nicotine [Nicotine Patch 14mg/24 hr] 1 each TD DAILY 04/09/18 Pantoprazole Sodium 40 mg PO DAILY 04/09/18 Quetiapine Fumarate [Seroquel -] 25 mg PO DAILY 04/09/18 Quetiapine Fumarate [Seroquel] 100 mg PO HS 04/09/18 Sennosides [Senna] 8.6 mg PO HS 04/09/18 Topiramate [Topamax] 100 mg PO BID 04/09/18 Aspirin [ASA -] 81 mg PO DAILY #30 tab.chew 04/11/18 Atorvastatin Ca [Lipitor] 80 mg PO HS #30 tablet 04/11/18 Olmesartan Medoxomil [Benicar (Nf)] 40 mg PO DAILY #30 tablet 04/11/18 Acetaminophen [Tylenol] 1 tab PO PRN 04/16/18 Calcium Carbonate/Vitamin D3 [Calcium 500-Vit D3 400 Tablet] 1 tab PO DAILY Emtricitabine/Tenofovir [Truvada -] 3 tab HS 04/16/18 Gabapentin 1 tab PO TID 04/16/18 Multivitamin [Daily Multiple Vitamin] 1 tab PO DAILY 04/16/18 Paroxetine HCl [Paxil] 1 tablet PO DAILY 04/16/18 Family Disease History - Family Disease History Family Disease History: Diabetes: Brother (HTN, Cancer), Heart Disease: Grandparent, Father ( ETOH DEPENDENT AND FROM CAD), Mother ( FROM CAD) , Brother, CA: Brother Physical Exam-Neuro Vital Signs: Vital Signs Temperature 98.0 F 04/17/18 06:00 Pulse Rate 20 L 04/17/18 06:00 Respiratory Rate 20 04/17/18 06:00 Blood Pressure 115/80 04/17/18 06:00 O2 Sat by Pulse Oximetry (%) 98 04/16/18 23:53 Labs: CBC, BMP 04/17/18 06:30 - Neuro Exam Level Of Consciousness: Yes: Alert (inconsistent exam, fluctuating weakness L side, reflex symmetric ) Problem List - Problems (1) Left-sided weakness Code(s): R53.1 - WEAKNESS (2) PCP (phencyclidine) abuse Code(s): F16.10 - HALLUCINOGEN ABUSE, UNCOMPLICATED (3) Substance abuse Code(s): F19.10 - OTHER PSYCHOACTIVE SUBSTANCE ABUSE, UNCOMPLICATED Assessment/Plan 7 year old woman with history of Hypertension, bipolar/anxiety disorder, Asthma , HIV disease, TIA, hemoptysis, and polysubstance/PCP use ([facility] who presents with left-sided weakness. just admitted on 04/10/18-04/11/18 ; MRI BRAIN (-) at time. Doppler (-). suspect psychiatric issues/substance abuse issues at hand given frequent admissions . do noT have to repeat stroke GURROLA. can get MRI LS spine though doubt sig spinal issue , team ? [facility] for UTI/pyelo et for L CVA tenderness. DR MALCOLM
[2018-04-17 08:59] LABS: HDL CHOLESTEROL 36 mg/dL (40-60)
[2018-04-17 09:05] LABS: CHLORIDE 111 mmol/L (98-107); POTASSIUM 4.1 mmol/L (3.5-5.1); SODIUM 142 mmol/L (136-145)
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
[2018-04-17 09:34] LABS: ALBUMIN 3.1 g/dl (3.4-5.0); ALK PHOS 88 U/L (45-117); ANION GAP 9 (8-16); BILIRUBIN,TOTAL 0.4 mg/dL (0.2-1.0); BLOOD UREA NITROGEN 16 mg/dL (7-18); CALCIUM 9.1 mg/dL (8.5-10.1); CO2 22 mmol/L (21-32); CREATININE 0.7 mg/dL (0.55-1.02); GLUCOSE,RANDOM 81 mg/dL (74-106); MAGNESIUM 2.2 mg/dL (1.8-2.4); SGOT/AST 15 U/L (15-37); SGPT/ALT 25 U/L (12-78); TOT PROT 6.8 g/dl (6.4-8.2)
--- NOTE | 2018-04-17 09:45 | EKG ---
Test Reason : Blood Pressure : / mmHG Vent. Rate : 081 BPM Atrial Rate : 081 BPM P-R Int : 136 ms QRS Dur : 080 ms QT Int : 414 ms P-R-T Axes : 050 024 -02 degrees QTc Int : 480 ms NORMAL SINUS RHYTHM NONSPECIFIC T WAVE ABNORMALITY ABNORMAL ECG WHEN COMPARED WITH ECG OF 09-APR-2018 14:03, QT HAS LENGTHENED Confirmed by AKUA HILARIO MD ([id number]) on 04/17/2018 9:45:02 AM Referred By: Confirmed By:AKUA HILARIO MD
[2018-04-17] MEDS ORDERED: VALSARTAN 160 MG TABLET (UD) PO SCH (10:00)
[2018-04-17] MEDS ORDERED: NICOTINE 14 MG/24 HOURS TOPICAL PATCH TD SCH (10:00)
[2018-04-17] MEDS ORDERED: ENOXAPARIN NA (PORCINE) 40 MG/0.4 ML DISP.SYRIN SQ SCH (10:00)
[2018-04-17] MEDS ORDERED: ASPIRIN 81 MG CHEWABLE TABLETS PO SCH (10:00)
[2018-04-17] MEDS ORDERED: MULTIVITAMINS (DAILY MVI) TABLET (FP) PO SCH (10:00)
[2018-04-17] MEDS ORDERED: PARoxetine HCL 10 MG TABLET (FP) PO SCH (10:00)
[2018-04-17] MEDS ORDERED: PARoxetine HCL 20 MG TABLET (FP) PO SCH (10:00)
[2018-04-17] MEDS ORDERED: HYDROCHLOROTHIAZIDE 12.5 MG CAPSULE (FP) PO SCH (10:00)
--- NOTE | 2018-04-17 10:35 | CONSULT ---
Admitting History and Physical - Primary Care Physician PCP: Amira Marques - Admission History of Present Illness: History of Present Illness: 47 year old woman with history of Hypertension, bipolar/anxiety disorder, Asthma , HIV disease, TIA, hemoptysis, and polysubstance/PCP use (seen at [facility]) who presents with left-sided weakness that has been going on for four days. In the ER she was very drowsy and admits to using PCP recently. pain in left Costovertebral area L. She has a frontal headache but no blurring of vision or photophobia. She denies trauma or heavy lifting but also has low back pain. just admitted on 04/10/18-04/11/18 ; MRI BRAIN (-) at time. Doppler (-).Was belligerent this AM and threw her holter. as per nurse refused pills last night. Seen by me during recent admission with intermittent, fluctuating left facial symptoms without clearly identified neurologic etiology. 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 Cardiovascular: Yes: CAD, HTN, Hyperlipdemia Pulmonary: Yes: COPD ...LMP: 07/06/16 Psych: Yes: Bipolar Rheumatology: Yes: Rheumatoid Arthritis - Smoking History Smoking history: Never smoked Have you smoked in the past 12 months: No Aproximately how many cigarettes per day: 10 - Alcohol/Substance Use Hx Alcohol Use: No History of Substance Use: reports: Marijuana (and PCP) - Social History ADL: Independent History of Recent Travel: No History - Admission Reason For Visit: R/O TIA - General Mental Status: Alert and Oriented, Awake and Alert, Able to Follow Commands Attention: Intact Ability to Follow Directions: Good Head/Neck Control: WFL - Hearing Hearing: Normal Hearing Aide: No With Patient: No Speech Evaluation - Communication Primary Language: CITIZEN [place] Communication: Yes: Within Normal Limits Oral Expression Ability: Yes: No Impairment - Speech Production Able to Make Needs Known: Yes: WNL Intelligibility: Yes: WNL - Speech Characteristics Articulation: Yes: Imprecise (intermittent. Functional?) - Language/Verbal Expression Able to Respond to Simple Queries: Yes: WNL Able to Communicate Wants and Needs: Yes: WNL Functional Communication Status: Yes: WNL - Swallow Evaluation/Bedside Assessment Current Nutritional Intake: Regular, Thin Liquids Oral Secretions: Yes: WFL Dentition: Yes: Missing Teeth Facial Symmetry at Rest: Symmetrical Facial Symmetry on Retraction: Symmetrical Facial Movement: Controlled Against Resistance Opening: Normal Against Resistance Closing: Normal Pucker Lips: Normal Smile: Normal Lingual Movement: Normal, Symmetric Lingual Speed of Movement: Normal Lingual Movement Strgth Against Opposition: Normal Lingual Movement Characteristics: Normal Laryngeal Elevation: WFL Laryngeal Movement: Able to Palpate Rate of Intake: WFL Labial Seal: WFL Chewing: WFL Oral Prep Time: WFL A-P Transit: WFL Pocketing: None Timing of Swallow: WFL Coughing/Throat Clear: Yes Change in Voice: Yes Recommendations - Speech Evaluation, Impression/Plan Impression: Speech/swallowing intact - Dysphagia Impressions/Plan Swallowing Skills: WFL Dysphagia Impressions: No Impairment *Silent aspiration: cannot be R/O at bedside - Recommendations Diet Consistency: Regular Medication Administration: Whole with water Liquids: Thin Liquids
[2018-04-17] MEDS ORDERED: PARoxetine HCL 10 MG TABLET (FP) ONE (11:01)
[2018-04-17] MEDS ORDERED: PT OWN MED DRAWER 7, Y5N ONE ×3 (11:02→19:03)
[2018-04-17] MEDS: CLINDAMYCIN HCL 150 MG CAPSULE (FP) PO SCH ×2 (11:22→17:24)
[2018-04-17] MEDS: DOCUSATE SODIUM 100 MG CAPSULE (FP) PO SCH (11:22)
[2018-04-17] MEDS: BUDESONIDE/FORMETEROL FUMARATE 160/4.5 mcg INHALER IH SCH (11:23)
[2018-04-17] MEDS: TIMOLOL 0.25% OPHTHALMIC SOL 5 ML BOTTLE OD SCH (11:23)
[2018-04-17] MEDS: TOPIRAMATE 100 MG TABLET PO SCH (11:33)
[2018-04-17 13:25] LABS: PHOSPHOROUS 3.2 mg/dL (2.5-4.9)
[2018-04-17] MEDS ORDERED: POLYETHYLENE GLYCOL 3350 119 GM BTL PO ONE (14:00)
[2018-04-17] MEDS: ALBUTEROL SO4 2.5/IPRATROPIUM 0.5 INH SOL 3 ML VIAL.NEB. NEB PRN (16:26)
--- NOTE | 2018-04-17 17:16 | DS ---
Physical Exam: SUBJECTIVE: Patient seen and examined OBJECTIVE: Vital Signs Period Temp Pulse Resp BP Sys/Wilson Pulse Ox Last 24 Hr 97.7 F-98.3 F 20-89 16-20 115-133/76-88 98-98 PHYSICAL EXAM GENERAL: The patient is awake, alert, and fully oriented, in no acute distress. HEAD: Normal with no signs of trauma. EYES: PERRL, extraocular movements intact, sclera anicteric, conjunctiva clear. ENT: Ears normal, nares patent, oropharynx clear without exudates, moist mucous membranes. NECK: Trachea midline, full range of motion, supple. LUNGS: Breath sounds equal, clear to auscultation bilaterally, no wheezes, no crackles, no accessory muscle use. HEART: Regular rate and rhythm, S1, S2 without murmur, rub or gallop. ABDOMEN: Soft, nontender, nondistended, normoactive bowel sounds, no guarding, no rebound, no hepatosplenomegaly, no masses. EXTREMITIES: 2+ pulses, warm, well-perfused, no edema. NEUROLOGICAL: Cranial nerves II through XII grossly intact. Normal speech, gait not observed. PSYCH: Normal mood, normal affect. SKIN: Warm, dry, normal turgor, no rashes or lesions noted. LABS Laboratory Results - last 24 hr 04/16/18 04/16/18 04/17/18 21:40 21:40 06:30 WBC 5.1 RBC 3.55 L Hgb 11.7 Hct 34.8 MCV 98.0 H MCH 32.9 MCHC 33.6 RDW 13.8 Plt Count 213 MPV 7.5 Absolute Neuts (auto) 2.3 Neutrophils % 46.0 D Lymphocytes % 46.1 H D Monocytes % 6.2 Eosinophils % 1.4 Basophils % 0.3 Nucleated RBC % 0 Sodium Potassium Chloride Carbon Dioxide Anion Gap BUN Creatinine Creat Clearance w eGFR Random Glucose Calcium Phosphorus Magnesium Total Bilirubin AST ALT Alkaline Phosphatase Troponin I < 0.02 Total Protein Albumin Triglycerides 240 H Cholesterol 154 Total LDL Cholesterol 100 HDL Cholesterol 33 L Vitamin B12 Serum Folate 04/17/18 04/17/18 04/17/18 06:30 06:30 06:30 WBC RBC Hgb Hct MCV MCH MCHC RDW Plt Count MPV Absolute Neuts (auto) Neutrophils % Lymphocytes % Monocytes % Eosinophils % Basophils % Nucleated RBC % Sodium 142 Potassium 4.1 Chloride 111 H Carbon Dioxide 22 Anion Gap 9 BUN 16 Creatinine 0.7 Creat Clearance w eGFR > 60 Random Glucose 81 Calcium 9.1 Phosphorus 3.2 Magnesium 2.2 Total Bilirubin 0.4 D AST 15 ALT 25 Alkaline Phosphatase 88 Troponin I Total Protein 6.8 Albumin 3.1 L Triglycerides 194 H Cholesterol 166 Total LDL Cholesterol 106 H HDL Cholesterol 36 L Vitamin B12 546 Serum Folate 18 H HOSPITAL COURSE: Date of Admission:04/16/18 Date of Discharge: 04/17/18 Discharge Summary Reason For Visit: R/O TIA Current Active Problems Left-sided weakness (Acute) PCP (phencyclidine) abuse (Acute) Psychiatric care (Acute) Condition: Good - Instructions Diet, Activity, Other Instructions: Mrs Leiva: Please return to the the ER with any new or worsening symptoms. Continue taking Clindamycin 150mg twice per day for 7 more days. Disposition: HOME - Home Medications Comprehensive Discharge Medication List: Ambulatory Orders Albuterol Sulfate Inhaler - [Ventolin HFA Inhaler -] 2 inh PO Q4H PRN 03/19/18 Timolol 0.25% [Timoptic 0.25%] 1 drop BID 03/19/18 Budesonide/Formeterol Fumarate [SYMBICORT 160/4.5mcg -] 2 inh PO BID 04/09/18 Clonidine HCl [Clonidine HCl ER] 0.1 mg PO TID 04/09/18 Cyclobenzaprine HCl 10 mg PO QID PRN 04/09/18 Docusate Sodium 100 mg PO BID 04/09/18 Nicotine [Nicotine Patch 14mg/24 hr] 1 each TD DAILY 04/09/18 Pantoprazole Sodium 40 mg PO DAILY 04/09/18 Quetiapine Fumarate [Seroquel -] 25 mg PO DAILY 04/09/18 Quetiapine Fumarate [Seroquel] 100 mg PO HS 04/09/18 Sennosides [Senna] 8.6 mg PO HS 04/09/18 Topiramate [Topamax] 100 mg PO BID 04/09/18 Aspirin [ASA -] 81 mg PO DAILY #30 tab.chew 04/11/18 Atorvastatin Ca [Lipitor] 80 mg PO HS #30 tablet 04/11/18 Olmesartan Medoxomil [Benicar (Nf)] 40 mg PO DAILY #30 tablet 04/11/18 Acetaminophen [Tylenol] 1 tab PO PRN 04/16/18 Calcium Carbonate/Vitamin D3 [Calcium 500-Vit D3 400 Tablet] 1 tab PO DAILY Emtricitabine/Tenofovir [Truvada -] 3 tab HS 04/16/18 Gabapentin 1 tab PO TID 04/16/18 Multivitamin [Daily Multiple Vitamin] 1 tab PO DAILY 04/16/18 Paroxetine HCl [Paxil] 1 tablet PO DAILY 04/16/18
[2018-04-17] MEDS: ACETAMINOPHEN 325 MG TABLET (FP) PO PRN (17:24)
[2018-04-17 17:53] VITALS: BP 122/78; PULSE 80; TEMP 98.2
--- NOTE | 2018-04-18 08:35 | EKG ---
Test Reason : Blood Pressure : / mmHG Vent. Rate : 080 BPM Atrial Rate : 080 BPM P-R Int : 148 ms QRS Dur : 076 ms QT Int : 382 ms P-R-T Axes : 045 004 -01 degrees QTc Int : 440 ms NORMAL SINUS RHYTHM NORMAL ECG WHEN COMPARED WITH ECG OF 16-APR-2018 01:19, NONSPECIFIC T WAVE ABNORMALITY NO LONGER EVIDENT IN ANTERIOR LEADS Confirmed by DESIRAE OWEN, LANA ([id number]) on 04/18/2018 8:35:13 AM Referred By: Confirmed By:LANA MERRILL MD
--- NOTE | 2018-04-18 08:36 | EKG ---
Test Reason : Blood Pressure : / mmHG Vent. Rate : 078 BPM Atrial Rate : 078 BPM P-R Int : 150 ms QRS Dur : 076 ms QT Int : 388 ms P-R-T Axes : 051 011 003 degrees QTc Int : 442 ms NORMAL SINUS RHYTHM NORMAL ECG WHEN COMPARED WITH ECG OF 16-APR-2018 22:57, NO SIGNIFICANT CHANGE WAS FOUND Confirmed by LANA MERRILL MD ([id number]) on 04/18/2018 8:36:03 AM Referred By: JAYLAN FLORES Confirmed By:LANA MERRILL MD
== END 2018-04-17 20:02 | disposition home or self-care (01) ==
LOC: JER 00:46 → INTOOBSV 03:01 → UNDOADMOB 03:01 → JERBED 03:01 → J4S 17:00
PROVIDERS: ADMIT Internal Medicine; ATTEND Nurse Practitioner Family
PROC: 3E033NZ Introduction of Analgesics, Hypnotics, Sedatives into Peripheral Vein, Percutaneous Approach (ICD-10-PCS; principal; 2018-04-16)
PROC: 3E0F7GC Introduction of Other Therapeutic Substance into Respiratory Tract, Via Natural or Artificial Opening (ICD-10-PCS; 2018-04-16)
DX: R53.1 Weakness (principal); I10 Essential (primary) hypertension; F31.9 Bipolar disorder, unspecified; F41.9 Anxiety disorder, unspecified; J45.909 Unspecified asthma, uncomplicated; Z21 Asymptomatic human immunodeficiency virus [HIV] infection status; Z86.73 Personal history of transient ischemic attack (TIA), and cerebral infarction without residual deficits
CPT/HCPCS: 36415; 70450-TC; 71046-TC-FY; 72131-TC; 74019-TC-FY; 74177-TC; 80053; 80061; 80307; 81003; 81015; 82550; 82553; 82607; 82746; 83721; 83735; 84100; 84484; 85025; 85730; 86850; 86900; 86901; 87040; 93005; 93010; 93306-TC; 93880-TC; 94640; 97116-GP; 97161-GP; 99281-25; G0378; J7620

== ENCOUNTER 2018-04-19 05:23 | Observation (INO) | payer BC, OTHER ==
[2018-04-19 05:46] VITALS: BMI 31.8
--- NOTE | 2018-04-19 06:16 | PDOC ---
History of Present Illness - General History Source: Patient Exam Limitations: No Limitations - History of Present Illness Initial Comments: 04/19/18 06:31 47 yo F with PMHx of HTN, Bipolar disorder, TIA, polysubstance abuse, who presents to the ED with chest pain this morning. Patient reports 3 episodes of sharp, midsternal chest pain, 10/10 in severity while sitting down. Patient reports friend giving her a percocet with minimal relief of her pain. Patient has had multiple hospital admissions including hospitalizations for TIA, hemoptysis, and chest pain. During most recent admission (two days ago), patient was being treated for dental abscess. Patient reports PCP use 2 weeks ago. <Yuly Penaloza - Last Filed: 04/19/18 06:31> - General History Source: Patient Exam Limitations: No Limitations <Sunshine Sanchez - Last Filed: 04/20/18 01:19> - General Chief Complaint: Back Pain Stated Complaint: BACK PAIN Past History <Yuly Penaloza - Last Filed: 04/19/18 06:31> - Past Medical History Anemia: No Asthma: Yes Cancer: No Cardiac Disorders: No CVA: Yes ("MINI STROKE" FEW YRS AGO) COPD: Yes CHF: No DVT: No Dementia: No Diabetes: No Dialysis: No GI Disorders: No Disorders: No HTN: Yes Hypercholesterolemia: Yes Kidney Stones: No Liver Disease: No Psychiatric Problems: No Seizures: No Thyroid Disease: No Lung CA: No - Surgical History Abdominal Surgery: No Appendectomy: No Cardiac Surgery: Yes (SX R CAROTID ARTERY FOR A CLOT IN 2004) Cholecystectomy: No Gastric Stapling: No GI Surgery: No Lung Surgery: No Neurologic Surgery: No Orthopedic Surgery: No - Reproductive History PID: No - Immunization History Td Vaccination: Yes Immunization Up to Date: Yes - Suicide/Smoking/Psychosocial Hx Smoking Status: Yes Smoking History: Unknown if ever smoked Years of Tobacco Use: 20 Have you smoked in the past 12 months: No Number of Cigarettes Smoked Daily: 10 Cigars Per Day: 0 Information on smoking cessation initiated: No 'Breaking Loose' booklet given: 02/05/16 Hx Alcohol Use: No Drug/Substance Use Hx: No Substance Use Type: None Hx Substance Use Treatment: No <Sunshine Sanchez - Last Filed: 04/20/18 01:19> - Past Medical History Allergies/Adverse Reactions: Allergies Allergy/AdvReac Type Severity Reaction Status Date / Time amoxicillin trihydrate Allergy Verified 04/19/18 05:44 [From Augmentin] azithromycin [From Zithromax] Allergy Verified 04/19/18 05:44 potassium clavulanate Allergy Verified 04/19/18 05:44 [From Augmentin] Home Medications: Ambulatory Orders Albuterol Sulfate Inhaler - [Ventolin HFA Inhaler -] 2 inh PO Q4H PRN 03/19/18 Timolol 0.25% [Timoptic 0.25%] 1 drop BID 03/19/18 Budesonide/Formeterol Fumarate [SYMBICORT 160/4.5mcg -] 2 inh PO BID 04/09/18 Clonidine HCl [Clonidine HCl ER] 0.1 mg PO TID 04/09/18 Cyclobenzaprine HCl 10 mg PO QID PRN 04/09/18 Docusate Sodium 100 mg PO BID 04/09/18 Nicotine [Nicotine Patch 14mg/24 hr] 1 each TD DAILY 04/09/18 Pantoprazole Sodium 40 mg PO DAILY 04/09/18 Quetiapine Fumarate [Seroquel -] 25 mg PO DAILY 04/09/18 Quetiapine Fumarate [Seroquel] 100 mg PO HS 04/09/18 Sennosides [Senna] 8.6 mg PO HS 04/09/18 Topiramate [Topamax] 100 mg PO BID 04/09/18 Aspirin [ASA -] 81 mg PO DAILY #30 tab.chew 04/11/18 Atorvastatin Ca [Lipitor] 80 mg PO HS #30 tablet 04/11/18 Olmesartan Medoxomil [Benicar -] 40 mg PO DAILY #30 tablet 04/11/18 Acetaminophen [Tylenol] 1 tab PO PRN 04/16/18 Calcium Carbonate/Vitamin D3 [Calcium 500-Vit D3 400 Tablet] 1 tab PO DAILY Gabapentin 1 tab PO TID 04/16/18 Multivitamin [Daily Multiple Vitamin] 1 tab PO DAILY 04/16/18 Clindamycin [Cleocin -] 150 mg PO Q6HPO #14 capsule 04/17/18 Paroxetine HCl [Paxil] 2 tablet PO DAILY #60 tablet 04/17/18 Review of Systems - Review of Systems Able to Perform ROS?: Yes Comments:: 04/19/18 06:31 GENERAL/CONSTITUTIONAL: No: fever, chills, weakness, loss of appetite. HEAD, EYES, EARS, NOSE AND THROAT: No: change in vision, ear pain, discharge, sore throat, throat swelling. CARDIOVASCULAR: +chest pain. No:lightheadedness, palpitations, syncope RESPIRATORY: No: cough, shortness of breath, wheezing, hemoptysis, stridor. GASTROINTESTINAL: No: nausea, vomiting, abdominal cramping, diarrhea, rectal bleeding, constipation. GENITOURINARY: No: dysuria, hematuria, frequency, urgency, flank pain. MUSCULOSKELETAL: No: back pain, neck pain, joint pain, muscle swelling or pain SKIN: No: lesions, pallor, rash or easy bruising. NEUROLOGIC: No: headache, vertigo, paresthesias, weakness ENDOCRINE: No: unexplained weight gain or loss HEMATOLOGIC/LYMPHATIC: No: anemia, easy bleeding, swelling nodes <Yuly Penaloza - Last Filed: 04/19/18 06:31> *Physical Exam - Vital Signs Last Vital Signs Temp Pulse Resp BP Pulse Ox 98.9 F 87 18 109/84 96 04/19/18 05:44 04/19/18 05:44 04/19/18 05:44 04/19/18 05:44 04/19/18 05:44 - Physical Exam Comments: 04/19/18 06:33 GENERAL: The patient is in no acute distress. HEAD: Normal with no signs of trauma. EYES: PERRLA, EOMI, sclera anicteric, conjunctiva clear. ENT: Ears normal, nares patent, oropharynx clear without exudates. Moist mucous membranes. NECK: Normal range of motion, supple without lymphadenopathy, JVD, or masses. LUNGS: Breath sounds equal, clear to auscultation bilaterally. No wheezes, and no crackles. HEART:Regular rate and rhythm, normal S1 and S2 without murmur, rub or gallop. ABDOMEN: Soft, nontender, normoactive bowel sounds. No guarding, no rebound. + 2 palpable nodules on R lower back. EXTREMITIES: Normal range of motion, no edema. No clubbing or cyanosis. No erythema, or tenderness. NEUROLOGICAL: Cranial nerves II through XII grossly intact. Normal speech. No focal neurological deficits. MUSCULOSKELETAL: Back nontender to palpation, no CVA tenderness SKIN: Warm, Dry, normal turgor, no rashes or lesions noted. <Yuly Penaloza - Last Filed: 04/19/18 06:31> - Vital Signs Last Vital Signs Temp Pulse Resp BP Pulse Ox 98.9 F 87 18 109/84 96 04/19/18 05:44 04/19/18 05:44 04/19/18 05:44 04/19/18 05:44 04/19/18 05:44 <Sunshine Sanchez - Last Filed: 04/20/18 01:19> ED Treatment Course - LABORATORY CBC & Chemistry Diagram: 04/19/18 06:52 04/19/18 06:52 <Sunshine Sanchez - Last Filed: 04/20/18 01:19> Medical Decision Making - Medical Decision Making 04/20/18 01:18 Ms Leiva is a 47 yo F who presents to the Er with a complaint of chest pain Pt has had multiple recent admissions She states that she began to have chest pain this morning No shortness of breath No palpitations No fevers, chills, cough No nausea or vomiting Will do: Labs EKG CXR Signed out to Dr Albright <Sunshine Sanchez - Last Filed: 04/20/18 01:19> *DC/Admit/Observation/Transfer - Attestations Scribe Attestion: 04/19/18 06:34 Documentation prepared by Yuly Penaloza, acting as medical record transcriber for Sunshine Sanchez MD <Yuly Penaloza - Last Filed: 04/19/18 06:31> <Sunshine Sanchez - Last Filed: 04/20/18 01:19> Diagnosis at time of Disposition: PCP dependence, Back pain, Chest pain, Leg pain - Discharge Dispostion Condition at time of disposition: Fair
[2018-04-19] MEDS ORDERED: ACETAMINOPHEN 1000 MG/100 ML VIAL (NON FORMULARY) IVPB ONE (06:32)
[2018-04-19] MEDS ORDERED: FAMOTIDINE 20 MG/50 ML IVPB 20 MG/50 ML MG IVPB ONE ×2 (06:32→07:18)
[2018-04-19] MEDS ORDERED: ACETAMINOPHEN INJECTION 100 ML IVPB ONE (07:18)
[2018-04-19 07:22] LABS: EOS % 0.5 % (0-4.5); HEMOGLOBIN 12.2 GM/dL (10.7-15.3); LYMPH % 32.7 % (8-40); MCH 33.3 pg (25.7-33.7); MCHC 34.8 g/dl (32.0-36.0); MEAN CELL VOLUME 95.7 fl (80-96); MEAN PLT VOLUME 7.5 fl (7.5-11.1); MONO % 8.4 % (3.8-10.2); NEUT % 57.4 % (42.8-82.8); PLATELET COUNT 233 K/MM3 (134-434); RBC 3.65 M/mm3 (3.60-5.2); RDW 13.5 % (11.6-15.6); WHITE BLOOD COUNT 8.5 K/mm3 (4.0-10.0)
--- NOTE | 2018-04-19 07:24 | PDOC ---
*Physical Exam - Vital Signs Last Vital Signs Temp Pulse Resp BP Pulse Ox 98.9 F 87 18 109/84 96 04/19/18 05:44 04/19/18 05:44 04/19/18 05:44 04/19/18 05:44 04/19/18 05:44 - Physical Exam Comments: 04/19/18 07:33 gen: sleeping, but easily arousable heent: soft tissue swelling to R lower face from dental infection - on clinda heart: +s1s2 reg lungs: cta b/l abd: soft, nt/nd +bs ext: no c/c/e neuro: cn ii-xii grossly intact, no focal neuro deficits, sensation intact, muscle strength 5/5 ue and le Heart Score/ECG Review - ECG Intrepretation Comment:: 04/19/18 08:31 sinus at 83, nl axis, nl interval, no acute st/t wave findings ED Treatment Course - LABORATORY CBC & Chemistry Diagram: 04/19/18 06:52 04/19/18 06:52 - ADDITIONAL ORDERS Additional order review: 04/19/18 06:52 RBC 3.65 MCV 95.7 MCHC 34.8 RDW 13.5 MPV 7.5 Neutrophils % 57.4 D Lymphocytes % 32.7 D Monocytes % 8.4 Eosinophils % 0.5 Basophils % 1.0 D - Medications Given in the ED: ED Medications Discontinued Medications Generic Name Dose Route Start Last Admin Trade Name Freq PRN Reason Stop Dose Admin Famotidine/Sodium Chloride 20 mg in 50 mls @ 100 mls/hr 04/19/18 06:32 07:23 Pepcid 20 Mg Premixed Ivpb - IVPB 04/19/18 07:01 100 mls/hr ONCE ONE Administration Medical Decision Making - Medical Decision Making 04/19/18 07:34 a/p: 47yo female with cp yesterday x 2 episodes -no sob -anterior chest wall ttp pt signed out from the prior attending pending labs, ekg, further eval of cp -labs, cxr, ekg pending -will continue to monitor and reassess 04/19/18 08:19 drug screen +PCP and opiates trop negative 04/19/18 10:18 pt became agitated that the nurse was medicating the paitents neighbor - threw water and the cup against the wall pt has received pain control in the ED - but is stating she has not pt states she needs morphine iv - however pt without acute signs of pain pt exhibiting drug seeking behavior will give lidoderm patch for chronic lbp, will give toradol security at the bedside for the aggressive behavior 04/19/18 14:11 repeat trop negative pt still c/o cp that radiates to her back and down her arm will keep in obs for cards eval 04/19/18 14:[address] Smith who accepts pt to tele obs *DC/Admit/Observation/Transfer Diagnosis at time of Disposition: PCP dependence, Back pain, Chest pain, Leg pain - Discharge Dispostion Condition at time of disposition: Fair Decision to Admit order: Yes - Referrals - Patient Instructions - Post Discharge Activity - Attestations Physician Attestion: 04/19/18 14:24 I, Dr. Valeria Albright, DO, attest that this document has been prepared under my direction and personally reviewed by me in its entirety. I further attest, that it accurately reflects all work, treatment, procedures and medical decision -making performed by me.
[2018-04-19 08:01] LABS: COCAINE, UR NEGATIVE ng/ml (CUTOFF=300); URINE AMPHETAMINES NEGATIVE ng/ml (CUTOFF=500); URINE BARBITURATES NEGATIVE ng/ml (CUTOFF=200); URINE BENZODIAZEPINES NEGATIVE ng/ml (CUTOFF=200)
[2018-04-19 08:02] LABS: METHADONE, UR NEGATIVE ng/ml (CUTOFF=300)
[2018-04-19 08:05] LABS: ALBUMIN 3.5 g/dl (3.4-5.0); AMYLASE 47 U/L (25-115); ANION GAP 9 (8-16); BILIRUBIN,TOTAL 0.3 mg/dL (0.2-1.0); BLOOD UREA NITROGEN 19 mg/dL (7-18); CALCIUM 9.2 mg/dL (8.5-10.1); CHLORIDE 104 mmol/L (98-107); CO2 25 mmol/L (21-32); GLUCOSE,RANDOM 100 mg/dL (74-106); LIPASE 108 U/L (73-393); SGPT/ALT 25 U/L (12-78); SODIUM 138 mmol/L (136-145); TOT PROT 7.8 g/dl (6.4-8.2)
[2018-04-19 08:06] LABS: OPIATES, URI POSITIVE ng/ml (CUTOFF=300); PHENCYCLIDINE,URINE POSITIVE ng/ml (CUTOFF=25)
[2018-04-19 08:08] LABS: ALK PHOS 100 U/L (45-117)
[2018-04-19 08:15] LABS: SGOT/AST 22 U/L (15-37)
[2018-04-19] MEDS ORDERED: ASPIRIN 81 MG CHEWABLE TABLETS PO ONE (08:19)
[2018-04-19] MEDS ORDERED: ASPIRIN 81 MG CHEWABLE TABLETS ONE (08:37)
--- NOTE | 2018-04-19 08:54 | EKG ---
Test Reason : Blood Pressure : / mmHG Vent. Rate : 083 BPM Atrial Rate : 083 BPM P-R Int : 138 ms QRS Dur : 080 ms QT Int : 384 ms P-R-T Axes : 044 -07 005 degrees QTc Int : 451 ms NORMAL SINUS RHYTHM NORMAL ECG WHEN COMPARED WITH ECG OF 17-APR-2018 12:41, NO SIGNIFICANT CHANGE WAS FOUND Confirmed by LANA MERRILL MD ([id number]) on 04/19/2018 8:54:45 AM Referred By: Confirmed By:LANA MERRILL MD
[2018-04-19] MEDS ORDERED: KETOROLAC TROMETHAMINE 30 MG/1 ML VIAL IVPUSH ONE ×2 (10:17→22:15)
[2018-04-19] MEDS ORDERED: LIDOCAINE 5% TOPICAL PATCH TP ONE (10:17)
[2018-04-19] MEDS ORDERED: LIDOCAINE 5% TOPICAL PATCH ONE (11:52)
[2018-04-19] MEDS ORDERED: KETOROLAC TROMETHAMINE 30 MG/1 ML VIAL ONE (11:52)
--- NOTE | 2018-04-19 18:07 | CON.CARD ---
Consult Consult Specialty:: Cardiology - History of Present Illness Chief Complaint: Chest Pain History of Present Illness: This is a 47 year old female with a PMH of HTN, bipolar disorder, TIA, and polysubstance abuse. She presents to the ED with 3 episodes of sharp midsternal chest pain 10/10 in severity. Recently treated for a dental abcess. Patient reports PCP use 2 weeks ago. Presently she is chest pain free. 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 Cardio/Vascular: Yes: CAD, HTN, Hyperlipdemia Pulmonary: Yes: COPD ...LMP: 07/06/16 Psych: Yes: Bipolar Rheumatology: Yes: Rheumatoid Arthritis - Alcohol/Substance Use Hx Alcohol Use: No History of Substance Use: reports: Marijuana (and PCP) - Smoking History Smoking history: Unknown if ever smoked Have you smoked in the past 12 months: No Aproximately how many cigarettes per day: 10 - Social History ADL: Independent History of Recent Travel: No Home Medications - Allergies Allergies/Adverse Reactions: Allergies Allergy/AdvReac Type Severity Reaction Status Date / Time amoxicillin trihydrate Allergy Verified 04/19/18 05:44 [From Augmentin] azithromycin [From Zithromax] Allergy Verified 04/19/18 05:44 potassium clavulanate Allergy Verified 04/19/18 05:44 [From Augmentin] - Home Medications Home Medications: Ambulatory Orders Albuterol Sulfate Inhaler - [Ventolin HFA Inhaler -] 2 inh PO Q4H PRN 03/19/18 Timolol 0.25% [Timoptic 0.25%] 1 drop BID 03/19/18 Budesonide/Formeterol Fumarate [SYMBICORT 160/4.5mcg -] 2 inh PO BID 04/09/18 Clonidine HCl [Clonidine HCl ER] 0.1 mg PO TID 04/09/18 Cyclobenzaprine HCl 10 mg PO QID PRN 04/09/18 Docusate Sodium 100 mg PO BID 04/09/18 Nicotine [Nicotine Patch 14mg/24 hr] 1 each TD DAILY 04/09/18 Pantoprazole Sodium 40 mg PO DAILY 04/09/18 Quetiapine Fumarate [Seroquel -] 25 mg PO DAILY 04/09/18 Quetiapine Fumarate [Seroquel] 100 mg PO HS 04/09/18 Sennosides [Senna] 8.6 mg PO HS 04/09/18 Topiramate [Topamax] 100 mg PO BID 04/09/18 Aspirin [ASA -] 81 mg PO DAILY #30 tab.chew 04/11/18 Atorvastatin Ca [Lipitor] 80 mg PO HS #30 tablet 04/11/18 Olmesartan Medoxomil [Benicar -] 40 mg PO DAILY #30 tablet 04/11/18 Acetaminophen [Tylenol] 1 tab PO PRN 04/16/18 Calcium Carbonate/Vitamin D3 [Calcium 500-Vit D3 400 Tablet] 1 tab PO DAILY Gabapentin 1 tab PO TID 04/16/18 Multivitamin [Daily Multiple Vitamin] 1 tab PO DAILY 04/16/18 Clindamycin [Cleocin -] 150 mg PO Q6HPO #14 capsule 04/17/18 Paroxetine HCl [Paxil] 2 tablet PO DAILY #60 tablet 04/17/18 Family Disease History - Family Disease History Family Disease History: Diabetes: Brother (HTN, Cancer), Heart Disease: Grandparent, Father ( ETOH DEPENDENT AND FROM CAD), Mother ( FROM CAD) , Brother, [place]: Brother Review of Systems Findings/Remarks: As per HPI Vital Signs: Vital Signs Temperature 98.9 F 04/19/18 05:44 Pulse Rate 87 04/19/18 05:44 Respiratory Rate 18 04/19/18 05:44 Blood Pressure 109/84 04/19/18 05:44 O2 Sat by Pulse Oximetry (%) 96 04/19/18 05:44 Constitutional: Yes: Anxious HENT: Yes: WNL Neck: Yes: WNL Respiratory: Yes: CTA Bilaterally Gastrointestinal: Yes: Normal Bowel Sounds Cardiovascular: Yes: Regular Rate and Rhythm (NL S1S2, No MRHG) JVD: No Extremities: Yes: WNL Edema: No Neurological: Yes: Alert, Oriented (Grossly non focal) - Other Data Labs, Other Data: CBC, BMP 04/19/18 06:52 04/19/18 06:52 Troponin, BNP 04/19/18 04/19/18 06:52 13:00 Troponin I < 0.02 < 0.02 Troponin, BNP 04/19/18 04/19/18 06:52 13:00 Troponin I < 0.02 < 0.02 Assessment/Plan 47 year old female with a PMH of HTN, bipolar disorder, TIA, and polysubstance abuse. She presents to the ED with 3 episodes of sharp midsternal chest pain 10/ 10 in severity. Recently treated for a dental abcess. Patient reports PCP use 2 weeks ago. Presently she is chest pain free. Chest pain Atypical features Troponin Negative X2 Stress Echo 02/05/18 - Negative for myocardial ischemia Echocardiogram 04/17/18 EF 55-60% Normal LV and RV size and function EKG No acute changes Continue Lipitor and Aspirin for prevention Complete 3rd set of Cardiac Enzymes
[2018-04-19] MEDS ORDERED: ALBUTEROL SO4 18 GM HFA INHALER IH PRN (18:26)
[2018-04-19] MEDS ORDERED: CYCLOBENZAPRINE HCL 10 MG TABLET (FP) PO PRN (18:26)
--- NOTE | 2018-04-19 18:30 | HP ---
CHIEF COMPLAINT:CP PCP: HISTORY OF PRESENT ILLNESS: 47 year old female with a significant past medical history of hypertension, bipolar disorder,rheumatoid arthritis, asthma, ?HIV disease, recent TIA on recent admission, hemoptysis, and polysubstance abuse (PCP and opiates) c/o CP for 3 days. starts at rest, mid sternal and radiates to her butt. lasts about a minute and self resolves. last used PCP day prior to CP. was recently diagnosed with tooth abscess which shes on abx for but has not been seen by a dentist. had negative stress test in 2016. was recently discharged on 04/17 after she was here for L sided weakness and was evaluated for CVA which was negative. currently not having CP. denies SOB, fever, chills, arm weakness/numbness, N/V/C /D ER course was notable for: (1) troponins negative x2. (2) (3) Recent Travel:none PAST MEDICAL HISTORY:as above PAST SURGICAL HISTORY:unknown Social History: Smokin cigs a day Alcohol:denies Drugs: smokes PCP, last use 3 days ago. buys percocets off the streets Family History:Diabetes: Brother (HTN, Cancer), Heart Disease: Grandparent, Father ( ETOH DEPENDENT AND FROM CAD), Mother ( FROM CAD), Brother, [place] : Brother Allergies amoxicillin trihydrate [From Augmentin] Allergy (Verified 04/19/18 05:44) azithromycin [From Zithromax] Allergy (Verified 04/19/18 05:44) potassium clavulanate [From Augmentin] Allergy (Verified 04/19/18 05:44) HOME MEDICATIONS: Home Medications Medication Instructions Recorded Albuterol Sulfate Inhaler - 2 inh PO Q4H PRN 03/19/18 [Ventolin HFA Inhaler -] Timolol 0.25% [Timoptic 0.25%] 1 drop BID 03/19/18 Budesonide/Formeterol Fumarate 2 inh PO BID 04/09/18 [SYMBICORT 160/4.5mcg -] Clonidine HCl [Clonidine HCl ER] 0.1 mg PO TID 04/09/18 Cyclobenzaprine HCl 10 mg PO QID PRN 04/09/18 Docusate Sodium 100 mg PO BID 04/09/18 Nicotine [Nicotine Patch 14mg/24 1 each TD DAILY 04/09/18 hr] Pantoprazole Sodium 40 mg PO DAILY 04/09/18 Quetiapine Fumarate [Seroquel -] 25 mg PO DAILY 04/09/18 Quetiapine Fumarate [Seroquel] 100 mg PO HS 04/09/18 Sennosides [Senna] 8.6 mg PO HS 04/09/18 Topiramate [Topamax] 100 mg PO BID 04/09/18 Aspirin [ASA -] 81 mg PO DAILY #30 tab.chew 04/11/18 Atorvastatin Ca [Lipitor] 80 mg PO HS #30 tablet 04/11/18 Olmesartan Medoxomil [Benicar -] 40 mg PO DAILY #30 tablet 04/11/18 Acetaminophen [Tylenol] 1 tab PO PRN 04/16/18 Calcium Carbonate/Vitamin D3 1 tab PO DAILY 04/16/18 [Calcium 500-Vit D3 400 Tablet] Gabapentin 1 tab PO TID 04/16/18 Multivitamin [Daily Multiple 1 tab PO DAILY 04/16/18 Vitamin] Clindamycin [Cleocin -] 150 mg PO Q6HPO #14 capsule 04/17/18 Paroxetine HCl [Paxil] 2 tablet PO DAILY #60 tablet 04/17/18 REVIEW OF SYSTEMS CONSTITUTIONAL: Absent: fever, chills, diaphoresis, generalized weakness, malaise, loss of appetite, weight change HEENT: Absent: rhinorrhea, nasal congestion, throat pain, throat swelling, difficulty swallowing, mouth swelling, ear pain, eye pain, visual changes CARDIOVASCULAR: chest pain Absent: , syncope, palpitations, irregular heart rate, lightheadedness, peripheral edema RESPIRATORY: Absent: cough, shortness of breath, dyspnea with exertion, orthopnea, wheezing, stridor, hemoptysis GASTROINTESTINAL: Absent: abdominal pain, abdominal distension, nausea, vomiting, diarrhea, constipation, melena, hematochezia GENITOURINARY: Absent: dysuria, frequency, urgency, hesitancy, hematuria, flank pain, genital pain MUSCULOSKELETAL: Absent: myalgia, arthralgia, joint swelling, back pain, neck pain SKIN: Absent: rash, itching, pallor HEMATOLOGIC/IMMUNOLOGIC: Absent: easy bleeding, easy bruising, lymphadenopathy, frequent infections ENDOCRINE: Absent: unexplained weight gain, unexplained weight loss, heat intolerance, cold intolerance NEUROLOGIC: Absent: headache, focal weakness or paresthesias, dizziness, unsteady gait, seizure, mental status changes, bladder or bowel incontinence PSYCHIATRIC: Absent: anxiety, depression, suicidal or homicidal ideation, hallucinations. PHYSICAL EXAMINATION Vital Signs - 24 hr 04/19/18 05:44 Temperature 98.9 F Pulse Rate 87 Respiratory 18 Rate Blood Pressure 109/84 O2 Sat by Pulse 96 Oximetry (%) GENERAL: Awake, alert, and fully oriented, in no acute distress. HEAD: Normal with no signs of trauma. mouth- R lower jaw R side with gum tendenress unable to see any erythema, flucutant area or active drainage. dental caries, poor oral dentition EYES: Pupils equal, round and reactive to light, extraocular movements intact, sclera anicteric, conjunctiva clear. No lid lag. EARS, NOSE, THROAT: Ears normal, nares patent, oropharynx clear without exudates. Moist mucous membranes. NECK: Normal range of motion, supple without lymphadenopathy, JVD, or masses. LUNGS: Breath sounds equal, clear to auscultation bilaterally. No wheezes, and no crackles. No accessory muscle use. HEART: Regular rate and rhythm, normal S1 and S2 without murmur, rub or gallop. ABDOMEN: Soft, nontender, not distended, normoactive bowel sounds, no guarding, no rebound, no masses. No hepatomegaly or splenomegaly. MUSCULOSKELETAL: Normal range of motion at all joints. No bony deformities or tenderness. No CVA tenderness. UPPER EXTREMITIES: 2+ pulses, warm, well-perfused. No cyanosis. No clubbing. No peripheral edema. LOWER EXTREMITIES: 2+ pulses, warm, well-perfused. No calf tenderness. No peripheral edema. NEUROLOGICAL: Cranial nerves II-XII intact. Normal speech. Normal gait. PSYCHIATRIC: Cooperative. Good eye contact. Appropriate mood and affect. SKIN: Warm, dry, normal turgor, no rashes or lesions noted, normal capillary refill. Laboratory Results - last 24 hr 04/19/18 04/19/18 04/19/18 06:32 06:52 06:52 WBC 8.5 D RBC 3.65 Hgb 12.2 Hct 35.0 MCV 95.7 MCH 33.3 MCHC 34.8 RDW 13.5 Plt Count 233 MPV 7.5 Absolute Neuts (auto) 4.9 Neutrophils % 57.4 D Lymphocytes % 32.7 D Monocytes % 8.4 Eosinophils % 0.5 Basophils % 1.0 D Nucleated RBC % 0 Sodium 138 Potassium 4.0 Chloride 104 Carbon Dioxide 25 Anion Gap 9 BUN 19 H Creatinine 1.0 Creat Clearance w eGFR 59.18 Random Glucose 100 Calcium 9.2 Total Bilirubin 0.3 D AST 22 ALT 25 Alkaline Phosphatase 100 Creatine Kinase 227 H Creatine Kinase Index 0.5 CK-MB (CK-2) 1.21 Troponin I < 0.02 Total Protein 7.8 Albumin 3.5 Total Amylase 47 Lipase 108 Serum , Qual Opiates Screen Positive Methadone Screen Negative Barbiturate Screen Negative Phencyclidine Screen Positive Ur Amphetamines Screen Negative MDMA (Ecstasy) Screen Negative Benzodiazepines Screen Negative Cocaine Screen Negative U Marijuana (THC) Screen Negative 04/19/18 04/19/18 11:20 13:00 WBC RBC Hgb Hct MCV MCH MCHC RDW Plt Count MPV Absolute Neuts (auto) Neutrophils % Lymphocytes % Monocytes % Eosinophils % Basophils % Nucleated RBC % Sodium Potassium Chloride Carbon Dioxide Anion Gap BUN Creatinine Creat Clearance w eGFR Random Glucose Calcium Total Bilirubin AST ALT Alkaline Phosphatase Creatine Kinase 193 H Creatine Kinase Index 0.6 CK-MB (CK-2) 1.2 Troponin I < 0.02 Total Protein Albumin Total Amylase Lipase Serum , Qual Negative Opiates Screen Methadone Screen Barbiturate Screen Phencyclidine Screen Ur Amphetamines Screen MDMA (Ecstasy) Screen Benzodiazepines Screen Cocaine Screen U Marijuana (THC) Screen ASSESSMENT/PLAN: 47 year old female with a significant past medical history of hypertension, bipolar disorder,rheumatoid arthritis, asthma, ?HIV disease, recent TIA on recent admission for LUE weakness c/o CP for 3 days. 1. CP- tele observation. likely due to illicit drug use vs drug seeking although can not r/o true cardiac event given risk factors. cardiac markers neg x2. may benefit form stress test and unclear if pt would be compliant and follow up as outpatient. will consult cardiology 2. Continuous polysubstance abuse- educated patient on risks assoc with continued illicit drug use. advised her she should not buy percocet off her friends. no signs of withdrawal at this time. nicotine patch 3. Tooth abscess- as per pt is on clinda. will cont for now. will need to follow up with dentist as outpatient 4. HTN- controlled. cont home medication 5. Bipolar disorder- no sign of manic episode. cont home medication 6. RA- not on steroids 7. asthma/COPD- no signs of acute exacerbation. cont inhlaers 8. HIV-not on HARRT therapy. unknown last viral load 9. TIA- no residual deficits 10. DVT ppx- [facility] Hospitalist Screening - Colonoscopy Questionnaire Colonoscopy Questionnaire: Colonoscopy Questionnaire
[2018-04-19] MEDS ORDERED: ACETAMINOPHEN 325 MG TABLET (FP) PO PRN (20:33)
[2018-04-19] MEDS ORDERED: QUEtiapine FUMARATE 50 MG TABLET ONE (20:51)
[2018-04-19] MEDS: DOCUSATE SODIUM 100 MG CAPSULE (FP) PO SCH (21:31)
[2018-04-19] MEDS: GABAPENTIN 100 MG CAPSULE (FP) PO SCH (21:31)
[2018-04-19] MEDS: cloNIDine HCL 0.1 MG TABLET PO SCH (21:31)
[2018-04-19] MEDS ORDERED: ATORVASTATIN CA 80 MG TABLET (FP) PO SCH (22:00)
[2018-04-19] MEDS ORDERED: QUEtiapine FUMARATE 100 MG TABLET (FP) PO SCH (22:00)
[2018-04-19] MEDS ORDERED: LIDOCAINE PATCH REMOVAL MC SCH (22:00)
[2018-04-19] MEDS: ALBUTEROL SO4 2.5/IPRATROPIUM 0.5 INH SOL 3 ML VIAL.NEB. NEB PRN (22:05)
[2018-04-19] MEDS: TOPIRAMATE 100 MG TABLET PO SCH (22:43)
[2018-04-19] MEDS: BUDESONIDE/FORMETEROL FUMARATE 160/4.5 mcg INHALER IH SCH (23:00)
[2018-04-20] MEDS: CLINDAMYCIN HCL 150 MG CAPSULE (FP) PO SCH ×3 (01:00→11:21)
[2018-04-20] MEDS: MELATONIN 1 MG TABLET PO ONE ×2 (02:00→02:41)
[2018-04-20] MEDS: traMADol HCL 50 MG TABLET PO ONE ×2 (02:00→02:38)
[2018-04-20] MEDS: ALBUTEROL SO4 2.5/IPRATROPIUM 0.5 INH SOL 3 ML VIAL.NEB. NEB PRN ×2 (04:35→08:03)
[2018-04-20] MEDS: GABAPENTIN 100 MG CAPSULE (FP) PO SCH (05:43)
[2018-04-20] MEDS: cloNIDine HCL 0.1 MG TABLET PO SCH (05:43)
[2018-04-20 07:03] LABS: BASO % 0.3 % (0-2.0); EOS % 0.9 % (0-4.5); HEMATOCRIT 33.5 % (32.4-45.2); HEMOGLOBIN 11.3 GM/dL (10.7-15.3); MCH 32.3 pg (25.7-33.7); MCHC 33.7 g/dl (32.0-36.0); MEAN CELL VOLUME 96.1 fl (80-96); MEAN PLT VOLUME 7.5 fl (7.5-11.1); MONO % 7.1 % (3.8-10.2); NEUT % 43.7 % (42.8-82.8); PLATELET COUNT 214 K/MM3 (134-434); RBC 3.48 M/mm3 (3.60-5.2); RDW 13.8 % (11.6-15.6); WHITE BLOOD COUNT 5.9 K/mm3 (4.0-10.0)
[2018-04-20 07:35] LABS: ALBUMIN 3.1 g/dl (3.4-5.0); ALK PHOS 82 U/L (45-117); ANION GAP 10 (8-16); BILIRUBIN,TOTAL 0.5 mg/dL (0.2-1.0); BLOOD UREA NITROGEN 32 mg/dL (7-18); CALCIUM 9.1 mg/dL (8.5-10.1); CHLORIDE 106 mmol/L (98-107); CO2 23 mmol/L (21-32); CREATININE 1.1 mg/dL (0.55-1.02); GLUCOSE,RANDOM 108 mg/dL (74-106); POTASSIUM 3.8 mmol/L (3.5-5.1); SGOT/AST 18 U/L (15-37); SGPT/ALT 23 U/L (12-78); SODIUM 139 mmol/L (136-145)
[2018-04-20] MEDS ORDERED: MULTIVITAMINS (DAILY MVI) TABLET (FP) PO SCH (10:00)
[2018-04-20] MEDS ORDERED: CALCIUM 500MG/VIT-D 200 UNITS COMBO TABLET (FP) PO SCH (10:00)
[2018-04-20] MEDS ORDERED: NICOTINE 14 MG/24 HOURS TOPICAL PATCH TD SCH (10:00)
[2018-04-20] MEDS ORDERED: ASPIRIN 81 MG CHEWABLE TABLETS PO SCH (10:00)
[2018-04-20] MEDS ORDERED: VALSARTAN 160 MG TABLET (UD) PO SCH (10:00)
[2018-04-20] MEDS ORDERED: PANTOPRAZOLE 40 MG TABLET (FP) PO SCH (10:00)
[2018-04-20] MEDS ORDERED: PARoxetine HCL 10 MG TABLET (FP) PO SCH (10:00)
[2018-04-20] MEDS ORDERED: QUEtiapine FUMARATE 25 MG TABLET (FP) PO SCH (10:00)
[2018-04-20] MEDS ORDERED: PT OWN MED DRAWER 7, Y5N ONE (10:57)
[2018-04-20] MEDS: DOCUSATE SODIUM 100 MG CAPSULE (FP) PO SCH (11:04)
[2018-04-20] MEDS: BUDESONIDE/FORMETEROL FUMARATE 160/4.5 mcg INHALER IH SCH (11:06)
[2018-04-20] MEDS: TOPIRAMATE 100 MG TABLET PO SCH (11:06)
[2018-04-20] MEDS ORDERED: PARoxetine HCL 20 MG TABLET (FP) PO SCH (11:20)
--- NOTE | 2018-04-20 13:46 | PN ---
Teaching Attending Note Name of Resident: Carolina Hurtado ATTENDING PHYSICIAN STATEMENT I saw and evaluated the patient. I reviewed the resident's note and discussed the case with the resident. I agree with the resident's findings and plan as documented. SUBJECTIVE:states she has pain all over her body. had episode of CP last night that resolved after 2 mins. when asked where she has pain she just listed every body part. states her full body pain has been there forever. when asked to explain in more detail the kind of pain shes experiecing she answers with how she did not use PCP on her last visit. when informed her that indeed that her utox is always + for PCP on her arrivals she denies. denies CP at this time, SOB , fever, chills, cough, N/V/C/D, dizzyness, blurred vision OBJECTIVE: Last Vital Signs Temp Pulse Resp BP Pulse Ox 98 F 73 18 96/58 100 04/20/18 10:00 04/20/18 10:00 04/20/18 10:00 04/20/18 10:00 04/20/18 10:00 General NAD CV S1 S2 RRR no murmur/rub/gallop lungs CTA B/L no wheezing/rales/rhonchi Extremities no tenderness with palpation of either legs. full ROM ASSESSMENT AND PLAN: 47 year old female with a significant past medical history of hypertension, bipolar disorder,rheumatoid arthritis, asthma, ?HIV disease, recent TIA on recent admission for LUE weakness c/o CP for 3 days. 1. CP-no events on monitor. CE neg x3. seen by cardiology and determined does not require any further testing at this time. can f/u with them as outpatient. recommend to stop illicit drug use as this is related to her CP as well as related to other bad side effects. 2. Continuous polysubstance abuse- educated patient on risks assoc with continued illicit drug use. advised her she should not buy percocet off her friends. no signs of withdrawal at this time. nicotine patch 3. Tooth abscess- as per pt is on clinda. will cont for now. will need to follow up with dentist as outpatient 4. HTN- low BP this am. error was made during patient med reconicillation and pt is not supposed to be on clonidine which she received liekly causing low BP. pt was evaluated during low BP and was not symptomatic. will hold for now. repeat BP. would hold antihypertensives at this time as pt came in with very low BP to begin with. 5. Bipolar disorder- no sign of manic episode. cont home medication 6. RA- not on steroids 7. asthma/COPD- no signs of acute exacerbation. cont inhlaers 8. HIV-not on HARRT therapy. unknown last viral load 9. TIA- no residual deficits 10. DVT ppx- EAM 11. pt has been seen in the past and is known to fake symptoms and becomes inconsistent on exam and in her complaints. will repeat BP if stable can d/c home
--- NOTE | 2018-04-20 14:02 | PN ---
Progress Note, Physician Chief Complaint: Comfortable at rest but reported some atypical chest pain to buttock Tele: uneventful EKG normal History of Present Illness: 47 year old female with a PMH of HTN, bipolar disorder, TIA, and polysubstance abuse. She presents to the ED with 3 episodes of sharp midsternal chest pain 10/ 10 in severity. Recently treated for a dental abcess. Patient reports PCP use 2 weeks ago. - Current Medication List Current Medications: Active Medications Acetaminophen (Tylenol -) 650 mg PO Q4H PRN PRN Reason: PAIN Last Admin: 04/19/18 21:30 Dose: 650 mg Albuterol Sulfate (Ventolin Hfa Inhaler -) 2 puff IH Q4H PRN PRN Reason: ASTHMA Albuterol/Ipratropium (Duoneb -) 1 amp NEB Q4H PRN PRN Reason: SHORT OF BREATH/WHEEZING Last Admin: 04/20/18 08:03 Dose: 1 amp Aspirin (Asa -) 81 mg PO DAILY [facility] Last Admin: 04/20/18 11:03 Dose: 81 mg Atorvastatin Calcium (Lipitor -) 80 mg PO HS [facility] Last Admin: 04/19/18 21:31 Dose: 80 mg Budesonide/Formoterol Fumarate (Symbicort 160/4.5mcg -) 2 puff IH BID [facility] Last Admin: 04/20/18 11:06 Dose: 2 puff Calcium Carbonate/Cholecalciferol (Os-Richie 500+D -) 1 tab PO DAILY [facility] Last Admin: 04/20/18 11:04 Dose: 1 tab Clindamycin HCl (Cleocin -) 150 mg PO Q6HPO [facility] Last Admin: 04/20/18 11:21 Dose: 150 mg Cyclobenzaprine HCl (Flexeril -) 10 mg PO QID PRN PRN Reason: PAIN LEVEL 4 - 6 Docusate Sodium (Colace -) 100 mg PO BID [facility] Last Admin: 04/20/18 11:04 Dose: 100 mg Gabapentin (Neurontin -) 100 mg PO TID [facility] Last Admin: 04/20/18 05:43 Dose: 100 mg Miscellaneous (Lidoderm Patch Removal) 1 each MC DAILY@2200 [facility] Last Admin: 04/20/18 00:21 Dose: Not Given Multivitamins/Minerals/Vitamin C (Tab-A-Vit -) 1 tab PO DAILY [facility] Last Admin: 06/18/18 11:06 Dose: 1 tab Nicotine (Nicoderm Patch -) 1 mg TD DAILY [facility] Last Admin: 04/20/18 11:04 Dose: Not Given Pantoprazole Sodium (Protonix -) 40 mg PO DAILY [facility] Last Admin: 04/20/18 11:05 Dose: 40 mg Paroxetine HCl (Paxil -) 20 mg PO DAILY [facility] Last Admin: 04/20/18 11:30 Dose: 20 mg Quetiapine Fumarate (Seroquel -) 100 mg PO HS [facility] Last Admin: 04/19/18 21:31 Dose: 100 mg Quetiapine Fumarate (Seroquel -) 25 mg PO DAILY [facility] Last Admin: 04/20/18 11:05 Dose: Not Given Topiramate (Topamax -) 100 mg PO BID [facility] Last Admin: 04/20/18 11:06 Dose: 100 mg - Objective Vital Signs: Vital Signs Temperature 98 F 04/20/18 10:00 Pulse Rate 73 04/20/18 10:00 Respiratory Rate 18 04/20/18 10:00 Blood Pressure 96/58 04/20/18 10:00 O2 Sat by Pulse Oximetry (%) 100 04/20/18 10:00 Constitutional: Yes: No Distress Neck: Yes: Supple Cardiovascular: Yes: WNL, Regular Rate and Rhythm, S1, S2. No: JVD, Murmur Respiratory: Yes: CTA Bilaterally Gastrointestinal: Yes: WNL, Normal Bowel Sounds, Soft Edema: No Labs: CBC, BMP 04/20/18 06:45 04/20/18 06:45 Problem List - Problems (1) Chest pain Code(s): R07.9 - CHEST PAIN, UNSPECIFIED Qualifiers: Assessment/Plan 47 year old female with a PMH of HTN, bipolar disorder, TIA, and polysubstance abuse. She presents to the ED with 3 episodes of sharp midsternal chest pain 10/ 10 in severity. Recently treated for a dental abcess. Patient reports PCP use 2 weeks ago. Presently she is chest pain free. Chest pain with atypical features Troponin Negative Stress Echo 02/06/16 - Negative for myocardial ischemia Echocardiogram 04/17/18 EF 55-60% Normal LV and RV size and function EKG No acute changes Continue Lipitor and Aspirin for prevention Needs to address substance abuse Follow up with Cardiology/ Dr. Brown as outpatient [phone]
[2018-04-20 14:11] VITALS: BP 110/66; PULSE 84; TEMP 98.2
--- NOTE | 2018-04-20 14:20 | DS ---
Physical Exam: SUBJECTIVE: Patient seen and examined. Just received breathing treatment with duonebs. C/O of difficulty breathing. No cough or chest pain. OBJECTIVE: Vital Signs Period Temp Pulse Resp BP Sys/Wilson Pulse Ox Last 24 Hr 98 F-98.5 F 71-84 18-20 96-118/50-67 96-100 Vital Signs Temp 98.2 F 04/20/18 14:10 Pulse 84 04/20/18 14:10 Resp 18 04/20/18 14:10 BP 110/66 04/20/18 14:10 Pulse Ox 100 04/20/18 10:00 Intake & Output 04/19/18 04/20/18 04/20/18 23:59 11:59 23:59 Intake Total 400 100 Balance 400 100 Weight 81.647 kg Intake: Oral 400 100 Other: Voiding Method Toilet Toilet Height 1.6 m Body Mass Index (BMI) 31.8 Weight Measurement Method Stated by Patient Intake & Output 04/17/18 04/18/18 04/19/18 04/20/18 23:59 23:59 23:59 23:59 Intake Total 400 100 Balance 400 100 Weight 81.647 kg PHYSICAL EXAM GENERAL: The patient is awake, alert, and fully oriented, NC-2L HEAD: Normal with no signs of trauma. EYES: Reactive bilaterally, mild conjuctival redness ENT: NC, able to open mouth/ jaw, moist mucus membrane NECK: Trachea midline, full range of motion, supple. LUNGS: Breath sounds equal bilaterally, clear to auscultation bilaterally, no wheezes, no crackles, Pulse Ox-98% on nc-oxygen. HEART: Regular rate and rhythm, S1, S2 without murmur ABDOMEN: Soft, nontender, nondistended, normoactive bowel sounds EXTREMITIES: 2+ pulses, warm, well-perfused, no edema. NEUROLOGICAL: Alert, oriented X3. Normal speech, able to move all limbs, no facila droop. CBC, BMP 04/20/18 06:45 04/20/18 06:45 LABS Laboratory Results - last 24 hr 04/19/18 04/19/18 04/20/18 13:00 20:58 06:45 WBC 5.9 D RBC 3.48 L Hgb 11.3 Hct 33.5 MCV 96.1 H MCH 32.3 MCHC 33.7 RDW 13.8 Plt Count 214 MPV 7.5 Absolute Neuts (auto) 2.6 Neutrophils % 43.7 D Lymphocytes % 48.0 H D Monocytes % 7.1 Eosinophils % 0.9 Basophils % 0.3 Nucleated RBC % 0 Sodium Potassium Chloride Carbon Dioxide Anion Gap BUN Creatinine Creat Clearance w eGFR Random Glucose Calcium Total Bilirubin AST ALT Alkaline Phosphatase Creatine Kinase Index 0.6 CK-MB (CK-2) 1.2 Troponin I < 0.02 Total Protein Albumin 04/20/18 06:45 WBC RBC Hgb Hct MCV MCH MCHC RDW Plt Count MPV Absolute Neuts (auto) Neutrophils % Lymphocytes % Monocytes % Eosinophils % Basophils % Nucleated RBC % Sodium 139 Potassium 3.8 Chloride 106 Carbon Dioxide 23 Anion Gap 10 BUN 32 H Creatinine 1.1 H Creat Clearance w eGFR 53.01 Random Glucose 108 H Calcium 9.1 Total Bilirubin 0.5 D AST 18 ALT 23 Alkaline Phosphatase 82 Creatine Kinase Index CK-MB (CK-2) Troponin I Total Protein 7.0 Albumin 3.1 L Stress Echo 02/06/16 - Negative for myocardial ischemia Echocardiogram 04/17/18 EF 55-60% Normal LV and RV size and function EKG No acute changes HOSPITAL COURSE: Date of Admission:04/19/18 Date of Discharge: 04/20/18 47 year old female with a significant past medical history of hypertension, bipolar disorder,rheumatoid arthritis, asthma, ?HIV disease, recent TIA on recent admission, hemoptysis, and polysubstance abuse (PCP and opiates) c/o CP for 3 days. starts at rest, mid sternal and radiates to her butt. lasts about a minute and self resolves. last used PCP day prior to CP. was recently diagnosed with tooth abscess which shes on abx for but has not been seen by a dentist. had negative stress test in 2016. was recently discharged on 04/17 after she was here for L sided weakness and was evaluated for CVA which was negative. currently not having CP. denies SOB, fever, chills, arm weakness/numbness, N/V/C /D. Troponins x3-negative. 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 Pt to Continue Lipitor and Aspirin for prevention. Pt needs to address substance abuse. To Follow up with Cardiology/ Dr. Brown as outpatient [phone] Pt was noted to have a low blood pressure but refused to have it reevaluated prior to discharge. She was discharged home with her antihypertensives held until she follows up with her PCP for reevaluation. She was to continue her antipyschotics and continue CAD preventive treatment. Pt was encouraged to seek rehabilitation from Drug use and to quit to avoid sudden likely from cardiac cause. Minutes to complete discharge: 40 Discharge Summary Reason For Visit: CHEST PAIN,BACK PAIN Current Active Problems Back pain (Acute) Chest pain (Acute) Leg pain (Acute) Bipolar I disorder (Chronic) Essential hypertension (Chronic) Nicotine dependence (Chronic) PCP dependence (Chronic) Condition: Fair - Instructions Diet, Activity, Other Instructions: You came in with chest pain We ran tests that did not show any evidence of heart attack Your blood pressure was relatively low compared to your usual We have discontinued your blood pressure medications for now: Benicar 40mg daily Clonidine 0.1mg ER Q12H Your symptoms may be related to your substance use. it is very important that you abstain from all illicit drug use. this can lead to heart attack and . We encourage you to follow up for rehabilitation at [facility] Follow up with your primary care doctor in a week to discuss continuation of the medications as needed Continue with your other medications as prescribed If you feel you are not getting better, with worsening chest pain associated with shortness of breath, please return to the emergency room Disposition: HOME - Home Medications Comprehensive Discharge Medication List: Ambulatory Orders Albuterol Sulfate Inhaler - [Ventolin HFA Inhaler -] 2 inh PO Q4H PRN 03/19/18 Timolol 0.25% [Timoptic 0.25%] 1 drop BID 03/19/18 Budesonide/Formeterol Fumarate [SYMBICORT 160/4.5mcg -] 2 inh PO BID 04/09/18 Cyclobenzaprine HCl 10 mg PO QID PRN 04/09/18 Docusate Sodium 100 mg PO BID 04/09/18 Nicotine [Nicotine Patch 14mg/24 hr] 1 each TD DAILY 04/09/18 Pantoprazole Sodium 40 mg PO DAILY 04/09/18 Quetiapine Fumarate [Seroquel -] 25 mg PO DAILY 04/09/18 Quetiapine Fumarate [Seroquel] 100 mg PO HS 04/09/18 Sennosides [Senna] 8.6 mg PO HS 04/09/18 Topiramate [Topamax] 100 mg PO BID 04/09/18 Aspirin [ASA -] 81 mg PO DAILY #30 tab.chew 04/11/18 Atorvastatin Ca [Lipitor] 80 mg PO HS #30 tablet 04/11/18 Acetaminophen [Tylenol] 1 tab PO PRN 04/16/18 Calcium Carbonate/Vitamin D3 [Calcium 500-Vit D3 400 Tablet] 1 tab PO DAILY Gabapentin 1 tab PO TID 04/16/18 Multivitamin [Daily Multiple Vitamin] 1 tab PO DAILY 04/16/18 Clindamycin [Cleocin -] 150 mg PO Q6HPO #14 capsule 04/17/18 Paroxetine HCl [Paxil] 2 tablet PO DAILY #60 tablet 04/17/18 This patient is new to me today: Yes Date on this admission: 04/20/18 Emergency Visit: Yes ED Registration Date: 04/19/18 Care time: The patient presented to the Emergency Department on the above date and was hospitalized for further evaluation of their emergent condition. Critical Care patient: No - Discharge Referral Referred to [facility] No
--- NOTE | 2018-04-21 15:16 | EKG ---
Test Reason : Blood Pressure : / mmHG Vent. Rate : 071 BPM Atrial Rate : 071 BPM P-R Int : 136 ms QRS Dur : 078 ms QT Int : 400 ms P-R-T Axes : 035 006 -12 degrees QTc Int : 434 ms NORMAL SINUS RHYTHM NORMAL ECG WHEN COMPARED WITH ECG OF 19-APR-2018 08:20, NO SIGNIFICANT CHANGE WAS FOUND Confirmed by MD Lott Edward ([id number]) on 04/21/2018 3:16:28 PM Referred By: Confirmed By:Wojciech Lott MD
== END 2018-04-20 15:44 | disposition home or self-care (01) ==
LOC: JER 05:23 → JERBED 14:24 → J4W 19:21
PROVIDERS: ADMIT Internal Medicine; ATTEND Internal Medicine
PROC: 3E0333Z Introduction of Anti-inflammatory into Peripheral Vein, Percutaneous Approach (ICD-10-PCS; principal; 2018-04-19)
PROC: 3E033NZ Introduction of Analgesics, Hypnotics, Sedatives into Peripheral Vein, Percutaneous Approach (ICD-10-PCS; 2018-04-19)
PROC: 3E033GC Introduction of Other Therapeutic Substance into Peripheral Vein, Percutaneous Approach (ICD-10-PCS; 2018-04-19)
PROC: 3E0F7GC Introduction of Other Therapeutic Substance into Respiratory Tract, Via Natural or Artificial Opening (ICD-10-PCS; 2018-04-19)
DX: R07.9 Chest pain, unspecified (principal); F16.20 Hallucinogen dependence, uncomplicated; M54.9 Dorsalgia, unspecified; M79.606 Pain in leg, unspecified; I10 Essential (primary) hypertension; E78.5 Hyperlipidemia, unspecified; F31.9 Bipolar disorder, unspecified; J45.909 Unspecified asthma, uncomplicated; J44.9 Chronic obstructive pulmonary disease, unspecified; I25.10 Atherosclerotic heart disease of native coronary artery without angina pectoris; M06.9 Rheumatoid arthritis, unspecified; Z86.73 Personal history of transient ischemic attack (TIA), and cerebral infarction without residual deficits; Z88.1 Allergy status to other antibiotic agents
CPT/HCPCS: 36415; 71045-TC-FY; 80053; 80307; 82150; 82550; 82553; 83690; 84484; 84703; 85025; 93005; 93010; 94640; 99281-25; G0378; J0131; J0735; J7620

== ENCOUNTER 2018-05-26 01:52 | Emergency (ER) | payer BC, OTHER ==
[2018-05-26 02:09] VITALS: BMI 28.7
--- NOTE | 2018-05-26 02:46 | PDOC ---
History of Present Illness - General Chief Complaint: Chest Pain Stated Complaint: CHEST PAIN Time Seen by Provider: 05/26/18 02:19 History Source: Patient Exam Limitations: No Limitations - History of Present Illness Initial Comments: 05/26/18 03:21 47 yo female, past medical history of bipolar (states she is not taking medications) hypertension, high cholesterol, COPD and glaucoma presents to the ED for left sided chest pain and left arm shooting pain. Patient admits to using PCP recently. Pt states the pain started today while walking. Pain is described as sharp, non radiating and non exertional. Patient denies n/v/f/c SOB , abdominal pain or changes in urinary or bowel habits. Timing/Duration: constant Past History - Past Medical History Allergies/Adverse Reactions: Allergies Allergy/AdvReac Type Severity Reaction Status Date / Time amoxicillin trihydrate Allergy Verified 05/26/18 02:05 [From Augmentin] azithromycin [From Zithromax] Allergy Verified 05/26/18 02:05 potassium clavulanate Allergy Verified 05/26/18 02:05 [From Augmentin] Home Medications: Ambulatory Orders Albuterol Sulfate Inhaler - [Ventolin HFA Inhaler -] 2 inh PO Q4H PRN 03/19/18 Timolol 0.25% [Timoptic 0.25%] 1 drop BID 03/19/18 Budesonide/Formeterol Fumarate [SYMBICORT 160/4.5mcg -] 2 inh PO BID 04/09/18 Cyclobenzaprine HCl 10 mg PO QID PRN 04/09/18 Docusate Sodium 100 mg PO BID 04/09/18 Nicotine [Nicotine Patch 14mg/24 hr] 1 each TD DAILY 04/09/18 Pantoprazole Sodium 40 mg PO DAILY 04/09/18 Quetiapine Fumarate [Seroquel -] 25 mg PO DAILY 04/09/18 Quetiapine Fumarate [Seroquel] 100 mg PO HS 04/09/18 Sennosides [Senna] 8.6 mg PO HS 04/09/18 Topiramate [Topamax] 100 mg PO BID 04/09/18 Aspirin [ASA -] 81 mg PO DAILY #30 tab.chew 04/11/18 Atorvastatin Ca [Lipitor] 80 mg PO HS #30 tablet 04/11/18 Acetaminophen [Tylenol] 1 tab PO PRN 04/16/18 Calcium Carbonate/Vitamin D3 [Calcium 500-Vit D3 400 Tablet] 1 tab PO DAILY Gabapentin 1 tab PO TID 04/16/18 Multivitamin [Daily Multiple Vitamin] 1 tab PO DAILY 04/16/18 Clindamycin [Cleocin -] 150 mg PO Q6HPO #14 capsule 04/17/18 Paroxetine HCl [Paxil] 2 tablet PO DAILY #60 tablet 04/17/18 Anemia: No Asthma: Yes Cancer: No Cardiac Disorders: No CVA: Yes ("MINI STROKE" FEW YRS AGO) COPD: Yes CHF: No DVT: No Dementia: No Diabetes: No Dialysis: No GI Disorders: No Disorders: No HTN: Yes Hypercholesterolemia: Yes Kidney Stones: No Liver Disease: No Psychiatric Problems: No Seizures: No Thyroid Disease: No Lung CA: No - Surgical History Abdominal Surgery: No Appendectomy: No Cardiac Surgery: Yes (SX R CAROTID ARTERY FOR A CLOT IN 2004) Cholecystectomy: No Gastric Stapling: No GI Surgery: No Lung Surgery: No Neurologic Surgery: No Orthopedic Surgery: No - Reproductive History PID: No - Immunization History Td Vaccination: Yes Immunization Up to Date: Yes - Suicide/Smoking/Psychosocial Hx Smoking Status: Yes Smoking History: Never smoked Years of Tobacco Use: 20 Have you smoked in the past 12 months: No Number of Cigarettes Smoked Daily: 10 Cigars Per Day: 0 Information on smoking cessation initiated: No 'Breaking Loose' booklet given: 02/05/16 Hx Alcohol Use: No Drug/Substance Use Hx: No Substance Use Type: None Hx Substance Use Treatment: No Review of Systems - Review of Systems Constitutional: No: Diaphoresis, Fever, Weakness HEENTM: No: Blurred Vision, Recent change in vision Respiratory: Yes: Cough. No: Shortness of Breath Cardiac (ROS): Yes: Chest Pain (left sided ). No: Lightheadedness, Palpitations ABD/GI: Yes: Abdominal Distended. No: Constipated, Diarrhea : No: Burning, Frequency Musculoskeletal: No: Back Pain Neurological: No: Headache, Numbness, Paresthesia *Physical Exam - Vital Signs Last Vital Signs Temp Pulse Resp BP Pulse Ox 97.4 F L 85 19 139/106 96 05/26/18 01:59 05/26/18 01:59 05/26/18 01:59 05/26/18 01:59 05/26/18 01:59 - Physical Exam General Appearance: Yes: Nourished, Disheveled HEENT: positive: EOMI Neck: negative: Lymphadenopathy (R), Lymphadenopathy (L) Respiratory/Chest: positive: Normal Breath Sounds Cardiovascular: positive: Regular Rhythm, Regular Rate, S1, S2. negative: Edema , JVD, Murmur Vascular Pulses: Dorsalis-Pedis (R): 4+, Doralis-Pedis (L): 4+ Gastrointestinal/Abdominal: positive: Normal Bowel Sounds. negative: Pulsatile Mass, Guarding, Rebound, Tenderness Musculoskeletal: positive: Normal Inspection Extremity: positive: Normal Capillary Refill. negative: Swelling Integumentary: positive: Dry, Warm Neurologic: positive: Fully Oriented, Alert, Motor Strength 5/5. negative: Normal Mood/Affect (pressured and disorganized speech), Numbness, Sensory Deficit Heart Score/ECG Review - History History: Slightly suspicious - Electrocardiogram EKG: Normal - Age Age: 45-65 - Risk Factors Risk Factors Heart Score: Yes Hx Hypercholesterolemia, Yes Hx Hypertension, No Hx Diabetes, Yes Smoking History, No Positive family hx of cardiac disease, No Hx Obesity Based on the list above the patient has:: >/=3 risk factors or Hx atherosclerotic disease - Troponin Troponin: </= normal limit - Score Heart Score - Total: 3 - ECG Intrepretation Rhythm: Regular Rhythm - ST and T Early Repolarization: No Non Specific ST-T Wave changes: No - ECG Impressions Normal ECG: Yes ED Treatment Course - LABORATORY CBC & Chemistry Diagram: 05/26/18 03:00 05/26/18 03:00 Medical Decision Making - Medical Decision Making 05/26/18 06:48 47 yo female, pmh of high cholesterol, hypertension, hx of smoking, bipolar, COPD and PCP use presents to the ED for left sided chest pain and numbness and tingling shooting down her left arm and leg. 2 negative trops and EKG. Patient has constant pain while in the ED. Toradol 30 IM given Admit pt to Obs 05/26/18 07:[address] Tracy. *DC/Admit/Observation/Transfer Diagnosis at time of Disposition: Chest pain - Discharge Dispostion Condition at time of disposition: Fair - Referrals Referrals: Marv Rm [Primary Care Provider] - - Patient Instructions - Post Discharge Activity
[2018-05-26 03:21] LABS: BASO % 0.7 % (0-2.0); EOS % 0.6 % (0-4.5); HEMATOCRIT 36.3 % (32.4-45.2); HEMOGLOBIN 12.4 GM/dL (10.7-15.3); LYMPH % 53.2 % (8-40); MCH 33.5 pg (25.7-33.7); MCHC 34.3 g/dl (32.0-36.0); MEAN CELL VOLUME 97.6 fl (80-96); MEAN PLT VOLUME 7.2 fl (7.5-11.1); MONO % 6.3 % (3.8-10.2); NEUT % 39.2 % (42.8-82.8); PLATELET COUNT 230 K/MM3 (134-434); RBC 3.72 M/mm3 (3.60-5.2); RDW 14.5 % (11.6-15.6); WHITE BLOOD COUNT 6.1 K/mm3 (4.0-10.0)
--- NOTE | 2018-05-26 03:39 | PDOC ---
Attending Attestation - HPI HPI: 05/26/18 04:04 The patient is a 47 year old female with a significant PMH of hypertension, bipolar disorder, TIA, polysubstance abuse, asthma, COPD, CVA, and hypercholesterolemia who presents to the emergency department with chest pain since earlier today. She states that she was outside walking today when she experienced her sudden onset of chest pain. The patient reports some associated shooting pain down her left arm and left leg. The patient denies any worsening or alleviating factor. She denies any shortness of breath. She denies any other symptoms. She denies any headache and dizziness. She denies fever, chills, nausea, vomit, diarrhea, constipation or urinary symptoms. The patient denies any other complaints. PCP: Dr. Rm Documentation prepared by Neal Brown, acting as certified medical aide for Johann Serrano MD. <Neal Brown - Last Filed: 05/26/18 04:04> - Resident Resident Name: Flako Maciel - ED Attending Attestation I have performed the following: I have examined & evaluated the patient, The case was reviewed & discussed with the resident, I agree w/resident's findings & plan, Exceptions are as noted - Physicial Exam PE: 05/27/18 19:36 Physical Exam General Appearance: Yes: Appropriately Dressed. No: Apparent Distress, Intoxicated HEENT: positive: EOMI, MAX, Normal ENT Inspection, Normal Voice, TMs Normal, Pharynx Normal. negative: Pale Conjunctivae, Photophobia, Scleral Icterus (R), Scleral Icterus (L) Neck: positive: Trachea midline, Normal Thyroid, Supple. negative: Tender, Rigid, Carotid bruit, Stridor, Lymphadenopathy (R), Lymphadenopathy (L), Thyromegaly Respiratory/Chest: positive: Lungs Clear, Normal Breath Sounds. negative: Chest Tender, Respiratory Distress, Accessory Muscle Use, Labored Respiration, RES, Crackles, Rales, Rhonchi, Stridor, Wheezing, Dullness Cardiovascular: positive: Regular Rhythm, Regular Rate, S1, S2. negative: Edema , JVD, Murmur, Bradycardia, Tachycardia Vascular Pulses: Dorsalis-Pedis (R): 2+, Doralis-Pedis (L): 2+ Gastrointestinal/Abdominal: positive: Normal Bowel Sounds, Flat, Soft. negative : Tender, Organomegaly, Pulsatile Mass, Increased Bowel Sounds, Decreased BS, Distended, Guarding, Rebound, Hernia, Hepatomegaly, Spleenomegaly Lymphatic: negative: Adenopathy, Tenderness Musculoskeletal: positive: Normal Inspection. negative: CVA Tenderness, Decreased Range of Motion Extremity: positive: Normal Capillary Refill, Normal Inspection, Normal Range of Motion, Pelvis Stable. negative: Tender, Pedal Edema, Swelling, Erythema Integumentary: positive: Normal Color, Dry, Warm. negative: Cyanotic, Erythema , Jaundice, Rash Neurologic: positive: emergency worker II-XII NML intact, Fully Oriented, Alert, Normal Mood/ Affect, Motor Strength 5/5. negative: EOM Palsy, Facial Droop, Sensory Deficit - Medical Decision Making 05/26/18 19:43 Pt was treated and released <Johann Serrano - Last Filed: 05/27/18 19:36>
[2018-05-26 03:46] LABS: ALBUMIN 3.6 g/dl (3.4-5.0); ANION GAP 7 (8-16); BLOOD UREA NITROGEN 17 mg/dL (7-18); CALCIUM 9.1 mg/dL (8.5-10.1); CHLORIDE 112 mmol/L (98-107); CO2 27 mmol/L (21-32); CREATININE 0.8 mg/dL (0.55-1.02); GLUCOSE,RANDOM 91 mg/dL (74-106); POTASSIUM 3.5 mmol/L (3.5-5.1); SGOT/AST 18 U/L (15-37); SGPT/ALT 22 U/L (12-78); SODIUM 146 mmol/L (136-145)
[2018-05-26 03:50] LABS: ALK PHOS 79 U/L (45-117); BILIRUBIN,TOTAL 0.4 mg/dL (0.2-1.0)
[2018-05-26 04:23] LABS: COCAINE, UR NEGATIVE ng/ml (CUTOFF=300); OPIATES, URI NEGATIVE ng/ml (CUTOFF=300); URINE AMPHETAMINES NEGATIVE ng/ml (CUTOFF=500); URINE BARBITURATES NEGATIVE ng/ml (CUTOFF=200); URINE BENZODIAZEPINES NEGATIVE ng/ml (CUTOFF=200)
[2018-05-26 04:24] LABS: METHADONE, UR NEGATIVE ng/ml (CUTOFF=300)
[2018-05-26 04:25] LABS: PHENCYCLIDINE,URINE POSITIVE ng/ml (CUTOFF=25)
[2018-05-26] MEDS ORDERED: KETOROLAC TROMETHAMINE 30 MG/1 ML VIAL IVPUSH ONE (05:36)
[2018-05-26] MEDS ORDERED: KETOROLAC TROMETHAMINE 30 MG/1 ML VIAL IM ONE (05:43)
[2018-05-26] MEDS ORDERED: KETOROLAC TROMETHAMINE 30 MG/1 ML VIAL ONE (05:47)
--- NOTE | 2018-05-26 09:48 | CON.CARD ---
Consult Consult Specialty:: Cardiology Referred by:: Dr. Rascon/ER Reason for Consultation:: Chest pain - History of Present Illness Chief Complaint: Chest pain History of Present Illness: 47 year old woman with a PMH of HTN, bipolar disorder, TIA, and polysubstance abuse prior admissions for atypical chest pain presents with chest pain. Pt seen and examined today in nad. states that her chest pain started yesterday while walking home, substernal, pressure like and has been continuous all night and is still present. also admits to mild chronic dyspnea on exertion. Pt had admitted to smoking PCP yesterday just prior to coming in. no pnd, orthopnea, le edema, no lightheadedness, dizziness, syncope, or near syncope. - History Source History Provided By: Patient, Medical Record Limitations to Obtaining History: No Limitations - Past Medical History VETERINARIAN: Yes: TIA Cardio/Vascular: Yes: CAD, HTN, Hyperlipdemia Pulmonary: Yes: COPD ...LMP: 07/06/16 Psych: Yes: Bipolar Rheumatology: Yes: Rheumatoid Arthritis - Alcohol/Substance Use Hx Alcohol Use: No History of Substance Use: reports: Marijuana (and PCP) - Smoking History Smoking history: Never smoked Have you smoked in the past 12 months: No Aproximately how many cigarettes per day: 10 - Social History ADL: Independent History of Recent Travel: No Home Medications - Allergies Allergies/Adverse Reactions: Allergies Allergy/AdvReac Type Severity Reaction Status Date / Time amoxicillin trihydrate Allergy Verified 05/26/18 02:05 [From Augmentin] azithromycin [From Zithromax] Allergy Verified 05/26/18 02:05 potassium clavulanate Allergy Verified 05/26/18 02:05 [From Augmentin] - Home Medications Home Medications: Ambulatory Orders Albuterol Sulfate Inhaler - [Ventolin HFA Inhaler -] 2 inh PO Q4H PRN 03/19/18 Timolol 0.25% [Timoptic 0.25%] 1 drop BID 03/19/18 Budesonide/Formeterol Fumarate [SYMBICORT 160/4.5mcg -] 2 inh PO BID 04/09/18 Cyclobenzaprine HCl 10 mg PO QID PRN 04/09/18 Docusate Sodium 100 mg PO BID 04/09/18 Nicotine [Nicotine Patch 14mg/24 hr] 1 each TD DAILY 04/09/18 Pantoprazole Sodium 40 mg PO DAILY 04/09/18 Quetiapine Fumarate [Seroquel -] 25 mg PO DAILY 04/09/18 Quetiapine Fumarate [Seroquel] 100 mg PO HS 04/09/18 Sennosides [Senna] 8.6 mg PO HS 04/09/18 Topiramate [Topamax] 100 mg PO BID 04/09/18 Aspirin [ASA -] 81 mg PO DAILY #30 tab.chew 04/11/18 Atorvastatin Ca [Lipitor] 80 mg PO HS #30 tablet 04/11/18 Acetaminophen [Tylenol] 1 tab PO PRN 04/16/18 Calcium Carbonate/Vitamin D3 [Calcium 500-Vit D3 400 Tablet] 1 tab PO DAILY Gabapentin 1 tab PO TID 04/16/18 Multivitamin [Daily Multiple Vitamin] 1 tab PO DAILY 04/16/18 Clindamycin [Cleocin -] 150 mg PO Q6HPO #14 capsule 04/17/18 Paroxetine HCl [Paxil] 2 tablet PO DAILY #60 tablet 04/17/18 Family Disease History - Family Disease History Family Disease History: Diabetes: Brother (HTN, Cancer), Heart Disease: Grandparent, Father ( ETOH DEPENDENT AND FROM CAD), Mother ( FROM CAD) , Brother, CA: Brother Review of Systems - Review of Systems Constitutional: denies: No Symptoms, Chills, Diaphoresis, Fever, Lethargy, Loss of Appetite, Malaise, Night Sweats, Unintentional Wgt. Loss, Weakness, Other Eyes: denies: No Symptoms, Blind Spots, Blurred Vision, Double Vision, Eye Pain , Floaters, Photophobia, Recent Change in Vision, Other HENT: denies: No Symptoms, Difficult Swallowing, Ear Discharge, Ear Pain, Epistaxis, Gingival Bleeding, Hearing Loss, Mouth Swelling, Nasal Congestion, Ocular Prosthesis, Throat Pain, Toothache, Ringing in Ears, Other Neck: denies: No Symptoms, Decreased ROM, Lumps, Pain on Movement, Stiffness, Swollen Glands, Tenderness, Other Cardiovascular: reports: Chest Pain. denies: No Symptoms, Edema, Palpitations, Shortness of Breath, Other Respiratory: denies: No Symptoms, Cough, Exercise Intolerance, Hemoptysis, Orthopnea, PND, Snoring, SOB, SOB on Exertion, Wheezing, Other Gastrointestinal: denies: No Symptoms, Abdominal Pain, Bloating, Constipation, Diarrhea, Dysphagia, Indigestion, Melena, Nausea, Rectal Bleeding, Vomiting, Vomiting Blood, Other Genitourinary: denies: No Symptoms, Burning, Discharge, Dysuria, Flank Pain, Frequency, Hematuria, Incontinence, Lesions, Menses, Pain, Testicular Mass, Testicular Pain, Testicular Swelling, Urgency, Vaginal Bleeding, Other Breasts: denies: No Symptoms Reported, See HPI, Breast Implants, Discharge from Nipple, Lumps, Pain, Skin Changes, Other Musculoskeletal: denies: No Symptoms, Back Pain, Crepitus, Decreased ROM, Extremity Pain, Joint Pain, Joint Swelling, Muscle Pain, Muscle Cramps, Muscle Weakness, Other Integumentary: denies: No Symptoms, Blister, Bruising, Change in Color, Eczema, Erythema, Incision, Lesions, Lump, Pallor, Pruritis, Rash, Wound, Other Neurological: denies: No Symptoms, Change in LOC, Change in Speech, Confusion, Dizziness, Headache, Incoordination, Numbness, Parasthesia, Pre-Existing Deficit , Seizure, Syncope, Tremors, Unsteady Gait, Weakness, Other Endocrine: denies: No Symptoms, Excessive Sweating, Flushing, Increased Hunger, Increased Thirst, Intolerance to Cold, Intolerance to Heat, Unexplained Weight Gain, Unexplained Weight Loss, Other Hematology/Lymphatic: denies: No Symptoms, Easily Bruised, Excessive Bleeding, Swollen Glands, Other Psychiatric: denies: No Symptoms, Altered Sleep Pattern, Anxiety, Depression, Hallucinations, Panic, Paranoia, Suicidal, Other - Risk Factors Known Risk Factors: Yes: Hypercholesterolemia, Hypertension, Smoking Vital Signs: Vital Signs Temperature 97.7 F 05/26/18 06:48 Pulse Rate 67 05/26/18 06:48 Respiratory Rate 20 05/26/18 06:48 Blood Pressure 155/85 05/26/18 06:48 O2 Sat by Pulse Oximetry (%) 99 05/26/18 06:48 Constitutional: Yes: Well Nourished, No Distress, Calm Eyes: Yes: WNL, Conjunctiva Clear, EOM Intact HENT: Yes: WNL, Atraumatic, Normocephalic Neck: Yes: WNL, Supple, Trachea Midline Respiratory: Yes: WNL, Regular, CTA Bilaterally. No: Rales, Rhonchi, Wheezes Gastrointestinal: Yes: WNL, Normal Bowel Sounds, Soft. No: Distention, Tenderness Cardiovascular: Yes: WNL, Regular Rate and Rhythm. No: Bradycardia, Pulse Irregular, Gallop, Rub, Varicosities JVD: No Carotid Bruit: No Heart Sounds: Yes: S1, S2. No: Split S2, S3, S4, Gallop, Rub, Bruit Murmur: No: Systolic Murmur, Diastolic Murmur Musculoskeletal: Yes: WNL Extremities: Yes: WNL Edema: No Peripheral Pulses WNL: Yes Peripheral Pulses: 2+ Left Doralis Pedis, 2+ Right Dorsalis Pedis Integumentary: Yes: WNL Neurological: Yes: Alert, Oriented Psychiatric: Yes: Alert, Oriented - Other Data Labs, Other Data: CBC, BMP 05/26/18 03:00 05/26/18 03:00 Troponin, BNP 05/26/18 05/26/18 03:00 06:02 Troponin I < 0.02 < 0.02 Troponin, BNP 05/26/18 05/26/18 03:00 06:02 Troponin I < 0.02 < 0.02 ekg-nsr, nonspecific St abnl Echo: Report Reviewed Stress Echo: Report Reviewed Imaging - Results Chest X-ray: Report Reviewed, Image Reviewed EKG: Report Reviewed, Image Reviewed Other: Report Reviewed, Image Reviewed Assessment/Plan 47 year old woman with a PMH of HTN, bipolar disorder, TIA, and polysubstance abuse prior admissions for atypical chest pain presents with chest pain. Pt seen and examined today in nad. states that her chest pain started yesterday while walking home, substernal, pressure like and has been continuous all night and is still present. also admits to mild chronic dyspnea on exertion. Pt had admitted to smoking PCP yesterday just prior to coming in. Chest pain-atypical, unlikely ACS -cardiac enzymes wnl -Stress Echo 02/06/16 - Negative for myocardial ischemia -Echocardiogram 04/17/18 EF 55-60% Normal LV and RV size and function EKG no ischemia Continue Lipitor and Aspirin for primary prevention Needs to address substance abuse Pt is acceptable from a cardiac standpoint for discharge home with plan for close outpatient fup. Pt never scheduled appointment after last admission, again advised her to do so.
--- NOTE | 2018-05-26 10:02 | PDOC ---
*Physical Exam - Vital Signs Last Vital Signs Temp Pulse Resp BP Pulse Ox 97.7 F 67 20 155/85 99 05/26/18 06:48 05/26/18 06:48 05/26/18 06:48 05/26/18 06:48 05/26/18 06:48 <Zamzam Tracy - Last Filed: 05/26/18 10:49> - Vital Signs Last Vital Signs Temp Pulse Resp BP Pulse Ox 98.5 F 62 19 158/98 99 05/26/18 11:43 05/26/18 11:43 05/26/18 11:43 05/26/18 11:43 05/26/18 11:43 <Hiram Luevano - Last Filed: 05/26/18 12:39> ED Treatment Course - LABORATORY CBC & Chemistry Diagram: 05/26/18 03:00 05/26/18 03:00 - ADDITIONAL ORDERS Additional order review: Laboratory Results 05/26/18 05/26/18 05/26/18 06:02 04:05 03:00 Sodium 146 H Potassium 3.5 Chloride 112 H Carbon Dioxide 27 Anion Gap 7 L BUN 17 Creatinine 0.8 Creat Clearance w eGFR > 60 Random Glucose 91 Calcium 9.1 Total Bilirubin 0.4 AST 18 ALT 22 Alkaline Phosphatase 79 Creatine Kinase 303 H Creatine Kinase Index 1.0 CK-MB (CK-2) 3.18 Troponin I < 0.02 < 0.02 Total Protein 7.0 Albumin 3.6 Opiates Screen Negative Methadone Screen Negative Barbiturate Screen Negative Phencyclidine Screen Positive Ur Amphetamines Screen Negative MDMA (Ecstasy) Screen Negative Benzodiazepines Screen Negative Cocaine Screen Negative U Marijuana (THC) Screen Negative 05/26/18 03:00 RBC 3.72 MCV 97.6 H MCHC 34.3 RDW 14.5 MPV 7.2 L Neutrophils % 39.2 L Lymphocytes % 53.2 H Monocytes % 6.3 Eosinophils % 0.6 Basophils % 0.7 - Medications Given in the ED: ED Medications Discontinued Medications Generic Name Dose Route Start Last Admin Trade Name Freq PRN Reason Stop Dose Admin Ketorolac Tromethamine 30 mg 05/26/18 05:43 05/26/18 05:51 Toradol Injection - IM 05/26/18 05:44 30 mg ONCE ONE Administration <Zamzam Tracy - Last Filed: 05/26/18 10:49> - LABORATORY CBC & Chemistry Diagram: 05/26/18 03:00 05/26/18 03:00 - ADDITIONAL ORDERS Additional order review: Laboratory Results 05/26/18 05/26/18 05/26/18 06:02 04:05 03:00 Sodium 146 H Potassium 3.5 Chloride 112 H Carbon Dioxide 27 Anion Gap 7 L BUN 17 Creatinine 0.8 Creat Clearance w eGFR > 60 Random Glucose 91 Calcium 9.1 Total Bilirubin 0.4 AST 18 ALT 22 Alkaline Phosphatase 79 Creatine Kinase 303 H Creatine Kinase Index 1.0 CK-MB (CK-2) 3.18 Troponin I < 0.02 < 0.02 Total Protein 7.0 Albumin 3.6 Opiates Screen Negative Methadone Screen Negative Barbiturate Screen Negative Phencyclidine Screen Positive Ur Amphetamines Screen Negative MDMA (Ecstasy) Screen Negative Benzodiazepines Screen Negative Cocaine Screen Negative U Marijuana (THC) Screen Negative 05/26/18 03:00 RBC 3.72 MCV 97.6 H MCHC 34.3 RDW 14.5 MPV 7.2 L Neutrophils % 39.2 L Lymphocytes % 53.2 H Monocytes % 6.3 Eosinophils % 0.6 Basophils % 0.7 - Medications Given in the ED: ED Medications Discontinued Medications Generic Name Dose Route Start Last Admin Trade Name Arnoldq PRN Reason Stop Dose Admin Ketorolac Tromethamine 30 mg 05/26/18 05:43 05/26/18 05:51 Toradol Injection - IM 05/26/18 05:44 30 mg ONCE ONE Administration <Hiram Luevano - Last Filed: 05/26/18 12:39> Medical Decision Making - Medical Decision Making 05/26/18 10:02 47 yo female, past medical history of bipolar (states she is not taking medications) hypertension, high cholesterol, COPD and glaucoma presents to the ED for left sided chest pain and left arm shooting pain. Patient admits to using PCP recently. 05/26/18 10:[address] Rice who will come see patient. 05/26/18 10:26 Cardiology feels that patient is stable for discharge. 05/26/18 10:35 Reassessed patient, she is walking and appears in no acute distress. She is stable for discharge. <Zamzam Tracy - Last Filed: 05/26/18 10:49> - Medical Decision Making 05/26/18 12:29 received signout on patient well known to this department and institution who presented with intoxication and chest pain. plan was to trend troponins and dispo. Discussed with patient's PCP, Dr. Rascon, recommended cardiology evaluation prior to dispo. Seen by cardiology in the ED, who also knows the patient well, and cleared for discharge and outpatient follow-up. Pt was asleep in the ED for multiple hours, comfortable, HD stable, and without any cardiopulmonary distress. Upon awaking and being discharged, the patient refused to leave, stating she demanded to stay in the hospital. When we discussed why it was safe to discharge her, she attempted to manipulate the system and went through a list of other complaints hoping it would get her admitted: "my leg hurts, my pressure is high, my head hurts, i'm suicidal", etc. The patient was discharged with assistance from security. The patient attempted to reregister for a number of nonspecific reasons. Her BP was stable at 150/88, O2 sat 99%, heart rate 90 as she was very abusive and screaming. Her heart was regular and her lungs clear, she was ambulating steadily without neuro deficit. Her medical screening did not mandate further workup, and she proceeded with her discharge, again with the help of security. At this time, the patient is trying to manipulate the system and does not need further, emergent care based on her current presentation. <Hiram Luevano - Last Filed: 05/26/18 12:39> *DC/Admit/Observation/Transfer - Discharge Dispostion Decision to Admit order: No <Zamzam Tracy - Last Filed: 05/26/18 10:49> <Hiram Luevano - Last Filed: 05/26/18 12:39> Diagnosis at time of Disposition: Chest pain - Discharge Dispostion Disposition: HOME Condition at time of disposition: Guarded - Referrals Referrals: Marv Rm [Primary Care Provider] - - Patient Instructions Printed Discharge Instructions: DI for Atypical Chest Pain Additional Instructions: You were seen in the ED for chest pain. In the ED you were given Toradol and assessed for cardiac causes of chest pain with EKG and labs that were found to be negative. Cardiology was consulted and was found you were stable for discharge. Medically you were reassessed and found stable for discharge. - Post Discharge Activity
[2018-05-26] MEDS ORDERED: morphine CARPU-JECT 4 MG/1 ML DISP.SYRIN IVPUSH ONE (11:27)
[2018-05-26 11:44] VITALS: BP 158/98; PULSE 62; TEMP 98.5
--- NOTE | 2018-05-26 13:55 | EKG ---
Test Reason : Blood Pressure : / mmHG Vent. Rate : 072 BPM Atrial Rate : 072 BPM P-R Int : 142 ms QRS Dur : 074 ms QT Int : 418 ms P-R-T Axes : 052 006 -12 degrees QTc Int : 457 ms NORMAL SINUS RHYTHM NONSPECIFIC T WAVE ABNORMALITY ABNORMAL ECG NO PREVIOUS ECGS AVAILABLE Confirmed by Raad Galan MD ([id number]) on 05/26/2018 1:54:46 PM Referred By: Confirmed By:Raad Galan MD
== END 2018-05-26 12:00 | disposition home or self-care (01) ==
LOC: JER 01:52
PROC: 3E0233Z Introduction of Anti-inflammatory into Muscle, Percutaneous Approach (ICD-10-PCS; principal; 2018-05-26)
DX: R07.9 Chest pain, unspecified (principal); I10 Essential (primary) hypertension; E78.00 Pure hypercholesterolemia, unspecified; J44.9 Chronic obstructive pulmonary disease, unspecified; H40.9 Unspecified glaucoma; M06.9 Rheumatoid arthritis, unspecified; Z86.73 Personal history of transient ischemic attack (TIA), and cerebral infarction without residual deficits; F16.10 Hallucinogen abuse, uncomplicated
CPT/HCPCS: 36415; 71046-TC-FY; 80053; 80307; 82550; 82553; 84484; 85025; 93005; 93010; 99282-25

== ENCOUNTER 2018-06-12 00:04 | Emergency (ER) | payer BC, OTHER ==
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
[2018-06-12] MEDS ORDERED: TOPIRAMATE 200 MG TABLET (FP) PO ONE (01:15)
[2018-06-12 01:22] LABS: BASO % 1.1 % (0-2.0); EOS % 1.2 % (0-4.5); HEMATOCRIT 37.1 % (32.4-45.2); HEMOGLOBIN 12.7 GM/dL (10.7-15.3); LYMPH % 51.6 % (8-40); MCH 33.9 pg (25.7-33.7); MCHC 34.3 g/dl (32.0-36.0); MEAN CELL VOLUME 98.9 fl (80-96); MEAN PLT VOLUME 7.9 fl (7.5-11.1); MONO % 6.6 % (3.8-10.2); NEUT % 39.5 % (42.8-82.8); PLATELET COUNT 231 K/MM3 (134-434); RBC 3.75 M/mm3 (3.60-5.2); RDW 14.3 % (11.6-15.6); WHITE BLOOD COUNT 5.6 K/mm3 (4.0-10.0)
[2018-06-12 01:36] LABS: INR 1.05 (0.83-1.09); PROTHROMBIN TIME (PATIENT) 11.9 SEC (9.7-13.0)
[2018-06-12 01:46] VITALS: BP 125/91; PULSE 90; TEMP 97.9; BMI 28.7
[2018-06-12 01:56] LABS: URINE APPEARANCE CLEAR; URINE BILIRUBIN NEGATIVE (<2.0 mg/dL); URINE COLOR YELLOW; URINE GLUCOSE (UA) NEGATIVE (NEGATIVE); URINE KETONE NEGATIVE (NEGATIVE); URINE LEUK ESTERASE NEGATIVE (NEGATIVE); URINE NITRITE NEGATIVE (NEGATIVE); URINE PROTEIN NEGATIVE (NEGATIVE)
[2018-06-12 02:10] LABS: COCAINE, UR NEGATIVE ng/ml (CUTOFF=300); OPIATES, URI NEGATIVE ng/ml (CUTOFF=300); URINE AMPHETAMINES NEGATIVE ng/ml (CUTOFF=500); URINE BARBITURATES NEGATIVE ng/ml (CUTOFF=200); URINE BENZODIAZEPINES NEGATIVE ng/ml (CUTOFF=200)
[2018-06-12 02:11] LABS: METHADONE, UR NEGATIVE ng/ml (CUTOFF=300)
[2018-06-12 02:12] LABS: PHENCYCLIDINE,URINE POSITIVE ng/ml (CUTOFF=25)
[2018-06-12 02:17] LABS: ALBUMIN 3.6 g/dl (3.4-5.0); ANION GAP 9 (8-16); BILIRUBIN,TOTAL 0.2 mg/dL (0.2-1.0); BLOOD UREA NITROGEN 26 mg/dL (7-18); CALCIUM 9.3 mg/dL (8.5-10.1); CHLORIDE 104 mmol/L (98-107); CO2 28 mmol/L (21-32); CREATININE 0.9 mg/dL (0.55-1.02); GLUCOSE,RANDOM 107 mg/dL (74-106); POTASSIUM 3.8 mmol/L (3.5-5.1); SGOT/AST 151 U/L (15-37); SGPT/ALT 73 U/L (12-78); SODIUM 141 mmol/L (136-145); TOT PROT 7.3 g/dl (6.4-8.2)
[2018-06-12 02:18] LABS: ALK PHOS 99 U/L (45-117)
[2018-06-12] MEDS ORDERED: ACETAMINOPHEN 325 MG TABLET (FP) ONE (06:09)
[2018-06-12] MEDS ORDERED: ACETAMINOPHEN 325 MG TABLET (FP) PO ONE (06:30)
== END 2018-06-12 06:51 | disposition home or self-care (01) ==
LOC: JER 00:04
DX: G40.89 Other seizures (principal); F11.10 Opioid abuse, uncomplicated; F16.10 Hallucinogen abuse, uncomplicated; I10 Essential (primary) hypertension; F31.9 Bipolar disorder, unspecified; M06.9 Rheumatoid arthritis, unspecified; E78.00 Pure hypercholesterolemia, unspecified; F17.210 Nicotine dependence, cigarettes, uncomplicated; Z86.73 Personal history of transient ischemic attack (TIA), and cerebral infarction without residual deficits; Z88.1 Allergy status to other antibiotic agents
CPT/HCPCS: 36415; 70450-TC; 80053; 80201; 80307; 81003; 84484; 84703; 85025; 85610; 99281-25; 99282-25

== ENCOUNTER 2018-06-21 03:43 | Emergency (ER) | payer BC, OTHER ==
[2018-06-21 03:59] VITALS: BP 120/85; PULSE 89; BMI 26.5
--- NOTE | 2018-06-21 04:25 | PDOC ---
History of Present Illness - General Chief Complaint: Pain, Acute Stated Complaint: ABDOMINAL PAIN Time Seen by Provider: 06/21/18 03:59 History Source: Patient Exam Limitations: No Limitations - History of Present Illness Initial Comments: 47 y/o female very well known to this department presenting via ambulance complaining of cough/SOB which woke her from sleep. States she feels like she cannot get air in. H/o of COPD. Smokes 10 cigarettes per day. Occasionally smokes PCP; last used three days ago. Also complaining of generalized headache, which was been acute on chronic for the past three weeks. This is believed to be secondary to a concussion she sustained. Received toradol shot earlier today at outpatient visit, improved symptoms. Is scheduled to see a neurologist on Friday for additional follow up. SOB, woke with cough. Smoked PCP three days ago. Smokes 10 cigarettes per day. History of asthma and COPD. Headache for past three weeks. Received toradol injection yesterday at outpatient visit, which provided some relief. Was encouraged to seek emergency evaluation if her symptoms did not improve. Past History - Past Medical History Allergies/Adverse Reactions: Allergies Allergy/AdvReac Type Severity Reaction Status Date / Time amoxicillin trihydrate Allergy Verified 06/21/18 03:48 [From Augmentin] azithromycin [From Zithromax] Allergy Verified 06/21/18 03:48 potassium clavulanate Allergy Verified 06/21/18 03:48 [From Augmentin] Home Medications: Ambulatory Orders Albuterol Sulfate Inhaler - [Ventolin HFA Inhaler -] 2 inh PO Q4H PRN 03/19/18 Timolol 0.25% [Timoptic 0.25%] 1 drop BID 03/19/18 Budesonide/Formeterol Fumarate [SYMBICORT 160/4.5mcg -] 2 inh PO BID 04/09/18 Cyclobenzaprine HCl 10 mg PO QID PRN 04/09/18 Docusate Sodium 100 mg PO BID 04/09/18 Pantoprazole Sodium 40 mg PO DAILY 04/09/18 Quetiapine Fumarate [Seroquel -] 25 mg PO DAILY 04/09/18 Quetiapine Fumarate [Seroquel] 100 mg PO HS 04/09/18 Sennosides [Senna] 8.6 mg PO HS 04/09/18 Aspirin [ASA -] 81 mg PO DAILY #30 tab.chew 04/11/18 Atorvastatin Ca [Lipitor] 80 mg PO HS #30 tablet 04/11/18 Acetaminophen [Tylenol] 1 tab PO PRN 04/16/18 Calcium Carbonate/Vitamin D3 [Calcium 500-Vit D3 400 Tablet] 1 tab PO DAILY Gabapentin 1 tab PO TID 04/16/18 Multivitamin [Daily Multiple Vitamin] 1 tab PO DAILY 04/16/18 Paroxetine HCl [Paxil] 2 tablet PO DAILY #60 tablet 04/17/18 Olmesartan Medoxomil [Benicar (Nf)] 40 mg PO DAILY #7 tablet 05/26/18 Topiramate [Topamax] 100 mg PO BID #20 tablet 06/12/18 Naproxen [Naprosyn -] 500 mg PO BID PRN #20 tablet 06/21/18 Anemia: No Asthma: Yes Cancer: No Cardiac Disorders: No CVA: Yes ("MINI STROKE" FEW YRS AGO) COPD: Yes CHF: No DVT: No Dementia: No Diabetes: No Dialysis: No GI Disorders: No Disorders: No HTN: Yes Hypercholesterolemia: Yes Kidney Stones: No Liver Disease: No Psychiatric Problems: No Seizures: No Thyroid Disease: No Lung CA: No - Surgical History Abdominal Surgery: No Appendectomy: No Cardiac Surgery: Yes (SX R CAROTID ARTERY FOR A CLOT IN 2004) Cholecystectomy: No Gastric Stapling: No GI Surgery: No Lung Surgery: No Neurologic Surgery: No Orthopedic Surgery: No - Reproductive History PID: No - Immunization History Td Vaccination: Yes Immunization Up to Date: Yes - Suicide/Smoking/Psychosocial Hx Smoking Status: Yes Smoking History: Current every day smoker Years of Tobacco Use: 20 Have you smoked in the past 12 months: Yes Number of Cigarettes Smoked Daily: 7 Cigars Per Day: 0 Information on smoking cessation initiated: No 'Breaking Loose' booklet given: 02/05/16 Hx Alcohol Use: No Drug/Substance Use Hx: No Substance Use Type: None Hx Substance Use Treatment: No Review of Systems - Review of Systems Able to Perform ROS?: Yes Is the patient limited [place] proficient: No Constitutional: No: Chills, Diaphoresis, Fever Respiratory: Yes: Cough, Shortness of Breath Cardiac (ROS): No: Chest Pain ABD/GI: Yes: Nausea. No: Constipated, Diarrhea, Vomiting Neurological: Yes: Headache. No: Seizure Hematologic/Lymphatic: No: Easy Bleeding, Easy Bruising *Physical Exam - Vital Signs Last Vital Signs Temp Pulse Resp BP Pulse Ox 89 16 120/85 100 06/21/18 03:47 06/21/18 03:47 06/21/18 03:47 06/21/18 03:47 - Physical Exam Comments: Constitutional: Thin adult female in no acute distress. Found semi-fowlers in hospital bed. Alert and oriented x4. Answered all questions appropriately and completely. Speech was non-labored, but slow and circuitous with occasional word searching as per reported baseline. HEENT: Normocephalic. No obvious external signs of trauma. Hearing grossly normal. No nasal discharge. Sclerae white. Conjunctiva moist and not injected. Neck is supple, trachea is midline. No JVD. Cardiovascular: Regular rate and regular rhythm. No murmur, rubs, clicks, or gallops. Peripheral pulses: Radial pulses full. Respiratory: Equal chest rise and fall. Very mild expiratory wheeze noted throughout. Air movement appreciated in all posterior and anterior longo. No stridor or rhonchi. DID NOT COUGH DURING ENTIRE INTERVIEW. Able to complete multi-word answers without difficulty. Gastrointestinal: abdomen is soft, non-tender, non-distended. Neuro: Alert and oriented. Moving all four extremities spontaneously. Psych: Affect: appropriate. Mood: normal. Skin: Warm, dry, and intact. Medical Decision Making - Medical Decision Making *Reviewed nursing notes and prior visit documentation. 47 y/o female with cough in setting of h/o COPD, current cigarette and PCP smoker. No respiratory distress or witnessed coughing. Afebrile. Vitals unremarkable. Will obtain CXR. Ordered duoneb and toradol for symptom relief. CXR unremarkable for acute cardiopulmonary process. No infiltrates or pneumothorax. Costophrenic angles not blunted. Cardiac silhouette not enlarged. Pt found sleeping restfully in hospital bed. Once awake, reports headache is somewhat improved with IM Toradol. Breathing has improved after single Duoneb; wheezing resolved. Discussed unremarkable CXR with pt. She expressed verbal understanding and agreement with plan to discharge home with outpatient PCP and neurology (appt tomorrow) follow up as already scheduled. Stated she did not need a refill on her albuterol prescription; was recently prescribed a new breathing machine but has not had the chance to pick it up from the pharmacy. Prescribed short term Naproxen for headache. *DC/Admit/Observation/Transfer Diagnosis at time of Disposition: Cough in adult, Post concussion syndrome - Discharge Dispostion Disposition: HOME Condition at time of disposition: Good Decision to Admit order: No - Prescriptions Prescriptions: Naproxen [Naprosyn -] 500 mg PO BID PRN #20 tablet PRN Reason: Headache - Referrals - Patient Instructions Printed Discharge Instructions: DI for Cough -- Adult Additional Instructions: Your cough has improved with the Duoneb treatment. Please continue to use your home albuterol as prescribed by your doctor. I have sent a prescription for Naproxen to your pharmacy. You can take it twice a day as needed for headache. Please keep your appointment with the neurologist tomorrow (Friday). Return to the ER if your symptoms worsen or you feel like your condition requires emergency evaluation. - Post Discharge Activity
[2018-06-21] MEDS ORDERED: KETOROLAC TROMETHAMINE 30 MG/1 ML VIAL IM ONE (04:34)
[2018-06-21] MEDS ORDERED: ALBUTEROL SO4 2.5/IPRATROPIUM 0.5 INH SOL 3 ML VIAL.NEB. NEB ONE ×2 (04:34→04:37)
[2018-06-21] MEDS ORDERED: KETOROLAC TROMETHAMINE 30 MG/1 ML VIAL ONE (04:37)
--- NOTE | 2018-06-21 04:41 | PDOC ---
Attending Attestation - HPI HPI: 06/21/18 05:09 Patient is a 47 year old female with a significant past medical history of hypertension, bipolar disorder,rheumatoid arthritis, asthma, ?HIV disease, recent TIA on recent admission, hemoptysis, and polysubstance abuse (PCP and opiates), who presents to the ED with complaints difficulty breathing that she states began this morning. Patient reports experiencing gradually worsening difficulty breathing with associated coughing and head pain. She reports x1 month ago she fell out of a chair, hitting her head and giving her a concussion with developed head pain shortly after. Patient reports head pain been gradually increasing in intensity for x2 weeks, prompting her to see her PCP, but is on vacation. Patient reports coming into the ED for further evaluation after being concerned for the acute diff breathing and coughing. Denies chest pain, sob. Denies nausea, vomiting. Denies fevers, chills. Denies contact with sick individuals, out of state travelling. Denies dysuria. Hematuria. Denies constipation, diarrhea. Denies any other symptoms. Allergies: Augmentin, Zithromax Social history: Current smoker. No alcohol. Current Opiate use. Current PCP use (Last 3 days ago) Surgical history: none PMD: Dr. Marv Rm - Physicial Exam PE: 06/21/18 05:09 GENERAL: Awake, alert, and fully oriented, in no acute distress HEAD: No signs of trauma EYES: PERRLA, EOMI, sclera anicteric, conjunctiva clear ENT: Auricles normal inspection, hearing grossly normal, nares patent, oropharynx clear without exudates. Moist mucosa NECK: Normal ROM, supple, no lymphadenopathy, JVD, or masses LUNGS: Breath sounds equal, clear to auscultation bilaterally. No wheezes, and no crackles HEART: Regular rate and rhythm, normal S1 and S2, no murmurs, rubs or gallops ABDOMEN: Soft, nontender, normoactive bowel sounds. No guarding, no rebound. No masses EXTREMITIES: Normal range of motion, no edema. No clubbing or cyanosis. No cords, erythema, or tenderness NEUROLOGICAL: Cranial nerves II through XII grossly intact. Normal speech, normal gait SKIN: Warm, Dry, normal turgor, no rashes or lesions noted. <Kamari Fernandez - Last Filed: 06/21/18 05:09> - Resident Resident Name: Clint Castro - ED Attending Attestation I have performed the following: I have examined & evaluated the patient, The case was reviewed & discussed with the resident, I agree w/resident's findings & plan, Exceptions are as noted - Medical Decision Making 06/21/18 04:36 A portion of this note was written by my scribe, under my supervision. Vital Signs Temp Pulse Resp BP Pulse Ox 89 16 120/85 100 06/21/18 03:47 06/21/18 03:47 06/21/18 03:47 06/21/18 03:47 47 year old female with hx of polysubstance abuse, TIA, asthma, COPD, HTN p/w coughing and headache. The headache has been chronic for about a month. 1 month ago, patient fell from her chair and hit her head. She reports that she was diagnosed with a concussion. Since then, she has been having a constant global headache. On a separate occasion, the patient did come to the ER here approximately 1 week ago and had a negative head CT. She visited her PMD's office yesterday and was given IM toradol which improved her headache and set up patient for neurology outpatient in 2 days. Yesterday, she stated she felt her usual self. This morning, woke up with several episodes of coughing, but no SOB or chest pain. Pt was concerned about the coughing and came to ED. No fevers, chills. Headache: I suspect that this is her concussion. Will treat with NSAIDS and have her follow up with the neurologist. Coughing: Will investigate with a chest xray. Trial duoneb. The patient is not wheezing here. If workup is negative, will d/c her with supportive care as I have low suspicion for infectious etiology. 06/21/18 05:18 Chest xray reviewed by me, pending official radiology read. No infiltrates. 06/23/18 15:43 This note is backtracking to 06/21. The patient has had been feeling well and requesting to go home upon discharge. She has been waiting for her taxi after she was discharged, and the patient suddenly became upset that she had her headache returned. After a lengthy discussion that her concussion was the likely of symptoms, she continues to insist that she "needs to find out about the headache". I had spoke to her and advised that she should re-triage if she feels the need to, at which point, the patient continues to yell at me saying that "she doesn't want to stay and that she doesn't want to go". I had calmly explained that we will be happy to take care of her, but that ultimately she would be the need to be the one to make the decision of being seen. Pt decided to retriage back to the hospital. <Elgin Simmons - Last Filed: 06/23/18 15:45>
[2018-06-21 04:44] VITALS: TEMP 98.3
== END 2018-06-21 06:46 | disposition home or self-care (01) ==
LOC: JER 03:43
PROC: 3E0333Z Introduction of Anti-inflammatory into Peripheral Vein, Percutaneous Approach (ICD-10-PCS; principal; 2018-06-21)
PROC: 3E033NZ Introduction of Analgesics, Hypnotics, Sedatives into Peripheral Vein, Percutaneous Approach (ICD-10-PCS; 2018-06-21)
DX: R51 Headache (principal)
CPT/HCPCS: 71045-TC-FY; 99281-25; J7620

== ENCOUNTER 2018-06-21 07:07 | Emergency (ER) | payer BC, OTHER ==
[2018-06-21] MEDS ORDERED: KETOROLAC TROMETHAMINE 30 MG/1 ML VIAL IM ONE (07:32)
--- NOTE | 2018-06-21 07:38 | PDOC ---
Attending Attestation - Resident Resident Name: Drew Peters - HPI HPI: 06/22/18 10:08 Pt signed out by Dr. Simmons--was removed from the computer but never left the ED. Patient was evaluated for headache with negative work up, and initially stated her pain was controlled and asked to be discharged and then complained that her headache was worse. Patient has a long standing history of headache for which she has received multiple evaluations. She has an MRI and a neurologist appointment scheduled. Patient was given reglan by us, and initially stated she felt better, then complained that she did not want to leave because she was unable to walk. 06/22/18 10:13 - Physicial Exam PE: 06/22/18 10:15 Patient is alert and oriented x 3, and neurologically intact. She has been observed by myself and other members of the ED staff to be ambulatory with a normal gait. Patient was stating that she was unable to walk while she was walking around me with a normal gait. - Medical Decision Making 06/22/18 10:17 Pt presents to the ED complaining of headache, which is now resolved. She is requesting an MRI and a neurology consult before leaving the Ed. The resident and I have spoken to the patient at length and explained to her that she does not need an emergent MRI and that she has outpatient appointments for both MRI and neurology in the near future. Will discharge patient.
[2018-06-21 07:50] VITALS: BMI 29.9
[2018-06-21] MEDS ORDERED: SODIUM CHLORIDE 0.9% 500 ML INFUS.BAG IV ONE (07:56)
[2018-06-21] MEDS ORDERED: ACETAMINOPHEN 1000 MG/100 ML VIAL (NON FORMULARY) IVPB ONE (07:56)
[2018-06-21] MEDS ORDERED: ACETAMINOPHEN INJECTION 100 ML IVPB ONE (08:06)
[2018-06-21] MEDS ORDERED: KETOROLAC TROMETHAMINE 30 MG/1 ML VIAL ONE (08:07)
[2018-06-21] MEDS ORDERED: KETOROLAC TROMETHAMINE 30 MG/1 ML VIAL IVPUSH ONE (08:08)
[2018-06-21 08:46] LABS: EOS % 0.7 % (0-4.5); HEMATOCRIT 34.4 % (32.4-45.2); LYMPH % 52.5 % (8-40); MCH 34.3 pg (25.7-33.7); MCHC 34.9 g/dl (32.0-36.0); MEAN CELL VOLUME 98.3 fl (80-96); MEAN PLT VOLUME 7.2 fl (7.5-11.1); MONO % 6.3 % (3.8-10.2); NEUT % 39.5 % (42.8-82.8); PLATELET COUNT 204 K/MM3 (134-434); RDW 13.7 % (11.6-15.6); WHITE BLOOD COUNT 5.1 K/mm3 (4.0-10.0)
[2018-06-21 09:10] LABS: ALBUMIN 3.2 g/dl (3.4-5.0); ANION GAP 7 (8-16); BILIRUBIN,TOTAL 0.2 mg/dL (0.2-1.0); BLOOD UREA NITROGEN 23 mg/dL (7-18); CALCIUM 8.7 mg/dL (8.5-10.1); CHLORIDE 108 mmol/L (98-107); CO2 28 mmol/L (21-32); CREATININE 0.9 mg/dL (0.55-1.02); GLUCOSE,RANDOM 91 mg/dL (74-106); SGPT/ALT 31 U/L (12-78); SODIUM 143 mmol/L (136-145); TOT PROT 6.7 g/dl (6.4-8.2)
[2018-06-21 09:11] LABS: ALK PHOS 75 U/L (45-117)
[2018-06-21 09:13] LABS: POTASSIUM 3.9 mmol/L (3.5-5.1); SGOT/AST 32 U/L (15-37)
--- NOTE | 2018-06-21 09:21 | PDOC ---
*Physical Exam - Vital Signs Last Vital Signs Temp Pulse Resp BP Pulse Ox 97.6 F 73 16 141/88 99 06/21/18 07:44 06/21/18 07:44 06/21/18 07:44 06/21/18 07:44 06/21/18 07:44 - Physical Exam Comments: 06/21/18 13:54 Constitutional: Thin adult female in no acute distress. Found semi-fowlers in hospital bed. Alert and oriented x4. Answered all questions appropriately and completely. Speech was non-labored, but slow and circuitous with occasional word searching as per reported baseline. HEENT: Normocephalic. No obvious external signs of trauma. Hearing grossly normal. No nasal discharge. Sclerae white. Conjunctiva moist and not injected. Neck is supple, trachea is midline. No JVD. Cardiovascular: Regular rate and regular rhythm. No murmur, rubs, clicks, or gallops. Peripheral pulses: Radial pulses full. Respiratory: Equal chest rise and fall. Very mild expiratory wheeze noted throughout. Air movement appreciated in all posterior and anterior longo. No stridor or rhonchi. DID NOT COUGH DURING ENTIRE INTERVIEW. Able to complete multi-word answers without difficulty. Gastrointestinal: abdomen is soft, non-tender, non-distended. Neuro: Alert and oriented. Moving all four extremities spontaneously. Psych: Affect: appropriate. Mood: normal. Skin: Warm, dry, and intact. ED Treatment Course - LABORATORY CBC & Chemistry Diagram: 06/21/18 08:35 06/21/18 08:35 - ADDITIONAL ORDERS Additional order review: Laboratory Results 06/21/18 08:35 Sodium 143 Potassium 3.9 Chloride 108 H Carbon Dioxide 28 Anion Gap 7 L BUN 23 H Creatinine 0.9 Creat Clearance w eGFR > 60 Random Glucose 91 Calcium 8.7 Total Bilirubin 0.2 AST 32 ALT 31 Alkaline Phosphatase 75 D Total Protein 6.7 Albumin 3.2 L 06/21/18 08:35 RBC 3.50 L MCV 98.3 H MCHC 34.9 RDW 13.7 MPV 7.2 L Neutrophils % 39.5 L Lymphocytes % 52.5 H Monocytes % 6.3 Eosinophils % 0.7 Basophils % 1.0 - Medications Given in the ED: ED Medications Discontinued Medications Generic Name Dose Route Start Last Admin Trade Name Freq PRN Reason Stop Dose Admin Acetaminophen 1,000 mg 06/21/18 07:56 06/21/18 08:43 Ofirmev Injection - IVPB 06/21/18 07:57 1,000 mg ONCE ONE Administration Ketorolac Tromethamine 30 mg 06/21/18 07:32 06/21/18 08:44 Toradol Injection - IM 06/21/18 07:33 Not Given ONCE ONE Ketorolac Tromethamine 30 mg 06/21/18 08:08 06/21/18 08:43 Toradol Injection - IVPUSH 06/21/18 08:09 30 mg ONCE ONE Administration Sodium Chloride 1,000 ml 06/21/18 07:56 06/21/18 08:43 Normal Saline - IV 06/21/18 07:57 1,000 ml ONCE ONE Administration Medical Decision Making - Medical Decision Making 06/21/18 13:54 Patient was DCed then said she still has pain. We gave her some more toradol and tylenol. She agreed to leave the ER on the condition that she got food to go. She is DCed and has a neurologist Appt tmrw to get an MRI. *DC/Admit/Observation/Transfer Diagnosis at time of Disposition: Headache - Discharge Dispostion Disposition: HOME Condition at time of disposition: Improved Decision to Admit order: No - Referrals Referrals: Marv Rm [Primary Care Provider] - - Patient Instructions Printed Discharge Instructions: DI for Headache Additional Instructions: Please make sure to go to your neurologist tomorrow to get that MRI. Come back to the ED if you start having difficulty breathing, getting blurry vision, a fever, or have any other serious concerns. - Post Discharge Activity
[2018-06-21 09:52] VITALS: BP 135/99; PULSE 85; TEMP 98.1
== END 2018-06-21 12:39 | disposition home or self-care (01) ==
LOC: JER 07:07
PROC: 3E033NZ Introduction of Analgesics, Hypnotics, Sedatives into Peripheral Vein, Percutaneous Approach (ICD-10-PCS; principal; 2018-06-21)
PROC: 3E0333Z Introduction of Anti-inflammatory into Peripheral Vein, Percutaneous Approach (ICD-10-PCS; 2018-06-21)
DX: R51 Headache (principal)
CPT/HCPCS: 36415; 80053; 85025; 99282-25; J0131

== ENCOUNTER 2018-07-19 20:30 | Emergency (ER) | payer BC, OTHER ==
[2018-07-19 20:34] VITALS: BP 144/102; PULSE 102; TEMP 98; BMI 25.7
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
[2018-07-19] MEDS ORDERED: KETOROLAC TROMETHAMINE 15 MG/ML VIAL IM ONE (20:59)
[2018-07-19] MEDS ORDERED: KETOROLAC TROMETHAMINE 15 MG/ML VIAL ONE (21:03)
--- NOTE | 2018-07-19 21:32 | PDOC ---
Attending Attestation - Resident Resident Name: FranciscoErnie - ED Attending Attestation I have performed the following: I have examined & evaluated the patient, The case was reviewed & discussed with the resident, I agree w/resident's findings & plan, Exceptions are as noted - HPI HPI: 07/19/18 21:27 47 yo female said she rolled off a chair she was sleeping in and presents because she has pain to her forehead and her face. She has no visible trauma, no scalp hematomas ,no facial swelling or abrasions -She does NOT have visual changes,vomiting,new extremity weakness or numbness, facial droop or slurred speech Pt has past medical history of substance abuse,bipolar syndrome,hyperlipidemia - Physicial Exam PE: 07/19/18 21:32 head -ncat neck -no cervical vertebral tenderness eyes- geovani eomi, proptosis(chronic) cvs -[id number] lungs- cta b/l abd - nontender no cva tenderness, no lumbar vertebral tenderness extremities -no deformities,no erythema,no lacerations or ecchymosis skin warm and dry neuro axox3,ambulatory psych flat affect - Medical Decision Making 07/19/18 23:26 this 47 yo female states she wants a ct scan of her head because she rolled off a chair and hit her head. She does not take any anti coagulation medications. I explained to her that she has no gross focal neuro deficits,no severe headache with vomiting,visual changes or new weakness to her extremities. Also she has had multiple ct scan on her head and brain MRi.MRAs in the past year. She had ct scans of her head on 04/07/17, 06/22/17, 09/05/17, 12/29/17, 03/19/18, 04/09/18, 04/10/18 brain MRI MRA, ct scan head on 04/16/18 and also 06/12/18 She became upset that I was not ordering a ct scan of her-she ripped up her discharge instructions,threw the papers in her room . Security escorted her out of the ER but she became very disruptive outside yelling and being threatening and security called the police who recognized this pt and took her to [facility] for psych eval
== END 2018-07-19 22:37 | disposition home or self-care (01) ==
LOC: JER 20:30
PROC: 3E0233Z Introduction of Anti-inflammatory into Muscle, Percutaneous Approach (ICD-10-PCS; principal; 2018-07-19)
DX: R51 Headache (principal); W05.0XXA Fall from non-moving wheelchair, initial encounter; Y93.89 Activity, other specified; Y92.89 Other specified places as the place of occurrence of the external cause; I10 Essential (primary) hypertension; E78.00 Pure hypercholesterolemia, unspecified; J44.9 Chronic obstructive pulmonary disease, unspecified; Z21 Asymptomatic human immunodeficiency virus [HIV] infection status; Z86.73 Personal history of transient ischemic attack (TIA), and cerebral infarction without residual deficits; M06.9 Rheumatoid arthritis, unspecified
CPT/HCPCS: 99282-25

== ENCOUNTER 2018-10-23 07:50 | Emergency (ER) | payer BC, OTHER ==
[2018-10-23 07:57] VITALS: TEMP 97.8; BMI 28.1
--- NOTE | 2018-10-23 08:11 | PDOC ---
History of Present Illness - General Chief Complaint: Chest Pain Stated Complaint: CHEST,BACK & HEAD PAIN Time Seen by Provider: 10/23/18 08:11 History Source: Patient Exam Limitations: No Limitations - History of Present Illness Initial Comments: 10/23/18 08:13 48 yo female, past medical history of bipolar, HTN, HLD, COPD, glaucoma, recent bronchitis day 4 of a doxycycline course, who presents with 2 days of central nonradiating 8/10 chest pain worse with coughing and with deep breathing. She denies nausea, but admits to some sweating. She has taken Tylenol and naproxen for her symptoms with mild relief. She has had a productive cough for approx 5 days of yellow phlegm. She has not taken her HTN medications for 3 days due to running out and being able to afford the co-pay. She admits to some constipation, headache and subjective fever, but denies radiation of the chest pain to the back, neck or arm, denies vomiting or diarrhea. She was seen at [facility] yesterday where she was found to have a pneumonia, she was prescribed antibiotics at the time but states she is unable to afford the copay to get them. She is currently on day 4 doxycycline, but has been off her HTN meds for 3 days. Past History - Past Medical History Allergies/Adverse Reactions: Allergies Allergy/AdvReac Type Severity Reaction Status Date / Time amoxicillin trihydrate Allergy Verified 10/23/18 07:57 [From Augmentin] azithromycin [From Zithromax] Allergy Verified 10/23/18 07:57 potassium clavulanate Allergy Verified 10/23/18 07:57 [From Augmentin] Home Medications: Ambulatory Orders Albuterol Sulfate Inhaler - [Ventolin HFA Inhaler -] 2 inh PO Q4H PRN 03/19/18 Timolol 0.25% [Timoptic 0.25%] 1 drop BID 03/19/18 Budesonide/Formeterol Fumarate [SYMBICORT 160/4.5mcg -] 2 inh PO BID 04/09/18 Cyclobenzaprine HCl 10 mg PO QID PRN 04/09/18 Docusate Sodium 100 mg PO BID 04/09/18 Pantoprazole Sodium 40 mg PO DAILY 04/09/18 Quetiapine Fumarate [Seroquel -] 25 mg PO DAILY 04/09/18 Quetiapine Fumarate [Seroquel] 100 mg PO HS 04/09/18 Sennosides [Senna] 8.6 mg PO HS 04/09/18 Aspirin [ASA -] 81 mg PO DAILY #30 tab.chew 04/11/18 Atorvastatin Ca [Lipitor] 80 mg PO HS #30 tablet 04/11/18 Acetaminophen [Tylenol] 1 tab PO PRN 04/16/18 Calcium Carbonate/Vitamin D3 [Calcium 500-Vit D3 400 Tablet] 1 tab PO DAILY Gabapentin 1 tab PO TID 04/16/18 Multivitamin [Daily Multiple Vitamin] 1 tab PO DAILY 04/16/18 Paroxetine HCl [Paxil] 2 tablet PO DAILY #60 tablet 04/17/18 Olmesartan Medoxomil [Benicar (Nf)] 40 mg PO DAILY #7 tablet 05/26/18 Topiramate [Topamax] 100 mg PO BID #20 tablet 06/12/18 Naproxen [Naprosyn -] 500 mg PO BID PRN #20 tablet 06/21/18 Albuterol Sulfate [Proventil HFA Inhaler -] 1 - 2 inh PO TID 10/23/18 Olmesartan/Hydrochlorothiazide [Olmesartan-Hctz 40-25 mg Tab] 1 each PO DAILY Prednisone [Deltasone] 20 mg PO DAILY 10/23/18 Anemia: No Asthma: Yes Cancer: No Cardiac Disorders: No CVA: Yes ("MINI STROKE" FEW YRS AGO) COPD: Yes CHF: No DVT: No Dementia: No Diabetes: No Dialysis: No GI Disorders: No Disorders: No HTN: Yes Hypercholesterolemia: Yes Kidney Stones: No Liver Disease: No Psychiatric Problems: No Seizures: No Thyroid Disease: No Lung CA: No - Surgical History Abdominal Surgery: No Appendectomy: No Cardiac Surgery: Yes (SX R CAROTID ARTERY FOR A CLOT IN 2004) Cholecystectomy: No Gastric Stapling: No GI Surgery: No Lung Surgery: No Neurologic Surgery: No Orthopedic Surgery: No - Reproductive History PID: No - Immunization History Td Vaccination: Yes Immunization Up to Date: Yes - Suicide/Smoking/Psychosocial Hx Smoking Status: Yes Smoking History: Current some day smoker Years of Tobacco Use: 20 Have you smoked in the past 12 months: Yes Number of Cigarettes Smoked Daily: 10 Cigars Per Day: 0 Information on smoking cessation initiated: No 'Breaking Loose' booklet given: 02/05/16 Hx Alcohol Use: Yes Drug/Substance Use Hx: No Substance Use Type: None Hx Substance Use Treatment: No Review of Systems - Review of Systems Able to Perform ROS?: Yes Is the patient limited Albanian proficient: No Constitutional: Yes: See HPI. No: Chills, Diaphoresis, Fever Respiratory: No: Cough, Orthopnea, Shortness of Breath Cardiac (ROS): No: Chest Pain, Palpitations, Syncope ABD/GI: Yes: See HPI, Constipated. No: Nausea, Vomiting : No: Burning, Dysuria Musculoskeletal: No: Back Pain Neurological: Yes: See HPI, Headache. No: Numbness, Tingling *Physical Exam - Vital Signs Last Vital Signs Temp Pulse Resp BP Pulse Ox 97.8 F 89 20 172/110 H 98 10/23/18 07:55 10/23/18 07:55 10/23/18 07:55 10/23/18 07:55 10/23/18 07:55 - Physical Exam Comments: 10/23/18 08:47 GENERAL: Awake, alert, and fully oriented, in no acute distress HEAD: No signs of trauma, normocephalic, atraumatic EYES: EOMI, sclera anicteric, conjunctiva clear ENT: Auricles normal inspection, hearing grossly normal, nares patent, oropharynx clear without exudates. Moist mucosa NECK: Normal ROM, supple LUNGS: No distress, speaks full sentences, + expiratory wheezes at apex bilaterally, slightly decreased breath sounds at the bases HEART: Regular rate and rhythm, normal S1 and S2, no murmurs, rubs or gallops, peripheral pulses normal and equal bilaterally. ABDOMEN: Soft, nontender, No guarding, no rebound. No masses EXTREMITIES : Normal inspection, Normal range of motion, no edema. No clubbing or cyanosis. NEUROLOGICAL: Cranial nerves II through XII grossly intact. Normal speech, normal gait, no focal sensorimotor deficits SKIN: Warm, Dry, normal turgor, no rashes or lesions noted Moderate Sedation - Procedure Monitoring Vital Signs: Procedure Monitoring Vital Signs Temperature 97.8 F 10/23/18 07:55 Pulse Rate 89 10/23/18 07:55 Respiratory Rate 20 10/23/18 07:55 Blood Pressure 172/110 H 10/23/18 07:55 O2 Sat by Pulse Oximetry (%) 98 10/23/18 07:55 ED Treatment Course - LABORATORY CBC & Chemistry Diagram: 10/23/18 09:25 10/23/18 09:25 Medical Decision Making - Medical Decision Making 10/23/18 08:43 48 year old history of bipolar, HTN, HLD, COPD, glaucoma, recent bronchitis on a doxycycline course, who presents with 2 days of central nonradiating 8/10 chest pain worse with coughing and with deep breathing. She has had a productive cough for approx 5 days of yellow phlegm. She was seen at [facility] yesterday where she was found to have a pneumonia, she was prescribed antibiotics at the time but states she is unable to afford the copay to get them. She is currently on day 4 doxycycline, but has been off her HTN meds for 3 days. ED course: Patient with symptoms and history concerning for ACS vs bronchitis vs PNA vs COPD exacerbation. Will evaluate with CXR, EKG, trop, cbc, cmp Patient on doxycycline course, which would appropriately cover for pneumonia. 10/23/18 10:11 CBC: unremarkable. CXR: without acute findings. CMP: without significant derangement trop: negative Patient stable for discharge. Informed of all lab and imaging results. She is to complete antibiotic course. 10/23/18 10:26 Repeat BP 157/100, MAP > 65 Given follow up instructions and strict return precautions. Patient expressed understanding and agree to plan. *DC/Admit/Observation/Transfer Diagnosis at time of Disposition: Atypical chest pain - Discharge Dispostion Disposition: HOME Condition at time of disposition: Stable Decision to Admit order: No - Referrals - Patient Instructions Printed Discharge Instructions: DI for Atypical Chest Pain Additional Instructions: In the ED you were seen and evaluated with labwork and imaging. Your results were unremarkable. There does not appear to be an acute need for immediate hospitalization. You are advised to follow up with your Primary Care Physician within 1 week. Take your antibiotic as prescribed and complete this course of medication as directed. Return to the ED immediately if you experience worsening chest pain, significant shortness of breath, coughing blood, fevers, nausea, vomiting or excessive sweating. - Post Discharge Activity
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
[2018-10-23 09:41] LABS: BASO % 0.7 % (0-2.0); HEMATOCRIT 40.5 % (32.4-45.2); LYMPH % 41.1 % (8-40); MCH 31.5 pg (25.7-33.7); MEAN CELL VOLUME 98.4 fl (80-96); MEAN PLT VOLUME 7.5 fl (7.5-11.1); MONO % 6.9 % (3.8-10.2); NEUT % 50.3 % (42.8-82.8); PLATELET COUNT 244 K/MM3 (134-434); RBC 4.12 M/mm3 (3.60-5.2); RDW 13.8 % (11.6-15.6); WHITE BLOOD COUNT 8.1 K/mm3 (4.0-10.0)
[2018-10-23 10:11] LABS: ALBUMIN 3.5 g/dl (3.4-5.0); ALK PHOS 82 U/L (45-117); ANION GAP 6 MMOL/L (8-16); BILIRUBIN,TOTAL 0.3 mg/dL (0.2-1); BLOOD UREA NITROGEN 18 mg/dL (7-18); CALCIUM 9.5 mg/dL (8.5-10.1); CHLORIDE 107 mmol/L (98-107); CO2 28 mmol/L (21-32); CREATININE 0.7 mg/dL (0.55-1.3); GLUCOSE,RANDOM 95 mg/dL (74-106); POTASSIUM 4.1 mmol/L (3.5-5.1); SGOT/AST 20 U/L (15-37); SGPT/ALT 30 U/L (13-61); SODIUM 141 mmol/L (136-145); TOT PROT 7.2 g/dl (6.4-8.2)
[2018-10-23] MEDS ORDERED: ACETAMINOPHEN 325 MG TABLET (FP) PO ONE (10:19)
--- NOTE | 2018-10-23 11:24 | EKG ---
Test Reason : Blood Pressure : / mmHG Vent. Rate : 075 BPM Atrial Rate : 075 BPM P-R Int : 138 ms QRS Dur : 078 ms QT Int : 384 ms P-R-T Axes : 056 031 015 degrees QTc Int : 428 ms NORMAL SINUS RHYTHM WITH SINUS ARRHYTHMIA NORMAL ECG WHEN COMPARED WITH ECG OF 26-MAY-2018 13:21, NONSPECIFIC T WAVE ABNORMALITY HAS REPLACED INVERTED T WAVES IN INFERIOR LEADS NONSPECIFIC T WAVE ABNORMALITY NO LONGER EVIDENT IN ANTEROLATERAL LEADS QT HAS LENGTHENED Confirmed by DESIRAE OWEN, LANA ([id number]) on 10/23/2018 11:24:21 AM Referred By: Confirmed By:LANA MERRILL MD
[2018-10-23] MEDS ORDERED: ACETAMINOPHEN 325 MG TABLET (FP) ONE (11:26)
[2018-10-23] MEDS ORDERED: VALSARTAN 40 MG TABLET (FP) PO ONE (11:38)
[2018-10-23 11:42] VITALS: BP 159/105; PULSE 78
[2018-10-23] MEDS ORDERED: VALSARTAN 80 MG TABLET (UD) ONE (11:42)
== END 2018-10-23 11:47 | disposition home or self-care (01) ==
LOC: JER 07:50
DX: R07.9 Chest pain, unspecified (principal); I10 Essential (primary) hypertension; J44.9 Chronic obstructive pulmonary disease, unspecified; E78.5 Hyperlipidemia, unspecified; F31.9 Bipolar disorder, unspecified
CPT/HCPCS: 36415; 71046-TC-FY; 80053; 84484; 85025; 93005; 93010; 99283-25

== ENCOUNTER 2018-11-04 01:43 | Emergency (ER) | payer BC, OTHER ==
[2018-11-04 01:55] VITALS: BMI 27.4
--- NOTE | 2018-11-04 03:29 | PDOC ---
History of Present Illness - General Chief Complaint: Shortness of Breath Stated Complaint: DIFFICULTY BREATHING,PNEUMONIA Time Seen by Provider: 11/04/18 02:54 - History of Present Illness Initial Comments: 11/04/18 03:20 48 yo F with h/o HTN, HLD, Bipolar disorder, COPD, Nictoine dependence, who p/w SOB, and chest tightness. Patient reports 3 weeks of chest tightness, retrosternal chest discomfort, SOB, and wheezing. + productive cough, with yellow sputum. Patient with known h/o medication non adherence to asthma medications. Has been non compliant with PMD follow up visits. Recently evaluated in [facility] ED for similar presentation (10/23/18). Patient was scheduled for pulmonology f/u, but did not f/u as directed. Denies Home duoneb use or O2 requirements. Patient denies N/V, F/C, Palpitations, Orthopnea, PND, hematuria, BPR, urinary complaints, abdominal pain, diarrhea, constipation, lightheadedness, weakness, sensory changes. PMHx: as noted above. Does not follow with Pulmonology. ROS: as noted SHx: Daily tobacco use. Past History - Past Medical History Allergies/Adverse Reactions: Allergies Allergy/AdvReac Type Severity Reaction Status Date / Time amoxicillin trihydrate Allergy Verified 11/04/18 01:54 [From Augmentin] azithromycin [From Zithromax] Allergy Verified 11/04/18 01:54 potassium clavulanate Allergy Verified 11/04/18 01:54 [From Augmentin] Home Medications: Ambulatory Orders Albuterol Sulfate Inhaler - [Ventolin HFA Inhaler -] 2 inh PO Q4H PRN 03/19/18 Timolol 0.25% [Timoptic 0.25%] 1 drop BID 03/19/18 Budesonide/Formeterol Fumarate [SYMBICORT 160/4.5mcg -] 2 inh PO BID 04/09/18 Cyclobenzaprine HCl 10 mg PO QID PRN 04/09/18 Docusate Sodium 100 mg PO BID 04/09/18 Pantoprazole Sodium 40 mg PO DAILY 04/09/18 Quetiapine Fumarate [Seroquel -] 25 mg PO DAILY 04/09/18 Quetiapine Fumarate [Seroquel] 100 mg PO HS 04/09/18 Sennosides [Senna] 8.6 mg PO HS 04/09/18 Aspirin [ASA -] 81 mg PO DAILY #30 tab.chew 04/11/18 Atorvastatin Ca [Lipitor] 80 mg PO HS #30 tablet 04/11/18 Acetaminophen [Tylenol] 1 tab PO PRN 04/16/18 Calcium Carbonate/Vitamin D3 [Calcium 500-Vit D3 400 Tablet] 1 tab PO DAILY Gabapentin 1 tab PO TID 04/16/18 Multivitamin [Daily Multiple Vitamin] 1 tab PO DAILY 04/16/18 Paroxetine HCl [Paxil] 2 tablet PO DAILY #60 tablet 04/17/18 Olmesartan Medoxomil [Benicar (Nf)] 40 mg PO DAILY #7 tablet 05/26/18 Topiramate [Topamax] 100 mg PO BID #20 tablet 06/12/18 Naproxen [Naprosyn -] 500 mg PO BID PRN #20 tablet 06/21/18 Albuterol Sulfate Inhaler - [Ventolin HFA Inhaler -] 2 inh PO Q4H #1 inh Albuterol Sulfate [Proventil HFA Inhaler -] 1 - 2 inh PO TID 10/23/18 Nicotine Patch [Nicoderm Patch -] 1 patch TD DAILY #30 patch 10/23/18 Olmesartan Medoxomil [Benicar (Nf)] 40 mg PO DAILY #7 tablet 10/23/18 Olmesartan/Hydrochlorothiazide [Olmesartan-Hctz 40-25 mg Tab] 1 each PO DAILY Prednisone [Deltasone] 20 mg PO DAILY 10/23/18 Albuterol Sulfate Inhaler - [Ventolin HFA Inhaler -] 1 puff IH DAILY PRN #1 inhaler 11/04/18 Anemia: No Asthma: Yes Cancer: No Cardiac Disorders: No CVA: Yes ("MINI STROKE" FEW YRS AGO) COPD: Yes CHF: No DVT: No Dementia: No Diabetes: No Dialysis: No GI Disorders: No Disorders: No HTN: Yes Hypercholesterolemia: Yes Kidney Stones: No Liver Disease: No Psychiatric Problems: No Seizures: No Thyroid Disease: No Lung CA: No - Surgical History Abdominal Surgery: No Appendectomy: No Cardiac Surgery: Yes (SX R CAROTID ARTERY FOR A CLOT IN 2004) Cholecystectomy: No Gastric Stapling: No GI Surgery: No Lung Surgery: No Neurologic Surgery: No Orthopedic Surgery: No - Reproductive History PID: No - Immunization History Td Vaccination: Yes Immunization Up to Date: Yes - Suicide/Smoking/Psychosocial Hx Smoking Status: Yes Smoking History: Current every day smoker Years of Tobacco Use: 20 Have you smoked in the past 12 months: Yes Number of Cigarettes Smoked Daily: 10 Cigars Per Day: 0 Information on smoking cessation initiated: No 'Breaking Loose' booklet given: 02/05/16 Hx Alcohol Use: No Drug/Substance Use Hx: No Substance Use Type: None Hx Substance Use Treatment: No Review of Systems - Review of Systems Comments:: 11/04/18 03:30 GENERAL/CONSTITUTIONAL: No fever or chills. No weakness. HEAD, EYES, EARS, NOSE AND THROAT: No change in vision. No ear pain or discharge. No sore throat. CARDIOVASCULAR:+ Cough, wheezing, chest pain, and shortness of breath. RESPIRATORY: No hemoptysis. GASTROINTESTINAL: No nausea, vomiting, diarrhea or constipation. GENITOURINARY: No dysuria, frequency, or change in urination. MUSCULOSKELETAL: No joint or muscle swelling or pain. No neck or back pain. SKIN: No rash NEUROLOGIC: No headache, vertigo, loss of consciousness, or change in strength/ sensation. ENDOCRINE: No increased thirst. No abnormal weight change HEMATOLOGIC/LYMPHATIC: No anemia, easy bleeding, or history of blood clots. ALLERGIC/IMMUNOLOGIC: No hives or skin allergy. *Physical Exam - Vital Signs Last Vital Signs Temp Pulse Resp BP Pulse Ox 98.9 F 85 20 146/85 98 11/04/18 01:54 11/04/18 01:54 11/04/18 01:54 11/04/18 01:54 11/04/18 01:54 - Physical Exam Comments: 11/04/18 03:30 GENERAL: Awake, alert, and fully oriented, in no acute distress HEAD: No signs of trauma, normocephalic, atraumatic EYES: PERRLA, EOMI, sclera anicteric, conjunctiva clear ENT: Hearing grossly normal, nares patent, oropharynx clear without exudates. Moist mucosa NECK: Normal ROM, supple, no lymphadenopathy, JVD, or masses LUNGS:+slight exp rhonci. absent rales. HEART: Regular rate and rhythm, normal S1 and S2, no murmurs, rubs or gallops, peripheral pulses normal and equal bilaterally. EXTREMITIES : Normal inspection, Normal range of motion, no edema. No clubbing or cyanosis. SKIN: Warm, Dry, normal turgor, no rashes or lesions noted Moderate Sedation - Procedure Monitoring Vital Signs: Procedure Monitoring Vital Signs Temperature 98.9 F 11/04/18 01:54 Pulse Rate 85 11/04/18 01:54 Respiratory Rate 20 11/04/18 01:54 Blood Pressure 146/85 11/04/18 01:54 O2 Sat by Pulse Oximetry (%) 98 11/04/18 01:54 Medical Decision Making - Medical Decision Making 11/04/18 03:29 48 yo F with h/o HTN, HLD, Bipolar disorder, COPD, Nicotine dependence, who p/w SOB, and chest tightness. VSS, AF, A&Ox3. Physical exam, unremarkable. Will consider COPD, asthma exacerbation. Low suspicion CHF. PERC NEG PE. ED Course: 11/04/18 05:19 Duoneb, CXR: No acute pathology EKG: NSR with absent BRET, STD. Nml axis and interval duration. 11/04/18 06:36 Breathing improved Albuterol sent to pharmacy Patient advised to f/u with Pulm Stable for d/c with return precautions. *DC/Admit/Observation/Transfer Diagnosis at time of Disposition: Cough, SOB (shortness of breath) - Discharge Dispostion Disposition: HOME Condition at time of disposition: Stable Decision to Admit order: No - Prescriptions Prescriptions: Albuterol Sulfate Inhaler - [Ventolin HFA Inhaler -] 1 puff IH DAILY PRN #1 inhaler PRN Reason: Asthma - Referrals Referrals: Olayinka Edwards MD [Primary Care Provider] - Rodrigo Corea MD [Staff Physician] - - Patient Instructions Printed Discharge Instructions: DI for Chronic Obstructive Pulmonary Disease Additional Instructions: Please return to the emergency department with any new or worsening symptoms or concerns. Please follow up with your primary care physician within 72 hours. Please follow up with Pulmonology as directed within 48 hours. Please take albuterol as needed for symptoms. - Post Discharge Activity - Attestations Physician Attestion: 11/04/18 03:31 I attest to the information provided in this note.
[2018-11-04] MEDS ORDERED: ACETAMINOPHEN 325 MG TABLET (FP) PO ONE (05:17)
[2018-11-04] MEDS ORDERED: ALBUTEROL SO4 2.5/IPRATROPIUM 0.5 INH SOL 3 ML VIAL.NEB. NEB ONE (05:17)
[2018-11-04] MEDS: IBUPROFEN 400 MG TABLET (FP) PO ONE ×2 (05:20→06:11)
--- NOTE | 2018-11-04 05:28 | PDOC ---
Attending Attestation - Resident Resident Name: FernandezElliotFaraz - ED Attending Attestation I have performed the following: I have examined & evaluated the patient, The case was reviewed & discussed with the resident, I agree w/resident's findings & plan - HPI HPI: 11/04/18 05:27 [id number], with a significant past medical history of HTN, HLD, Bipolar disorder, COPD, Nicotine dependence, who presents to the emergency department with, 3 weeks of shortness of breath and chest tightness. Patient endorses an associated productive cough with yellow sputum and wheezing. Patient has not followed up with her PCP or pulmonology in an extended amount of time. There have been multiple visits previously for sob/cough and copd. Last visit here - arranged for appointments and followup, has not gone to the followups arranged. Past surgical history: None reported. Social history: Smoker - Physicial Exam PE: 11/04/18 05:28 NAD, well appearing, MMM, nl conjunctiva, anicteric; neck supple. lungs with bilateral scant wheezing, RRR, abdomen soft nontender. SPICER x4, no focal neuro deficits. No peripheral edema. normal color for ethnicity, WWP. no calf tenderness 11/04/18 05:32 - Medical Decision Making 11/04/18 05:32 hpi as documented VS wnl. no respiratory distress multiple complaints. +notably, wheezing with known h/o COPD, with poor compliance and followup. will give duonebs, recheck CXR clear, no pna. EKG nonischemic, NSR, nonspecific T wave abnormalities, similar to prior. dispo: Pt informed of my clinical impression, treatment recommendations and disposition plan. All questions answered to patient's satisfaction and expressed understanding and comfort with this. Reasons for returning to the ED sooner discussed with the patient otherwise, follow up with primary care physician. At the time of discharge, the patient is alert, clinically improved, tolerating po and verbalizes understanding of instructions. Patient does not suffer from an acute life-threatening medical condition at this time she is safe for outpatient follow-up. Heart Score/ECG Review - ECG Impressions Normal ECG: Yes Comment:: 11/04/18 05:33 EKG normal sinus rhythm, no interval abnormalities, narrow QRS, ST and T wave segments and morphology normal. Nonspecific T wave abnormalities
[2018-11-04] MEDS ORDERED: IBUPROFEN 600 MG TABLET (FP) PO ONE (06:04)
[2018-11-04 06:18] VITALS: BP 139/88; PULSE 79; TEMP 97.6
[2018-11-04] MEDS ORDERED: KETOROLAC TROMETHAMINE 30 MG/1 ML VIAL IVPUSH ONE (06:53)
[2018-11-04] MEDS ORDERED: METOCLOPRAMIDE HCL INJECTION 10 MG/2 ML VIAL IVPUSH ONE (06:53)
--- NOTE | 2018-11-04 12:37 | EKG ---
Test Reason : Blood Pressure : / mmHG Vent. Rate : 071 BPM Atrial Rate : 071 BPM P-R Int : 150 ms QRS Dur : 074 ms QT Int : 430 ms P-R-T Axes : 058 001 006 degrees QTc Int : 467 ms NORMAL SINUS RHYTHM NORMAL ECG WHEN COMPARED WITH ECG OF 23-OCT-2018 08:03, NO SIGNIFICANT CHANGE WAS FOUND Confirmed by HAWK PICKERING MD ([id number]) on 11/04/2018 12:36:33 PM Referred By: Confirmed By:HAWK PICKERING MD
== END 2018-11-04 06:51 | disposition home or self-care (01) ==
LOC: JER 01:43
PROC: 3E0F7GC Introduction of Other Therapeutic Substance into Respiratory Tract, Via Natural or Artificial Opening (ICD-10-PCS; principal; 2018-11-04)
DX: R06.02 Shortness of breath (principal); R05 Cough; I10 Essential (primary) hypertension; E78.5 Hyperlipidemia, unspecified; J44.9 Chronic obstructive pulmonary disease, unspecified; F17.210 Nicotine dependence, cigarettes, uncomplicated; F31.9 Bipolar disorder, unspecified
CPT/HCPCS: 71046-TC-FY; 93005; 93010; 99282-25

== ENCOUNTER 2018-11-17 10:14 | Emergency (ER) | payer BC, OTHER ==
[2018-11-17 10:21] VITALS: TEMP 98.2; BMI 24.9
[2018-11-17] MEDS ORDERED: methylPREDNISolone NA SUCC 125 MG/2 ML VIAL IVPB ONE (11:24)
--- NOTE | 2018-11-17 11:55 | PDOC ---
History of Present Illness - General Chief Complaint: Pain Stated Complaint: PAIN Time Seen by Provider: 11/17/18 10:27 - History of Present Illness Initial Comments: 11/17/18 11:47 48 F with h/o COPD, polysubstance abuse PCP and opiates, bipolar/anxiety, asthma , HIV, HTN, HLD, TIA, and rheumatoid arthritis, presenting to ED with chest pressure and SOB. Pt reports several days of left sided chest tightness that is worse with breathing. Also endorses SOB. Denies F/C. Denies leg swelling. No recent travel/immobilzation. No OCP use. Pt endorses smoking PCP recently as well as continued cigarette usage. Pt denies other substances. Pt also reports L sided tooth ache. Pt recently completed course of doxy for upper airway infection. Past History - Past Medical History Allergies/Adverse Reactions: Allergies Allergy/AdvReac Type Severity Reaction Status Date / Time amoxicillin trihydrate Allergy Verified 11/17/18 10:21 [From Augmentin] azithromycin [From Zithromax] Allergy Verified 11/17/18 10:21 potassium clavulanate Allergy Verified 11/17/18 10:21 [From Augmentin] Home Medications: Ambulatory Orders Albuterol Sulfate Inhaler - [Ventolin HFA Inhaler -] 2 inh PO Q4H PRN 03/19/18 Timolol 0.25% [Timoptic 0.25%] 1 drop BID 03/19/18 Budesonide/Formeterol Fumarate [SYMBICORT 160/4.5mcg -] 2 inh PO BID 04/09/18 Cyclobenzaprine HCl 10 mg PO QID PRN 04/09/18 Docusate Sodium 100 mg PO BID 04/09/18 Pantoprazole Sodium 40 mg PO DAILY 04/09/18 Quetiapine Fumarate [Seroquel -] 25 mg PO DAILY 04/09/18 Quetiapine Fumarate [Seroquel] 100 mg PO HS 04/09/18 Sennosides [Senna] 8.6 mg PO HS 04/09/18 Aspirin [ASA -] 81 mg PO DAILY #30 tab.chew 04/11/18 Atorvastatin Ca [Lipitor] 80 mg PO HS #30 tablet 04/11/18 Acetaminophen [Tylenol] 1 tab PO PRN 04/16/18 Calcium Carbonate/Vitamin D3 [Calcium 500-Vit D3 400 Tablet] 1 tab PO DAILY Gabapentin 1 tab PO TID 04/16/18 Multivitamin [Daily Multiple Vitamin] 1 tab PO DAILY 04/16/18 Paroxetine HCl [Paxil] 2 tablet PO DAILY #60 tablet 04/17/18 Olmesartan Medoxomil [Benicar (Nf)] 40 mg PO DAILY #7 tablet 05/26/18 Topiramate [Topamax] 100 mg PO BID #20 tablet 06/12/18 Naproxen [Naprosyn -] 500 mg PO BID PRN #20 tablet 06/21/18 Albuterol Sulfate Inhaler - [Ventolin HFA Inhaler -] 2 inh PO Q4H #1 inh Albuterol Sulfate [Proventil HFA Inhaler -] 1 - 2 inh PO TID 10/23/18 Nicotine Patch [Nicoderm Patch -] 1 patch TD DAILY #30 patch 10/23/18 Olmesartan Medoxomil [Benicar (Nf)] 40 mg PO DAILY #7 tablet 10/23/18 Olmesartan/Hydrochlorothiazide [Olmesartan-Hctz 40-25 mg Tab] 1 each PO DAILY Prednisone [Deltasone] 20 mg PO DAILY 10/23/18 Albuterol Sulfate Inhaler - [Ventolin HFA Inhaler -] 1 puff IH DAILY PRN #1 inhaler 11/04/18 Clindamycin [Cleocin -] 450 mg PO Q8H #63 capsule 11/17/18 Prednisone [Prednisone 50 MG TABLETS] 50 mg PO DAILY #4 tablet 11/17/18 Anemia: No Asthma: Yes Cancer: No Cardiac Disorders: No CVA: Yes ("MINI STROKE" FEW YRS AGO) COPD: Yes CHF: No DVT: No Dementia: No Diabetes: No Dialysis: No GI Disorders: No Disorders: No HTN: Yes Hypercholesterolemia: Yes Kidney Stones: No Liver Disease: No Psychiatric Problems: No Seizures: No Thyroid Disease: No Lung CA: No - Surgical History Abdominal Surgery: No Appendectomy: No Cardiac Surgery: Yes (SX R CAROTID ARTERY FOR A CLOT IN 2004) Cholecystectomy: No Gastric Stapling: No GI Surgery: No Lung Surgery: No Neurologic Surgery: No Orthopedic Surgery: No - Reproductive History PID: No - Immunization History Td Vaccination: Yes Immunization Up to Date: Yes - Suicide/Smoking/Psychosocial Hx Smoking Status: Yes Smoking History: Current every day smoker Years of Tobacco Use: 20 Have you smoked in the past 12 months: Yes Number of Cigarettes Smoked Daily: 7 Cigars Per Day: 0 Information on smoking cessation initiated: No 'Breaking Loose' booklet given: 02/05/16 Hx Alcohol Use: No Drug/Substance Use Hx: No Substance Use Type: None Hx Substance Use Treatment: No Respiratory Specific PMHX - Complaint Specific PMHX Angina: No Bronchitis: Yes Pulmonary Embolus: No TB (Tuberculosis): No Review of Systems - Review of Systems Comments:: 11/17/18 11:55 GENERAL/CONSTITUTIONAL: No fever or chills. No weakness. HEAD, EYES, EARS, NOSE AND THROAT: No change in vision. No ear pain or discharge. No sore throat. CARDIOVASCULAR: + chest pain, no loss of consciousness RESPIRATORY: + cough, + SOB, no wheezing, or hemoptysis. GASTROINTESTINAL: No nausea, vomiting, diarrhea or constipation. GENITOURINARY: No dysuria, frequency, or change in urination. MUSCULOSKELETAL: No joint or muscle swelling or pain. No neck or back pain. SKIN: No rash NEUROLOGIC: No vertigo, no change in strength/sensation. ENDOCRINE: No increased thirst. No abnormal weight change. HEMATOLOGIC/LYMPHATIC: No anemia, easy bleeding, or history of blood clots. ALLERGIC/IMMUNOLOGIC: No hives or skin allergy. *Physical Exam - Vital Signs Last Vital Signs Temp Pulse Resp BP Pulse Ox 98.2 F 87 18 131/89 100 11/17/18 10:18 11/17/18 10:18 11/17/18 10:18 11/17/18 10:18 11/17/18 10:18 - Physical Exam Comments: 11/17/18 11:56 GENERAL: Awake, alert, and fully oriented, in no acute distress. HEAD: No signs of trauma EYES: PERRLA, EOMI, sclera anicteric, conjunctiva clear ENT: Auricles normal inspection, hearing grossly normal, nares patent, oropharynx clear without exudates. Moist mucosa NECK: Nontender, no stepoffs, Normal ROM, supple, no lymphadenopathy, JVD, or masses LUNGS: + coarse expiratory wheezes bilaterally HEART: Regular rate and rhythm, normal S1 and S2, no murmurs, rubs or gallops ABDOMEN: Soft, nontender, normoactive bowel sounds. No guarding, no rebound. No masses EXTREMITIES: Normal range of motion, no edema. No clubbing or cyanosis. No cords, erythema, or tenderness NEUROLOGICAL: Cranial nerves II through XII intact. 5/5 strength and sensation in all extremities, Normal speech, normal gait, normal cerebellar function SKIN: Warm, Dry, normal turgor, no rashes or lesions noted. Moderate Sedation - Procedure Monitoring Vital Signs: Procedure Monitoring Vital Signs Temperature 98.2 F 11/17/18 10:18 Pulse Rate 87 11/17/18 10:18 Respiratory Rate 18 11/17/18 10:18 Blood Pressure 131/89 11/17/18 10:18 O2 Sat by Pulse Oximetry (%) 100 11/17/18 10:18 Heart Score/ECG Review - History History: Slightly suspicious - Electrocardiogram EKG: Normal - Age Age: 45-65 - Risk Factors Risk Factors Heart Score: Yes Hx Hypercholesterolemia, Yes Hx Hypertension, Yes Positive family hx of cardiac disease Based on the list above the patient has:: >/=3 risk factors or Hx atherosclerotic disease - Troponin Troponin: </= normal limit - Score Heart Score - Total: 3 - ECG Impressions Comment:: 11/17/18 11:58 NSR, no BRET/STDs, TWI in III seen on prior EKG, intervals wnl, rate 86 ED Treatment Course - LABORATORY CBC & Chemistry Diagram: 11/17/18 11:55 11/17/18 11:55 - RADIOLOGY Radiology Studies Ordered: Category Date Time Status CHEST PA & LAT [RAD] Stat Radiology 11/17/18 11:24 Ordered Medical Decision Making - Medical Decision Making 11/17/18 11:58 48 F with SOB and chest pressure, likely COPD exacerbation given wheezing on exam. Pt with nonischemic EKG, making ACS less likely, but will r/o with trop. Pt with no clinical s/s DVT, PERC score 0. Pt also with infected tooth, will tx with clinda given penicillin allergy. - Labs, trop, VBG - CXR - Nebs, steroids - Clinda for tooth infection 11/17/18 14:10 Labs wnl trop negative x1 CXR clear Pt with improved lung sounds Continues to complain of pain in her chest, now states it radiates to her LUE. No bony tenderness. - Doppler ordered to r/o DVT - Repeat trop ordered 11/17/18 17:16 US negative Pt reassessed - pain improved with nebs Trop negative x2 Pt is well appearing, with normal vitals. Clinically stable for DC at this time. I discussed the physical exam findings, ancillary test results and final diagnoses with the patient. I answered all of the patient's questions. The patient was satisfied with the care received and felt comfortable with the discharge plan and treatment plan. The patient agrees to follow up with the primary care physician within 24-72 hours. *DC/Admit/Observation/Transfer Diagnosis at time of Disposition: SOB (shortness of breath) - Discharge Dispostion Disposition: HOME - Prescriptions Prescriptions: Clindamycin [Cleocin -] 450 mg PO Q8H #63 capsule Prednisone [Prednisone 50 MG TABLETS] 50 mg PO DAILY #4 tablet - Referrals Referrals: Olayinka Edwards MD [Primary Care Provider] - River Huber MD [Staff Physician] - - Patient Instructions Printed Discharge Instructions: DI for Chronic Obstructive Pulmonary Disease Additional Instructions: Use your nebulizer or albuterol pump every 4 hours as needed for cough and shortness of breath. Take the prednisone once daily as prescribed. You have a tooth infection. Take the clindamycin as prescribed. Follow up with a dentist WITHIN 2 DAYS for further evaluation of your tooth. If you experience recurrent chest pain, shortness of breath, fevers, worsening pain or swelling, or any other concerning symptoms, return to the ER immediately. Otherwise, follow up with your primary doctor within 2 days. - Post Discharge Activity - Attestations Physician Attestion: 11/17/18 17:23 I, Dr. James Prado MD, attest that this document has been prepared under my direction and personally reviewed by me in its entirety. I further attest, that it accurately reflects all work, treatment, procedures and medical decision -making performed by me.
[2018-11-17] MEDS ORDERED: CLINDAMYCIN HCL 150 MG CAPSULE (FP) PO ONE (12:00)
[2018-11-17 12:10] LABS: EOS % 1.2 % (0-4.5); HEMATOCRIT 33.4 % (32.4-45.2); HEMOGLOBIN 11.2 GM/dL (10.7-15.3); LYMPH % 50.4 % (8-40); MCHC 33.6 g/dl (32.0-36.0); MEAN CELL VOLUME 98.1 fl (80-96); MEAN PLT VOLUME 7.1 fl (7.5-11.1); MONO % 6.8 % (3.8-10.2); NEUT % 40.6 % (42.8-82.8); PLATELET COUNT 239 K/MM3 (134-434); RBC 3.41 M/mm3 (3.60-5.2); RDW 13.3 % (11.6-15.6); WHITE BLOOD COUNT 4.8 K/mm3 (4.0-10.0)
[2018-11-17 12:24] LABS: VENOUS PC02 39.3 mmHg (38-52); VENOUS PH 7.4 (7.32-7.42); VENOUS PO2 83.5 mmHg (28-48)
[2018-11-17 12:35] LABS: ALBUMIN 3.2 g/dl (3.4-5.0); ALK PHOS 69 U/L (45-117); ANION GAP 6 MMOL/L (8-16); BILIRUBIN,TOTAL 0.1 mg/dL (0.2-1); BLOOD UREA NITROGEN 24 mg/dL (7-18); CALCIUM 9.2 mg/dL (8.5-10.1); CHLORIDE 112 mmol/L (98-107); CO2 27 mmol/L (21-32); CREATININE 0.9 mg/dL (0.55-1.3); GLUCOSE,RANDOM 103 mg/dL (74-106); LIPASE 266 U/L (73-393); SGOT/AST 21 U/L (15-37); SGPT/ALT 27 U/L (13-61); SODIUM 144 mmol/L (136-145); TOT PROT 6.8 g/dl (6.4-8.2)
[2018-11-17] MEDS ORDERED: ALBUTEROL SO4 2.5/IPRATROPIUM 0.5 INH SOL 3 ML VIAL.NEB. NEB ONE ×5 (12:49→18:41)
[2018-11-17] MEDS ORDERED: CLINDAMYCIN HCL 150 MG CAPSULE (FP) ONE (12:50)
[2018-11-17] MEDS ORDERED: methylPREDNISolone NA SUCC 125 MG/2 ML VIAL ONE (12:50)
[2018-11-17] MEDS: ALBUTEROL SO4 2.5/IPRATROPIUM 0.5 INH SOL 3 ML VIAL.NEB. NEB SCH ×3 (13:13→14:33)
[2018-11-17 13:34] LABS: HCG,QUALITATIVE URINE Negative; URINE APPEARANCE SLCLOUDY; URINE BILIRUBIN NEGATIVE (<2.0 mg/dL); URINE COLOR YELLOW; URINE GLUCOSE (UA) NEGATIVE (NEGATIVE); URINE KETONE NEGATIVE (NEGATIVE); URINE LEUK ESTERASE NEGATIVE (NEGATIVE); URINE NITRITE NEGATIVE (NEGATIVE); URINE PROTEIN NEGATIVE (NEGATIVE)
[2018-11-17] MEDS ORDERED: ACETAMINOPHEN 1000 MG/100 ML VIAL (NON FORMULARY) IVPB ONE (14:09)
[2018-11-17] MEDS ORDERED: ACETAMINOPHEN INJECTION 100 ML IVPB ONE (14:41)
--- NOTE | 2018-11-17 18:11 | EKG ---
Test Reason : Blood Pressure : / mmHG Vent. Rate : 086 BPM Atrial Rate : 086 BPM P-R Int : 132 ms QRS Dur : 074 ms QT Int : 388 ms P-R-T Axes : 049 012 -10 degrees QTc Int : 464 ms NORMAL SINUS RHYTHM POSSIBLE LEFT ATRIAL ENLARGEMENT BORDERLINE ECG Confirmed by MD JUAN, RACHAEL ([id number]) on 11/17/2018 6:10:41 PM Referred By: Confirmed By:RACHAEL MARTINEZ MD
[2018-11-17 19:04] VITALS: BP 130/75; PULSE 80
== END 2018-11-17 20:11 | disposition home or self-care (01) ==
LOC: JER 10:14
PROC: 3E033NZ Introduction of Analgesics, Hypnotics, Sedatives into Peripheral Vein, Percutaneous Approach (ICD-10-PCS; principal; 2018-11-17)
PROC: 3E0333Z Introduction of Anti-inflammatory into Peripheral Vein, Percutaneous Approach (ICD-10-PCS; 2018-11-17)
PROC: 3E0F7GC Introduction of Other Therapeutic Substance into Respiratory Tract, Via Natural or Artificial Opening (ICD-10-PCS; 2018-11-17)
PROC: 3E0F7GC Introduction of Other Therapeutic Substance into Respiratory Tract, Via Natural or Artificial Opening (ICD-10-PCS; 2018-11-17)
PROC: 3E0F7GC Introduction of Other Therapeutic Substance into Respiratory Tract, Via Natural or Artificial Opening (ICD-10-PCS; 2018-11-17)
DX: J44.9 Chronic obstructive pulmonary disease, unspecified (principal); J45.909 Unspecified asthma, uncomplicated; I10 Essential (primary) hypertension; E78.00 Pure hypercholesterolemia, unspecified; F31.9 Bipolar disorder, unspecified; F41.9 Anxiety disorder, unspecified; M06.9 Rheumatoid arthritis, unspecified; F16.10 Hallucinogen abuse, uncomplicated; F11.10 Opioid abuse, uncomplicated; Z21 Asymptomatic human immunodeficiency virus [HIV] infection status; Z86.73 Personal history of transient ischemic attack (TIA), and cerebral infarction without residual deficits
CPT/HCPCS: 36415; 71046-TC-FY; 80053; 81003; 82550; 82553; 82803; 83690; 84484; 84703; 85025; 93005; 93010; 93971; 99282-25; J0131

== ENCOUNTER 2018-12-08 21:11 | Emergency (ER) | payer BC, OTHER ==
[2018-12-08 21:20] VITALS: TEMP 98.2; BMI 29.2
--- NOTE | 2018-12-08 21:20 | PDOC ---
Rapid Medical Evaluation Time Seen by Provider: 12/08/18 21:16 Medical Evaluation: Allergies Allergy/AdvReac Type Severity Reaction Status Date / Time amoxicillin trihydrate Allergy Verified 11/17/18 10:21 [From Augmentin] azithromycin [From Zithromax] Allergy Verified 11/17/18 10:21 potassium clavulanate Allergy Verified 11/17/18 10:21 [From Augmentin] 12/08/18 21:16 Pt presents to the ED for headache starting today. Did not take any medication at home. Also ran out of BP meds for 3 days Exam: No gross neuro deficits Orders: Labs Pt to proceed to the ED for further evaluation Discharge Disposition - Diagnosis Headache - Referrals - Patient Instructions - Post Discharge Activity
--- NOTE | 2018-12-08 23:04 | PDOC ---
*Physical Exam - Vital Signs Last Vital Signs Temp Pulse Resp BP Pulse Ox 98.2 F 96 H 18 145/101 H 99 12/08/18 21:15 12/08/18 21:15 12/08/18 21:15 12/08/18 21:15 12/08/18 21:15 Medical Decision Making - Medical Decision Making 12/08/18 23:04 Patient seen by the advanced practice provider under my direct supervision. Ancillary testing reviewed as necessary. I agree with plan as outlined by the advanced practice provider. *DC/Admit/Observation/Transfer Diagnosis at time of Disposition: Headache - Referrals - Patient Instructions - Post Discharge Activity
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
[2018-12-08] MEDS ORDERED: VALSARTAN 80 MG TABLET (UD) PO ONE (23:24)
[2018-12-09] MEDS ORDERED: VALSARTAN 80 MG TABLET (UD) ONE (00:13)
[2018-12-09 00:31] LABS: BASO % 1.1 % (0-2.0); EOS % 0.8 % (0-4.5); HEMATOCRIT 35.1 % (32.4-45.2); HEMOGLOBIN 12.9 GM/dL (10.7-15.3); LYMPH % 58.6 % (8-40); MCH 36.3 pg (25.7-33.7); MCHC 36.7 g/dl (32.0-36.0); MEAN CELL VOLUME 98.9 fl (80-96); MEAN PLT VOLUME 7.3 fl (7.5-11.1); MONO % 4.5 % (3.8-10.2); PLATELET COUNT 208 K/MM3 (134-434); RBC 3.55 M/mm3 (3.60-5.2); WHITE BLOOD COUNT 6.8 K/mm3 (4.0-10.0)
[2018-12-09 01:06] LABS: ALBUMIN 3.4 g/dl (3.4-5.0); ALK PHOS 78 U/L (45-117); ANION GAP 6 MMOL/L (8-16); BILIRUBIN,TOTAL 0.2 mg/dL (0.2-1); BLOOD UREA NITROGEN 22 mg/dL (7-18); CALCIUM 8.5 mg/dL (8.5-10.1); CHLORIDE 108 mmol/L (98-107); CO2 29 mmol/L (21-32); CREATININE 0.9 mg/dL (0.55-1.3); GLUCOSE,RANDOM 134 mg/dL (74-106); POTASSIUM 3.6 mmol/L (3.5-5.1); SGOT/AST 28 U/L (15-37); SGPT/ALT 37 U/L (13-61); SODIUM 143 mmol/L (136-145); TOT PROT 6.9 g/dl (6.4-8.2)
[2018-12-09 01:33] LABS: PLATELET ESTIMATE ADEQUATE
[2018-12-09 01:57] VITALS: BP 154/98; PULSE 89
--- NOTE | 2018-12-09 11:37 | EKG ---
Test Reason : Blood Pressure : / mmHG Vent. Rate : 087 BPM Atrial Rate : 087 BPM P-R Int : 122 ms QRS Dur : 080 ms QT Int : 370 ms P-R-T Axes : 059 014 010 degrees QTc Int : 445 ms NORMAL SINUS RHYTHM NORMAL ECG WHEN COMPARED WITH ECG OF 17-NOV-2018 10:35, NO SIGNIFICANT CHANGE WAS FOUND Confirmed by LANA MERRILL MD ([id number]) on 12/09/2018 11:37:02 AM Referred By: Confirmed By:LANA MERRILL MD
== END 2018-12-09 03:54 | disposition home or self-care (01) ==
LOC: JER 21:11
DX: R51 Headache (principal); I10 Essential (primary) hypertension; Z91.14 Patient's other noncompliance with medication regimen; E78.00 Pure hypercholesterolemia, unspecified; J44.9 Chronic obstructive pulmonary disease, unspecified; J45.909 Unspecified asthma, uncomplicated; F31.9 Bipolar disorder, unspecified; F17.210 Nicotine dependence, cigarettes, uncomplicated
CPT/HCPCS: 36415; 70450-TC; 71046-TC-FY; 80053; 84484; 85025; 87389; 93005; 93010; 99282-25; 99283-25; J0131; J7030

== ENCOUNTER 2018-12-09 06:59 | Emergency (ER) | payer BC, OTHER ==
[2018-12-09 07:16] VITALS: TEMP 97.3; BMI 25.6
--- NOTE | 2018-12-09 08:17 | PDOC ---
History of Present Illness - General Chief Complaint: Headache Stated Complaint: HEADACHE Time Seen by Provider: 12/09/18 07:20 Past History - Past Medical History Allergies/Adverse Reactions: Allergies Allergy/AdvReac Type Severity Reaction Status Date / Time amoxicillin trihydrate Allergy Verified 12/09/18 07:12 [From Augmentin] azithromycin [From Zithromax] Allergy Verified 12/09/18 07:12 potassium clavulanate Allergy Verified 12/09/18 07:12 [From Augmentin] Home Medications: Ambulatory Orders Albuterol Sulfate Inhaler - [Ventolin HFA Inhaler -] 2 inh PO Q4H PRN 03/19/18 Timolol 0.25% [Timoptic 0.25%] 1 drop BID 03/19/18 Budesonide/Formeterol Fumarate [SYMBICORT 160/4.5mcg -] 2 inh PO BID 04/09/18 Cyclobenzaprine HCl 10 mg PO QID PRN 04/09/18 Docusate Sodium 100 mg PO BID 04/09/18 Pantoprazole Sodium 40 mg PO DAILY 04/09/18 Quetiapine Fumarate [Seroquel -] 25 mg PO DAILY 04/09/18 Quetiapine Fumarate [Seroquel] 100 mg PO HS 04/09/18 Sennosides [Senna] 8.6 mg PO HS 04/09/18 Aspirin [ASA -] 81 mg PO DAILY #30 tab.chew 04/11/18 Atorvastatin Ca [Lipitor] 80 mg PO HS #30 tablet 04/11/18 Acetaminophen [Tylenol] 1 tab PO PRN 04/16/18 Calcium Carbonate/Vitamin D3 [Calcium 500-Vit D3 400 Tablet] 1 tab PO DAILY Gabapentin 1 tab PO TID 04/16/18 Multivitamin [Daily Multiple Vitamin] 1 tab PO DAILY 04/16/18 Paroxetine HCl [Paxil] 2 tablet PO DAILY #60 tablet 04/17/18 Topiramate [Topamax] 100 mg PO BID #20 tablet 06/12/18 Naproxen [Naprosyn -] 500 mg PO BID PRN #20 tablet 06/21/18 Albuterol Sulfate Inhaler - [Ventolin HFA Inhaler -] 2 inh PO Q4H #1 inh Albuterol Sulfate [Proventil HFA Inhaler -] 1 - 2 inh PO TID 10/23/18 Nicotine Patch [Nicoderm Patch -] 1 patch TD DAILY #30 patch 10/23/18 Olmesartan/Hydrochlorothiazide [Olmesartan-Hctz 40-25 mg Tab] 1 each PO DAILY Prednisone [Deltasone] 20 mg PO DAILY 10/23/18 Albuterol Sulfate Inhaler - [Ventolin HFA Inhaler -] 1 puff IH DAILY PRN #1 inhaler 11/04/18 Clindamycin [Cleocin -] 450 mg PO Q8H #63 capsule 11/17/18 Prednisone [Prednisone 50 MG TABLETS] 50 mg PO DAILY #4 tablet 11/17/18 Ibuprofen 600 mg PO Q6H #30 tablet 12/09/18 Meclizine HCl [Antivert -] 25 mg PO TID #21 tablet 12/09/18 Olmesartan Medoxomil [Benicar -] 40 mg PO DAILY #30 tablet 12/09/18 Olmesartan Medoxomil [Benicar -] 40 mg PO DAILY #7 tablet 12/09/18 Anemia: No Asthma: Yes Cancer: No Cardiac Disorders: No CVA: Yes ("MINI STROKE" FEW YRS AGO) COPD: Yes CHF: No DVT: No Dementia: No Diabetes: No Dialysis: No GI Disorders: No Disorders: No HTN: Yes Hypercholesterolemia: Yes Kidney Stones: No Liver Disease: No Psychiatric Problems: No Seizures: No Thyroid Disease: No Lung CA: No - Surgical History Abdominal Surgery: No Appendectomy: No Cardiac Surgery: Yes (SX R CAROTID ARTERY FOR A CLOT IN 2004) Cholecystectomy: No Gastric Stapling: No GI Surgery: No Lung Surgery: No Neurologic Surgery: No Orthopedic Surgery: No - Reproductive History PID: No - Immunization History Td Vaccination: Yes Immunization Up to Date: Yes - Suicide/Smoking/Psychosocial Hx Smoking Status: Yes Smoking History: Current some day smoker Years of Tobacco Use: 20 Have you smoked in the past 12 months: Yes Number of Cigarettes Smoked Daily: 10 Cigars Per Day: 0 Information on smoking cessation initiated: No 'Breaking Loose' booklet given: 02/05/16 Hx Alcohol Use: No Drug/Substance Use Hx: No Substance Use Type: None Hx Substance Use Treatment: No *Physical Exam - Vital Signs Last Vital Signs Temp Pulse Resp BP Pulse Ox 97.3 F L 81 19 131/85 97 12/09/18 06:59 12/09/18 06:59 12/09/18 06:59 12/09/18 06:59 12/09/18 06:59 Moderate Sedation - Procedure Monitoring Vital Signs: Procedure Monitoring Vital Signs Temperature 97.3 F L 12/09/18 06:59 Pulse Rate 81 12/09/18 06:59 Respiratory Rate 19 12/09/18 06:59 Blood Pressure 131/85 12/09/18 06:59 O2 Sat by Pulse Oximetry (%) 97 12/09/18 06:59 ED Treatment Course - LABORATORY CBC & Chemistry Diagram: 12/09/18 08:18 12/09/18 08:18 *DC/Admit/Observation/Transfer Diagnosis at time of Disposition: Headache - Discharge Dispostion Disposition: HOME Condition at time of disposition: Fair Decision to Admit order: No - Referrals - Patient Instructions Printed Discharge Instructions: DI for Headache Additional Instructions: Your blood work and CT scan were normal Take your mediation as prescribed Drink plenty of fluids Follow up with your primary care doctor Return to the ED for any new or worsening symptoms - Post Discharge Activity
[2018-12-09] MEDS ORDERED: SODIUM CHLORIDE 1,000 ML IV STA (08:18)
[2018-12-09] MEDS ORDERED: ACETAMINOPHEN 1000 MG/100 ML VIAL (NON FORMULARY) IVPB ONE (08:19)
[2018-12-09] MEDS ORDERED: METOCLOPRAMIDE HCL INJECTION 10 MG/2 ML VIAL IVPB ONE (08:19)
[2018-12-09] MEDS ORDERED: ACETAMINOPHEN INJECTION 100 ML IVPB ONE (09:02)
[2018-12-09] MEDS ORDERED: METOCLOPRAMIDE HCL INJECTION 10 MG/2 ML VIAL ONE (09:02)
--- NOTE | 2018-12-09 09:16 | PDOC ---
*Physical Exam - Vital Signs Last Vital Signs Temp Pulse Resp BP Pulse Ox 97.3 F L 81 19 131/85 97 12/09/18 06:59 12/09/18 06:59 12/09/18 06:59 12/09/18 06:59 12/09/18 06:59 - Physical Exam Comments: 12/09/18 09:16 The patient was examined by [ SIVAN Cantu] under my direct supervision. I personally evaluated the patient. I concur with the above findings and the plan of care. *DC/Admit/Observation/Transfer - Discharge Dispostion Condition at time of disposition: Fair - Referrals - Patient Instructions - Post Discharge Activity
[2018-12-09 09:28] LABS: BASO % 0.5 % (0-2.0); EOS % 0.8 % (0-4.5); HEMATOCRIT 35.8 % (32.4-45.2); HEMOGLOBIN 12.7 GM/dL (10.7-15.3); LYMPH % 56.5 % (8-40); MCH 35.1 pg (25.7-33.7); MCHC 35.6 g/dl (32.0-36.0); MEAN CELL VOLUME 98.7 fl (80-96); MEAN PLT VOLUME 7.5 fl (7.5-11.1); MONO % 6.6 % (3.8-10.2); NEUT % 35.6 % (42.8-82.8); PLATELET COUNT 201 K/MM3 (134-434); RBC 3.63 M/mm3 (3.60-5.2); RDW 14.1 % (11.6-15.6); WHITE BLOOD COUNT 5.6 K/mm3 (4.0-10.0)
[2018-12-09 10:06] LABS: ALBUMIN 3.4 g/dl (3.4-5.0); ALK PHOS 71 U/L (45-117); ANION GAP 5 MMOL/L (8-16); BILIRUBIN,TOTAL 0.2 mg/dL (0.2-1); BLOOD UREA NITROGEN 21 mg/dL (7-18); CALCIUM 8.6 mg/dL (8.5-10.1); CHLORIDE 109 mmol/L (98-107); CO2 29 mmol/L (21-32); CREATININE 0.8 mg/dL (0.55-1.3); GLUCOSE,RANDOM 102 mg/dL (74-106); POTASSIUM 3.9 mmol/L (3.5-5.1); SGOT/AST 18 U/L (15-37); SGPT/ALT 34 U/L (13-61); SODIUM 143 mmol/L (136-145); TOT PROT 6.8 g/dl (6.4-8.2)
[2018-12-09] MEDS ORDERED: MECLIZINE HCL 25 MG TABLET (FP) PO ONE (10:36)
[2018-12-09] MEDS ORDERED: MECLIZINE HCL 25 MG TABLET (FP) ONE (10:40)
[2018-12-09] MEDS ORDERED: KETOROLAC TROMETHAMINE 30 MG/1 ML VIAL IVPUSH ONE (11:34)
[2018-12-09] MEDS ORDERED: KETOROLAC TROMETHAMINE 30 MG/1 ML VIAL ONE (11:42)
[2018-12-09] MEDS ORDERED: ACETAMINOPHEN/CAFFEINE/BUTALBITAL 1 TAB PO ONE (12:48)
[2018-12-09] MEDS ORDERED: ACETAMINOPHEN/CAFFEINE/BUTALBITAL 1 TAB ONE (12:59)
[2018-12-09 13:04] VITALS: BP 127/97; PULSE 68
== END 2018-12-09 15:40 | disposition home or self-care (01) ==
LOC: JER 06:59
PROC: 3E0333Z Introduction of Anti-inflammatory into Peripheral Vein, Percutaneous Approach (ICD-10-PCS; principal; 2018-12-09)
DX: R51 Headache (principal); I10 Essential (primary) hypertension; E78.00 Pure hypercholesterolemia, unspecified; J44.9 Chronic obstructive pulmonary disease, unspecified; J45.909 Unspecified asthma, uncomplicated; Z86.73 Personal history of transient ischemic attack (TIA), and cerebral infarction without residual deficits
CPT/HCPCS: 36415; 71046-TC-FY; 80053; 85025; 87389; 99283-25; J0131; J7030

== ENCOUNTER 2019-02-16 10:34 | Emergency (ER) | payer OTHER ==
[2019-02-16 10:39] VITALS: BP 153/95; PULSE 95; TEMP 98; BMI 29.0
[2019-02-16] MEDS ORDERED: KETOROLAC TROMETHAMINE 60 MG/2 ML VIAL IM ONE (11:53)
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
[2019-02-16] MEDS ORDERED: KETOROLAC TROMETHAMINE 60 MG/2 ML VIAL ONE (12:05)
== END 2019-02-16 13:18 | disposition home or self-care (01) ==
LOC: JERFT 10:34
PROC: 3E0233Z Introduction of Anti-inflammatory into Muscle, Percutaneous Approach (ICD-10-PCS; principal; 2019-02-16)
DX: M79.18 Myalgia, other site (principal); M25.512 Pain in left shoulder; M25.562 Pain in left knee; W50.0XXA Accidental hit or strike by another person, initial encounter; Y93.01 Activity, walking, marching and hiking; Y92.89 Other specified places as the place of occurrence of the external cause; Y99.8 Other external cause status; R51 Headache; I10 Essential (primary) hypertension; J44.9 Chronic obstructive pulmonary disease, unspecified; J45.909 Unspecified asthma, uncomplicated; F17.210 Nicotine dependence, cigarettes, uncomplicated; Z86.79 Personal history of other diseases of the circulatory system
CPT/HCPCS: 73060-TC-LT-FY; 73562-TC-LT-FY; 96372; 99281-25

== ENCOUNTER 2019-02-23 23:49 | Inpatient (IN) | payer OTHER ==
--- NOTE | 2019-02-24 01:41 | PDOC ---
History of Present Illness - General Chief Complaint: Chest Pain Stated Complaint: CHEST PAIN Time Seen by Provider: 02/24/19 01:41 History Source: Patient Exam Limitations: Other (poor historian) Past History - Travel Traveled outside of the country in the last 30 days: No Close contact w/someone who was outside of country & ill: No - Past Medical History Allergies/Adverse Reactions: Allergies Allergy/AdvReac Type Severity Reaction Status Date / Time amoxicillin trihydrate Allergy Verified 02/24/19 01:57 [From Augmentin] azithromycin [From Zithromax] Allergy Verified 02/24/19 01:57 potassium clavulanate Allergy Verified 02/24/19 01:57 [From Augmentin] Home Medications: Ambulatory Orders Albuterol Sulfate Inhaler - [Ventolin HFA Inhaler -] 2 inh PO Q4H PRN 03/19/18 Timolol 0.25% [Timoptic 0.25%] 1 drop BID 03/19/18 Budesonide/Formeterol Fumarate [SYMBICORT 160/4.5mcg -] 2 inh PO BID 04/09/18 Docusate Sodium 100 mg PO BID 04/09/18 Pantoprazole Sodium 40 mg PO DAILY 04/09/18 Quetiapine Fumarate [Seroquel -] 25 mg PO DAILY 04/09/18 Quetiapine Fumarate [Seroquel] 100 mg PO HS 04/09/18 Sennosides [Senna] 8.6 mg PO HS 04/09/18 Aspirin [ASA -] 81 mg PO DAILY #30 tab.chew 04/11/18 Atorvastatin Ca [Lipitor] 80 mg PO HS #30 tablet 04/11/18 Acetaminophen [Tylenol] 1 tab PO PRN 04/16/18 Calcium Carbonate/Vitamin D3 [Calcium 500-Vit D3 400 Tablet] 1 tab PO DAILY Gabapentin 1 tab PO TID 04/16/18 Multivitamin [Daily Multiple Vitamin] 1 tab PO DAILY 04/16/18 Paroxetine HCl [Paxil] 2 tablet PO DAILY #60 tablet 04/17/18 Topiramate [Topamax] 100 mg PO BID #20 tablet 06/12/18 Albuterol Sulfate Inhaler - [Ventolin HFA Inhaler -] 2 inh PO Q4H #1 inh Albuterol Sulfate [Proventil HFA Inhaler -] 1 - 2 inh PO TID 10/23/18 Nicotine Patch [Nicoderm Patch -] 1 patch TD DAILY #30 patch 10/23/18 Olmesartan/Hydrochlorothiazide [Olmesartan-Hctz 40-25 mg Tab] 1 each PO DAILY Prednisone [Deltasone] 20 mg PO DAILY 10/23/18 Albuterol Sulfate Inhaler - [Ventolin HFA Inhaler -] 1 puff IH DAILY PRN #1 inhaler 11/04/18 Clindamycin [Cleocin -] 450 mg PO Q8H #63 capsule 11/17/18 Prednisone [Prednisone 50 MG TABLETS] 50 mg PO DAILY #4 tablet 11/17/18 Diphenhydramine HCl [Benadryl -] 25 mg PO Q8H #21 capsule 12/09/18 Ibuprofen 600 mg PO Q6H #30 tablet 12/09/18 Meclizine HCl [Antivert -] 25 mg PO TID #21 tablet 12/09/18 Olmesartan Medoxomil [Benicar -] 40 mg PO DAILY #30 tablet 12/09/18 Olmesartan Medoxomil [Benicar -] 40 mg PO DAILY #7 tablet 12/09/18 Cyclobenzaprine HCl 10 mg PO QID PRN #20 tablet 02/16/19 Naproxen [Naprosyn -] 500 mg PO BID PRN #20 tablet 02/16/19 Aspirin [ASA -] 243 mg PO ONCE #1 tab.chew 02/24/19 Anemia: No Asthma: Yes Cancer: No Cardiac Disorders: No CVA: Yes ("MINI STROKE" FEW YRS AGO) COPD: Yes CHF: No DVT: No Dementia: No Diabetes: No Dialysis: No GI Disorders: No Disorders: No HTN: Yes Hypercholesterolemia: Yes Kidney Stones: No Liver Disease: No Psychiatric Problems: No Seizures: No Thyroid Disease: No Lung CA: No - Surgical History Abdominal Surgery: No Appendectomy: No Cardiac Surgery: Yes (SX R CAROTID ARTERY FOR A CLOT IN 2004) Cholecystectomy: No Gastric Stapling: No GI Surgery: No Lung Surgery: No Neurologic Surgery: No Orthopedic Surgery: No - Reproductive History PID: No - Immunization History Td Vaccination: Yes Immunization Up to Date: Yes - Suicide/Smoking/Psychosocial Hx Smoking Status: Yes Smoking History: Current every day smoker Years of Tobacco Use: 20 Have you smoked in the past 12 months: Yes Number of Cigarettes Smoked Daily: 10 Cigars Per Day: 0 'Breaking Loose' booklet given: 02/05/16 Hx Alcohol Use: No Drug/Substance Use Hx: No Substance Use Type: None Hx Substance Use Treatment: No Review of Systems - Review of Systems Able to Perform ROS?: Yes Is the patient limited Ecuadorean proficient: No *Physical Exam - Physical Exam Comments: Vitals stable, pt afebrile. Pt in NAD, normal body habitus. Pt alert and oriented x3. shoe reconditioner generally intact, muscular strength and sensation intact. No midline spinal tenderness, step-offs, or crepitus. Head normocephalic, atraumatic. Eyes PERRLA, EOMI. Oropharynx without erythema or exudates, no LAD b/l. No nasal congestion, hearing intact. Clear heart sounds, S1/S2, no JVD, b/l pedal edema, or heart murmur. Clear lung sounds, no respiratory distress, wheezes, crackles, or accessory muscle use. No abdominal or CVA tenderness to palpation, no rebound, no guarding. Abdomen soft, non-distended, and with normoactive bowel sounds. Skin without jaundice or rash. 02/24/19 03:26 ED Treatment Course - LABORATORY CBC & Chemistry Diagram: 02/24/19 03:04 02/24/19 03:04 Medical Decision Making - Medical Decision Making Pt was seen at bedside, also will be seen by attending [ ]. Pt presenting with Considering [vs vs] Ordered work-up including [labs] and [imaging]. Provided [interventions/meds] for improvement of [pain/symptom control]. Will continue to reassess pt and monitor for symptomatic improvement. ECG: NSR, intervals WNL. No TWIs or significant ST segment changes. No significant changes from prior ECG. Provided pt 0.4 SL NG 02/24/19 03:26 Providing 750 mg IV levaquin to cover for pneumonia, as chest x-ray has b/l infiltrates. 02/24/19 05:07 *DC/Admit/Observation/Transfer - Discharge Dispostion Condition at time of disposition: Fair - Prescriptions Prescriptions: Aspirin [ASA -] 243 mg PO ONCE #1 tab.chew - Referrals Referrals: Olayinka Edwards MD [Primary Care Provider] - - Patient Instructions - Post Discharge Activity
[2019-02-24] MEDS ORDERED: ACETAMINOPHEN 325 MG TABLET (FP) PO ONE (02:17)
[2019-02-24] MEDS ORDERED: ASPIRIN 325 MG TABLET PO ONE (02:17)
[2019-02-24] MEDS ORDERED: ACETAMINOPHEN 325 MG TABLET (FP) ONE (02:34)
[2019-02-24] MEDS ORDERED: ASPIRIN 325 MG TABLET ONE (02:35)
[2019-02-24] MEDS ORDERED: NITROGLYCERIN SUBLINGUAL 1/150 0.4 MG TAB SL ONE (03:14)
[2019-02-24 03:40] LABS: HEMATOCRIT 38.3 % (32.4-45.2); LYMPH % 46.6 % (8-40); MCH 33.9 pg (25.7-33.7); MCHC 33.9 g/dl (32.0-36.0); MONO % 5.7 % (3.8-10.2); NEUT % 45.7 % (42.8-82.8); PLATELET COUNT 181 K/MM3 (134-434); RBC 3.83 M/mm3 (3.60-5.2); RDW 13.6 % (11.6-15.6); WHITE BLOOD COUNT 6.4 K/mm3 (4.0-10.0)
[2019-02-24] MEDS ORDERED: ALBUTEROL SO4 2.5/IPRATROPIUM 0.5 INH SOL 3 ML VIAL.NEB. NEB ONE ×2 (03:51→03:57)
[2019-02-24 04:21] LABS: ALBUMIN 3.4 g/dl (3.4-5.0); ALK PHOS 91 U/L (45-117); ANION GAP 8 MMOL/L (8-16); BILIRUBIN,TOTAL 0.2 mg/dL (0.2-1); BLOOD UREA NITROGEN 21 mg/dL (7-18); CALCIUM 9.1 mg/dL (8.5-10.1); CHLORIDE 109 mmol/L (98-107); CO2 26 mmol/L (21-32); CREATININE 0.8 mg/dL (0.55-1.3); GLUCOSE,RANDOM 94 mg/dL (74-106); MAGNESIUM 2.1 mg/dL (1.8-2.4); N-TERMINAL BNP 14.2 pg/ml (5-125); POTASSIUM 3.7 mmol/L (3.5-5.1); SGOT/AST 38 U/L (15-37); SGPT/ALT 33 U/L (13-61); SODIUM 143 mmol/L (136-145); TOT PROT 6.7 g/dl (6.4-8.2)
--- NOTE | 2019-02-24 05:30 | PDOC ---
Documentation entered by Angelic Arriaga SCRIBE, acting as scribe for Liv Perera DO. Liv Perera DO: This documentation has been prepared by the Corina zamora Daisy, SCRIBE, under my direction and personally reviewed by me in its entirety. I confirm that the documentation accurately reflects all work , treatment, procedures, and medical decision making performed by me. Attending Attestation - Resident Resident Name: Fara Mchugh - ED Attending Attestation I have performed the following: I have examined & evaluated the patient, The case was reviewed & discussed with the resident, I agree w/resident's findings & plan - HPI HPI: 02/24/19 03:15 The patient is a 48 YOF with a PMH of HTN, HLD, Bipolar and polysubstance abuse who presents with substernal chest pain that woke her up from sleep prior to arrival. She is also complaining of radiation to the left arm. Denies nausea, vomiting, diaphoresis. She reports that she last smoked PCP atthe substerma; chest pain. Allergies: amoxicillin, trihydrate, azithromycin, potassium chavulanate. - Physicial Exam PE: 02/24/19 03:22 Agree with resident's exa, - Medical Decision Making 02/24/19 05:29 Patient is a 48-year-old female with history of polysubstance abuse complaining of chest pain Exam and evaluation consistent with likely airspace disease/pneumonia with atypical chest pain Levaquin 750 mg given Case discussed with hospitalist service, patient will be admitted for further evaluation
[2019-02-24 09:54] LABS: PH,URINE 5.5 (5.0-8.0); URINE APPEARANCE CLEAR; URINE BILIRUBIN NEGATIVE (NEGATIVE); URINE COLOR YELLOW; URINE GLUCOSE (UA) NEGATIVE (NEGATIVE); URINE KETONE NEGATIVE (NEGATIVE); URINE LEUK ESTERASE NEGATIVE (NEGATIVE); URINE NITRITE NEGATIVE (NEGATIVE); URINE PROTEIN NEGATIVE (NEGATIVE); URINE UROBILINOGEN 0.2 mg/dL (0.2-1.0)
--- NOTE | 2019-02-24 10:24 | EKG ---
Test Reason : Blood Pressure : / mmHG Vent. Rate : 080 BPM Atrial Rate : 080 BPM P-R Int : 112 ms QRS Dur : 082 ms QT Int : 410 ms P-R-T Axes : 046 -10 010 degrees QTc Int : 472 ms POOR DATA QUALITY, INTERPRETATION MAY BE ADVERSELY AFFECTED NORMAL SINUS RHYTHM POSSIBLE LEFT ATRIAL ENLARGEMENT NONSPECIFIC T WAVE ABNORMALITY ABNORMAL ECG WHEN COMPARED WITH ECG OF 08-DEC-2018 23:38, NONSPECIFIC T WAVE ABNORMALITY NOW EVIDENT IN ANTERIOR LEADS Confirmed by DESIRAE OWEN, LANA ([id number]) on 02/24/2019 10:24:17 AM Referred By: Confirmed By:LANA MERRILL MD
[2019-02-24] MEDS ORDERED: ALBUTEROL SO4 8 GM HFA INHALER IH PRN (12:54)
[2019-02-24 12:58] VITALS: BMI 29.4
[2019-02-24] MEDS ORDERED: guaiFENesin 200 MG/10 ML 10 ML UNIT-DOSE CUPS PO PRN (13:00)
[2019-02-24] MEDS ORDERED: AZITHROMYCIN 250 MG TABLET PO ONE (13:07)
--- NOTE | 2019-02-24 13:14 | HP ---
Admitting History and Physical - Primary Care Physician PCP: Olayinka Edwards - Admission Chief Complaint: Chest pain History of Present Illness: 48 yrs old F smoker H/O PSA in the past chronic pain HTN< High Cholesterol, COPD /asthma , Bipolar disorders present with c/o central chest pain while sleeping pressre like sharp 10/10 radiates to Left arm woke it her from sleep, associated with cough came to ED for evalution, w/u shows Pulmonary congestion , normal BNP normal CBCadmitted or further evaluation and management. History Source: Patient - Past Medical History RETORT COOLER: Yes: TIA Cardiovascular: Yes: CAD, HTN, Hyperlipdemia Pulmonary: Yes: COPD ...LMP: 07/06/16 Psych: Yes: Bipolar Rheumatology: Yes: Rheumatoid Arthritis - Smoking History Smoking history: Current every day smoker Have you smoked in the past 12 months: Yes Aproximately how many cigarettes per day: 10 - Alcohol/Substance Use Hx Alcohol Use: No History of Substance Use: reports: Marijuana (and PCP) - Social History ADL: Independent History of Recent Travel: No Home Medications - Allergies Allergies/Adverse Reactions: Allergies Allergy/AdvReac Type Severity Reaction Status Date / Time amoxicillin trihydrate Allergy Verified 02/24/19 01:57 [From Augmentin] azithromycin [From Zithromax] Allergy Verified 02/24/19 01:57 potassium clavulanate Allergy Verified 02/24/19 01:57 [From Augmentin] - Home Medications Home Medications: Ambulatory Orders Unobtainable 02/24/19 Family Disease History - Family Disease History Family Disease History: Diabetes: Brother (HTN, Cancer), Heart Disease: Grandparent, Father ( ETOH DEPENDENT AND FROM CAD), Mother ( FROM CAD) , Brother, CA: Brother Review of Systems - Review of Systems Constitutional: denies: Diaphoresis Eyes: denies: Blind Spots, Blurred Vision HENT: denies: Difficult Swallowing Neck: denies: Decreased ROM, Lumps Cardiovascular: reports: Chest Pain, Shortness of Breath. denies: Edema, Palpitations Respiratory: reports: Cough Genitourinary: denies: Burning, Discharge Musculoskeletal: reports: Back Pain Integumentary: denies: Blister, Bruising Physical Examination Vital Signs: Vital Signs Temperature 97.9 F 02/24/19 12:19 Pulse Rate 71 04/24/19 12:19 Respiratory Rate 18 02/24/19 12:19 Blood Pressure 153/95 02/24/19 12:19 O2 Sat by Pulse Oximetry (%) 98 02/24/19 12:19 Constitutional: Yes: Well Nourished, No Distress, Poor Hygeine Eyes: Yes: WNL HENT: Yes: Atraumatic, Normocephalic Neck: Yes: Supple Cardiovascular: Yes: Regular Rate and Rhythm, S1, S2. No: JVD, Murmur Respiratory: Yes: Regular, Wheezes Musculoskeletal: Yes: Joint Stiffness Extremities: No: Calf Tenderness Edema: No Peripheral Pulses: Left Doralis Pedis: 1+, Right Dorsalis Pedis: 1+ Wound/Incision: Yes: Well Approximated Neurological: Yes: Alert, Oriented ...Motor Strength: WNL, LUE, LLE, RUE, RLE Labs: CBC, BMP 02/24/19 03:04 02/24/19 03:04 Imaging - Results Chest X-ray: Report Reviewed (? Ifiltrates) EKG: Report Reviewed (88 no iterval changes) Problem List - Problems (1) Chest pain at rest Assessment/Plan: chest pain multiple CAd risk factor low cholestrol diet serial CE, ECHO, Lipid panel, U Tox, TSH, Cariology consult cot ASA and Sttain Code(s): R07.9 - CHEST PAIN, UNSPECIFIED (2) Reactive airway disease Assessment/Plan: cont Po prednisoe, levofloxacin, Duoneb Advair and albuterol Code(s): J45.909 - UNSPECIFIED ASTHMA, UNCOMPLICATED (3) HTN (hypertension) Assessment/Plan: Cont home meds Code(s): I10 - ESSENTIAL (PRIMARY) HYPERTENSION (4) Bipolar I disorder Assessment/Plan: Resume hoe meds Code(s): F31.9 - BIPOLAR DISORDER, UNSPECIFIED (5) Hypercholesteremia Assessment/Plan: Cot statin Code(s): E78.00 - PURE HYPERCHOLESTEROLEMIA, UNSPECIFIED
[2019-02-24] MEDS: QUEtiapine FUMARATE 25 MG TABLET (FP) PO SCH (14:08)
[2019-02-24] MEDS: FLUTICASONE/SALMETEROL 100 MCG/50 MCG DISKUS IH SCH ×2 (14:09→23:11)
[2019-02-24] MEDS: LOSARTAN POTASSIUM 50 MG TABLET (FP) PO SCH (14:09)
[2019-02-24 14:29] LABS: CHOLESTEROL 200 mg/dL (50-200); HDL CHOLESTEROL 50 mg/dL (40-60); N-TERMINAL BNP 12.5 pg/ml (5-125); TRIGLYCERIDES 139 mg/dL (0-150)
--- NOTE | 2019-02-24 15:13 | EKG ---
Test Reason : Blood Pressure : / mmHG Vent. Rate : 091 BPM Atrial Rate : 091 BPM P-R Int : 128 ms QRS Dur : 082 ms QT Int : 352 ms P-R-T Axes : 051 -06 009 degrees QTc Int : 432 ms NORMAL SINUS RHYTHM NONSPECIFIC T WAVE ABNORMALITY ABNORMAL ECG WHEN COMPARED WITH ECG OF 24-FEB-2019 00:26, NONSPECIFIC T WAVE ABNORMALITY NOW EVIDENT IN LATERAL LEADS Confirmed by DESIRAE OWEN, LANA ([id number]) on 02/24/2019 3:12:49 PM Referred By: Garret HERNANDEZ Confirmed By:LANA MERRILL MD
[2019-02-24 18:53] LABS: COCAINE, UR NEGATIVE ng/ml (CUTOFF=300); METHADONE, UR NEGATIVE ng/ml (CUTOFF=300); OPIATES, URI NEGATIVE ng/ml (CUTOFF=300); URINE AMPHETAMINES NEGATIVE ng/ml (CUTOFF=500); URINE BARBITURATES NEGATIVE ng/ml (CUTOFF=200); URINE BENZODIAZEPINES NEGATIVE ng/ml (CUTOFF=200)
[2019-02-24 19:00] LABS: PHENCYCLIDINE,URINE POSITIVE ng/ml (CUTOFF=25)
[2019-02-24] MEDS: ATORVASTATIN CA 40 MG TABLET (FP) PO SCH (23:12)
[2019-02-25] MEDS: ALBUTEROL SO4 2.5/IPRATROPIUM 0.5 INH SOL 3 ML VIAL.NEB. NEB PRN ×2 (02:02→19:55)
[2019-02-25 07:10] LABS: BASO % 0.2 % (0-2.0); EOS % 1.3 % (0-4.5); HEMATOCRIT 37.2 % (32.4-45.2); HEMOGLOBIN 12.5 GM/dL (10.7-15.3); LYMPH % 48.8 % (8-40); MCH 33.4 pg (25.7-33.7); MCHC 33.6 g/dl (32.0-36.0); MEAN CELL VOLUME 99.3 fl (80-96); MEAN PLT VOLUME 7.6 fl (7.5-11.1); MONO % 6.6 % (3.8-10.2); NEUT % 43.1 % (42.8-82.8); PLATELET COUNT 191 K/MM3 (134-434); RBC 3.75 M/mm3 (3.60-5.2); RDW 13.8 % (11.6-15.6); WHITE BLOOD COUNT 4.8 K/mm3 (4.0-10.0)
[2019-02-25 07:20] LABS: ANION GAP 5 MMOL/L (8-16); BLOOD UREA NITROGEN 19 mg/dL (7-18); CALCIUM 9.1 mg/dL (8.5-10.1); CHLORIDE 110 mmol/L (98-107); CO2 28 mmol/L (21-32); CREATININE 0.9 mg/dL (0.55-1.3); GLUCOSE,RANDOM 118 mg/dL (74-106); POTASSIUM 3.9 mmol/L (3.5-5.1); SODIUM 143 mmol/L (136-145)
[2019-02-25] MEDS ORDERED: AZITHROMYCIN 250 MG TABLET PO SCH (10:00)
[2019-02-25] MEDS: ASPIRIN 81 MG CHEWABLE TABLETS PO SCH (10:03)
[2019-02-25] MEDS: QUEtiapine FUMARATE 25 MG TABLET (FP) PO SCH ×3 (10:03→22:25)
[2019-02-25] MEDS: FLUTICASONE/SALMETEROL 100 MCG/50 MCG DISKUS IH SCH ×2 (10:03→22:26)
[2019-02-25] MEDS: predniSONE 20 MG TABLET (UD) PO SCH (10:03)
[2019-02-25] MEDS: PARoxetine HCL 10 MG TABLET (FP) PO SCH (10:03)
[2019-02-25] MEDS: LOSARTAN POTASSIUM 50 MG TABLET (FP) PO SCH (10:04)
[2019-02-25] MEDS: TRIAMTERENE AND HCTZ - 37.5 MG/25 MG CAPSULE PO SCH (10:23)
--- NOTE | 2019-02-25 11:06 | CONS ---
DATE OF CONSULTATION: DATE OF DICTATION: 02/25/2019 CONSULTATION REQUESTED BY: Olayinka Edwards MD/Aakash Correia MD CARDIOLOGY CONSULTATION CHIEF COMPLAINT: Retrosternal pleuritic chest pain. HISTORY: The patient is a 48-year-old female with longstanding history of hypertension, hypercholesterolemia, history of cerebrovascular accident, rheumatoid and osteoarthritis, history of asthma, COPD, and glaucoma. Patient states she was awoken up from sleep with sharp retrosternal chest pain that was aggravated by inspiration and radiated to the left arm, described as a burning sensation. She also had mild dyspnea. No cough or expectoration was reported. There were no chills or fever. Patient has chronic bronchial asthma with periodic exacerbation. No history of palpitations, lightheadedness, dizziness, presyncope, or syncope. Occasional cough with scant expectoration. No history of diabetes mellitus. PAST HISTORY: 1. History of "ministroke?" involving the left side. 2. History of bipolar disorder. 3. History of a blood clot involving the right arm and right neck requiring surgical intervention. SOCIAL HISTORY: She is , is disabled, has a son and a daughter. Smoked 1/2 to 1 pack of cigarettes per day. Does not drink alcohol. Has 1 cup of coffee. Patient has been using PCP, stopped 3 weeks ago and was at a rehab center. FAMILY HISTORY: Father at age 39 of a myocardial infarction. Mother at age 62 also related to a myocardial infarction. Has 1 brother and a sister. The brother is schizophrenic. ALLERGIES: 1. ZITHROMAX. 2. AMOXICILLIN. 3. AUGMENTIN. CURRENT MEDICATIONS: 1. Prednisone 40 mg p.o. daily. 2. Advair 1 inhalation b.i.d. 3. Tylenol 650 mg p.o. q.6 hours p.r.n. 4. Losartan 50 mg p.o. daily. 5. Levaquin 500 mg p.o. daily. 6. Paxil 10 mg p.o. daily. 7. Seroquel 25 mg p.o. daily. 8. Albuterol inhaler 2 puffs q.4 hours p.r.n. 9. Albuterol ipratropium 1 ampule via nebulizer q.6 hours p.r.n. 10. Robitussin 10 mL p.o. q.8 hours p.r.n. 11. Atorvastatin 40 mg p.o. daily. 12. Aspirin 81 mg p.o. daily. 13. Dyazide 1 capsule p.o. daily. 14. Prior to admission, patient had been on timolol ophthalmic solution. REVIEW OF SYSTEMS: Constitutional: History of occasional warm night sweats that started after menopause. No history of unintentional weight loss. HEENT: History of occasional headaches, history of glaucoma, no history of blurred vision or diplopia. No history of epistaxis, no history of hoarseness or deafness. Cardiovascular: See history of present illness. Respiratory: See history of present illness. No history of hemoptysis or tuberculosis. Gastrointestinal: No history of nausea, vomiting, melena, or hematemesis reported. No history of abdominal pain or discomfort. No history of change in bowel habits. Vascular: History of pedal edema and use of stents. No history of exertional claudications. History of a blood clot involving the right upper extremity and neck requiring surgical intervention. Endocrine: No history of polyuria or polydipsia. No history of intolerance to cold or warm weather. Musculoskeletal: See history of present illness. Hematological/Lymphatics: No history of anemia, ecchymosis, or bleeding. Psychological: History of bipolar disorder. PHYSICAL EXAMINATION: General: A 48-year-old female was in no acute distress, no pallor, cyanosis, clubbing, or jaundice. Vital Signs: Blood pressure 152/91 mmHg at 6 a.m. Temperature 98.3 degrees Fahrenheit. Heart rate 81 beats per minute and regular. Respirations 18 per minute. Oxygen saturation 97%. Weight 75.353 kg. Neck: Supple. Carotids were 2+, upstrokes were normal. No bruits were heard. There was no thyromegaly, no supraclavicular or submandibular lymphadenopathy. There was a well-healed right supraclavicular surgical scar. Heart: PMI was in the 5th intercostal space. No heaves or thrills. S1 and S2 were normal. No murmur, gallops, or rubs were heard. Lungs: Clear on auscultation. Abdomen: Obese, soft and nontender. No hepatosplenomegaly or palpable masses were felt. Bowel sounds were present. No bruits were heard. Extremities: No calf tenderness or dependent edema. Pulses were equal. LABORATORY DATA: ECG February 24, 2019: Sinus rhythm with interatrial conduction abnormality, left axis deviation, nonspecific ST and T-wave abnormalities. CT of the chest with contrast, impression: 1. There is no evidence of pulmonary embolus within the main pulmonary artery and its proximal branches bilaterally. 2. Normal size and enhancement of the thoracic and included upper abdominal aorta. 3. No enlarged mediastinal or hilar lymph nodes are identified. 4. Mild centrilobular emphysema/COPD changes mainly in the right upper lobe. 5. Bibasal atelectatic changes and likely pneumonic infiltrates, right more than left, without evidence of pneumothorax or pleural effusion bilaterally. 6. A couple of tiny, low-attenuation densities in the liver measuring up to 7 mm that are too small to characterized by CT criteria, likely representing tiny cysts. CBC February 25, 2019: WBC 4800, hemoglobin 12.5 g/dL. Platelet count 191,000. Differential: Neutrophils 43.1%, lymphocytes 48.8%. Monocytes 6.6%. Eosinophils 1.3%. Basophils 0.2%. Chemistry February 25, 2019: Sodium 143, potassium 3.9, chloride 110, CO2 of 28 mmol/L. BUN 19, creatinine 0.9 mg/dL. Liver function tests: AST was slightly elevated at 38. ALT was 33. CK was 1402. Followup CK is 623. Troponins were less than 0.02 on February 24 and February 25. Total cholesterol 200, triglycerides 139, LDL cholesterol 129, HDL cholesterol 50 mg/dL. D-dimer was 687. Urinalysis was reported to be normal. IMPRESSION: 1. Chest pain syndrome, etiology: A. Secondary to pneumonia. B. Pleuropericarditis needs to be excluded. 2. Hypertension, hypertensive cardiovascular disease, poorly controlled. 3. History of rheumatoid arthritis. 4. History of osteoarthritis. 5. Hypercholesterolemia. 6. History of bronchial asthma. 7. Chronic obstructive pulmonary disease. 8. Bipolar disorder. 9. History of recent substance abuse. 10. Exogenous obesity. 11. Glaucoma. RECOMMENDATIONS: 1. Echocardiogram. 2. Dose of losartan should be increased to 100 mg p.o. daily, and if blood pressure is not fully controlled, additional therapy would be warranted. 3. Consider HIV testing. 4. of undetermined etiology. 5. Followup CK. 6. T3, T4, TSH. PROGNOSIS: Guarded. Thank you for your referral. Scott BELLE/[id number]
[2019-02-25] MEDS ORDERED: LOSARTAN POTASSIUM 50 MG TABLET (FP) PO ONE (15:07)
--- NOTE | 2019-02-25 15:08 | PN ---
Progress Note, Physician Chief Complaint: feels improved - Current Medication List Current Medications: Active Medications Acetaminophen (Tylenol -) 650 mg PO Q6H PRN PRN Reason: PAIN Albuterol Sulfate (Ventolin Hfa Inhaler -) 2 puff IH Q4H PRN PRN Reason: SHORT OF BREATH/WHEEZING Albuterol/Ipratropium (Duoneb -) 1 amp NEB Q6H PRN PRN Reason: SHORTNESS OF BREATH Last Admin: 02/25/19 02:02 Dose: 1 amp Aspirin (Asa -) 81 mg PO DAILY [facility] Last Admin: 02/25/19 10:03 Dose: 81 mg Atorvastatin Calcium (Lipitor -) 40 mg PO HS [facility] Last Admin: 02/24/19 23:12 Dose: 40 mg Guaifenesin (Robitussin -) 10 ml PO Q8H PRN PRN Reason: COUGH Levofloxacin (Levaquin -) 500 mg PO DAILY@0600 [facility] Last Admin: 02/25/19 05:16 Dose: 500 mg Losartan Potassium (Cozaar -) 100 mg PO DAILY [facility] Losartan Potassium (Cozaar -) 50 mg PO ONCE ONE Stop: 02/25/19 15:08 Paroxetine HCl (Paxil -) 10 mg PO DAILY [facility] Last Admin: 02/25/19 10:03 Dose: 10 mg Prednisone (Deltasone -) 40 mg PO DAILY [facility] Last Admin: 02/25/19 10:03 Dose: 40 mg Quetiapine Fumarate (Seroquel -) 25 mg PO HS [facility] Fluticasone/Salmeterol (Advair 100mcg/50mcg -) 1 puff IH BID [facility] Last Admin: 02/25/19 10:03 Dose: 1 puff Triamterene/HCTZ (Dyazide 25/37.5mg) 1 cap PO DAILY [facility] Last Admin: 02/25/19 10:23 Dose: 1 cap - Objective Vital Signs: Vital Signs Temperature 97.8 F 02/25/19 13:26 Pulse Rate 84 02/25/19 13:26 Respiratory Rate 18 02/25/19 13:26 Blood Pressure 158/98 02/25/19 13:26 O2 Sat by Pulse Oximetry (%) 96 02/25/19 09:00 Constitutional: Yes: Well Nourished, No Distress, Poor Hygeine Eyes: Yes: WNL HENT: Yes: Atraumatic, Normocephalic Neck: Yes: Supple Cardiovascular: Yes: Regular Rate and Rhythm, S1, S2. No: JVD, Murmur Respiratory: Yes: Regular, Wheezes Musculoskeletal: Yes: Joint Stiffness Extremities: No: Calf Tenderness Edema: No Peripheral Pulses: Left Doralis Pedis: 1+, Right Dorsalis Pedis: 1+ Wound/Incision: Yes: Well Approximated Neurological: Yes: Alert, Oriented ...Motor Strength: WNL, LUE, LLE, RUE, RLE Labs: CBC, BMP 02/25/19 06:00 02/25/19 06:00 INR, PTT INR Cancelled 02/24/19 03:04 Problem List - Problems (1) Chest pain at rest Assessment/Plan: chest pain multiple CAd risk factor low cholestrol Diet evaluted by cardiology low suzpicion for CAD ECHo unrmarkable, BP is better controlled, claered to Dc by Cardiology consult. Code(s): R07.9 - CHEST PAIN, UNSPECIFIED (2) Reactive airway disease Assessment/Plan: cont Po prednisoe, levofloxacin, Duoneb Advair and albuterol Code(s): J45.909 - UNSPECIFIED ASTHMA, UNCOMPLICATED (3) HTN (hypertension) Assessment/Plan: Cont home meds Code(s): I10 - ESSENTIAL (PRIMARY) HYPERTENSION (4) Bipolar I disorder Assessment/Plan: Resume hoe meds Code(s): F31.9 - BIPOLAR DISORDER, UNSPECIFIED (5) Hypercholesteremia Assessment/Plan: Cot statin Code(s): E78.00 - PURE HYPERCHOLESTEROLEMIA, UNSPECIFIED
--- NOTE | 2019-02-25 15:30 | ECHO ---
Name: DAVIDJO Exam:Adult Echocardiogram Study Date: 02/25/2019 11:03 AM Age: 48 yrs Reason For Study: SYNCOPE Height: 63 in Weight: 166 lb BSA: 1.8 m2 MMode/2D Measurements & Calculations IVSd: 0.82 cm Ao root diam: 2.6 cm LVIDd: 4.5 cm LA dimension: 3.1 cm LVIDs: 2.4 cm LVPWd: 0.93 cm LVPWs: 1.3 cm EDV(Teich): 93.7 ml ESV(Teich): 19.8 ml LVOT diam: 2.0 cm Doppler Measurements & Calculations MV E max dhaval: 57.3 cm/sec Ao V2 max: 161.6 cm/sec MV A max dhaval: 76.0 cm/sec Ao max P.5 mmHg MV E/A: 0.75 Ao V2 mean: 98.4 cm/sec MV dec time: 0.19 sec Ao mean P.8 mmHg Ao V2 VTI: 30.5 cm PRAVEEN(I,D): 1.7 cm2 PRAVEEN(V,D): 1.7 cm2 LV V1 max P.2 mmHg SV(LVOT): 52.8 ml LV V1 mean P.4 mmHg LV V1 max: 89.3 cm/sec LV V1 mean: 50.4 cm/sec LV V1 VTI: 17.6 cm TR max dhaval: 209.6 cm/sec PA V2 max: 102.6 cm/sec TR max P.6 mmHg PA max P.2 mmHg Med Peak E' Dhaval: 5.2 cm/sec Med E/e': 11.1 Lat Peak E' Dhaval: 8.8 cm/sec Lat E/e': 6.5 Procedure A complete two-dimensional transthoracic echocardiogram was performed (2D, M-mode, Doppler and color flow Doppler). Left Ventricle The left ventricular size, thickness and function are normal. The left ventricular ejection fraction is normal. Ejection Fraction = 55-60%. The left ventricular wall motion is normal. Right Ventricle The right ventricle is normal in size and function. Atria Normal left and right atrial size and function. Mitral Valve There is trace mitral regurgitation. Tricuspid Valve There is trace tricuspid regurgitation. There was insufficient TR detected to calculate RV systolic p ressure. Aortic Valve No hemodynamically significant valvular aortic stenosis. No aortic regurgitation is present. Pulmonic Valve There is no pulmonic valvular regurgitation. Great Vessels The aortic root is normal size. Pericardium/Pleura There is no pericardial effusion. Interpretation Summary The left ventricular size, thickness and function are normal The right ventricle is normal in size and function. There is trace mitral regurgitation. There is trace tricuspid regurgitation. MD Steven Fountain 02/25/2019 03:29 PM
[2019-02-25] MEDS: ATORVASTATIN CA 40 MG TABLET (FP) PO SCH (22:24)
[2019-02-25] MEDS: ACETAMINOPHEN 325 MG TABLET (FP) PO PRN (22:36)
[2019-02-26 08:22] LABS: BASO % 0.2 % (0-2.0); EOS % 0.5 % (0-4.5); HEMATOCRIT 38.7 % (32.4-45.2); LYMPH % 34.9 % (8-40); MCH 32.9 pg (25.7-33.7); MCHC 33.5 g/dl (32.0-36.0); MEAN CELL VOLUME 98.2 fl (80-96); MEAN PLT VOLUME 7.8 fl (7.5-11.1); MONO % 8.5 % (3.8-10.2); NEUT % 55.9 % (42.8-82.8); PLATELET COUNT 207 K/MM3 (134-434); RBC 3.94 M/mm3 (3.60-5.2); RDW 13.6 % (11.6-15.6); WHITE BLOOD COUNT 8.7 K/mm3 (4.0-10.0)
[2019-02-26 08:41] LABS: ANION GAP 7 MMOL/L (8-16); BLOOD UREA NITROGEN 17 mg/dL (7-18); CALCIUM 9.3 mg/dL (8.5-10.1); CHLORIDE 104 mmol/L (98-107); CO2 28 mmol/L (21-32); CREATININE 0.7 mg/dL (0.55-1.3); GLUCOSE,RANDOM 82 mg/dL (74-106); POTASSIUM 3.6 mmol/L (3.5-5.1); SODIUM 139 mmol/L (136-145)
--- NOTE | 2019-02-26 09:35 | DS ---
Physical Examination Vital Signs: Vital Signs Temperature 98.3 F 03/01/19 14:58 Pulse Rate 85 03/01/19 14:58 Respiratory Rate 18 03/01/19 14:58 Blood Pressure 135/78 03/01/19 14:58 O2 Sat by Pulse Oximetry (%) 100 03/01/19 09:00 Middle gaed F comfortable not in distress HEENT: Mm moist , no anemia, Atraumatic, Normocephalic Neck: Yes: Supple Cardiovascular: Yes: Regular Rate and Rhythm, S1, S2. No: JVD, Murmur Respiratory: CTA B/L Musculoskeletal: Yes: Joint Stiffness Extremities: No: Calf Tenderness, Edema: No Peripheral Pulses: Left Doralis Pedis: 1+, Right Dorsalis Pedis: 1+ Neurological: Yes: Alert, Oriented, Motor Strength: WNL, LUE, LLE, RUE, RLE Labs: CBC, BMP 02/26/19 07:15 02/26/19 07:15 Discharge Summary Reason For Visit: PNEUMONIA Current Active Problems HTN (hypertension) (Acute) Hypercholesteremia (Acute) Reactive airway disease (Acute) Condition: Fair - Instructions Diet, Activity, Other Instructions: low salt low cholestrol Referrals: Olayinka Edwards MD [Staff Physician] - Joshua Hanna MD [Staff Physician] - 1 Month Disposition: HOME - Home Medications Comprehensive Discharge Medication List: Ambulatory Orders Albuterol Sulfate Inhaler - [Ventolin HFA Inhaler -] 2 inh PO Q6H PRN 02/24/19 Atorvastatin Ca [Lipitor] 40 mg PO HS 02/24/19 Olmesartan Medoxomil [Benicar -] 40 mg PO DAILY 02/24/19 Paroxetine HCl [Paxil] 10 mg PO DAILY 02/24/19 Quetiapine Fumarate [Seroquel -] 25 mg PO HS 02/24/19 Salmeterol/Fluticasone [Advair 100Mcg/50Mcg -] 1 inh PO BID 02/24/19 Acetaminophen [Tylenol .Regular Strength -] 650 mg PO Q6H PRN #30 tablet Albuterol Sulfate Inhaler - [Ventolin HFA Inhaler -] 2 puff IH Q4H PRN #1 inhaler 02/25/19 Aspirin [ASA -] 81 mg PO DAILY tab.chew 02/25/19 Atorvastatin Ca [Lipitor] 40 mg PO HS tablet 02/25/19 Guaifenesin [Robitussin -] 10 ml PO Q8H PRN #1 cup 02/25/19 Hctz 25Mg/Triamterene [Dyazide .5 -] 1 cap PO DAILY #30 capsule 02/25/19 Paroxetine HCl [Paxil -] 10 mg PO DAILY tablet 02/25/19 Quetiapine Fumarate [Seroquel -] 25 mg PO DAILY tablet 02/25/19 Salmeterol/Fluticasone [Advair 100Mcg/50Mcg -] 1 puff IH BID inhaler 02/25/19 levoFLOXacin [Levaquin -] 750 mg PO DAILY@0600 #5 tablet 02/25/19 predniSONE [Deltasone -] 40 mg PO DAILY #7 tablet 02/25/19 Losartan Potassium [Cozaar -] 100 mg PO DAILY #30 tablet 02/26/19
[2019-02-26] MEDS: ACETAMINOPHEN 325 MG TABLET (FP) PO PRN (10:34)
[2019-02-26] MEDS: PARoxetine HCL 10 MG TABLET (FP) PO SCH (10:38)
[2019-02-26] MEDS: TRIAMTERENE AND HCTZ - 37.5 MG/25 MG CAPSULE PO SCH (10:38)
[2019-02-26] MEDS: LOSARTAN POTASSIUM 50 MG TABLET (FP) PO SCH (10:39)
[2019-02-26] MEDS: predniSONE 20 MG TABLET (UD) PO SCH (10:39)
[2019-02-26] MEDS: ASPIRIN 81 MG CHEWABLE TABLETS PO SCH (10:39)
[2019-02-26] MEDS: FLUTICASONE/SALMETEROL 100 MCG/50 MCG DISKUS IH SCH ×2 (10:41→21:38)
[2019-02-26] MEDS ORDERED: PT OWN MED DRAWER 7, Y5N ONE (11:13)
[2019-02-26] MEDS: ATORVASTATIN CA 40 MG TABLET (FP) PO SCH (21:39)
[2019-02-26] MEDS: QUEtiapine FUMARATE 25 MG TABLET (FP) PO SCH (21:39)
--- NOTE | 2019-02-27 08:40 | PN ---
Progress Note, Physician Chief Complaint: feels improved - Current Medication List Current Medications: Active Medications Acetaminophen (Tylenol -) 650 mg PO Q6H PRN PRN Reason: PAIN Last Admin: 02/26/19 10:34 Dose: 650 mg Albuterol Sulfate (Ventolin Hfa Inhaler -) 2 puff IH Q4H PRN PRN Reason: SHORT OF BREATH/WHEEZING Albuterol/Ipratropium (Duoneb -) 1 amp NEB Q6H PRN PRN Reason: SHORTNESS OF BREATH Last Admin: 02/25/19 19:55 Dose: 1 amp Aspirin (Asa -) 81 mg PO DAILY [facility] Last Admin: 02/26/19 10:39 Dose: 81 mg Atorvastatin Calcium (Lipitor -) 40 mg PO HS [facility] Last Admin: 02/26/19 21:39 Dose: 40 mg Guaifenesin (Robitussin -) 10 ml PO Q8H PRN PRN Reason: COUGH Last Admin: 02/25/19 22:25 Dose: 10 ml Levofloxacin (Levaquin -) 500 mg PO DAILY@0600 [facility] Last Admin: 02/27/19 05:35 Dose: 500 mg Losartan Potassium (Cozaar -) 100 mg PO DAILY [facility] Last Admin: 02/26/19 10:39 Dose: 100 mg Paroxetine HCl (Paxil -) 10 mg PO DAILY [facility] Last Admin: 02/26/19 10:38 Dose: 10 mg Prednisone (Deltasone -) 40 mg PO DAILY [facility] Last Admin: 02/26/19 10:39 Dose: 40 mg Quetiapine Fumarate (Seroquel -) 25 mg PO HS [facility] Last Admin: 02/26/19 21:39 Dose: 25 mg Fluticasone/Salmeterol (Advair 100mcg/50mcg -) 1 puff IH BID [facility] Last Admin: 02/26/19 21:38 Dose: 1 puff Triamterene/HCTZ (Dyazide 25/37.5mg) 1 cap PO DAILY [facility] Last Admin: 02/26/19 10:38 Dose: 1 cap - Objective Vital Signs: Vital Signs Temperature 98.6 F 02/27/19 06:04 Pulse Rate 65 02/27/19 06:04 Respiratory Rate 18 02/27/19 06:04 Blood Pressure 126/74 02/27/19 06:04 O2 Sat by Pulse Oximetry (%) 97 04/26/19 21:00 Middle aged F comfortable not in distress HEENT: Mm moist , no anemia, Atraumatic, Normocephalic Neck: Yes: Supple Cardiovascular: Yes: Regular Rate and Rhythm, S1, S2. No: JVD, Murmur Respiratory: CTA B/L Musculoskeletal: Yes: Joint Stiffness Extremities: No: Calf Tenderness, Edema: No Peripheral Pulses: Left Doralis Pedis: 1+, Right Dorsalis Pedis: 1+ Neurological: Yes: Alert, Oriented, Motor Strength: WNL, LUE, LLE, RUE, RLE Labs: CBC, BMP 02/26/19 07:15 02/26/19 07:15 INR, PTT INR Cancelled 02/24/19 03:04 Problem List - Problems (1) Chest pain at rest Assessment/Plan: chest pain multiple CAd risk factor low cholesterol Diet evaluated by cardiology low suspicion for CAD ECHo unrmarkable, BP is better controlled, claered to Dc by Cardiology consult. CTA -ve for PE Code(s): R07.9 - CHEST PAIN, UNSPECIFIED (2) Reactive airway disease Assessment/Plan: cont Po prednisoe, levofloxacin, Duoneb Advair and albuterol Code(s): J45.909 - UNSPECIFIED ASTHMA, UNCOMPLICATED (3) HTN (hypertension) Assessment/Plan: Cont home meds Code(s): I10 - ESSENTIAL (PRIMARY) HYPERTENSION (4) Bipolar I disorder Assessment/Plan: Resume hoe meds Code(s): F31.9 - BIPOLAR DISORDER, UNSPECIFIED (5) Hypercholesteremia Assessment/Plan: Cot statin Code(s): E78.00 - PURE HYPERCHOLESTEROLEMIA, UNSPECIFIED
[2019-02-27] MEDS ORDERED: PT OWN MED DRAWER 7, Y5N ONE (10:27)
[2019-02-27] MEDS: FLUTICASONE/SALMETEROL 100 MCG/50 MCG DISKUS IH SCH ×2 (10:38→21:11)
[2019-02-27] MEDS: ASPIRIN 81 MG CHEWABLE TABLETS PO SCH (10:38)
[2019-02-27] MEDS: PARoxetine HCL 10 MG TABLET (FP) PO SCH (10:38)
[2019-02-27] MEDS: LOSARTAN POTASSIUM 50 MG TABLET (FP) PO SCH ×2 (10:39→13:52)
[2019-02-27] MEDS: TRIAMTERENE AND HCTZ - 37.5 MG/25 MG CAPSULE PO SCH ×2 (10:40→13:53)
[2019-02-27] MEDS: predniSONE 20 MG TABLET (UD) PO SCH (10:41)
[2019-02-27] MEDS: ATORVASTATIN CA 40 MG TABLET (FP) PO SCH (21:12)
[2019-02-27] MEDS: QUEtiapine FUMARATE 25 MG TABLET (FP) PO SCH (21:12)
[2019-02-27] MEDS: ACETAMINOPHEN 325 MG TABLET (FP) PO PRN (23:34)
[2019-02-28] MEDS ORDERED: PT OWN MED DRAWER 7, Y5N ONE ×2 (11:45→14:04)
[2019-02-28] MEDS: ASPIRIN 81 MG CHEWABLE TABLETS PO SCH (11:48)
[2019-02-28] MEDS: predniSONE 20 MG TABLET (UD) PO SCH (11:48)
[2019-02-28] MEDS: PARoxetine HCL 10 MG TABLET (FP) PO SCH (11:48)
[2019-02-28] MEDS: TRIAMTERENE AND HCTZ - 37.5 MG/25 MG CAPSULE PO SCH (11:49)
[2019-02-28] MEDS: FLUTICASONE/SALMETEROL 100 MCG/50 MCG DISKUS IH SCH ×2 (11:50→21:23)
[2019-02-28] MEDS: LOSARTAN POTASSIUM 50 MG TABLET (FP) PO SCH (14:05)
--- NOTE | 2019-02-28 16:00 | PN ---
Progress Note, Physician Chief Complaint: feels improved - Current Medication List Current Medications: Active Medications Acetaminophen (Tylenol -) 650 mg PO Q6H PRN PRN Reason: PAIN Last Admin: 02/27/19 23:34 Dose: 650 mg Albuterol Sulfate (Ventolin Hfa Inhaler -) 2 puff IH Q4H PRN PRN Reason: SHORT OF BREATH/WHEEZING Albuterol/Ipratropium (Duoneb -) 1 amp NEB Q6H PRN PRN Reason: SHORTNESS OF BREATH Last Admin: 02/25/19 19:55 Dose: 1 amp Aspirin (Asa -) 81 mg PO DAILY [facility] Last Admin: 02/28/19 11:48 Dose: 81 mg Atorvastatin Calcium (Lipitor -) 40 mg PO HS [facility] Last Admin: 02/27/19 21:12 Dose: 40 mg Guaifenesin (Robitussin -) 10 ml PO Q8H PRN PRN Reason: COUGH Last Admin: 02/25/19 22:25 Dose: 10 ml Levofloxacin (Levaquin -) 500 mg PO DAILY@0600 [facility] Last Admin: 02/28/19 05:36 Dose: 500 mg Losartan Potassium (Cozaar -) 100 mg PO DAILY [facility] Last Admin: 02/28/19 14:05 Dose: 100 mg Paroxetine HCl (Paxil -) 10 mg PO DAILY [facility] Last Admin: 02/28/19 11:48 Dose: 10 mg Prednisone (Deltasone -) 40 mg PO DAILY [facility] Last Admin: 02/28/19 11:48 Dose: 40 mg Quetiapine Fumarate (Seroquel -) 25 mg PO HS [facility] Last Admin: 02/27/19 21:12 Dose: 25 mg Fluticasone/Salmeterol (Advair 100mcg/50mcg -) 1 puff IH BID [facility] Last Admin: 02/28/19 11:50 Dose: 1 puff Triamterene/HCTZ (Dyazide 25/37.5mg) 1 cap PO DAILY [facility] Last Admin: 02/28/19 11:49 Dose: 1 cap - Objective Vital Signs: Vital Signs Temperature 97.9 F 02/28/19 13:46 Pulse Rate 88 02/28/19 13:46 Respiratory Rate 16 02/28/19 13:46 Blood Pressure 125/70 02/28/19 13:46 O2 Sat by Pulse Oximetry (%) 95 04/27/19 10:00 Middle aged F comfortable not in distress HEENT: Mm moist , no anemia, Atraumatic, Normocephalic Neck: Yes: Supple Cardiovascular: Yes: Regular Rate and Rhythm, S1, S2. No: JVD, Murmur Respiratory: CTA B/L Musculoskeletal: Yes: Joint Stiffness Extremities: No: Calf Tenderness, Edema: No Peripheral Pulses: Left Doralis Pedis: 1+, Right Dorsalis Pedis: 1+ Neurological: Yes: Alert, Oriented, Motor Strength: WNL, LUE, LLE, RUE, RLE Labs: CBC, BMP 02/26/19 07:15 02/26/19 07:15 INR, PTT INR Cancelled 02/24/19 03:04 Problem List - Problems (1) Chest pain at rest Assessment/Plan: chest pain multiple CAd risk factor low cholesterol Diet evaluated by cardiology low suspicion for CAD ECHo unrmarkable, BP is better controlled, claered to Dc by Cardiology consult. CTA -ve for PE Code(s): R07.9 - CHEST PAIN, UNSPECIFIED (2) Reactive airway disease Assessment/Plan: cont Po prednisoe, levofloxacin, Duoneb Advair and albuterol Code(s): J45.909 - UNSPECIFIED ASTHMA, UNCOMPLICATED (3) HTN (hypertension) Assessment/Plan: Cont home meds Code(s): I10 - ESSENTIAL (PRIMARY) HYPERTENSION (4) Bipolar I disorder Assessment/Plan: Resume hoe meds Code(s): F31.9 - BIPOLAR DISORDER, UNSPECIFIED (5) Hypercholesteremia Assessment/Plan: Cot statin Code(s): E78.00 - PURE HYPERCHOLESTEROLEMIA, UNSPECIFIED
--- NOTE | 2019-02-28 16:01 | PN ---
Progress Note, Physician Chief Complaint: feels improved - Current Medication List Current Medications: Active Medications Acetaminophen (Tylenol -) 650 mg PO Q6H PRN PRN Reason: PAIN Last Admin: 02/27/19 23:34 Dose: 650 mg Albuterol Sulfate (Ventolin Hfa Inhaler -) 2 puff IH Q4H PRN PRN Reason: SHORT OF BREATH/WHEEZING Albuterol/Ipratropium (Duoneb -) 1 amp NEB Q6H PRN PRN Reason: SHORTNESS OF BREATH Last Admin: 02/25/19 19:55 Dose: 1 amp Aspirin (Asa -) 81 mg PO DAILY [facility] Last Admin: 02/28/19 11:48 Dose: 81 mg Atorvastatin Calcium (Lipitor -) 40 mg PO HS [facility] Last Admin: 02/27/19 21:12 Dose: 40 mg Guaifenesin (Robitussin -) 10 ml PO Q8H PRN PRN Reason: COUGH Last Admin: 02/25/19 22:25 Dose: 10 ml Levofloxacin (Levaquin -) 500 mg PO DAILY@0600 [facility] Last Admin: 02/28/19 05:36 Dose: 500 mg Losartan Potassium (Cozaar -) 100 mg PO DAILY [facility] Last Admin: 02/28/19 14:05 Dose: 100 mg Paroxetine HCl (Paxil -) 10 mg PO DAILY [facility] Last Admin: 02/28/19 11:48 Dose: 10 mg Prednisone (Deltasone -) 40 mg PO DAILY [facility] Last Admin: 02/28/19 11:48 Dose: 40 mg Quetiapine Fumarate (Seroquel -) 25 mg PO HS [facility] Last Admin: 02/27/19 21:12 Dose: 25 mg Fluticasone/Salmeterol (Advair 100mcg/50mcg -) 1 puff IH BID [facility] Last Admin: 02/28/19 11:50 Dose: 1 puff Triamterene/HCTZ (Dyazide 25/37.5mg) 1 cap PO DAILY [facility] Last Admin: 02/28/19 11:49 Dose: 1 cap - Objective Vital Signs: Vital Signs Temperature 97.9 F 02/28/19 13:46 Pulse Rate 88 02/28/19 13:46 Respiratory Rate 16 02/28/19 13:46 Blood Pressure 125/70 02/28/19 13:46 O2 Sat by Pulse Oximetry (%) 95 04/27/19 10:00 Middle aged F comfortable not in distress HEENT: Mm moist , no anemia, Atraumatic, Normocephalic Neck: Yes: Supple Cardiovascular: Yes: Regular Rate and Rhythm, S1, S2. No: JVD, Murmur Respiratory: CTA B/L Musculoskeletal: Yes: Joint Stiffness Extremities: No: Calf Tenderness, Edema: No Peripheral Pulses: Left Doralis Pedis: 1+, Right Dorsalis Pedis: 1+ Neurological: Yes: Alert, Oriented, Motor Strength: WNL, LUE, LLE, RUE, RLE Labs: CBC, BMP 02/26/19 07:15 02/26/19 07:15 INR, PTT INR Cancelled 02/24/19 03:04 Problem List - Problems (1) Chest pain at rest Assessment/Plan: chest pain multiple CAd risk factor low cholesterol Diet evaluated by cardiology low suspicion for CAD ECHo unrmarkable, BP is better controlled, claered to Dc by Cardiology consult. CTA -ve for PE Code(s): R07.9 - CHEST PAIN, UNSPECIFIED (2) Reactive airway disease Assessment/Plan: cont Po prednisoe, levofloxacin, Duoneb Advair and albuterol Code(s): J45.909 - UNSPECIFIED ASTHMA, UNCOMPLICATED (3) HTN (hypertension) Assessment/Plan: Cont home meds Code(s): I10 - ESSENTIAL (PRIMARY) HYPERTENSION (4) Bipolar I disorder Assessment/Plan: Resume hoe meds Code(s): F31.9 - BIPOLAR DISORDER, UNSPECIFIED (5) Hypercholesteremia Assessment/Plan: Cot statin Code(s): E78.00 - PURE HYPERCHOLESTEROLEMIA, UNSPECIFIED
[2019-02-28] MEDS: QUEtiapine FUMARATE 25 MG TABLET (FP) PO SCH (21:23)
[2019-02-28] MEDS: ATORVASTATIN CA 40 MG TABLET (FP) PO SCH (21:23)
[2019-03-01 07:25] LABS: BASO % 0.2 % (0-2.0); EOS % 0.3 % (0-4.5); HEMATOCRIT 42.1 % (32.4-45.2); HEMOGLOBIN 14.3 GM/dL (10.7-15.3); LYMPH % 31.4 % (8-40); MEAN CELL VOLUME 99.9 fl (80-96); MEAN PLT VOLUME 7.9 fl (7.5-11.1); MONO % 6.6 % (3.8-10.2); NEUT % 61.5 % (42.8-82.8); PLATELET COUNT 223 K/MM3 (134-434); RBC 4.21 M/mm3 (3.60-5.2); RDW 13.5 % (11.6-15.6); WHITE BLOOD COUNT 10.2 K/mm3 (4.0-10.0)
[2019-03-01 07:42] LABS: ANION GAP 8 MMOL/L (8-16); BLOOD UREA NITROGEN 27 mg/dL (7-18); CALCIUM 9.2 mg/dL (8.5-10.1); CHLORIDE 105 mmol/L (98-107); CO2 26 mmol/L (21-32); CREATININE 0.9 mg/dL (0.55-1.3); POTASSIUM 3.8 mmol/L (3.5-5.1); SODIUM 139 mmol/L (136-145)
[2019-03-01 07:56] LABS: GLUCOSE,RANDOM 27 mg/dL (74-106)
[2019-03-01] MEDS ORDERED: PT OWN MED DRAWER 7, Y5N ONE (10:14)
[2019-03-01] MEDS: LOSARTAN POTASSIUM 50 MG TABLET (FP) PO SCH (10:15)
[2019-03-01] MEDS: predniSONE 20 MG TABLET (UD) PO SCH (10:15)
[2019-03-01] MEDS: PARoxetine HCL 10 MG TABLET (FP) PO SCH (10:16)
[2019-03-01] MEDS: FLUTICASONE/SALMETEROL 100 MCG/50 MCG DISKUS IH SCH (10:16)
[2019-03-01] MEDS: ASPIRIN 81 MG CHEWABLE TABLETS PO SCH (10:16)
[2019-03-01] MEDS: TRIAMTERENE AND HCTZ - 37.5 MG/25 MG CAPSULE PO SCH (10:16)
[2019-03-01 15:59] VITALS: BP 135/78; PULSE 85; TEMP 98.3
== END 2019-03-01 16:38 | disposition home or self-care (01) | DRG 195 ==
LOC: JER 23:49 → JERBED 02-24 05:16 → J5S 02-24 10:11
PROVIDERS: ADMIT Internal Medicine; ATTEND Internal Medicine
DX: J18.9 Pneumonia, unspecified organism (principal); R07.89 Other chest pain; I10 Essential (primary) hypertension; E78.5 Hyperlipidemia, unspecified; F31.9 Bipolar disorder, unspecified; F19.10 Other psychoactive substance abuse, uncomplicated; I25.10 Atherosclerotic heart disease of native coronary artery without angina pectoris; J44.9 Chronic obstructive pulmonary disease, unspecified; M06.9 Rheumatoid arthritis, unspecified; F17.210 Nicotine dependence, cigarettes, uncomplicated; J45.909 Unspecified asthma, uncomplicated; Z86.73 Personal history of transient ischemic attack (TIA), and cerebral infarction without residual deficits
CPT/HCPCS: 36415; 71045-TC-FY; 71275-TC; 80048; 80053; 80061; 80307; 81003; 82550; 82553; 82962; 83721; 83735; 83880; 84484; 84703; 85025; 85379; 87040; 87086; 87899; 93005; 93010; 93306-TC; 94640; 99283-25

== ENCOUNTER 2019-04-07 22:38 | Inpatient (IN) | payer BC, OTHER ==
[2019-04-07] MEDS ORDERED: methylPREDNISolone NA SUCC 125 MG/2 ML VIAL IVPUSH ONE (23:03)
[2019-04-07] MEDS ORDERED: methylPREDNISolone NA SUCC 125 MG/2 ML VIAL ONE (23:13)
[2019-04-07] MEDS ORDERED: ALBUTEROL SO4 2.5/IPRATROPIUM 0.5 INH SOL 3 ML VIAL.NEB. NEB ONE ×2 (23:13→23:34)
[2019-04-07] MEDS: ALBUTEROL SO4 2.5/IPRATROPIUM 0.5 INH SOL 3 ML VIAL.NEB. NEB SCH ×2 (23:33→23:57)
[2019-04-08] MEDS: ALBUTEROL SO4 2.5/IPRATROPIUM 0.5 INH SOL 3 ML VIAL.NEB. NEB SCH ×11 (00:01→07:41)
[2019-04-08 00:05] LABS: HEMATOCRIT 35.8 % (32.4-45.2); HEMOGLOBIN 11.8 GM/dL (10.7-15.3); MCH 32.2 pg (25.7-33.7); MCHC 32.9 g/dl (32.0-36.0); MEAN CELL VOLUME 97.7 fl (80-96); MEAN PLT VOLUME 8.2 fl (7.5-11.1); PLATELET COUNT 229 K/MM3 (134-434); RBC 3.67 M/mm3 (3.60-5.2); RDW 13.2 % (11.6-15.6); WHITE BLOOD COUNT 6.3 K/mm3 (4.0-10.0)
[2019-04-08 00:27] LABS: ALBUMIN 3.3 g/dl (3.4-5.0); BILIRUBIN,TOTAL 0.2 mg/dL (0.2-1); CREATININE 1.1 mg/dL (0.55-1.3); POTASSIUM 4.2 mmol/L (3.5-5.1); TOT PROT 6.8 g/dl (6.4-8.2)
--- NOTE | 2019-04-08 01:07 | PDOC ---
Documentation entered by Elda Carrasco SCRIBE, acting as scribe for Liv Perera DO. Liv Perera DO: This documentation has been prepared by the divyaibroro, Elda Carrasco SCRIBE, under my direction and personally reviewed by me in its entirety. I confirm that the documentation accurately reflects all work , treatment, procedures, and medical decision making performed by me. History of Present Illness - General Chief Complaint: Asthma Stated Complaint: UPPER RESP/INFECTION Time Seen by Provider: 04/07/19 22:56 History Source: Patient Exam Limitations: No Limitations - History of Present Illness Initial Comments: 04/07/19 23:10 The patient is a 48-year-old female with a past medical history significant for asthma, HTN, HLD, hx of CVA presents to the emergency department complaining of rib pain, a rash, and asthma exacerbation. The patient presents with 2 weeks of left-sided rib pain, denies trauma, or fall. The patient reports yesterday she noticed a new onset of rash to the right flank region going up to the chest, thats itchy in quality. The patient reports since earlier today, shes been having shortness of breath, no relief noted with her inhaler. Denies chest pain , fever, chills, nausea, vomiting. Allergies: Amoxicillin trihydrate, azithromycin, potassium clavulanate. Social history: 7 cigarettes a day smoker. PCP: Dr. Olayinka Edwards. Past History - Past Medical History Allergies/Adverse Reactions: Allergies Allergy/AdvReac Type Severity Reaction Status Date / Time amoxicillin trihydrate Allergy Verified 02/24/19 01:57 [From Augmentin] azithromycin [From Zithromax] Allergy Verified 02/24/19 01:57 potassium clavulanate Allergy Verified 02/24/19 01:57 [From Augmentin] Home Medications: Ambulatory Orders Atorvastatin Ca [Lipitor] 40 mg PO HS 02/24/19 Aspirin [ASA -] 81 mg PO DAILY tab.chew 02/25/19 Paroxetine HCl [Paxil -] 10 mg PO DAILY tablet 02/25/19 Gabapentin 300 mg PO TID 04/07/19 Naproxen 250 mg PO DAILY 04/07/19 Anemia: No Asthma: Yes Cancer: No Cardiac Disorders: No CVA: Yes ("MINI STROKE" FEW YRS AGO) COPD: Yes CHF: No DVT: No Dementia: No Diabetes: No Dialysis: No GI Disorders: No Disorders: No HTN: Yes Hypercholesterolemia: Yes Kidney Stones: No Liver Disease: No Psychiatric Problems: No Seizures: No Thyroid Disease: No Lung CA: No - Surgical History Abdominal Surgery: No Appendectomy: No Cardiac Surgery: Yes (SX R CAROTID ARTERY FOR A CLOT IN 2004) Cholecystectomy: No Gastric Stapling: No GI Surgery: No Lung Surgery: No Neurologic Surgery: No Orthopedic Surgery: No - Reproductive History PID: No - Immunization History Td Vaccination: Yes Immunization Up to Date: Yes - Suicide/Smoking/Psychosocial Hx Smoking Status: Yes Smoking History: Current some day smoker Years of Tobacco Use: 20 Have you smoked in the past 12 months: Yes Number of Cigarettes Smoked Daily: 4 Cigars Per Day: 0 Information on smoking cessation initiated: Yes 'Breaking Loose' booklet given: 02/05/16 Hx Alcohol Use: No Drug/Substance Use Hx: No Substance Use Type: None Hx Substance Use Treatment: No Review of Systems - Review of Systems Able to Perform ROS?: Yes Comments:: 04/07/19 22:58 GENERAL/CONSTITUTIONAL: No fever or chills. No weakness. HEAD, EYES, EARS, NOSE AND THROAT: No change in vision. No ear pain or discharge. No sore throat. GASTROINTESTINAL: No nausea, vomiting, diarrhea or constipation. GENITOURINARY: No dysuria, frequency, or change in urination. CARDIOVASCULAR: +shortness of breath. No chest pain. RESPIRATORY: No cough or hemoptysis. MUSCULOSKELETAL: +left sided rib pain. No other joint or muscle swelling or pain. No neck or back pain. SKIN: +right flank rash. NEUROLOGIC: No headache, vertigo, loss of consciousness, or change in strength/ sensation. ENDOCRINE: No increased thirst. No abnormal weight change. HEMATOLOGIC/LYMPHATIC: No anemia, easy bleeding, or history of blood clots. ALLERGIC/IMMUNOLOGIC: No hives or skin allergy. *Physical Exam - Vital Signs Last Vital Signs Temp Pulse Resp BP Pulse Ox 98.3 F 106 H 20 140/99 97 04/07/19 22:43 04/07/19 22:43 04/07/19 22:43 04/07/19 22:43 04/07/19 22:43 - Physical Exam Comments: 04/07/19 22:58 GENERAL: Awake, in no acute distress HEAD: No signs of trauma EYES: PERRLA, EOMI, sclera anicteric, conjunctiva clear, visual acuity grossly intact ENT: Auricles normal inspection, hearing grossly normal, nares patent, oropharynx clear without exudates. Moist mucosa NECK: Normal ROM, supple, no lymphadenopathy, JVD, or masses LUNGS: Breath sounds equal, clear to auscultation bilaterally. No wheezes, and no crackles. Normal work of breathing. HEART: Regular rate and rhythm, normal S1 and S2, no murmurs, rubs or gallops ABDOMEN: Soft, nontender, normoactive bowel sounds. No guarding, no rebound. No masses. Non-distended. CHEST WALL: BACK: No midline tenderness. EXTREMITIES: Normal range of motion, no edema. No clubbing or cyanosis. No erythema, or tenderness NEUROLOGICAL: Alert, and fully oriented x4, Cranial nerves II through XII grossly intact. Normal speech, normal gait. DTRs 2/4 bilaterally. SKIN: Warm, Dry, normal turgor, no rashes or lesions noted. ED Treatment Course - LABORATORY CBC & Chemistry Diagram: 04/07/19 00:00 04/07/19 23:25 - ADDITIONAL ORDERS Additional order review: Laboratory Results 04/07/19 04/07/19 04/07/19 23:25 23:25 23:25 Sodium 141 Potassium 4.2 Chloride 108 H Carbon Dioxide 29 Anion Gap 3 L BUN 20 H Creatinine 1.1 Est GFR (CKD-EPI)AfAm 68.27 Est GFR (CKD-EPI)NonAf 58.91 Random Glucose 93 Calcium 9.0 Total Bilirubin 0.2 AST 25 ALT 25 Alkaline Phosphatase 93 Troponin I < 0.02 Total Protein 6.8 Albumin 3.3 L Serum , Qual Negative 04/07/19 00:00 RBC 3.67 MCV 97.7 H MCHC 32.9 RDW 13.2 MPV 8.2 - RADIOLOGY Radiology Studies Ordered: Category Date Time Status CHEST PA & LAT [RAD] Stat Radiology 04/07/19 23:03 Taken - Medications Given in the ED: ED Medications Discontinued Medications Generic Name Dose Route Start Last Admin Trade Name Freq PRN Reason Stop Dose Admin Diphenhydramine HCl 25 mg 04/07/19 23:03 04/07/19 23:33 Benadryl Injection - IVPUSH 04/07/19 23:04 25 mg ONCE ONE Administration Methylprednisolone Sodium Succinate 125 mg 04/07/19 23:03 04/07/19 23:33 Solu-Medrol - IVPUSH 04/07/19 23:04 125 mg ONCE ONE Administration Medical Decision Making - Critical Care Time Total Critical Care Time (minutes): 40 Critical Care Statement: The care of this patient involved high complexity decision making to prevent further life threatening deterioration of the patient 's condition and/or to evaluate & treat vital organ system(s) failure or risk of failure. - Medical Decision Making 04/08/19 01:05 48-year-old female with a history of COPD and asthma with persistent wheezing despite multiple DuoNeb treatments as well as 125 of Solu-Medrol IV Benadryl 25 mg given IV due to urticarial lesion and possibility of acute ALLERGIC reaction as well Chest x-ray shows no focal disease EKG on arrival shows a normal sinus rhythm at 100 bpm with no acute ST elevations Rhythm strip shows a sinus rhythm at 95-100 bpm Patient states she feels unwell and 2 short of breath to attempt discharge home Case discussed with her primary care physician who has requested admission to his service *DC/Admit/Observation/Transfer Diagnosis at time of Disposition: COPD exacerbation, Urticaria - Discharge Dispostion Condition at time of disposition: Fair - Referrals - Patient Instructions - Post Discharge Activity
[2019-04-08 05:56] VITALS: BMI 30.9
--- NOTE | 2019-04-08 09:16 | HP ---
DATE OF ADMISSION: 04/08/2019 This is a 48-year-old female known to have bronchial asthma, came to the emergency room with complaints of shortness of breath, cough for 1-week duration. Also, has itching on her body. In the ER, she received albuterol and no relief; so, was admitted with a diagnosis of acute exacerbation of COPD. PERSONAL HISTORY: She is a smoker, also smokes . Has 2 grown-up children. Also, at present, she lives in the [facility] room at [place]. PHYSICAL EXAMINATION: General: Today, this morning, she is awake, alert, oriented. Vital Signs: BP 135/104, pulse 100, respirations 20, temperature 98. HEENT: Unremarkable. Neck: Supple. Lungs: Minimal wheeze present on both bases. Heart: S1, S2. Normal. No S3 or S4. Abdomen: Obese. Legs: No edema. Neurological: Examination grossly normal. Skin: Minimal rash noted on the right groin area. Chest x-ray: No infiltrate. LABORATORY REPORTS: WBC 6.3, hemoglobin 11.8, hematocrit 35.5. Chemistry: Sodium 141, potassium 4.2, chloride 108, BUN 20, creatinine 1.1. Troponin is negative. IMPRESSION: 1. Acute bronchial asthma. 2. Bronchitis. 3. Constipation. 4. Skin rash. PLAN: IV steroids, IV antibiotics. Will follow. Scott [id number]
[2019-04-08] MEDS ORDERED: ceFAZolin SODIUM 1 GM VIAL ONE ×2 (10:46→18:31)
[2019-04-08] MEDS ORDERED: DEXTROSE 5%-WATER - 50 ML IVPB ONE ×2 (10:46→18:31)
[2019-04-08] MEDS: CEFAZOLIN 1 GM in DEXTROSE 5%-WATER - 50 ML IVPB SCH ×2 (11:51→18:32)
[2019-04-08] MEDS: methylPREDNISolone NA SUCC 125 MG/2 ML VIAL IVPB SCH ×2 (11:51→18:29)
--- NOTE | 2019-04-08 12:53 | EKG ---
Test Reason : Blood Pressure : / mmHG Vent. Rate : 100 BPM Atrial Rate : 100 BPM P-R Int : 126 ms QRS Dur : 072 ms QT Int : 362 ms P-R-T Axes : 053 003 -11 degrees QTc Int : 466 ms NORMAL SINUS RHYTHM POSSIBLE LEFT ATRIAL ENLARGEMENT BORDERLINE ECG WHEN COMPARED WITH ECG OF 24-FEB-2019 14:22, NONSPECIFIC T WAVE ABNORMALITY, IMPROVED IN LATERAL LEADS Confirmed by JOHANA OWEN, RAMIREZ ([id number]) on 04/08/2019 12:52:51 PM Referred By: Confirmed By:RAMIREZ VAUGHN MD
[2019-04-08] MEDS: CASTOR OIL PO ONE ×2 (18:30→18:32)
[2019-04-08] MEDS: D5-1/2NS+20 MEQ KCL - 20 MEQ/1,000 ML INFUS.BAG IV SCH (18:30)
[2019-04-08] MEDS ORDERED: PT OWN MED DRAWER 7, Y5N ONE (18:31)
[2019-04-09] MEDS ORDERED: DEXTROSE 5%-WATER - 50 ML IVPB ONE ×3 (02:24→18:02)
[2019-04-09] MEDS ORDERED: ceFAZolin SODIUM 1 GM VIAL ONE ×3 (02:24→18:02)
[2019-04-09] MEDS: methylPREDNISolone NA SUCC 125 MG/2 ML VIAL IVPB SCH ×3 (02:37→18:04)
[2019-04-09] MEDS: CEFAZOLIN 1 GM in DEXTROSE 5%-WATER - 50 ML IVPB SCH ×3 (02:37→18:04)
[2019-04-09] MEDS ORDERED: SODIUM PHOSPHATE/NA BIPHOS 133 ML ENEMA RC ONE (06:00)
--- NOTE | 2019-04-09 08:59 | PN ---
Progress Note, Physician Chief Complaint: SOB persists History of Present Illness: Admitted with exacerbation of bronchial asthma - Current Medication List Current Medications: Active Medications Cefazolin Sodium 1 gm/ (Dextrose) 50 mls @ 100 mls/hr IVPB Q8H [facility] Last Admin: 04/09/19 02:37 Dose: 100 mls/hr Potassium Chloride/Dextrose/Sod Cl (D5-1/2ns+20 Meq Kcl -) 20 meq in 1,000 mls @ 80 mls/hr IV ASDIR [facility] Last Admin: 04/08/19 18:30 Dose: 80 mls/hr Methylprednisolone Sodium Succinate (Solu-Medrol -) 125 mg IVPB Q8H [facility] Last Admin: 04/09/19 02:37 Dose: 125 mg - Objective Vital Signs: Vital Signs Temperature 98.1 F 04/09/19 06:00 Pulse Rate 97 H 04/09/19 06:00 Respiratory Rate 20 04/09/19 06:00 Blood Pressure 147/99 04/09/19 06:00 O2 Sat by Pulse Oximetry (%) 97 04/08/19 21:00 Constitutional: Yes: Anxious Eyes: Yes: WNL HENT: Yes: WNL Neck: Yes: WNL Cardiovascular: Yes: WNL Respiratory: Yes: SOB on Exertion, Wheezes Gastrointestinal: Yes: WNL ...Rectal Exam: Yes: Deferred Breast(s): Yes: WNL Musculoskeletal: Yes: WNL Peripheral Pulses WNL: Yes Labs: CBC, BMP 04/07/19 00:00 04/07/19 23:25 Assessment/Plan cntinue same trt
[2019-04-09] MEDS: D5-1/2NS+20 MEQ KCL - 20 MEQ/1,000 ML INFUS.BAG IV SCH (18:04)
[2019-04-09] MEDS: LOSARTAN POTASSIUM 50 MG TABLET (FP) PO SCH (18:04)
[2019-04-09] MEDS ORDERED: ALBUTEROL SO4 2.5/IPRATROPIUM 0.5 INH SOL 3 ML VIAL.NEB. NEB ONE (23:04)
[2019-04-09] MEDS: ALBUTEROL SO4 2.5/IPRATROPIUM 0.5 INH SOL 3 ML VIAL.NEB. NEB PRN (23:30)
[2019-04-10] MEDS: methylPREDNISolone NA SUCC 125 MG/2 ML VIAL IVPB SCH (00:55)
[2019-04-10] MEDS ORDERED: ceFAZolin SODIUM 1 GM VIAL ONE ×3 (01:00→18:05)
[2019-04-10] MEDS ORDERED: DEXTROSE 5%-WATER - 50 ML IVPB ONE ×3 (01:00→18:05)
[2019-04-10] MEDS: CEFAZOLIN 1 GM in DEXTROSE 5%-WATER - 50 ML IVPB SCH ×3 (01:15→18:11)
--- NOTE | 2019-04-10 08:59 | PN ---
Progress Note, Physician Chief Complaint: Feels better History of Present Illness: Admitted with exacerbation of Br asthma - Current Medication List Current Medications: Active Medications Albuterol/Ipratropium (Duoneb -) 1 amp NEB Q6H PRN PRN Reason: SHORTNESS OF BREATH Last Admin: 04/09/19 23:30 Dose: 1 amp Cefazolin Sodium 1 gm/ (Dextrose) 50 mls @ 100 mls/hr IVPB Q8H [facility] Last Admin: 04/10/19 01:15 Dose: 100 mls/hr Losartan Potassium (Cozaar -) 50 mg PO DAILY [facility] Last Admin: 04/09/19 18:04 Dose: 50 mg Methylprednisolone Sodium Succinate (Solu-Medrol -) 125 mg IVPB Q8H [facility] Last Admin: 04/10/19 00:55 Dose: 125 mg - Objective Vital Signs: Vital Signs Temperature 97.6 F 04/10/19 07:13 Pulse Rate 80 04/10/19 07:13 Respiratory Rate 20 04/10/19 07:13 Blood Pressure 152/95 04/10/19 07:13 O2 Sat by Pulse Oximetry (%) 97 04/09/19 21:00 Constitutional: Yes: No Distress Eyes: Yes: WNL HENT: Yes: WNL Neck: Yes: WNL Cardiovascular: Yes: WNL Respiratory: Yes: SOB on Exertion Gastrointestinal: Yes: WNL ...Rectal Exam: Yes: Deferred Breast(s): Yes: WNL Extremities: Yes: WNL Edema: No Neurological: Yes: Alert Psychiatric: Yes: Alert Labs: CBC, BMP 04/07/19 00:00 04/07/19 23:25 Assessment/Plan Continue same trt
[2019-04-10] MEDS: LOSARTAN POTASSIUM 50 MG TABLET (FP) PO SCH (09:29)
[2019-04-10] MEDS: methylPREDNISolone NA SUCC 40 MG/1 ML VIAL IVPB SCH ×2 (09:33→18:10)
[2019-04-10] MEDS: ALBUTEROL SO4 2.5/IPRATROPIUM 0.5 INH SOL 3 ML VIAL.NEB. NEB PRN (20:20)
[2019-04-11] MEDS ORDERED: ceFAZolin SODIUM 1 GM VIAL ONE ×3 (01:16→17:12)
[2019-04-11] MEDS ORDERED: DEXTROSE 5%-WATER - 50 ML IVPB ONE ×3 (01:16→17:12)
[2019-04-11] MEDS: methylPREDNISolone NA SUCC 40 MG/1 ML VIAL IVPB SCH ×3 (01:23→17:20)
[2019-04-11] MEDS: CEFAZOLIN 1 GM in DEXTROSE 5%-WATER - 50 ML IVPB SCH ×3 (01:24→17:20)
[2019-04-11] MEDS: LOSARTAN POTASSIUM 50 MG TABLET (FP) PO SCH (10:38)
--- NOTE | 2019-04-11 10:43 | PN ---
Progress Note, Physician Chief Complaint: Feels better History of Present Illness: Admitted with exacerbation of Br asthma - Current Medication List Current Medications: Active Medications Albuterol/Ipratropium (Duoneb -) 1 amp NEB Q6H PRN PRN Reason: SHORTNESS OF BREATH Last Admin: 04/10/19 20:20 Dose: 1 amp Cefazolin Sodium 1 gm/ (Dextrose) 50 mls @ 100 mls/hr IVPB Q8H [facility] Last Admin: 04/11/19 10:38 Dose: 100 mls/hr Losartan Potassium (Cozaar -) 50 mg PO DAILY [facility] Last Admin: 04/11/19 10:38 Dose: 50 mg Methylprednisolone Sodium Succinate (Solu-Medrol -) 60 mg IVPB Q8H-IV [facility] Last Admin: 04/11/19 10:38 Dose: 60 mg - Objective Vital Signs: Vital Signs Temperature 98.2 F 04/11/19 10:37 Pulse Rate 79 04/11/19 10:37 Respiratory Rate 18 04/11/19 10:37 Blood Pressure 150/95 04/11/19 10:37 O2 Sat by Pulse Oximetry (%) 97 04/10/19 21:00 Constitutional: Yes: Well Nourished, No Distress, Calm Eyes: Yes: Conjunctiva Clear HENT: Yes: Atraumatic, Normocephalic Neck: Yes: Trachea Midline. No: Lymphadenopathy Cardiovascular: Yes: Regular Rate and Rhythm, Bradycardia, S1 Respiratory: Yes: CTA Bilaterally Gastrointestinal: Yes: Normal Bowel Sounds, Soft Musculoskeletal: No: Back Pain, Joint Stiffness Edema: No Peripheral Pulses WNL: No Neurological: Yes: Alert, Oriented, Cran Nerves II-XII Intact ...Motor Strength: LUE, LLE, RUE Labs: CBC, BMP 04/07/19 00:00 04/07/19 23:25 Problem List - Problems (1) COPD exacerbation Assessment/Plan: Impron+ving cont Nebs and IV Steroids Code(s): J44.1 - CHRONIC OBSTRUCTIVE PULMONARY DISEASE W (ACUTE) EXACERBATION (2) Bipolar depression Assessment/Plan: Resume all home meds Code(s): F31.30 - BIPOLAR DISORD, CRNT EPSD DEPRESS, MILD OR MOD SEVERT, UNSP (3) HTN (hypertension) Assessment/Plan: Well controlled resume all home meds Code(s): I10 - ESSENTIAL (PRIMARY) HYPERTENSION (4) Musculoskeletal pain, chronic Code(s): M79.1 - MYALGIA * DO NOT USE *; G89.29 - OTHER CHRONIC PAIN
[2019-04-11 13:32] VITALS: BP 158/98; PULSE 78; TEMP 97.9
[2019-04-12] MEDS ORDERED: ACETAMINOPHEN 325 MG TABLET (FP) PO ONE (00:30)
[2019-04-12] MEDS ORDERED: ceFAZolin SODIUM 1 GM VIAL ONE (01:53)
[2019-04-12] MEDS ORDERED: DEXTROSE 5%-WATER - 50 ML IVPB ONE (01:54)
[2019-04-12] MEDS: CEFAZOLIN 1 GM in DEXTROSE 5%-WATER - 50 ML IVPB SCH ×2 (02:00→10:27)
[2019-04-12] MEDS: methylPREDNISolone NA SUCC 40 MG/1 ML VIAL IVPB SCH (03:09)
--- NOTE | 2019-04-12 09:34 | DS ---
Physical Examination Vital Signs: Vital Signs Temperature 97.9 F 04/11/19 13:29 Pulse Rate 78 04/11/19 13:29 Respiratory Rate 18 04/11/19 13:29 Blood Pressure 158/98 04/11/19 13:29 O2 Sat by Pulse Oximetry (%) 97 04/11/19 20:41 Findings/Remarks: Admitted with exacerbation of bronchial asthma Treated with IV steroids and antibiotics Got better,DC back to [facility] Constitutional: Yes: No Distress Eyes: Yes: WNL HENT: Yes: WNL Neck: Yes: WNL Cardiovascular: Yes: WNL Respiratory: Yes: WNL, Regular Gastrointestinal: Yes: WNL ...Rectal Exam: Yes: Deferred Renal/: Yes: WNL Breast(s): Yes: WNL Extremities: Yes: WNL Edema: No Peripheral Pulses WNL: Yes Neurological: Yes: Alert ...Motor Strength: WNL Psychiatric: Yes: Alert Labs: CBC, BMP 04/07/19 00:00 04/07/19 23:25 Discharge Summary Reason For Visit: CHRONIC OBSTRUCTIVE PULMONARY DISEASE Current Active Problems COPD exacerbation (Acute) Urticaria (Acute) Condition: Fair - Instructions - Home Medications Comprehensive Discharge Medication List: Ambulatory Orders Atorvastatin Ca [Lipitor] 40 mg PO HS 02/24/19 Aspirin [ASA -] 81 mg PO DAILY tab.chew 02/25/19 Paroxetine HCl [Paxil -] 10 mg PO DAILY tablet 02/25/19 Gabapentin 300 mg PO TID 04/07/19 Naproxen 250 mg PO DAILY 04/07/19
[2019-04-12] MEDS ORDERED: predniSONE 20 MG TABLET (UD) PO SCH (10:00)
[2019-04-12] MEDS: LOSARTAN POTASSIUM 50 MG TABLET (FP) PO SCH (10:27)
[2019-04-12] MEDS ORDERED: PT OWN MED DRAWER 7, Y5N ONE (10:34)
== END 2019-04-12 11:18 | disposition home or self-care (01) | DRG 191 ==
LOC: JER 22:38 → JERBED 04-08 00:33 → J8W 04-08 03:19
PROVIDERS: ADMIT Internal Medicine; ATTEND Internal Medicine
DX: J44.1 Chronic obstructive pulmonary disease with (acute) exacerbation (principal); F31.30 Bipolar disorder, current episode depressed, mild or moderate severity, unspecified; E78.5 Hyperlipidemia, unspecified; Z86.73 Personal history of transient ischemic attack (TIA), and cerebral infarction without residual deficits; I10 Essential (primary) hypertension; L50.9 Urticaria, unspecified; K59.00 Constipation, unspecified
CPT/HCPCS: 36415; 71046-TC-FY; 80053; 84484; 84703; 85027; 93005; 93010; 94150; 94640; 99282-25

== ENCOUNTER 2019-05-05 | Emergency (ER) | payer OTHER ==
[2019-05-05 00:38] VITALS: BP 138/90; PULSE 99; TEMP 97.9; BMI 26.5
[2019-05-05] MEDS ORDERED: ALBUTEROL SO4 2.5/IPRATROPIUM 0.5 INH SOL 3 ML VIAL.NEB. NEB ONE (01:09)
[2019-05-05] MEDS ORDERED: KETOROLAC TROMETHAMINE 60 MG/2 ML VIAL IM ONE (01:10)
[2019-05-05] MEDS ORDERED: KETOROLAC TROMETHAMINE 30 MG/1 ML VIAL ONE ×2 (01:19→01:20)
--- NOTE | 2019-05-05 01:19 | PDOC ---
History of Present Illness - General Chief Complaint: Cold Symptoms Stated Complaint: COUGH Time Seen by Provider: 05/05/19 01:02 History Source: Patient Exam Limitations: No Limitations - History of Present Illness Initial Comments: 05/05/19 01:13 48F with a PMH of asthma, HTN, HLD, hx of CVA who presents with multiple complaints. The patient states that she's had 3 days of L rib pain which is reproducible on palpation. She states that her asthma is "acting up" but denies SOB, CP, fever, chills, nausea, vomiting, abdominal pain. She states that she used her albuterol and is unsure if she felt better. Past History - Past Medical History Allergies/Adverse Reactions: Allergies Allergy/AdvReac Type Severity Reaction Status Date / Time amoxicillin trihydrate Allergy Verified 05/05/19 00:37 [From Augmentin] azithromycin [From Zithromax] Allergy Verified 05/05/19 00:37 potassium clavulanate Allergy Verified 05/05/19 00:37 [From Augmentin] Home Medications: Ambulatory Orders Atorvastatin Ca [Lipitor] 40 mg PO HS 02/24/19 Aspirin [ASA -] 81 mg PO DAILY tab.chew 02/25/19 Paroxetine HCl [Paxil -] 10 mg PO DAILY tablet 02/25/19 Gabapentin 300 mg PO TID 04/07/19 Naproxen 250 mg PO DAILY 04/07/19 Anemia: No Asthma: Yes Cancer: No Cardiac Disorders: No CVA: Yes ("MINI STROKE" FEW YRS AGO) COPD: Yes CHF: No DVT: No Dementia: No Diabetes: No Dialysis: No GI Disorders: No Disorders: No HTN: Yes Hypercholesterolemia: Yes Kidney Stones: No Liver Disease: No Psychiatric Problems: No Seizures: No Thyroid Disease: No Lung CA: No - Surgical History Abdominal Surgery: No Appendectomy: No Cardiac Surgery: Yes (SX R CAROTID ARTERY FOR A CLOT IN 2004) Cholecystectomy: No Gastric Stapling: No GI Surgery: No Lung Surgery: No Neurologic Surgery: No Orthopedic Surgery: No - Reproductive History PID: No - Immunization History Td Vaccination: Yes Immunization Up to Date: Yes - Suicide/Smoking/Psychosocial Hx Smoking Status: Yes Smoking History: Current some day smoker Years of Tobacco Use: 20 Have you smoked in the past 12 months: Yes Number of Cigarettes Smoked Daily: 4 Cigars Per Day: 0 Information on smoking cessation initiated: No 'Breaking Loose' booklet given: 02/05/16 Hx Alcohol Use: Yes Drug/Substance Use Hx: No Substance Use Type: None Hx Substance Use Treatment: No Review of Systems - Review of Systems Able to Perform ROS?: Yes Comments:: 05/05/19 01:16 GENERAL/CONSTITUTIONAL: No fever or chills. No weakness. HEAD, EYES, EARS, NOSE AND THROAT: No change in vision. No ear pain or discharge. No sore throat. CARDIOVASCULAR: No chest pain, palpitations, or lightheadedness. RESPIRATORY: + for "asthma". No cough, shortness of breath, or hemoptysis. GASTROINTESTINAL: No abdominal pain, nausea, vomiting, diarrhea, or constipation. GENITOURINARY: No dysuria, frequency, hematuria, or change in urination. MUSCULOSKELETAL: + for L rib pain. No neck or back pain. SKIN: No rash or lesions. NEUROLOGIC: No headache, numbness, tingling, focal weakness, loss of consciousness, or change in strength/sensation. Is the patient limited Urdu proficient: No *Physical Exam - Vital Signs Last Vital Signs Temp Pulse Resp BP Pulse Ox 97.9 F 99 H 18 138/90 98 05/05/19 00:00 05/05/19 00:00 05/05/19 00:00 05/05/19 00:00 05/05/19 00:00 - Physical Exam Comments: 05/05/19 01:17 GENERAL: Well developed, well nourished. Awake and alert. No acute distress. HEENT: Normocephalic, atraumatic. Hearing grossly normal. Moist mucous membranes. PERRLA, EOMI. No conjunctival pallor. Sclera are non-icteric. NECK: Supple. Full ROM. No JVD. CARDIOVASCULAR: Regular rate and rhythm. No murmurs, rubs, or gallops. PULMONARY: No evidence of respiratory distress. Lungs clear to auscultation bilaterally. No wheezing, rales or rhonchi. ABDOMINAL: Soft. Non-tender. Non-distended. No rebound or guarding. GENITOURINARY: No CVA tenderness bilaterally. MUSCULOSKELETAL: TTP over L posterior rib cage. Normal range of motion at all joints. EXTREMITIES: No cyanosis. No clubbing. No edema. No calf tenderness or swelling. SKIN: Warm and dry. Normal capillary refill. No rashes. No jaundice. NEUROLOGICAL: Alert, awake, appropriate. Cranial nerves 2-12 grossly intact. Normal speech. Gait is normal without ataxia. PSYCHIATRIC: Cooperative. Good eye contact. Appropriate mood and affect. Medical Decision Making - Medical Decision Making 05/05/19 01:19 48F with MMP, well known to our ER, who presents with L anterior rib pain and otherwise unremarkable PE. Will treat pain and d/c with PCP f/u. *DC/Admit/Observation/Transfer Diagnosis at time of Disposition: Chest wall pain - Discharge Dispostion Disposition: HOME Condition at time of disposition: Stable Decision to Admit order: No - Referrals Referrals: Olayinka Edwards MD [Primary Care Provider] - - Patient Instructions Printed Discharge Instructions: DI for Costochondritis Additional Instructions: Your ER visit is not complete until your follow up with your primary care physician. Please follow up with your primary care physician in 1-2 days. Please return to the ER if you have any signs or symptoms of chest pain, shortness of breath, uncontrollable fever, chills, nausea, vomiting, numbness, tingling, or weakness in any part of your body, changes in vision, or slurred speech. Please return to the ER if symptoms persist, worsen, or new symptoms arise. - Post Discharge Activity
--- NOTE | 2019-05-05 01:47 | PDOC ---
Documentation entered by Fabio Florentino SCRIBE, acting as scribe for Liv Perera DO. Liv Perera DO: This documentation has been prepared by the Mishel zamora Elijah, SCRIBE, under my direction and personally reviewed by me in its entirety. I confirm that the documentation accurately reflects all work , treatment, procedures, and medical decision making performed by me. Attending Attestation - Resident Resident Name: [email or web address] - ED Attending Attestation I have performed the following: I have examined & evaluated the patient, The case was reviewed & discussed with the resident, I agree w/resident's findings & plan - HPI HPI: 05/05/19 01:29 Patient is a 48 year old female with a significant PMH of asthma, HTN, HLD and CVA who presents to the ED with 3 days of Left Rib pain and reports asthma issues (Denies SOB and CP). The patient reports using Albuterol to alleviate her asthma issues but is unsure if it helped. Denies: Fever, Chills, Nausea, Vomiting, and Abdominal Pain Allergies: Amoxicillin Trihydrate, Azithromycin, Potassium Clavulanate PCP: Dr. Edwards - Physicial Exam PE: 05/05/19 01:29 Agree with Resident's Exam - Medical Decision Making 05/05/19 01:46 48-year-old female with left chest wall pain, reproducible on exam Patient given Toradol She will be discharged home to follow-up with her primary physician
== END 2019-05-05 02:25 | disposition home or self-care (01) ==
LOC: JER
PROC: 3E0233Z Introduction of Anti-inflammatory into Muscle, Percutaneous Approach (ICD-10-PCS; principal; 2019-05-05)
DX: R07.81 Pleurodynia (principal); R07.89 Other chest pain; I10 Essential (primary) hypertension; E78.5 Hyperlipidemia, unspecified; Z86.73 Personal history of transient ischemic attack (TIA), and cerebral infarction without residual deficits
CPT/HCPCS: 96372; 99281-25

== ENCOUNTER 2019-05-05 03:16 | Emergency (ER) | payer OTHER | END 2019-05-05 04:29 | disposition left against medical advice (07) | LOC: JER 03:16 | DX: Z53.21 Procedure and treatment not carried out due to patient leaving prior to being seen by health care provider (principal) | CPT/HCPCS: 99281-25 ==

== ENCOUNTER 2019-05-07 10:11 | Emergency (ER) | payer OTHER ==
[2019-05-07 10:21] VITALS: BP 149/99; PULSE 107; TEMP 98.4; BMI 26.5
[2019-05-07] MEDS ORDERED: IBUPROFEN 400 MG TABLET (FP) PO ONE ×2 (10:35→10:46)
--- NOTE | 2019-05-07 10:37 | PDOC ---
*Physical Exam - Vital Signs Last Vital Signs Temp Pulse Resp BP Pulse Ox 98.4 F 107 H 22 H 149/99 98 05/07/19 10:18 05/07/19 10:18 05/07/19 10:18 05/07/19 10:18 05/07/19 10:18 Medical Decision Making - Medical Decision Making 05/07/19 10:36 MS Leiva presents to the ER with a complaint of rib pain Pt has had several ER visits for the same She then states she has arm pain, ear pain, etc No trauma yesterday or today Pt seen by Midlevel Provider under my direct supervision Ancillary studies reviewed - Rib series Bedside US Motrin/Lidoderm I agree with plan as outlined by Midlevel Provider 05/07/19 10:55 05/07/19 11:25 Xray do not appear to demonstrate fracture, no pneumothorax, no pleural effusion Follow up with PMD within 1 day Return to the ER for any other concerns or complaints *DC/Admit/Observation/Transfer Diagnosis at time of Disposition: Rib pain on left side - Discharge Dispostion Disposition: HOME Condition at time of disposition: Stable - Prescriptions Prescriptions: Lidocaine 5% Patch [Lidoderm -] 1 patch TP DAILY #7 patch - Referrals Referrals: Olayinka Edwards MD [Staff Physician] - 2 Days - Patient Instructions Printed Discharge Instructions: DI for Costochondritis Additional Instructions: Thank you for choosing [facility]. It was a pleasure taking care of you. You may use Motrin 600 mg every 6 hours as needed for pain Keep lidocaine patch for 12 hrs, then keep off for 12 hours Please follow-up with your primary care doctor for further evaluation Return to the Emergency Department if your symptoms worsen or persist or have other concerning symptoms. - Post Discharge Activity
[2019-05-07] MEDS ORDERED: LIDOCAINE 5% TOPICAL PATCH TP ONE (10:49)
[2019-05-07] MEDS ORDERED: LIDOCAINE 5% TOPICAL PATCH ONE (10:52)
--- NOTE | 2019-05-07 10:53 | PDOC ---
History of Present Illness - General Chief Complaint: Pain, Acute Stated Complaint: FALL Time Seen by Provider: 05/07/19 10:24 History Source: Patient Exam Limitations: No Limitations Past History - Past Medical History Allergies/Adverse Reactions: Allergies Allergy/AdvReac Type Severity Reaction Status Date / Time amoxicillin trihydrate Allergy Verified 05/07/19 10:22 [From Augmentin] azithromycin [From Zithromax] Allergy Verified 05/07/19 10:22 potassium clavulanate Allergy Verified 05/07/19 10:22 [From Augmentin] Home Medications: Ambulatory Orders Atorvastatin Ca [Lipitor] 40 mg PO HS 02/24/19 Aspirin [ASA -] 81 mg PO DAILY tab.chew 02/25/19 Paroxetine HCl [Paxil -] 10 mg PO DAILY tablet 02/25/19 Gabapentin 300 mg PO TID 04/07/19 Naproxen 250 mg PO PRN PRN 04/07/19 Lidocaine 5% Patch [Lidoderm -] 1 patch TP DAILY #7 patch 05/07/19 Anemia: No Asthma: Yes Cancer: No Cardiac Disorders: No CVA: Yes ("MINI STROKE" FEW YRS AGO) COPD: Yes CHF: No DVT: No Dementia: No Diabetes: No Dialysis: No GI Disorders: No Disorders: No HTN: Yes Hypercholesterolemia: Yes Kidney Stones: No Liver Disease: No Psychiatric Problems: No Seizures: No Thyroid Disease: No Lung CA: No - Surgical History Abdominal Surgery: No Appendectomy: No Cardiac Surgery: Yes (SX R CAROTID ARTERY FOR A CLOT IN 2004) Cholecystectomy: No Gastric Stapling: No GI Surgery: No Lung Surgery: No Neurologic Surgery: No Orthopedic Surgery: No - Reproductive History PID: No - Immunization History Td Vaccination: Yes Immunization Up to Date: Yes - Suicide/Smoking/Psychosocial Hx Smoking Status: Yes Smoking History: Never smoked Years of Tobacco Use: 20 Have you smoked in the past 12 months: Yes Number of Cigarettes Smoked Daily: 4 Cigars Per Day: 0 'Breaking Loose' booklet given: 02/05/16 Hx Alcohol Use: No Drug/Substance Use Hx: No Substance Use Type: None Hx Substance Use Treatment: No *Physical Exam - Vital Signs Last Vital Signs Temp Pulse Resp BP Pulse Ox 98.4 F 107 H 22 H 149/99 98 05/07/19 10:18 05/07/19 10:18 05/07/19 10:18 05/07/19 10:18 05/07/19 10:36 - Physical Exam General Appearance: No: Apparent Distress Respiratory/Chest: positive: Chest Tender (mild TTP along L lateral chest wall, along midaxillary line, no step-off, no ecchymosis), Lungs Clear, Normal Breath Sounds. negative: Respiratory Distress Gastrointestinal/Abdominal: positive: Normal Bowel Sounds, Soft. negative: Tender, Distended, Guarding, Rebound Extremity: positive: Normal Capillary Refill. negative: Pedal Edema, Swelling, Calf Tenderness, Erythema Integumentary: positive: Normal Color. negative: Swelling, Ecchymosis, Bruising Neurologic: positive: Alert, Normal Mood/Affect ED Treatment Course - RADIOLOGY Radiology Studies Ordered: Category Date Time Status CHEST PA & LAT [RAD] Stat Radiology 05/07/19 10:35 Ordered RIBS-LEFT SIDE [RAD] Stat Radiology 05/07/19 10:35 Ordered - Medications Given in the ED: ED Medications Discontinued Medications Generic Name Dose Route Start Last Admin Trade Name Freq PRN Reason Stop Dose Admin Ibuprofen 800 mg 05/07/19 10:35 05/07/19 10:50 Motrin - PO 05/07/19 10:36 800 mg ONCE ONE Administration Medical Decision Making - Medical Decision Making 48 y/o F hx of HTN, HLD, CVA, COPD, arthritis, bipolar disorder presents with L sided rib pain x 3 weeks. Was seen here 2 days ago for similar complaint, but states she only got Toradol. Endorses mechanical fall 3 days ago, exacerbating L rib pain. Of note, patient with multiple visits to ED for similar complaint. Also is concerned about possible clot in her left arm or infection and that her kidneys also possibly failing after listening to a TV commercial. +smoker ( since age of 26; states has now cut down to 7 cigs/day). Denies fever, chest pain, abd pain, n/v, urinary complaints. Will obtain L rib series and get CXR as not obtained last visit to r/o fracture Not suspicious for clot or infection of LUE given PE findings (no swelling of LUE, no change in skin color); patient reassured Also not concerned for kidney failure as patient had labs last month with normal kidney function; patient is making urine Motrin and lidoderm patch given for pain 05/07/19 10:53 CXR and L rib series negative for any acute findings Bedside US done by ED resident Ernie and Dr. Mery Morgan flank area viewed with no abnormal findings noted Stable for dc 05/07/19 11:40 *DC/Admit/Observation/Transfer Diagnosis at time of Disposition: Rib pain on left side - Discharge Dispostion Disposition: HOME Condition at time of disposition: Stable Decision to Admit order: No - Prescriptions Prescriptions: Lidocaine 5% Patch [Lidoderm -] 1 patch TP DAILY #7 patch - Referrals Referrals: Olayinka Edwards MD [Staff Physician] - 2 Days - Patient Instructions Printed Discharge Instructions: DI for Costochondritis Additional Instructions: Thank you for choosing [facility]. It was a pleasure taking care of you. You may use Motrin 600 mg every 6 hours as needed for pain Keep lidocaine patch for 12 hrs, then keep off for 12 hours Please follow-up with your primary care doctor for further evaluation Return to the Emergency Department if your symptoms worsen or persist or have other concerning symptoms. - Post Discharge Activity
== END 2019-05-07 11:45 | disposition home or self-care (01) ==
LOC: JER 10:11
DX: M94.0 Chondrocostal junction syndrome [Tietze] (principal); W18.39XA Other fall on same level, initial encounter; Y93.89 Activity, other specified; Y92.89 Other specified places as the place of occurrence of the external cause; Y99.8 Other external cause status; I10 Essential (primary) hypertension; E78.5 Hyperlipidemia, unspecified; J44.9 Chronic obstructive pulmonary disease, unspecified; M12.9 Arthropathy, unspecified; F31.9 Bipolar disorder, unspecified
CPT/HCPCS: 71046-TC-FY; 71101-TC-LT-FY; 99282-25

== ENCOUNTER 2019-06-04 05:06 | Emergency (ER) | payer OTHER ==
[2019-06-04 06:36] VITALS: BMI 28.3
[2019-06-04] MEDS ORDERED: ACETAMINOPHEN 500 MG TABLET (FP) PO ONE (07:46)
--- NOTE | 2019-06-04 07:49 | PDOC ---
History of Present Illness - General Chief Complaint: Bite Stated Complaint: BITE LEFT ARM,SWELLING RIGHT ANKLE Time Seen by Provider: 06/04/19 07:40 History Source: Patient Exam Limitations: No Limitations - History of Present Illness Initial Comments: 06/04/19 07:49 48y F hx of htn, copd, bipolary disorder, tia, polysubstance abuse presents with swelling/induration to the inner elbow of her L arm since yesterday. pt notes it is ab it painful, but denies any fever/chills, n/v. Pt also endorss some swelling in her R leg and is painful but denies associated sob, hemoptysis trauma. Pt endorses a history of some kind of clot to her neck in the past. pt denies any urinary complaints, diarrhea. PCP: Dr. Edwards Social: +nicotine use, also see as above. Pt denies frequent alcohol use. Pt denies any recent travel or sick contacts, although "people may be sick at the [facility]". Surgical: no relevant history. Family: pt states mostly unknown ROS: Constitutional - no reported Fever, Chills, HEENT: no reported vision changes, sore throat Respiratory: no reported cough, sob, hemoptysis Cardiac: no reported chest pain, palpitations, light headedness, leg swelling Abd/GI: no reported abd pain, nausea, vomiting, blood per rectum, melena, diarrhea : no reported dysuria, frequency, discharge Musculskelatal - no reported back pain, joint swelling skin - +L arm swleling, R leg swelling no reported bruising, erythema, rash neurological: no reported headache, numbness, focal weakness, tingling, ataxia, hematologic: no reported easy bruising, easy bleeding Physical Exam: GENERAL: The patient is awake, alert, and fully oriented, Nontoxic - in no acute distress. HEAD: Normocephalic, atraumatic. EYES: extraocular movements intact, sclera anicteric, conjunctiva clear. ENT: Normal voice, Moist mucous membranes. NECK: Normal range of motion, supple LUNGS: Breath sounds equal, clear to auscultation bilaterally. No wheezes, no rhonchi, no rales. HEART: Regular rate and rhythm, normal S1 and S2 without murmur, rub or gallop. ABDOMEN: Soft, nontender, No guarding, no rebound. No CVA tenderness EXTREMITIES: Normal range of motion, trace edema of LLE, +1 pitting edema that is mildly tender to palpation of RLE NEUROLOGICAL: No facial assymetry, Normal speech, PSYCH: Normal mood, flat affect. SKIN: mild induration without erythema/warmth of L ac fossa, ddx - will obtain screaning labs to r/o claudia, liver failure as cause of swelling duplex to r/o dvt Past History - Past Medical History Allergies/Adverse Reactions: Allergies Allergy/AdvReac Type Severity Reaction Status Date / Time amoxicillin trihydrate Allergy Verified 06/04/19 06:36 [From Augmentin] azithromycin [From Zithromax] Allergy Verified 06/04/19 06:36 potassium clavulanate Allergy Verified 06/04/19 06:36 [From Augmentin] Home Medications: Ambulatory Orders Atorvastatin Ca [Lipitor] 40 mg PO HS 02/24/19 Aspirin [ASA -] 81 mg PO DAILY tab.chew 02/25/19 Paroxetine HCl [Paxil -] 10 mg PO DAILY tablet 02/25/19 Gabapentin 300 mg PO TID 04/07/19 Naproxen 250 mg PO PRN PRN 04/07/19 Lidocaine 5% Patch [Lidoderm -] 1 patch TP DAILY #7 patch 05/07/19 Clindamycin HCl 450 mg PO TID #63 capsule 06/04/19 Anemia: No Asthma: Yes Cancer: No Cardiac Disorders: No CVA: Yes ("MINI STROKE" FEW YRS AGO) COPD: Yes CHF: No DVT: No Dementia: No Diabetes: No Dialysis: No GI Disorders: No Disorders: No HTN: Yes Hypercholesterolemia: Yes Kidney Stones: No Liver Disease: No Psychiatric Problems: No Seizures: No Thyroid Disease: No Lung CA: No - Surgical History Abdominal Surgery: No Appendectomy: No Cardiac Surgery: Yes (SX R CAROTID ARTERY FOR A CLOT IN 2004) Cholecystectomy: No Gastric Stapling: No GI Surgery: No Lung Surgery: No Neurologic Surgery: No Orthopedic Surgery: No - Reproductive History PID: No - Immunization History Td Vaccination: Yes Immunization Up to Date: Yes - Suicide/Smoking/Psychosocial Hx Smoking Status: Yes Smoking History: Current every day smoker Years of Tobacco Use: 20 Have you smoked in the past 12 months: Yes Number of Cigarettes Smoked Daily: 4 Cigars Per Day: 0 Information on smoking cessation initiated: Yes 'Breaking Loose' booklet given: 02/05/16 Hx Alcohol Use: Yes Drug/Substance Use Hx: Yes Substance Use Type: None Hx Substance Use Treatment: No *Physical Exam - Vital Signs Last Vital Signs Temp Pulse Resp BP Pulse Ox 97.9 F 89 19 133/98 98 06/04/19 06:30 06/04/19 06:30 06/04/19 06:30 06/04/19 06:30 06/04/19 06:30 ED Treatment Course - LABORATORY CBC & Chemistry Diagram: 06/04/19 08:20 06/04/19 08:20 Medical Decision Making - Medical Decision Making 06/04/19 12:35 labs reviewed US shows no signs of dvt will dc with course of abx for cellulitis will have pt fu with pmd return precautions were discussed *DC/Admit/Observation/Transfer Diagnosis at time of Disposition: Cellulitis - Discharge Dispostion Disposition: HOME Condition at time of disposition: Fair - Prescriptions Prescriptions: Clindamycin HCl 450 mg PO TID #63 capsule - Referrals Referrals: [facility] [place] [Provider Group] - Patient Instructions Printed Discharge Instructions: DI for Cellulitis -- Adult Additional Instructions: You were seen in the ER for a skin infection. We did labs and ultrasounds and there were no abnormalities. After our assessment, we do not believe you are having a medical emergency at this time, and we believe you are safe to go home. 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 Please follow up with your primary care provider in 1-3 days. We are giving you referral information for a new one. Call their clinic, tell them you were seen in the ER , and tell them you need a follow-up. If you have any new or worsening symptoms , please come back to the ER at any time (24 hours a day). Especially come back if your arm redness/swelling/pain gets worse, if you notice a painful lump to the area that may be an abscess or collection of pus, or if you have fever or any other emergency symptoms. If you are having severe or life threatening symptoms, or symptoms that make it unsafe to drive or have someone drive you, please call 911. - Post Discharge Activity Forms/Work/School Notes: Parent(s) Back to Work Note, Back to School
--- NOTE | 2019-06-04 07:56 | PDOC ---
History of Present Illness - General Chief Complaint: Bite Stated Complaint: BITE LEFT ARM,SWELLING RIGHT ANKLE Time Seen by Provider: 06/04/19 07:40 History Source: Patient Exam Limitations: No Limitations - History of Present Illness Initial Comments: 06/04/19 07:52 [id number] with stated h/u blood clot in the right neck, PCP use (smokes), and homelessness (living in [facility]) who p/w one day worsening RUE redness, swelling, and pain. Also notes 2 weeks of RLE>LLE ankle swelling and calf pain. She denies any injected drug use in the arm (and denies IVDA ever in her life) and denies any known breaks in the skin over the past few weeks that may have caused infection. Denies any known exposure to new food, drink, medication, or other ingestions. Denies new soaps, laundry detergents, or lotions. She was outside in a park for a number of hours over the past day and volunteers that she may have gotten a bug bite. Denies f/c/n/v/d/c. Nonsmoker, no OCP use, no immobility lately, no recent surgery. Past History - Past Medical History Allergies/Adverse Reactions: Allergies Allergy/AdvReac Type Severity Reaction Status Date / Time amoxicillin trihydrate Allergy Verified 06/04/19 06:36 [From Augmentin] azithromycin [From Zithromax] Allergy Verified 06/04/19 06:36 potassium clavulanate Allergy Verified 06/04/19 06:36 [From Augmentin] Home Medications: Ambulatory Orders Atorvastatin Ca [Lipitor] 40 mg PO HS 02/24/19 Aspirin [ASA -] 81 mg PO DAILY tab.chew 02/25/19 Paroxetine HCl [Paxil -] 10 mg PO DAILY tablet 02/25/19 Gabapentin 300 mg PO TID 04/07/19 Naproxen 250 mg PO PRN PRN 04/07/19 Lidocaine 5% Patch [Lidoderm -] 1 patch TP DAILY #7 patch 05/07/19 Clindamycin HCl 450 mg PO TID #63 capsule 06/04/19 Anemia: No Asthma: Yes Cancer: No Cardiac Disorders: No CVA: Yes ("MINI STROKE" FEW YRS AGO) COPD: Yes CHF: No DVT: No Dementia: No Diabetes: No Dialysis: No GI Disorders: No Disorders: No HTN: Yes Hypercholesterolemia: Yes Kidney Stones: No Liver Disease: No Psychiatric Problems: No Seizures: No Thyroid Disease: No Lung CA: No - Surgical History Abdominal Surgery: No Appendectomy: No Cardiac Surgery: Yes (SX R CAROTID ARTERY FOR A CLOT IN 2004) Cholecystectomy: No Gastric Stapling: No GI Surgery: No Lung Surgery: No Neurologic Surgery: No Orthopedic Surgery: No - Reproductive History PID: No - Immunization History Td Vaccination: Yes Immunization Up to Date: Yes - Suicide/Smoking/Psychosocial Hx Smoking Status: Yes Smoking History: Current every day smoker Years of Tobacco Use: 20 Have you smoked in the past 12 months: Yes Number of Cigarettes Smoked Daily: 4 Cigars Per Day: 0 Information on smoking cessation initiated: Yes 'Breaking Loose' booklet given: 02/05/16 Hx Alcohol Use: Yes Drug/Substance Use Hx: Yes Substance Use Type: None Hx Substance Use Treatment: No Review of Systems - Review of Systems Able to Perform ROS?: Yes Comments:: 06/04/19 08:04 GEN: no fever, chills, malaise, generalized weakness, or weight change HEENT: no ear pain, sore throat, vision change, or eye pain CV: no chest pain, palpitations, lightheadedness, syncope, or edema RESP: no cough, wheezing, or SOB GI: no abdominal pain, nausea, vomiting, diarrhea, constipation, or white/black/ bloody stool : no dysuria, hematuria, incontinence, retention, bleeding, or discharge MSK: LUE pain/swelling, RLE pain/swelling, no neck/back pain NEURO: no headache, seizure, vertigo, numbness, tingling, or focal weakness PSYCH: no substance use, no behavior change SKIN: LUE rash, no jaundice ROS otherwise negative except as noted in HPI *Physical Exam - Vital Signs Last Vital Signs Temp Pulse Resp BP Pulse Ox 97.9 F 89 19 133/98 98 06/04/19 06:30 06/04/19 06:30 06/04/19 06:30 06/04/19 06:30 06/04/19 06:30 ED Treatment Course - LABORATORY CBC & Chemistry Diagram: 06/04/19 08:20 06/04/19 08:20 - RADIOLOGY Radiology Studies Ordered: Category Date Time Status DUPLEX VASCUL US-1 ARM [US] Stat Ultrasound 06/04/19 07:47 Ordered DUPLEX VASCUL US-1 LEG [US] Stat Ultrasound 06/04/19 07:47 Ordered Medical Decision Making - Medical Decision Making 06/04/19 08:06 [id number] p/w LUE redness/warmth/pain. Initial Vital Signs Temp Pulse Resp BP Pulse Ox 97.9 F 89 19 133/98 98 06/04/19 06:30 06/04/19 06:30 06/04/19 06:30 06/04/19 06:30 06/04/19 06:30 Exam: As noted in Physical Exam section. DDX IBNLT: cellulitis, DVT, superficial venous thrombosis, contact dermatitis; very unlikely to be any other more serious etiology e.g. osteomyelitis, necrotizing soft tissue infection, sepsis, CHF exacerbation, PVD, pulmonary HTN , etc W/U ordered: CBCD CMP Coags Duplex TX ordered: Tylenol PO Laboratory Tests 06/04/19 06/04/19 06/04/19 08:20 08:20 08:20 WBC 5.4 RBC 3.48 L Hgb 11.6 Hct 34.0 MCV 97.5 H MCH 33.3 MCHC 34.2 RDW 14.7 D Plt Count 272 MPV 7.1 L D Absolute Neuts (auto) 2.6 Neutrophils % 48.4 D Lymphocytes % 44.8 H D Monocytes % 4.5 Eosinophils % 2.2 D Basophils % 0.1 Nucleated RBC % 0 PT with INR 12.60 INR 1.07 Sodium 140 Potassium 3.7 Chloride 107 Carbon Dioxide 26 Anion Gap 8 BUN 15.4 Creatinine 0.7 Est GFR (CKD-EPI)AfAm 117.91 Est GFR (CKD-EPI)NonAf 101.74 Random Glucose 99 Calcium 9.0 Total Bilirubin 0.3 AST 17 ALT 19 Alkaline Phosphatase 86 Total Protein 7.1 Albumin 3.4 Vital Signs Temperature 97.0 F L 06/04/19 10:23 Pulse Rate 74 06/04/19 10:23 Respiratory Rate 18 06/04/19 10:23 Blood Pressure 152/100 06/04/19 10:23 O2 Sat by Pulse Oximetry (%) 100 06/04/19 10:23 06/04/19 11:[address] Medina who has read both duplex studies as negative. Duplex LUE and RLE: Negative for DVT. DISCHARGE This patient has gotten significant relief of symptoms while in the ED. On last reassessment, vitals are wnl, pain is reasonably controlled, and exam is benign. Workup is not concerning for emergency-level pathology at this time. This patient is appropriate for discharge with close outpatient follow up. The patient is given dose of Clindamycin here in the ED. Remaining E-Rx sent to her pharmacy. They are comfortable with this plan and will follow up with their primary care provider in 1-3 days. Specific return precautions are discussed and they will come back to the ER if necessary. *DC/Admit/Observation/Transfer Diagnosis at time of Disposition: Cellulitis Qualifiers: Site of cellulitis: extremity Site of cellulitis of extremity: upper extremity Laterality: left Qualified Code(s): L03.114 - Cellulitis of left upper limb - Discharge Dispostion Disposition: HOME Condition at time of disposition: Stable Decision to Admit order: No - Prescriptions Prescriptions: Clindamycin HCl 450 mg PO TID #63 capsule - Referrals Referrals: [facility] [place] [Provider Group] - Patient Instructions Printed Discharge Instructions: DI for Cellulitis -- Adult Additional Instructions: You were seen in the ER for a skin infection. We did labs and ultrasounds and there were no abnormalities. After our assessment, we do not believe you are having a medical emergency at this time, and we believe you are safe to go home. supervisor ditching your antibiotic prescription from your pharmacy and take the whole course as prescribed, whether or not you feel better. Please follow up with your primary care provider in 1-3 days. We are giving you referral information for a new one. Call their clinic, tell them you were seen in the ER , and tell them you need a follow-up. If you have any new or worsening symptoms , please come back to the ER at any time (24 hours a day). Especially come back if your arm redness/swelling/pain gets worse, if you notice a painful lump to the area that may be an abscess or collection of pus, or if you have fever or any other emergency symptoms. If you are having severe or life threatening symptoms, or symptoms that make it unsafe to drive or have someone drive you, please call 911. - Post Discharge Activity
[2019-06-04] MEDS ORDERED: ACETAMINOPHEN 325 MG TABLET (FP) ONE (08:15)
[2019-06-04 09:00] LABS: BASO % 0.1 % (0-2.0); EOS % 2.2 % (0-4.5); HEMOGLOBIN 11.6 GM/dL (10.7-15.3); LYMPH % 44.8 % (8-40); MCH 33.3 pg (25.7-33.7); MCHC 34.2 g/dl (32.0-36.0); MEAN CELL VOLUME 97.5 fl (80-96); MEAN PLT VOLUME 7.1 fl (7.5-11.1); MONO % 4.5 % (3.8-10.2); NEUT % 48.4 % (42.8-82.8); RBC 3.48 M/mm3 (3.60-5.2); RDW 14.7 % (11.6-15.6); WHITE BLOOD COUNT 5.4 K/mm3 (4.0-10.0)
[2019-06-04 09:18] LABS: ALBUMIN 3.4 g/dl (3.4-5.0); BILIRUBIN,TOTAL 0.3 mg/dL (0.2-1); BLOOD UREA NITROGEN 15.4 mg/dL (7-18); CREATININE 0.7 mg/dL (0.55-1.3); POTASSIUM 3.7 mmol/L (3.5-5.1); TOT PROT 7.1 g/dl (6.4-8.2)
[2019-06-04 09:26] LABS: PLATELET COUNT 272 K/MM3 (134-434)
[2019-06-04 10:19] LABS: INR 1.07 (0.83-1.09); PROTHROMBIN TIME (PATIENT) 12.6 SEC (9.7-13.0)
[2019-06-04 10:24] VITALS: BP 152/100; PULSE 74; TEMP 97
[2019-06-04] MEDS ORDERED: CLINDAMYCIN HCL 150 MG CAPSULE (FP) PO ONE (10:48)
[2019-06-04] MEDS ORDERED: CLINDAMYCIN HCL 150 MG CAPSULE (FP) ONE (11:13)
== END 2019-06-04 11:45 | disposition home or self-care (01) ==
LOC: JER 05:06
DX: L03.114 Cellulitis of left upper limb (principal); I10 Essential (primary) hypertension; J44.9 Chronic obstructive pulmonary disease, unspecified; F19.10 Other psychoactive substance abuse, uncomplicated; F31.9 Bipolar disorder, unspecified; Z86.73 Personal history of transient ischemic attack (TIA), and cerebral infarction without residual deficits; Z59.0 Homelessness
CPT/HCPCS: 36415; 80053; 85025; 85610; 93971; 93971-TC; 99282-25

== ENCOUNTER 2019-06-10 05:26 | Emergency (ER) | payer OTHER | END 2019-06-10 06:52 | disposition home or self-care (01) | LOC: JER 05:26 | DX: R07.89 Other chest pain (principal); I10 Essential (primary) hypertension; J44.9 Chronic obstructive pulmonary disease, unspecified; J45.909 Unspecified asthma, uncomplicated; Z86.73 Personal history of transient ischemic attack (TIA), and cerebral infarction without residual deficits ==

== ENCOUNTER 2019-06-11 02:02 | Emergency (ER) | payer OTHER ==
[2019-06-11 02:10] VITALS: BMI 28.3
[2019-06-11] MEDS ORDERED: DEXAMETHASONE SOD PHOSPHATE 10 MG/1 ML VIAL ONE (02:34)
--- NOTE | 2019-06-11 03:22 | PDOC ---
History of Present Illness - General Chief Complaint: Asthma Stated Complaint: ASTHMA Time Seen by Provider: 06/11/19 02:29 - History of Present Illness Initial Comments: 06/11/19 04:08 [id number] w/ pmh of HTN, asthma, substance abuse(meth, used one month prior) presents to [facility] w/ complaint of frontal COLON and Right hand pain w/a swelling x5d. Also , has had wheezing requiring nightly albuterol inhaler. Hand pain does not interfere with ability to hold objects. Denies recent trauma to hand. Associated Symptoms: reports: headaches Past History - Travel Traveled outside of the country in the last 30 days: No Close contact w/someone who was outside of country & ill: No - Past Medical History Allergies/Adverse Reactions: Allergies Allergy/AdvReac Type Severity Reaction Status Date / Time amoxicillin trihydrate Allergy Verified 06/11/19 02:08 [From Augmentin] azithromycin [From Zithromax] Allergy Verified 06/11/19 02:08 potassium clavulanate Allergy Verified 06/11/19 02:08 [From Augmentin] Home Medications: Ambulatory Orders Atorvastatin Ca [Lipitor] 40 mg PO HS 02/24/19 Aspirin [ASA -] 81 mg PO DAILY tab.chew 02/25/19 Paroxetine HCl [Paxil -] 10 mg PO DAILY tablet 02/25/19 Gabapentin 300 mg PO TID 04/07/19 Naproxen 250 mg PO PRN PRN 04/07/19 Lidocaine 5% Patch [Lidoderm -] 1 patch TP DAILY #7 patch 05/07/19 Clindamycin HCl 450 mg PO TID #63 capsule 06/04/19 Anemia: No Asthma: Yes Cancer: No Cardiac Disorders: No CVA: Yes ("MINI STROKE" FEW YRS AGO) COPD: Yes CHF: No DVT: No Dementia: No Diabetes: No Dialysis: No GI Disorders: No Disorders: No HTN: Yes Hypercholesterolemia: Yes Kidney Stones: No Liver Disease: No Psychiatric Problems: No Seizures: No Thyroid Disease: No Lung CA: No - Surgical History Abdominal Surgery: No Appendectomy: No Cardiac Surgery: Yes (SX R CAROTID ARTERY FOR A CLOT IN 2004) Cholecystectomy: No Gastric Stapling: No GI Surgery: No Lung Surgery: No Neurologic Surgery: No Orthopedic Surgery: No - Family Disease History Comment:: 06/11/19 04:13 HTN - Reproductive History PID: No - Immunization History Td Vaccination: Yes Immunization Up to Date: Yes - Suicide/Smoking/Psychosocial Hx Smoking Status: Yes Smoking History: Current every day smoker Years of Tobacco Use: 20 Have you smoked in the past 12 months: No Number of Cigarettes Smoked Daily: 10 Cigars Per Day: 0 Information on smoking cessation initiated: No 'Breaking Loose' booklet given: 02/05/16 Hx Alcohol Use: No Drug/Substance Use Hx: No Hx Substance Use Treatment: Yes (PCP, one month prior) Review of Systems - Review of Systems Able to Perform ROS?: Yes Is the patient limited Dominican proficient: No Constitutional: No: Chills, Fever, Malaise HEENTM: No: Eye Pain, Blurred Vision Respiratory: Yes: Wheezing Cardiac (ROS): No: Chest Pain, Palpitations ABD/GI: No: Constipated, Diarrhea, Nausea : No: Dysuria, Urgency Musculoskeletal: Yes: Other (Right hand pain) Neurological: Yes: Headache (frontal COLON) *Physical Exam - Vital Signs Last Vital Signs Temp Pulse Resp BP Pulse Ox 97.6 F 83 18 133/90 96 06/11/19 02:09 06/11/19 02:09 06/11/19 02:09 06/11/19 02:09 06/11/19 02:09 - Physical Exam General Appearance: Yes: Obese. No: Apparent Distress HEENT: negative: Photophobia, Scleral Icterus (R), Scleral Icterus (L) Neck: positive: Trachea midline. negative: Lymphadenopathy (R), Lymphadenopathy (L) Respiratory/Chest: positive: Wheezing (end-expiratory wheezes). negative: Chest Tender, Respiratory Distress Cardiovascular: positive: Regular Rhythm, S1, S2 Comments:: 06/11/19 04:15 Radial pulses 2+ b/l Gastrointestinal/Abdominal: positive: Soft. negative: Rebound, Tenderness Extremity: positive: Normal Range of Motion (of Right and Left hand). negative : Delayed Capillary Refill Neurologic: positive: Other (somnolent-appearing ) Medical Decision Making - Medical Decision Making 06/11/19 04:19 - acetaminophen for pain - albuterol for wheezing 06/11/19 04:31 - patient is screaming, calmed after speaking to her 06/11/19 04:43 - EKG for complaint of chest pain 06/11/19 06:32 - complaint of COLON. patient denying refusal of acetaminophen - will administer toradol and discharge home *DC/Admit/Observation/Transfer Diagnosis at time of Disposition: Head ache Qualifiers: Headache type: tension-type Headache chronicity pattern: acute headache Intractability: not intractable Qualified Code(s): G44.209 - Tension-type headache, unspecified, not intractable - Discharge Dispostion Disposition: HOME Condition at time of disposition: Stable Decision to Admit order: No - Referrals Referrals: [facility] [place] [Provider Group] - Patient Instructions Printed Discharge Instructions: DI for Headache Additional Instructions: You were evaluated for Headache. You had some wheezing which was treated with albuterol. Your wheezing improved. Acetaminophen and ketorolac were used to treat your headache. return to the ED if you experience: - severe intractable headache that is 10/10 in severity - nausea and vomiting - fever and chills - Post Discharge Activity
[2019-06-11] MEDS ORDERED: ALBUTEROL SO4 2.5/IPRATROPIUM 0.5 INH SOL 3 ML VIAL.NEB. NEB ONE ×2 (03:23→03:30)
[2019-06-11] MEDS ORDERED: ACETAMINOPHEN 500 MG TABLET (FP) PO ONE (04:09)
--- NOTE | 2019-06-11 04:12 | PDOC ---
Attending Attestation - Resident Resident Name: Davian Quintanilla - ED Attending Attestation I have performed the following: I have examined & evaluated the patient, The case was reviewed & discussed with the resident, I agree w/resident's findings & plan, Exceptions are as noted - HPI HPI: 06/11/19 07:46 48F pmh of HTN, Asthma, substance abuse with sob, frontal COLON, typical pattern, non-exertional, gradual onset and R hand atraumatic px - Physicial Exam PE: 06/11/19 07:48 Agree with exam as documented by resident - Medical Decision Making 06/11/19 07:48 Wheezing on exam symptomatic tx of COLON, wheezing, imaging not indicated Symptomatic improvement on re-eval dc
[2019-06-11 05:23] VITALS: TEMP 97.4
[2019-06-11] MEDS ORDERED: KETOROLAC TROMETHAMINE 15 MG/ML VIAL IVPUSH ONE (06:31)
[2019-06-11] MEDS ORDERED: KETOROLAC TROMETHAMINE 15 MG/ML VIAL ONE (06:36)
[2019-06-11 07:59] VITALS: BP 145/108; PULSE 87
== END 2019-06-11 07:25 | disposition home or self-care (01) ==
LOC: JER 02:02
PROC: 3E0F7GC Introduction of Other Therapeutic Substance into Respiratory Tract, Via Natural or Artificial Opening (ICD-10-PCS; principal; 2019-06-11)
PROC: 3E0333Z Introduction of Anti-inflammatory into Peripheral Vein, Percutaneous Approach (ICD-10-PCS; 2019-06-11)
DX: G44.209 Tension-type headache, unspecified, not intractable (principal); F17.210 Nicotine dependence, cigarettes, uncomplicated; I10 Essential (primary) hypertension; Z86.718 Personal history of other venous thrombosis and embolism; E78.00 Pure hypercholesterolemia, unspecified
CPT/HCPCS: 99283-25

== ENCOUNTER 2021-03-06 02:54 | Emergency (ER) | payer OTHER ==
[2021-03-06 03:01] VITALS: TEMP 98.6; BMI 28.3
[2021-03-06 04:34] LABS: BASO % 0.3 % (0-2.0); EOS % 2.8 % (0-4.5); HEMATOCRIT 34.9 % (32.4-45.2); HEMOGLOBIN 11.9 GM/dL (10.7-15.3); MEAN PLT VOLUME 7.4 fl (7.5-11.1); MONO % 6.1 % (3.8-10.2); NEUT % 35.8 % (42.8-82.8); PLATELET COUNT 229 K/MM3 (134-434); RDW 14.2 % (11.6-15.6); WHITE BLOOD COUNT 5.8 K/mm3 (4.0-10.0)
[2021-03-06 04:53] LABS: CHLORIDE 111 mmol/L (98-107); SODIUM 143 mmol/L (136-145)
[2021-03-06 04:54] LABS: CALCIUM 8.1 mg/dL (8.5-10.1)
[2021-03-06 04:55] LABS: ANION GAP 6 MMOL/L (8-16); BLOOD UREA NITROGEN 18.8 mg/dL (7-18); CO2 26 mmol/L (21-32); GLUCOSE,RANDOM 87 mg/dL (74-106)
[2021-03-06 04:58] LABS: CREATININE 0.9 mg/dL (0.55-1.3)
[2021-03-06] MEDS ORDERED: POTASSIUM CHLORIDE TABS 20 MEQ TABLET.ER (FP) PO ONE (06:07)
[2021-03-06 06:30] VITALS: BP 170/89; PULSE 71
== END 2021-03-06 06:35 | disposition home or self-care (01) ==
LOC: JER 02:54
DX: R06.02 Shortness of breath (principal); F41.9 Anxiety disorder, unspecified
CPT/HCPCS: 36415; 71045-TC-FY; 80048; 84484; 85025; 93005; 93010; 99285-25

== ENCOUNTER 2021-10-30 03:32 | Emergency (ER) | payer OTHER ==
[2021-10-30 03:57] VITALS: BMI 32.2
[2021-10-30 05:56] LABS: HEMATOCRIT 40.1 % (32.4-45.2); HEMOGLOBIN 13.4 GM/dL (10.7-15.3); MCH 31.8 pg (25.7-33.7); MCHC 33.5 g/dl (32.0-36.0); MEAN CELL VOLUME 94.8 fl (80-96); MEAN PLT VOLUME 7.3 fl (7.5-11.1); PLATELET COUNT 208 10^3/uL (134-434); RBC 4.23 M/mm3 (3.60-5.2); RDW 13.8 % (11.6-15.6)
[2021-10-30 06:16] LABS: CHLORIDE 109 mmol/L (98-107); SODIUM 142 mmol/L (136-145)
[2021-10-30 06:18] LABS: CALCIUM 8.8 mg/dL (8.5-10.1)
[2021-10-30 06:19] LABS: ALBUMIN 3.6 g/dl (3.4-5.0); ANION GAP 8 MMOL/L (8-16); CO2 25 mmol/L (21-32); GLUCOSE,RANDOM 96 mg/dL (74-106)
[2021-10-30 06:22] LABS: CREATININE 0.9 mg/dL (0.55-1.3); SGOT/AST 27 U/L (15-37); SGPT/ALT 35 U/L (13-61)
[2021-10-30 06:23] LABS: BILIRUBIN,TOTAL 0.3 mg/dL (0.2-1); TOT PROT 7.4 g/dl (6.4-8.2)
[2021-10-30 06:24] LABS: ALK PHOS 71 U/L (45-117)
[2021-10-30 06:27] LABS: N-TERMINAL BNP 262.1 pg/ml (5-125)
[2021-10-30] MEDS ORDERED: POTASSIUM CHLORIDE TABS 20 MEQ TABLET.ER (FP) PO ONE ×2 (06:37→06:43)
[2021-10-30] MEDS ORDERED: FUROSEMIDE 40 MG/4 ML INJECTABLE VIAL IVPUSH ONE (06:38)
[2021-10-30] MEDS ORDERED: FUROSEMIDE 40 MG/4 ML INJECTABLE VIAL ONE (06:43)
[2021-10-30 09:23] VITALS: BP 134/96; PULSE 83; TEMP 97.5
[2021-10-30] MEDS ORDERED: KETOROLAC TROMETHAMINE 15 MG/ML VIAL IVPUSH ONE (09:23)
[2021-10-30] MEDS ORDERED: KETOROLAC TROMETHAMINE 30 MG/1 ML VIAL ONE (09:32)
[2021-10-30 10:57] LABS: HIV INTERPRETATION NEGATIVE (NEGATIVE)
== END 2021-10-30 09:53 | disposition home or self-care (01) ==
LOC: JER 03:32
PROC: 3E033GC Introduction of Other Therapeutic Substance into Peripheral Vein, Percutaneous Approach (ICD-10-PCS; principal; 2021-10-30)
DX: R06.02 Shortness of breath (principal); R60.9 Edema, unspecified; M79.10 Myalgia, unspecified site
CPT/HCPCS: 36415; 71045-TC-FY; 80053; 83880; 84484; 85025; 87389; 93005; 93010; 93970-TC; 99284-25

== ENCOUNTER 2022-02-08 05:20 | Observation (INO) | payer OTHER ==
[2022-02-08 06:42] LABS: ALBUMIN 3.2 g/dl (3.4-5.0); BLOOD UREA NITROGEN 13.4 mg/dL (7-18); CALCIUM 8.7 mg/dL (8.5-10.1)
[2022-02-08 06:45] LABS: CREATININE 0.8 mg/dL (0.55-1.3)
[2022-02-08 06:48] LABS: BILIRUBIN,TOTAL 0.2 mg/dL (0.2-1); TOT PROT 6.4 g/dl (6.4-8.2)
[2022-02-08 06:53] LABS: HEMATOCRIT 38.6 % (32.4-45.2); HEMOGLOBIN 12.7 GM/dL (10.7-15.3); MCH 32.2 pg (25.7-33.7); MEAN CELL VOLUME 97.5 fl (80-96); MEAN PLT VOLUME 7.8 fl (7.5-11.1); PLATELET COUNT 193 10^3/uL (134-434); RBC 3.96 M/mm3 (3.60-5.2); RDW 13.5 % (11.6-15.6); WHITE BLOOD COUNT 5.5 K/mm3 (4.0-10.0)
[2022-02-08] MEDS ORDERED: ASPIRIN 81 MG CHEWABLE TABLETS PO ONE (07:18)
[2022-02-08] MEDS ORDERED: ACETAMINOPHEN 1000 MG/100 ML BAG IVPB ONE ×2 (07:18→13:17)
[2022-02-08 07:21] LABS: ACTIVATED PTT 37.7 SECONDS (25.2-36.5); INR 0.99 (0.83-1.09); PROTHROMBIN TIME (PATIENT) 11.4 SEC (9.7-13.0)
[2022-02-08] MEDS ORDERED: ACETAMINOPHEN INJECTION 100 ML IVPB ONE ×2 (07:25→13:27)
[2022-02-08] MEDS ORDERED: ASPIRIN 81 MG CHEWABLE TABLETS ONE (07:25)
[2022-02-08 08:40] LABS: MAGNESIUM 2.2 mg/dL (1.8-2.4)
[2022-02-08 08:43] LABS: PHOSPHOROUS 3.7 mg/dL (2.5-4.9)
[2022-02-08] MEDS ORDERED: KETOROLAC TROMETHAMINE 15 MG/ML VIAL IVPUSH ONE (10:29)
[2022-02-08] MEDS ORDERED: KETOROLAC TROMETHAMINE 15 MG/ML VIAL ONE (10:36)
[2022-02-08 10:44] LABS: EPI CELLS 15 /uL (0-25.1); HYALINE CASTS 0 /uL (0-3.1); PH,URINE 7.5 (5.0-8.0); URINE APPEARANCE CLEAR; URINE BACTERIA 478 /uL (0-1359); URINE BILIRUBIN NEGATIVE (NEGATIVE); URINE COLOR YELLOW; URINE GLUCOSE (UA) NEGATIVE (NEGATIVE); URINE KETONE NEGATIVE (NEGATIVE); URINE LEUK ESTERASE NEGATIVE (NEGATIVE); URINE NITRITE NEGATIVE (NEGATIVE); URINE PROTEIN NEGATIVE (NEGATIVE); URINE RBC 4 /uL (0-23.9); URINE UROBILINOGEN 0.2 mg/dL (0.2-1.0); URINE WBC 17 /uL (0-25.8)
[2022-02-08] MEDS ORDERED: QUEtiapine FUMARATE 25 MG TABLET PO ONE (13:18)
[2022-02-08] MEDS ORDERED: VALSARTAN 80 MG TABLET ONE (13:27)
[2022-02-08] MEDS ORDERED: QUEtiapine FUMARATE 25 MG TABLET ONE (13:27)
[2022-02-08] MEDS ORDERED: amLODIPine BESYLATE 5 MG TABLET (FP) ONE (13:27)
[2022-02-08] MEDS: amLODIPine BESYLATE 5 MG TABLET (FP) PO SCH (13:42)
[2022-02-08] MEDS: VALSARTAN 160 MG TABLET PO SCH (13:42)
[2022-02-08] MEDS: PARoxetine HCL 20 MG TABLET PO SCH (15:16)
[2022-02-08] MEDS ORDERED: LABETALOL HCL 5 MG/1 ML (100MG/20 ML VIAL) IVPUSH ONE (16:45)
[2022-02-08 18:42] VITALS: BMI 31.4
[2022-02-08] MEDS: ACETAMINOPHEN 325 MG TABLET (FP) PO PRN (21:33)
[2022-02-08] MEDS ORDERED: ATORVASTATIN CA 40 MG TABLET (FP) PO SCH (22:00)
[2022-02-08] MEDS ORDERED: QUEtiapine FUMARATE 50 MG TABLET PO SCH ×2 (22:00)
[2022-02-09] MEDS: ACETAMINOPHEN 325 MG TABLET (FP) PO PRN (03:04)
[2022-02-09] MEDS ORDERED: IBUPROFEN 200 MG TABLET PO ONE (05:04)
[2022-02-09 06:59] LABS: BASO % 0.4 % (0-2.0); EOS % 1.2 % (0-4.5); HEMATOCRIT 37.5 % (32.4-45.2); LYMPH % 45.2 % (8-40); MCH 33.1 pg (25.7-33.7); MCHC 34.7 g/dl (32.0-36.0); MEAN CELL VOLUME 95.5 fl (80-96); MONO % 6.3 % (3.8-10.2); NEUT % 46.9 % (42.8-82.8); PLATELET COUNT 192 10^3/uL (134-434); RBC 3.92 M/mm3 (3.60-5.2); RDW 13.4 % (11.6-15.6); WHITE BLOOD COUNT 5.8 K/mm3 (4.0-10.0)
[2022-02-09 07:15] LABS: BLOOD UREA NITROGEN 13.4 mg/dL (7-18); CALCIUM 8.4 mg/dL (8.5-10.1); MAGNESIUM 2.1 mg/dL (1.8-2.4)
[2022-02-09 07:16] LABS: ALBUMIN 3.2 g/dl (3.4-5.0)
[2022-02-09 07:20] LABS: BILIRUBIN,TOTAL 0.4 mg/dL (0.2-1); CREATININE 0.8 mg/dL (0.55-1.3); PHOSPHOROUS 3.2 mg/dL (2.5-4.9); TOT PROT 6.7 g/dl (6.4-8.2)
[2022-02-09] MEDS ORDERED: ENOXAPARIN NA (PORCINE) 40 MG/0.4 ML DISP.SYRIN SQ SCH (10:00)
[2022-02-09] MEDS ORDERED: ASPIRIN 81 MG CHEWABLE TABLETS PO SCH (10:00)
[2022-02-09] MEDS: amLODIPine BESYLATE 5 MG TABLET (FP) PO SCH (10:51)
[2022-02-09] MEDS: VALSARTAN 160 MG TABLET PO SCH (10:51)
[2022-02-09] MEDS: PARoxetine HCL 20 MG TABLET PO SCH (10:52)
[2022-02-09] MEDS ORDERED: LIDOCAINE 5% TOPICAL PATCH TP SCH (12:00)
[2022-02-09] MEDS ORDERED: NICOTINE 14 MG/24 HOURS TOPICAL PATCH TD SCH (12:00)
[2022-02-09 14:31] LABS: COCAINE, UR NEGATIVE (NEGATIVE); METHADONE, UR NEGATIVE (NEGATIVE); OPIATES, URI NEGATIVE (NEGATIVE); PHENCYCLIDINE,URINE POSITIVE (NEGATIVE); URINE AMPHETAMINES NEGATIVE (NEGATIVE); URINE BARBITURATES NEGATIVE (NEGATIVE); URINE BENZODIAZEPINES NEGATIVE (NEGATIVE)
[2022-02-09 15:55] VITALS: BP 152/98; PULSE 82; TEMP 98.1
[2022-02-09] MEDS ORDERED: LIDOCAINE PATCH REMOVAL MC SCH (22:00)
== END 2022-02-09 21:20 | disposition left against medical advice (07) ==
LOC: JER 05:20 → JERBED 10:43 → J4W 16:42
PROVIDERS: ADMIT Internal Medicine; ATTEND Internal Medicine
PROC: 3E033NZ Introduction of Analgesics, Hypnotics, Sedatives into Peripheral Vein, Percutaneous Approach (ICD-10-PCS; principal; 2022-02-08)
PROC: 3E023GC Introduction of Other Therapeutic Substance into Muscle, Percutaneous Approach (ICD-10-PCS; 2022-02-08)
PROC: 3E0333Z Introduction of Anti-inflammatory into Peripheral Vein, Percutaneous Approach (ICD-10-PCS; 2022-02-08)
PROC: 3E033GC Introduction of Other Therapeutic Substance into Peripheral Vein, Percutaneous Approach (ICD-10-PCS; 2022-02-08)
DX: R07.9 Chest pain, unspecified (principal); R47.1 Dysarthria and anarthria; F25.9 Schizoaffective disorder, unspecified; F31.9 Bipolar disorder, unspecified; E78.00 Pure hypercholesterolemia, unspecified; R61 Generalized hyperhidrosis; E66.8 Other obesity; Z68.31 Body mass index [BMI] 31.0-31.9, adult; I10 Essential (primary) hypertension; Z91.14 Patient's other noncompliance with medication regimen; F19.10 Other psychoactive substance abuse, uncomplicated; Z29.9 Encounter for prophylactic measures, unspecified; Z86.73 Personal history of transient ischemic attack (TIA), and cerebral infarction without residual deficits; J44.9 Chronic obstructive pulmonary disease, unspecified; F17.210 Nicotine dependence, cigarettes, uncomplicated; M79.602 Pain in left arm; Z88.8 Allergy status to other drugs, medicaments and biological substances; R47.81 Slurred speech
CPT/HCPCS: 36415; 70450-TC; 70551-TC; 71045-TC-FY; 80053; 80061; 80307; 81003; 83036; 83735; 84100; 84443; 84484; 85025; 85027; 85610; 85730; 87086; 93005; 93010; 93880-TC; 96367; 96372; 96374; 96375; 99285-25; C9803-CS; G0378; U0003; U0005

== ENCOUNTER 2022-02-10 01:27 | Emergency (ER) | payer OTHER ==
[2022-02-10 01:56] VITALS: BP 156/60; PULSE 70; TEMP 98; BMI 30.8
[2022-02-10] MEDS ORDERED: ACETAMINOPHEN/CAFFEINE/BUTALBITAL 1 TAB PO ONE (02:26)
[2022-02-10] MEDS ORDERED: diphenhydrAMINE HCL 25 MG CAPSULE (FP) PO ONE ×2 (02:26→02:30)
[2022-02-10] MEDS ORDERED: ACETAMINOPHEN/CAFFEINE/BUTALBITAL 1 TAB ONE (02:30)
[2022-02-10 02:59] LABS: BASO % 0.9 % (0-2.0); EOS % 1.1 % (0-4.5); HEMATOCRIT 40.7 % (32.4-45.2); HEMOGLOBIN 13.8 GM/dL (10.7-15.3); LYMPH % 35.1 % (8-40); MCH 32.4 pg (25.7-33.7); MCHC 33.9 g/dl (32.0-36.0); MEAN CELL VOLUME 95.6 fl (80-96); MEAN PLT VOLUME 7.2 fl (7.5-11.1); MONO % 6.2 % (3.8-10.2); NEUT % 56.7 % (42.8-82.8); PLATELET COUNT 206 10^3/uL (134-434); RBC 4.25 M/mm3 (3.60-5.2); RDW 13.5 % (11.6-15.6); WHITE BLOOD COUNT 6.5 K/mm3 (4.0-10.0)
[2022-02-10 03:14] LABS: ALBUMIN 3.6 g/dl (3.4-5.0); BLOOD UREA NITROGEN 14.5 mg/dL (7-18)
[2022-02-10 03:17] LABS: CREATININE 0.8 mg/dL (0.55-1.3)
[2022-02-10 03:19] LABS: BILIRUBIN,TOTAL 0.3 mg/dL (0.2-1); TOT PROT 7.4 g/dl (6.4-8.2)
== END 2022-02-10 05:14 | disposition home or self-care (01) ==
LOC: JER 01:27
DX: R07.9 Chest pain, unspecified (principal)
CPT/HCPCS: 36415; 71046-TC-FY; 80053; 84484; 85025; 99285-25

== ENCOUNTER 2022-09-11 14:48 | Emergency (ER) | payer OTHER ==
[2022-09-11 15:41] VITALS: BP 124/88; PULSE 88; RESP 18; TEMP 98.1; BMI 29.7
[2022-09-11] MEDS ORDERED: KETOROLAC TROMETHAMINE 30 MG/1 ML VIAL IM ONE (17:45)
[2022-09-11] MEDS ORDERED: KETOROLAC TROMETHAMINE 30 MG/1 ML VIAL ONE (18:13)
== END 2022-09-11 18:36 | disposition home or self-care (01) ==
LOC: JERFT 14:48
PROC: 3E0233Z Introduction of Anti-inflammatory into Muscle, Percutaneous Approach (ICD-10-PCS; principal; 2022-09-11)
DX: S60.012A Contusion of left thumb without damage to nail, initial encounter (principal); S00.83XA Contusion of other part of head, initial encounter; M25.561 Pain in right knee; Y04.0XXA Assault by unarmed brawl or fight, initial encounter
CPT/HCPCS: 71101-TC-LT-FY; 73030-TC-LT-FY; 73130-TC-LT-FY; 73562-TC-RT-FY; 96372; 99285-25

== ENCOUNTER 2022-11-12 06:50 | Emergency (ER) | payer OTHER ==
[2022-11-12 07:00] VITALS: BP 120/82; PULSE 94; RESP 17; TEMP 98.1; BMI 30.9
== END 2022-11-12 07:15 | disposition left against medical advice (07) ==
LOC: JER 06:50 → JERFT 06:50
DX: R05.1 Acute cough (principal)
CPT/HCPCS: 99283-25

== ENCOUNTER 2022-11-12 08:36 | Emergency (ER) | payer OTHER ==
[2022-11-12 08:48] VITALS: BP 124/82; PULSE 101; RESP 20; BMI 30.6
[2022-11-12] MEDS ORDERED: LIDOCAINE 5% TOPICAL PATCH TP ONE ×2 (09:36→09:37)
[2022-11-12] MEDS ORDERED: ACETAMINOPHEN 325 MG TABLET (FP) PO ONE (09:37)
[2022-11-12 10:01] VITALS: TEMP 97.8
[2022-11-12] MEDS ORDERED: ACETAMINOPHEN 325 MG TABLET (FP) ONE (10:56)
[2022-11-12] MEDS ORDERED: LIDOCAINE 5% TOPICAL PATCH ONE (10:56)
[2022-11-12 12:11] LABS: BASO % 0.8 % (0-2.0); EOS % 0.8 % (0-4.5); HEMATOCRIT 37.2 % (32.4-45.2); HEMOGLOBIN 12.3 GM/dL (10.7-15.3); LYMPH % 43.6 % (8-40); MCH 32.2 pg (25.7-33.7); MCHC 33.2 g/dl (32.0-36.0); MEAN CELL VOLUME 96.9 fl (80-96); MEAN PLT VOLUME 8.1 fl (7.5-11.1); MONO % 4.4 % (3.8-10.2); NEUT % 50.4 % (42.8-82.8); PLATELET COUNT 245 10^3/uL (134-434); RBC 3.84 M/mm3 (3.60-5.2); RDW 13.7 % (11.6-15.6); WHITE BLOOD COUNT 6.2 K/mm3 (4.0-10.0)
[2022-11-12 12:52] LABS: CALCIUM 8.3 mg/dL (8.5-10.1)
[2022-11-12 12:53] LABS: ALBUMIN 3.2 g/dl (3.4-5.0); BLOOD UREA NITROGEN 19.7 mg/dL (7-18)
[2022-11-12 12:56] LABS: CREATININE 0.7 mg/dL (0.55-1.3)
[2022-11-12 12:57] LABS: BILIRUBIN,TOTAL 0.3 mg/dL (0.2-1)
[2022-11-12 13:01] LABS: N-TERMINAL BNP 10.7 pg/ml (5-125)
[2022-11-12 14:42] LABS: SYPHILIS W/ RPR CONF NON-REACTIVE (NONREACTIVE)
[2022-11-12] MEDS ORDERED: IBUPROFEN 400 MG TABLET (FP) PO ONE (14:45)
[2022-11-12] MEDS ORDERED: KETOROLAC TROMETHAMINE 30 MG/1 ML VIAL IM ONE (14:49)
[2022-11-12 15:10] LABS: HIV INTERPRETATION NEGATIVE (NEGATIVE)
[2022-11-12] MEDS ORDERED: KETOROLAC TROMETHAMINE 30 MG/1 ML VIAL ONE (15:34)
[2022-11-12] MEDS ORDERED: LIDOCAINE PATCH REMOVAL MC ONE ×2 (22:00)
== END 2022-11-12 15:40 | disposition home or self-care (01) ==
LOC: JER 08:36
PROC: 3E0233Z Introduction of Anti-inflammatory into Muscle, Percutaneous Approach (ICD-10-PCS; principal; 2022-11-12)
DX: R06.02 Shortness of breath (principal); M54.50 Low back pain, unspecified
CPT/HCPCS: 36415; 71046-TC-FY; 80053; 83880; 84484; 85025; 86780; 87389; 87491; 87591; 93005; 93010; 96372; 99285-25

== ENCOUNTER 2023-01-07 03:28 | Emergency (ER) | payer OTHER ==
[2023-01-07 03:38] VITALS: RESP 20; TEMP 97.4; BMI 67.5
[2023-01-07] MEDS ORDERED: SODIUM CHLORIDE 0.9% 500 ML INFUS.BAG IV ONE (07:35)
[2023-01-07] MEDS ORDERED: METOCLOPRAMIDE HCL INJECTION 10 MG/2 ML VIAL IVPB ONE (07:35)
[2023-01-07] MEDS ORDERED: ACETAMINOPHEN 1000 MG/100 ML BAG IVPB ONE (07:35)
[2023-01-07] MEDS ORDERED: LIDOCAINE 5% TOPICAL PATCH TP ONE (07:37)
[2023-01-07] MEDS ORDERED: ACETAMINOPHEN INJECTION 100 ML IVPB ONE (07:45)
[2023-01-07] MEDS ORDERED: METOCLOPRAMIDE HCL INJECTION 10 MG/2 ML VIAL ONE (07:45)
[2023-01-07] MEDS ORDERED: LIDOCAINE 5% TOPICAL PATCH ONE (07:45)
[2023-01-07 08:07] LABS: BASO % 0.9 % (0-2.0); EOS % 0.8 % (0-4.5); HEMATOCRIT 41.1 % (32.4-45.2); HEMOGLOBIN 13.6 GM/dL (10.7-15.3); LYMPH % 48.7 % (8-40); MCH 31.7 pg (25.7-33.7); MEAN CELL VOLUME 96.1 fl (80-96); MEAN PLT VOLUME 7.7 fl (7.5-11.1); MONO % 7.3 % (3.8-10.2); NEUT % 42.3 % (42.8-82.8); PLATELET COUNT 204 10^3/uL (134-434); RBC 4.27 M/mm3 (3.60-5.2); RDW 14.1 % (11.6-15.6); WHITE BLOOD COUNT 5.9 K/mm3 (4.0-10.0)
[2023-01-07 08:31] LABS: CALCIUM 8.8 mg/dL (8.5-10.1)
[2023-01-07 08:33] LABS: ALBUMIN 3.4 g/dl (3.4-5.0); BLOOD UREA NITROGEN 15.2 mg/dL (7-18)
[2023-01-07 08:35] LABS: CREATININE 0.5 mg/dL (0.55-1.3)
[2023-01-07 08:37] LABS: BILIRUBIN,TOTAL 0.6 mg/dL (0.2-1); TOT PROT 6.8 g/dl (6.4-8.2)
[2023-01-07 09:22] LABS: EPI CELLS >36 /uL (0-25.1); HYALINE CASTS 1 /uL (0-3.1); URINE APPEARANCE CLOUDY; URINE BACTERIA 4648 /uL (0-1359); URINE BILIRUBIN NEGATIVE (NEGATIVE); URINE COLOR YELLOW; URINE GLUCOSE (UA) NEGATIVE (NEGATIVE); URINE KETONE NEGATIVE (NEGATIVE); URINE LEUK ESTERASE NEGATIVE (NEGATIVE); URINE NITRITE NEGATIVE (NEGATIVE); URINE PROTEIN NEGATIVE (NEGATIVE); URINE RBC 8 /uL (0-23.9); URINE UROBILINOGEN 0.2 mg/dL (0.2-1.0)
[2023-01-07 09:29] VITALS: BP 161/118; PULSE 60
[2023-01-07] MEDS ORDERED: amLODIPine BESYLATE 5 MG TABLET (FP) PO ONE (09:35)
[2023-01-07] MEDS ORDERED: amLODIPine BESYLATE 5 MG TABLET (FP) ONE (09:40)
[2023-01-07] MEDS ORDERED: LIDOCAINE PATCH REMOVAL MC SCH (22:00)
== END 2023-01-07 11:45 | disposition home or self-care (01) ==
LOC: JER 03:28
PROC: 3E0333Z Introduction of Anti-inflammatory into Peripheral Vein, Percutaneous Approach (ICD-10-PCS; principal; 2023-01-07)
PROC: 3E033GC Introduction of Other Therapeutic Substance into Peripheral Vein, Percutaneous Approach (ICD-10-PCS; 2023-01-07)
DX: F19.10 Other psychoactive substance abuse, uncomplicated (principal); R51.9 Headache, unspecified
CPT/HCPCS: 36415; 70450-TC; 72125-TC; 80053; 80307; 81003; 82962; 84484; 85025; 93005; 93010; 99285-25

== ENCOUNTER 2023-02-08 02:09 | Observation (INO) | payer OTHER ==
[2023-02-08 04:14] LABS: BASO % 0.9 % (0-2.0); HEMATOCRIT 38.3 % (32.4-45.2); HEMOGLOBIN 13.2 GM/dL (10.7-15.3); LYMPH % 50.5 % (8-40); MCH 32.9 pg (25.7-33.7); MCHC 34.6 g/dl (32.0-36.0); MEAN CELL VOLUME 95.3 fl (80-96); MEAN PLT VOLUME 7.6 fl (7.5-11.1); MONO % 7.7 % (3.8-10.2); NEUT % 39.9 % (42.8-82.8); PLATELET COUNT 229 10^3/uL (134-434); RBC 4.02 M/mm3 (3.60-5.2); RDW 13.5 % (11.6-15.6); WHITE BLOOD COUNT 5.1 K/mm3 (4.0-10.0)
[2023-02-08 04:17] LABS: INR 1.03 (0.83-1.09)
[2023-02-08 04:20] LABS: ACTIVATED PTT 34.5 SECONDS (25.2-36.5)
[2023-02-08 04:30] LABS: CHLORIDE 104 mmol/L (98-107); SODIUM 141 mmol/L (136-145)
[2023-02-08 04:32] LABS: ANION GAP 7 MMOL/L (8-16); BLOOD UREA NITROGEN 20.6 mg/dL (7-18); CALCIUM 9.4 mg/dL (8.5-10.1); CO2 30 mmol/L (21-32)
[2023-02-08 04:33] LABS: ALBUMIN 3.7 g/dl (3.4-5.0); GLUCOSE,RANDOM 98 mg/dL (74-106)
[2023-02-08 04:36] LABS: CREATININE 0.9 mg/dL (0.55-1.3); SGOT/AST 28 U/L (15-37); SGPT/ALT 34 U/L (13-61)
[2023-02-08 04:37] LABS: BILIRUBIN,TOTAL 0.4 mg/dL (0.2-1); TOT PROT 7.5 g/dl (6.4-8.2)
[2023-02-08 04:38] LABS: ALK PHOS 91 U/L (45-117)
[2023-02-08] MEDS ORDERED: ACETAMINOPHEN 325 MG TABLET (FP) PO PRN (10:27)
[2023-02-08] MEDS ORDERED: PATIENT'S OWN MEDICATION (NON-FORMULARY) (Amlodipine Besylate/Valsartan [Amlodipine-Valsar PO SCH (10:30)
[2023-02-08] MEDS ORDERED: amLODIPine BESYLATE 5 MG TABLET (FP) ONE (11:12)
[2023-02-08] MEDS: VALSARTAN 160 MG TABLET PO SCH (11:15)
[2023-02-08] MEDS: amLODIPine BESYLATE 5 MG TABLET (FP) PO SCH (11:15)
[2023-02-08 12:21] VITALS: BMI 30.8
[2023-02-08 12:47] LABS: ERYTHROCYTE SEDIMENTATION RATE 44 mm/hr (0-30)
[2023-02-08 20:31] LABS: PH,URINE 5.5 (5.0-8.0); URINE APPEARANCE CLOUDY; URINE BILIRUBIN NEGATIVE (NEGATIVE); URINE COLOR YELLOW; URINE GLUCOSE (UA) NEGATIVE (NEGATIVE); URINE KETONE NEGATIVE (NEGATIVE); URINE LEUK ESTERASE NEGATIVE (NEGATIVE); URINE NITRITE NEGATIVE (NEGATIVE); URINE PROTEIN NEGATIVE (NEGATIVE); URINE UROBILINOGEN 0.2 mg/dL (0.2-1.0)
[2023-02-08] MEDS ORDERED: QUEtiapine FUMARATE 25 MG TABLET ONE (20:36)
[2023-02-08 20:37] LABS: METHADONE, UR NEGATIVE (NEGATIVE); URINE BENZODIAZEPINES NEGATIVE (NEGATIVE)
[2023-02-08 20:38] LABS: COCAINE, UR NEGATIVE (NEGATIVE); OPIATES, URI NEGATIVE (NEGATIVE); URINE AMPHETAMINES NEGATIVE (NEGATIVE); URINE BARBITURATES NEGATIVE (NEGATIVE)
[2023-02-08 20:51] LABS: PHENCYCLIDINE,URINE POSITIVE (NEGATIVE)
[2023-02-08] MEDS: ATORVASTATIN CA 40 MG TABLET (FP) PO SCH (21:03)
[2023-02-08] MEDS: QUEtiapine FUMARATE 50 MG TABLET PO SCH (21:03)
[2023-02-08] MEDS: HEPARIN NA (PORCINE) 5,000 UNITS/ML 1ML VIAL SQ SCH (21:04)
[2023-02-08 21:11] LABS: URINE RBC 40.3 /uL (0-23.9)
[2023-02-08 21:12] LABS: EPI CELLS 56.2 /uL (0-25.1); HYALINE CASTS 1.63 /uL (0-3.1); URINE BACTERIA 1190.8 /uL (0-1359); URINE WBC 82.4 /uL (0-25.8)
[2023-02-09] MEDS: PARoxetine HCL 20 MG TABLET PO SCH (09:35)
[2023-02-09] MEDS: ASPIRIN 81 MG CHEWABLE TABLETS PO SCH (09:35)
[2023-02-09] MEDS: amLODIPine BESYLATE 5 MG TABLET (FP) PO SCH (09:35)
[2023-02-09] MEDS: VALSARTAN 160 MG TABLET PO SCH (09:35)
[2023-02-09] MEDS: predniSONE 20 MG TABLET (UD) PO SCH (09:36)
[2023-02-09] MEDS: HEPARIN NA (PORCINE) 5,000 UNITS/ML 1ML VIAL SQ SCH ×2 (09:36→21:15)
[2023-02-09 13:38] VITALS: RESP 18
[2023-02-09] MEDS ORDERED: ACETAMINOPHEN 1000 MG/100 ML BAG IVPB PRN (17:29)
[2023-02-09] MEDS ORDERED: QUEtiapine FUMARATE 25 MG TABLET ONE (20:12)
[2023-02-09] MEDS: QUEtiapine FUMARATE 50 MG TABLET PO SCH (21:15)
[2023-02-09] MEDS: ATORVASTATIN CA 40 MG TABLET (FP) PO SCH (21:15)
[2023-02-10] MEDS: PARoxetine HCL 20 MG TABLET PO SCH (09:12)
[2023-02-10] MEDS: VALSARTAN 160 MG TABLET PO SCH (09:12)
[2023-02-10] MEDS: amLODIPine BESYLATE 5 MG TABLET (FP) PO SCH (09:12)
[2023-02-10] MEDS: predniSONE 20 MG TABLET (UD) PO SCH (09:12)
[2023-02-10] MEDS: ASPIRIN 81 MG CHEWABLE TABLETS PO SCH (09:12)
[2023-02-10] MEDS: HEPARIN NA (PORCINE) 5,000 UNITS/ML 1ML VIAL SQ SCH ×2 (09:12→21:36)
[2023-02-10] MEDS ORDERED: QUEtiapine FUMARATE 25 MG TABLET ONE (21:29)
[2023-02-10] MEDS: QUEtiapine FUMARATE 50 MG TABLET PO SCH (21:36)
[2023-02-10] MEDS: ATORVASTATIN CA 40 MG TABLET (FP) PO SCH (21:37)
[2023-02-11] MEDS: ASPIRIN 81 MG CHEWABLE TABLETS PO SCH (09:13)
[2023-02-11] MEDS: VALSARTAN 160 MG TABLET PO SCH (09:13)
[2023-02-11] MEDS: amLODIPine BESYLATE 5 MG TABLET (FP) PO SCH (09:14)
[2023-02-11] MEDS: PARoxetine HCL 20 MG TABLET PO SCH (09:14)
[2023-02-11] MEDS: HEPARIN NA (PORCINE) 5,000 UNITS/ML 1ML VIAL SQ SCH (09:14)
[2023-02-11 09:29] VITALS: TEMP 98.8
[2023-02-11 13:44] VITALS: BP 146/88; PULSE 88
== END 2023-02-11 15:46 ==
LOC: JER 02:09 → JERBED 08:27 → INTOOBSV 08:27 → UNDOADMOB 08:27 → JERBED 10:27 → J5S 11:32
PROVIDERS: ADMIT Internal Medicine; ATTEND Internal Medicine
PROC: 3E023GC Introduction of Other Therapeutic Substance into Muscle, Percutaneous Approach (ICD-10-PCS; principal; 2023-02-08)
DX: J44.9 Chronic obstructive pulmonary disease, unspecified (principal); I25.10 Atherosclerotic heart disease of native coronary artery without angina pectoris; I10 Essential (primary) hypertension; M06.9 Rheumatoid arthritis, unspecified; F17.210 Nicotine dependence, cigarettes, uncomplicated; F31.9 Bipolar disorder, unspecified; H40.9 Unspecified glaucoma
CPT/HCPCS: 0241U-QW; 36415; 70450-TC; 71045-TC-FY; 72131-TC; 80053; 80178; 80307; 81003; 82962; 84484; 85025; 85610; 85651; 85730; 86140; 86850; 86900; 86901; 87086; 93005; 93010; 96372; 99285-25; G0378; J1644

== ENCOUNTER 2023-06-16 10:19 | Emergency (ER) | payer OTHER ==
[2023-06-16 11:20] VITALS: BP 125/88; PULSE 84; RESP 20; BMI 30.1
[2023-06-16] MEDS ORDERED: LIDOCAINE 5% TOPICAL PATCH TP ONE (12:39)
[2023-06-16] MEDS ORDERED: LIDOCAINE 5% TOPICAL PATCH ONE (13:36)
[2023-06-16 13:45] LABS: HEMATOCRIT 37.8 % (32.4-45.2); HEMOGLOBIN 12.7 GM/dL (10.7-15.3); LYMPH % 46.8 % (8-40); MCH 32.3 pg (25.7-33.7); MCHC 33.6 g/dl (32.0-36.0); MEAN PLT VOLUME 7.5 fl (7.5-11.1); MONO % 6.2 % (3.8-10.2); PLATELET COUNT 219 10^3/uL (134-434); RBC 3.94 M/mm3 (3.60-5.2); WHITE BLOOD COUNT 5.9 K/mm3 (4.0-10.0)
[2023-06-16 14:06] LABS: POTASSIUM 3.7 mmol/L (3.5-5.1)
[2023-06-16 14:08] LABS: ALBUMIN 3.5 g/dl (3.4-5.0); CALCIUM 8.8 mg/dL (8.5-10.1)
[2023-06-16 14:09] LABS: BLOOD UREA NITROGEN 19.4 mg/dL (7-18)
[2023-06-16 14:12] LABS: CREATININE 0.6 mg/dL (0.55-1.3)
[2023-06-16 14:13] LABS: BILIRUBIN,TOTAL 0.1 mg/dL (0.2-1); TOT PROT 7.1 g/dl (6.4-8.2)
[2023-06-16 14:47] LABS: EPI CELLS 7 /uL (0-25.1); HYALINE CASTS 0 /uL (0-3.1); URINE APPEARANCE CLEAR; URINE BACTERIA 225 /uL (0-1359); URINE BILIRUBIN NEGATIVE (NEGATIVE); URINE COLOR YELLOW; URINE GLUCOSE (UA) NEGATIVE (NEGATIVE); URINE KETONE NEGATIVE (NEGATIVE); URINE LEUK ESTERASE NEGATIVE (NEGATIVE); URINE NITRITE NEGATIVE (NEGATIVE); URINE PROTEIN NEGATIVE (NEGATIVE); URINE RBC 19 /uL (0-23.9); URINE UROBILINOGEN 0.2 mg/dL (0.2-1.0); URINE WBC 4 /uL (0-25.8)
[2023-06-16] MEDS ORDERED: IBUPROFEN 400 MG TABLET (FP) PO PRN (15:15)
[2023-06-16] MEDS ORDERED: IBUPROFEN 400 MG TABLET (FP) PO ONE (15:24)
[2023-06-16] MEDS ORDERED: LIDOCAINE PATCH REMOVAL MC SCH (22:00)
== END 2023-06-16 16:08 | disposition home or self-care (01) ==
LOC: JER 10:19
DX: R20.0 Anesthesia of skin (principal); R20.2 Paresthesia of skin; M54.50 Low back pain, unspecified
CPT/HCPCS: 36415; 70450-TC; 80053; 81003; 85025; 87086; 93005; 93010; 99285-25

== ENCOUNTER 2023-06-23 04:32 | Emergency (ER) | payer OTHER ==
[2023-06-23 04:46] VITALS: BP 134/87; PULSE 85; RESP 18; TEMP 97.7; BMI 30.8
[2023-06-23] MEDS ORDERED: ACETAMINOPHEN 500 MG TABLET (FP) PO ONE (04:51)
[2023-06-23] MEDS ORDERED: ACETAMINOPHEN 325 MG TABLET (FP) ONE (04:52)
== END 2023-06-23 06:18 | disposition home or self-care (01) ==
LOC: JER 04:32
DX: R07.89 Other chest pain (principal)
CPT/HCPCS: 93005; 93010; 99283-25

== ENCOUNTER 2023-07-13 00:59 | Emergency (ER) | payer OTHER ==
[2023-07-13 01:30] VITALS: BP 122/70; PULSE 104; RESP 20; TEMP 98; BMI 31.5
[2023-07-13] MEDS ORDERED: KETOROLAC TROMETHAMINE 30 MG/1 ML VIAL IM ONE (03:11)
[2023-07-13] MEDS ORDERED: KETOROLAC TROMETHAMINE 30 MG/1 ML VIAL ONE (03:14)
== END 2023-07-13 03:17 | disposition home or self-care (01) ==
LOC: JER 00:59
PROC: 2W3GX1Z Immobilization of Right Thumb using Splint (ICD-10-PCS; principal; 2023-07-13)
PROC: 3E0233Z Introduction of Anti-inflammatory into Muscle, Percutaneous Approach (ICD-10-PCS; 2023-07-13)
DX: S62.524A Nondisplaced fracture of distal phalanx of right thumb, initial encounter for closed fracture (principal); M79.644 Pain in right finger(s); W19.XXXA Unspecified fall, initial encounter; Y92.830 Public park as the place of occurrence of the external cause
CPT/HCPCS: 29130; 73130-TC-LT-FY; 96372; 99284-25

== ENCOUNTER 2024-03-03 16:24 | Emergency (ER) | payer OTHER ==
[2024-03-03 16:29] VITALS: BP 125/86; PULSE 95; RESP 18; TEMP 98.7; BMI 31.8
== END 2024-03-03 17:45 | disposition home or self-care (01) ==
LOC: JER 16:24
DX: S69.91XA Unspecified injury of right wrist, hand and finger(s), initial encounter (principal); W10.9XXA Fall (on) (from) unspecified stairs and steps, initial encounter
CPT/HCPCS: 99283-25

== ENCOUNTER 2024-03-07 08:04 | Emergency (ER) | payer OTHER ==
[2024-03-07 08:27] VITALS: RESP 20; BMI 32.1
[2024-03-07] MEDS ORDERED: LIDOCAINE 4% PATCH TP ONE (09:15)
[2024-03-07] MEDS ORDERED: KETOROLAC TROMETHAMINE 30 MG/1 ML VIAL ONE (09:15)
[2024-03-07] MEDS: LIDOCAINE 5% TOPICAL PATCH TP ONE (09:22)
[2024-03-07] MEDS: KETOROLAC TROMETHAMINE 30 MG/1 ML VIAL IM ONE (09:22)
[2024-03-07] MEDS ORDERED: FAMOTIDINE 20 MG TABLET ONE (11:28)
[2024-03-07] MEDS ORDERED: ONDANSETRON *ODT* 4 MG TABLET ONE (11:28)
[2024-03-07] MEDS ORDERED: MAG HYDROX/AL HYDROX/SIMETH 30 ML UNIT-DOSE CUP ONE (11:28)
[2024-03-07] MEDS: ONDANSETRON *ODT* 4 MG TABLET SL ONE (11:32)
[2024-03-07] MEDS: MAG HYDROX/AL HYDROX/SIMETH -MYLANTA- ORAL SUSPENSION PO ONE (11:32)
[2024-03-07] MEDS: FAMOTIDINE 10 MG TABLET PO ONE (11:32)
[2024-03-07 14:29] VITALS: BP 147/91; PULSE 65; TEMP 97.5
[2024-03-07 15:05] LABS: COCAINE, UR NEGATIVE (NEGATIVE); METHADONE, UR NEGATIVE (NEGATIVE); OPIATES, URI NEGATIVE (NEGATIVE); PHENCYCLIDINE,URINE POSITIVE (NEGATIVE); URINE AMPHETAMINES NEGATIVE (NEGATIVE); URINE BARBITURATES NEGATIVE (NEGATIVE); URINE BENZODIAZEPINES NEGATIVE (NEGATIVE)
[2024-03-07] MEDS ORDERED: LIDOCAINE PATCH REMOVAL MC SCH (22:00)
== END 2024-03-07 14:30 | disposition home or self-care (01) ==
LOC: JER 08:04
PROC: 3E0233Z Introduction of Anti-inflammatory into Muscle, Percutaneous Approach (ICD-10-PCS; principal; 2024-03-07)
DX: M54.2 Cervicalgia (principal); M54.50 Low back pain, unspecified
CPT/HCPCS: 70450-TC; 72125-TC; 72131-TC; 80307; 96372; 99284-25; Q0162

== ENCOUNTER 2024-09-07 18:40 | Emergency (ER) | payer OTHER ==
[2024-09-07 19:36] VITALS: BP 114/79; PULSE 97; RESP 16; TEMP 98.1; BMI 35.4
[2024-09-07] MEDS ORDERED: LIDOCAINE 4% PATCH TP ONE (20:21)
[2024-09-07] MEDS ORDERED: ACETAMINOPHEN INJECTION 100 ML ONE (20:21)
[2024-09-07] MEDS: LIDOCAINE 4% PATCH TP ONE (20:49)
[2024-09-07] MEDS: ACETAMINOPHEN 1000 MG/100 ML BAG IVPB ONE (20:51)
[2024-09-07 20:57] LABS: BASO % 0.7 % (0-2.0); EOS % 1.5 % (0-4.5); HEMATOCRIT 36.5 % (32.4-45.2); HEMOGLOBIN 12.2 GM/dL (10.7-15.3); LYMPH % 49.6 % (8-40); MCH 32.1 pg (25.7-33.7); MCHC 33.5 g/dl (32.0-36.0); MEAN CELL VOLUME 95.8 fl (80-96); MONO % 5.6 % (3.8-10.2); NEUT % 42.6 % (42.8-82.8); PLATELET COUNT 272 10^3/uL (134-434); RBC 3.82 M/mm3 (3.60-5.2); RDW 14.4 % (11.6-15.6)
[2024-09-07 21:19] LABS: POTASSIUM 4.8 mmol/L (3.5-5.1)
[2024-09-07 21:21] LABS: CALCIUM 9.2 mg/dL (8.5-10.1)
[2024-09-07 21:22] LABS: ALBUMIN 3.5 g/dl (3.4-5.0); BLOOD UREA NITROGEN 19.2 mg/dL (7-18); MAGNESIUM 2.5 mg/dL (1.8-2.4)
[2024-09-07 21:24] LABS: CREATININE 0.7 mg/dL (0.55-1.3)
[2024-09-07 21:26] LABS: BILIRUBIN,TOTAL 0.4 mg/dL (0.2-1); TOT PROT 7.2 g/dl (6.4-8.2)
[2024-09-07] MEDS: LIDOCAINE PATCH REMOVAL MC SCH (22:24)
== END 2024-09-08 01:15 | disposition home or self-care (01) ==
LOC: JER 18:40
PROC: 3E033NZ Introduction of Analgesics, Hypnotics, Sedatives into Peripheral Vein, Percutaneous Approach (ICD-10-PCS; principal; 2024-09-07)
DX: M54.2 Cervicalgia (principal); R53.1 Weakness; R07.2 Precordial pain; F10.129 Alcohol abuse with intoxication, unspecified; M25.512 Pain in left shoulder; M54.9 Dorsalgia, unspecified; R20.0 Anesthesia of skin; Y90.9 Presence of alcohol in blood, level not specified
CPT/HCPCS: 36415; 70450-TC; 70496-TC; 70498-TC; 71045-TC-FY; 80053; 83735; 84484; 85025; 93005; 93010; 99285-25; J0131

== ENCOUNTER 2024-09-28 04:09 | Emergency (ER) | payer OTHER ==
[2024-09-28 04:33] VITALS: BP 136/88; PULSE 90; RESP 16; TEMP 98.6; BMI 33.1
[2024-09-28] MEDS ORDERED: ALBUTEROL SO4 2.5/IPRATROPIUM 0.5 INH SOL 3 ML VIAL.NEB. NEB ONE ×2 (05:18→05:38)
[2024-09-28] MEDS ORDERED: KETOROLAC TROMETHAMINE 30 MG/1 ML VIAL ONE (05:39)
[2024-09-28] MEDS ORDERED: LIDOCAINE 5% TOPICAL PATCH ONE (05:39)
[2024-09-28] MEDS: KETOROLAC TROMETHAMINE 30 MG/1 ML VIAL IM ONE (05:53)
[2024-09-28] MEDS: ALBUTEROL SO4 2.5/IPRATROPIUM 0.5 INH SOL 3 ML VIAL.NEB. NEB ONE (05:53)
[2024-09-28] MEDS: LIDOCAINE 5% TOPICAL PATCH TP ONE (05:53)
[2024-09-28] MEDS ORDERED: LIDOCAINE PATCH REMOVAL MC ONE (17:00)
== END 2024-09-28 07:09 | disposition home or self-care (01) ==
LOC: JER 04:09
PROC: 3E0133Z Introduction of Anti-inflammatory into Subcutaneous Tissue, Percutaneous Approach (ICD-10-PCS; principal; 2024-09-28)
PROC: 3E0F7GC Introduction of Other Therapeutic Substance into Respiratory Tract, Via Natural or Artificial Opening (ICD-10-PCS; 2024-09-28)
DX: M54.2 Cervicalgia (principal); M25.511 Pain in right shoulder; G89.29 Other chronic pain; R06.02 Shortness of breath; R05.9 Cough, unspecified; J06.9 Acute upper respiratory infection, unspecified
CPT/HCPCS: 94640; 96372; 99284-25

== ENCOUNTER 2024-11-15 13:10 | Emergency (ER) | payer OTHER ==
[2024-11-15 13:57] VITALS: BP 104/75; PULSE 99; RESP 16; TEMP 98.4; BMI 32.9
== END 2024-11-15 15:30 | disposition home or self-care (01) ==
LOC: JERFT 13:10
DX: R05.9 Cough, unspecified (principal); J06.9 Acute upper respiratory infection, unspecified; R09.81 Nasal congestion; Z20.822 Contact with and (suspected) exposure to COVID-19
CPT/HCPCS: 0241U-QW; 99283-25

== ENCOUNTER 2025-02-07 17:41 | Emergency (ER) | payer OTHER ==
[2025-02-07 17:52] VITALS: BP 127/84; PULSE 66; RESP 17; TEMP 98.4; BMI 32.5
[2025-02-07] MEDS ORDERED: ACETAMINOPHEN INJECTION 100 ML ONE (19:08)
[2025-02-07] MEDS ORDERED: FAMOTIDINE 20 MG/50 ML IVPB 20 MG/50 ML MG IVPB ONE (19:08)
[2025-02-07] MEDS: ACETAMINOPHEN 1000 MG/100 ML BAG IVPB ONE (19:28)
[2025-02-07] MEDS: FAMOTIDINE 20 MG/50 ML IVPB 20 MG/50 ML MG IVPB ONE (19:28)
[2025-02-07 19:31] LABS: ABSOLUTE IMMATURE GRANULOCYTES 0.01 x10^3/uL (0.0-0.031); BASOPHILS # 0.01 x10^3/uL (0.01-0.08); EOSINOPHIL % 1.5 % (0.7-5.8); EOSINOPHILS # 0.08 x10^3/uL (0.04-0.36); HEMATOCRIT 38.6 % (34.1-44.9); HEMOGLOBIN 12.5 g/dL (11.2-15.7); MCHC 32.4 g/dl (32.2-35.5); MEAN CELL VOLUME 98.2 fl (79.4-94.8); MEAN PLT VOLUME 8.9 fl (9.4-12.3); MONOCYTE # 0.41 x10^3/uL (0.24-0.86); MONOCYTE % 7.7 % (4.7-12.5); PLATELET COUNT 218 x10^3/uL (182-369); RDW 13.2 % (12.3-16.6)
[2025-02-07 19:51] LABS: POTASSIUM 3.5 mmol/L (3.5-5.1)
[2025-02-07 19:53] LABS: CALCIUM 8.9 mg/dL (8.5-10.1)
[2025-02-07 19:54] LABS: ALBUMIN 3.5 g/dl (3.4-5.0); BLOOD UREA NITROGEN 13.7 mg/dL (7-18); MAGNESIUM 2.5 mg/dL (1.8-2.4)
[2025-02-07 19:57] LABS: CREATININE 0.7 mg/dL (0.55-1.3)
[2025-02-07 19:58] LABS: BILIRUBIN,TOTAL 0.5 mg/dL (0.2-1); TOT PROT 6.5 g/dl (6.4-8.2)
[2025-02-07 20:48] LABS: HCV DIAGNOSTIC IN-HOUSE W/RFLX NON-REACTIVE (NONREACTIVE); HIV INTERPRETATION NEGATIVE (NEGATIVE)
[2025-02-07] MEDS: MAG HYDROX/AL HYDROX/SIMETH 30 ML UNIT-DOSE CUP PO ONE (21:22)
== END 2025-02-07 22:59 | disposition home or self-care (01) ==
LOC: JER 17:41
PROC: 3E033GC Introduction of Other Therapeutic Substance into Peripheral Vein, Percutaneous Approach (ICD-10-PCS; principal; 2025-02-07)
PROC: 3E033NZ Introduction of Analgesics, Hypnotics, Sedatives into Peripheral Vein, Percutaneous Approach (ICD-10-PCS; 2025-02-07)
DX: R50.9 Fever, unspecified (principal); R11.2 Nausea with vomiting, unspecified; M79.10 Myalgia, unspecified site; R05.9 Cough, unspecified; B34.9 Viral infection, unspecified
CPT/HCPCS: 0241U-QW; 36415; 71045-TC-FY; 80053; 83690; 83735; 84484; 85025; 86803; 87389; 93005; 93010; 96361; 96375; 99285-25; J0131

== ENCOUNTER 2025-02-11 16:15 | Emergency (ER) | payer OTHER ==
[2025-02-11 16:25] VITALS: TEMP 98.1; BMI 32.8
[2025-02-11] MEDS ORDERED: ACETAMINOPHEN INJECTION 100 ML ONE (17:26)
[2025-02-11] MEDS: SODIUM CHLORIDE 0.9% 500 ML INFUS.BAG IV ONE (17:37)
[2025-02-11] MEDS: ACETAMINOPHEN 1000 MG/100 ML BAG IVPB ONE (17:38)
[2025-02-11 17:40] LABS: ABSOLUTE IMMATURE GRANULOCYTES 0.01 x10^3/uL (0.0-0.031); BASOPHILS # 0.01 x10^3/uL (0.01-0.08); EOSINOPHIL % 1.1 % (0.7-5.8); EOSINOPHILS # 0.07 x10^3/uL (0.04-0.36); HEMATOCRIT 39.9 % (34.1-44.9); HEMOGLOBIN 12.5 g/dL (11.2-15.7); MCHC 31.3 g/dl (32.2-35.5); MEAN CELL VOLUME 99.8 fl (79.4-94.8); MEAN PLT VOLUME 9.2 fl (9.4-12.3); MONOCYTE # 0.48 x10^3/uL (0.24-0.86); MONOCYTE % 7.3 % (4.7-12.5); PLATELET COUNT 219 x10^3/uL (182-369); RDW 13.2 % (12.3-16.6)
[2025-02-11] MEDS ORDERED: ONDANSETRON 4 MG/2 ML VIAL ONE (17:53)
[2025-02-11 17:56] LABS: POTASSIUM 3.7 mmol/L (3.5-5.1)
[2025-02-11] MEDS: ONDANSETRON 4 MG/2 ML VIAL IVPUSH ONE (17:57)
[2025-02-11 17:58] LABS: CALCIUM 9.2 mg/dL (8.5-10.1)
[2025-02-11 17:59] LABS: ALBUMIN 3.4 g/dl (3.4-5.0); BLOOD UREA NITROGEN 17.9 mg/dL (7-18)
[2025-02-11 18:02] LABS: CREATININE 0.7 mg/dL (0.55-1.3)
[2025-02-11 18:03] LABS: BILIRUBIN,TOTAL 0.2 mg/dL (0.2-1)
[2025-02-11 18:04] LABS: TOT PROT 6.6 g/dl (6.4-8.2)
[2025-02-11 20:29] VITALS: BP 128/79; PULSE 81; RESP 16
== END 2025-02-11 23:24 | disposition home or self-care (01) ==
LOC: JER 16:15
PROC: 3E033NZ Introduction of Analgesics, Hypnotics, Sedatives into Peripheral Vein, Percutaneous Approach (ICD-10-PCS; principal; 2025-02-11)
PROC: 3E033GC Introduction of Other Therapeutic Substance into Peripheral Vein, Percutaneous Approach (ICD-10-PCS; 2025-02-11)
DX: S09.90XA Unspecified injury of head, initial encounter (principal); R11.10 Vomiting, unspecified; F19.90 Other psychoactive substance use, unspecified, uncomplicated; W01.198A Fall on same level from slipping, tripping and stumbling with subsequent striking against other object, initial encounter
CPT/HCPCS: 0241U-QW; 36415; 70450-TC; 70486-TC; 71046-TC-FY; 72125-TC; 80053; 85025; 93005; 93010; 96374; 96375; 99285-25; J0131

== ENCOUNTER 2025-02-12 12:28 | Observation (INO) | payer OTHER ==
[2025-02-12] MEDS ORDERED: FAMOTIDINE 20 MG/50 ML IVPB 20 MG/50 ML MG IVPB ONE (14:27)
[2025-02-12] MEDS ORDERED: KETOROLAC TROMETHAMINE 30 MG/1 ML VIAL ONE (15:16)
[2025-02-12 15:20] LABS: ABSOLUTE IMMATURE GRANULOCYTES 0.02 x10^3/uL (0.0-0.031); BASOPHILS # 0.02 x10^3/uL (0.01-0.08); EOSINOPHIL % 0.8 % (0.7-5.8); EOSINOPHILS # 0.05 x10^3/uL (0.04-0.36); HEMATOCRIT 41.3 % (34.1-44.9); MCHC 31.5 g/dl (32.2-35.5); MEAN CELL VOLUME 100.2 fl (79.4-94.8); MEAN PLT VOLUME 9.2 fl (9.4-12.3); MONOCYTE % 6.6 % (4.7-12.5); PLATELET COUNT 220 x10^3/uL (182-369); RDW 13.2 % (12.3-16.6)
[2025-02-12] MEDS: FAMOTIDINE 20 MG/50 ML IVPB 20 MG/50 ML MG IVPB ONE (15:35)
[2025-02-12] MEDS: KETOROLAC TROMETHAMINE 30 MG/1 ML VIAL IVPB ONE (15:35)
[2025-02-12] MEDS: SODIUM CHLORIDE 0.9% 500 ML INFUS.BAG IV ONE (15:36)
[2025-02-12 15:39] LABS: POTASSIUM 4.2 mmol/L (3.5-5.1)
[2025-02-12 15:41] LABS: ALBUMIN 3.8 g/dl (3.4-5.0); BLOOD UREA NITROGEN 14.9 mg/dL (7-18); CALCIUM 9.1 mg/dL (8.5-10.1); MAGNESIUM 2.2 mg/dL (1.8-2.4)
[2025-02-12 15:45] LABS: CREATININE 0.9 mg/dL (0.55-1.3)
[2025-02-12 15:46] LABS: BILIRUBIN,TOTAL 0.5 mg/dL (0.2-1)
[2025-02-12 15:52] LABS: COCAINE, UR NEGATIVE (NEGATIVE); URINE AMPHETAMINES NEGATIVE (NEGATIVE); URINE BARBITURATES NEGATIVE (NEGATIVE); URINE BENZODIAZEPINES NEGATIVE (NEGATIVE)
[2025-02-12 15:53] LABS: METHADONE, UR NEGATIVE (NEGATIVE); OPIATES, URI NEGATIVE (NEGATIVE)
[2025-02-12 15:56] LABS: PHENCYCLIDINE,URINE POSITIVE (NEGATIVE)
[2025-02-12] MEDS: ACETAMINOPHEN 1000 MG/100 ML BAG IVPB ONE (15:58)
[2025-02-12] MEDS ORDERED: ACETAMINOPHEN 325 MG TABLET (FP) ONE (21:05)
[2025-02-12] MEDS: ACETAMINOPHEN 500 MG TABLET (FP) PO PRN (21:08)
[2025-02-13] MEDS: QUEtiapine FUMARATE 50 MG TABLET PO SCH (04:11)
[2025-02-13] MEDS: GABAPENTIN 100 MG CAPSULE PO SCH ×2 (04:11→09:33)
[2025-02-13] MEDS: KETOROLAC TROMETHAMINE 15 MG/ML VIAL IVPUSH ONE (04:11)
[2025-02-13 04:36] VITALS: BMI 33.0
[2025-02-13 07:34] LABS: POTASSIUM 3.7 mmol/L (3.5-5.1)
[2025-02-13 07:35] LABS: CALCIUM 8.5 mg/dL (8.5-10.1)
[2025-02-13 07:36] LABS: BLOOD UREA NITROGEN 14.5 mg/dL (7-18)
[2025-02-13 07:39] LABS: CREATININE 0.8 mg/dL (0.55-1.3)
[2025-02-13 08:03] LABS: ABSOLUTE IMMATURE GRANULOCYTES 0.01 x10^3/uL (0.0-0.031); BASOPHILS # 0.01 x10^3/uL (0.01-0.08); EOSINOPHIL % 1.6 % (0.7-5.8); EOSINOPHILS # 0.08 x10^3/uL (0.04-0.36); HEMATOCRIT 35.9 % (34.1-44.9); HEMOGLOBIN 11.2 g/dL (11.2-15.7); MCHC 31.2 g/dl (32.2-35.5); MEAN CELL VOLUME 100.6 fl (79.4-94.8); MEAN PLT VOLUME 9.5 fl (9.4-12.3); MONOCYTE # 0.42 x10^3/uL (0.24-0.86); MONOCYTE % 8.6 % (4.7-12.5); PLATELET COUNT 203 x10^3/uL (182-369); RDW 13.2 % (12.3-16.6)
[2025-02-13] MEDS: ASPIRIN 81 MG CHEWABLE TABLETS PO SCH (09:24)
[2025-02-13] MEDS: clonazePAM 0.5 MG TABLET PO PRN (09:24)
[2025-02-13] MEDS: traMADol HCL 50 MG TABLET PO ONE (09:33)
[2025-02-13] MEDS: VALSARTAN 160 MG TABLET PO SCH (09:35)
[2025-02-13] MEDS: PARoxetine HCL 20 MG TABLET PO SCH (10:28)
[2025-02-13 14:51] VITALS: RESP 18
[2025-02-13] MEDS ORDERED: QUEtiapine FUMARATE 25 MG TABLET ONE (21:49)
[2025-02-13] MEDS: ATORVASTATIN CA 80 MG TABLET (FP) PO SCH (21:50)
[2025-02-14 07:45] LABS: ABSOLUTE IMMATURE GRANULOCYTES 0.02 x10^3/uL (0.0-0.031); BASOPHILS # 0.01 x10^3/uL (0.01-0.08); EOSINOPHIL % 1.5 % (0.7-5.8); EOSINOPHILS # 0.09 x10^3/uL (0.04-0.36); HEMATOCRIT 37.3 % (34.1-44.9); HEMOGLOBIN 11.7 g/dL (11.2-15.7); MCHC 31.4 g/dl (32.2-35.5); MEAN CELL VOLUME 101.1 fl (79.4-94.8); MEAN PLT VOLUME 9.1 fl (9.4-12.3); MONOCYTE # 0.44 x10^3/uL (0.24-0.86); MONOCYTE % 7.6 % (4.7-12.5); PLATELET COUNT 196 x10^3/uL (182-369); RDW 13.5 % (12.3-16.6)
[2025-02-14 08:20] LABS: POTASSIUM 3.5 mmol/L (3.5-5.1)
[2025-02-14 08:22] LABS: CALCIUM 8.8 mg/dL (8.5-10.1)
[2025-02-14 08:23] LABS: ALBUMIN 3.1 g/dl (3.4-5.0); BLOOD UREA NITROGEN 15.4 mg/dL (7-18)
[2025-02-14 08:26] LABS: CREATININE 0.7 mg/dL (0.55-1.3)
[2025-02-14 08:27] LABS: BILIRUBIN,TOTAL 0.3 mg/dL (0.2-1); TOT PROT 5.9 g/dl (6.4-8.2)
[2025-02-14 16:27] VITALS: BP 132/87; PULSE 85; TEMP 98.6
== END 2025-02-14 15:21 | disposition home or self-care (01) ==
LOC: JER 12:28 → JERBED 17:26 → INTOOBSV 17:26 → J4S 22:47
PROVIDERS: ADMIT Family Medicine; ATTEND Family Medicine
PROC: 3E033GC Introduction of Other Therapeutic Substance into Peripheral Vein, Percutaneous Approach (ICD-10-PCS; principal; 2025-02-12)
PROC: 3E0333Z Introduction of Anti-inflammatory into Peripheral Vein, Percutaneous Approach (ICD-10-PCS; 2025-02-12)
PROC: 3E0337Z Introduction of Electrolytic and Water Balance Substance into Peripheral Vein, Percutaneous Approach (ICD-10-PCS; 2025-02-12)
DX: R51.9 Headache, unspecified (principal); F19.20 Other psychoactive substance dependence, uncomplicated; R42 Dizziness and giddiness; R26.81 Unsteadiness on feet; F31.9 Bipolar disorder, unspecified; E78.5 Hyperlipidemia, unspecified; J45.909 Unspecified asthma, uncomplicated; M19.90 Unspecified osteoarthritis, unspecified site; I11.9 Hypertensive heart disease without heart failure; F41.8 Other specified anxiety disorders; Z88.8 Allergy status to other drugs, medicaments and biological substances; F17.200 Nicotine dependence, unspecified, uncomplicated
CPT/HCPCS: 36415; 70551-TC; 80048; 80053; 80307; 83735; 84443; 85025; 93005; 93010; 96365; 96375; 97116-GP; 97161-GP; 99285-25; G0378

== ENCOUNTER 2025-06-27 04:33 | Emergency (ER) | payer OTHER ==
[2025-06-27 04:38] VITALS: BMI 32.2
[2025-06-27] MEDS ORDERED: ACETAMINOPHEN 325 MG TABLET (FP) ONE (05:00)
[2025-06-27] MEDS ORDERED: KETOROLAC TROMETHAMINE 30 MG/1 ML VIAL ONE (05:01)
[2025-06-27] MEDS: KETOROLAC TROMETHAMINE 30 MG/1 ML VIAL IM ONE (05:13)
[2025-06-27] MEDS: ACETAMINOPHEN 500 MG TABLET (FP) PO ONE (05:14)
[2025-06-27 06:33] VITALS: BP 140/95; PULSE 82; RESP 18; TEMP 97.5
== END 2025-06-27 08:20 | disposition home or self-care (01) ==
LOC: JER 04:33
PROC: 3E0233Z Introduction of Anti-inflammatory into Muscle, Percutaneous Approach (ICD-10-PCS; principal; 2025-06-27)
DX: M54.2 Cervicalgia (principal); G89.29 Other chronic pain
CPT/HCPCS: 99284-25

== ENCOUNTER 2025-08-15 10:31 | Emergency (ER) | payer OTHER ==
[2025-08-15 10:41] VITALS: BP 155/92; PULSE 80; RESP 18; TEMP 98.1; BMI 32.2
[2025-08-15] MEDS ORDERED: TETRACAINE 0.5% OPHTH SOLN 2 ML BOTTLE ONE (11:58)
[2025-08-15] MEDS ORDERED: FLUORESCEIN NA 1 EA STRIP ONE (11:58)
[2025-08-15] MEDS: TETRACAINE 0.5% HCL 0.6ML DROPPER.BOTTLE OD ONE (12:00)
[2025-08-15] MEDS: FLUORESCEIN NA 1 EA STRIP OD ONE (12:00)
[2025-08-15 13:41] LABS: ABSOLUTE IMMATURE GRANULOCYTES 0.01 x10^3/uL (0.0-0.031); BASOPHILS # 0.01 x10^3/uL (0.01-0.08); EOSINOPHIL % 1.0 % (0.7-5.8); EOSINOPHILS # 0.06 x10^3/uL (0.04-0.36); MCHC 32.0 g/dl (32.2-35.5); MEAN CELL VOLUME 99.2 fl (79.4-94.8); MEAN PLT VOLUME 9.2 fl (9.4-12.3); MONOCYTE # 0.36 x10^3/uL (0.24-0.86); MONOCYTE % 6.1 % (4.7-12.5); RDW 13.2 % (12.3-16.6)
[2025-08-15 13:52] LABS: GLUCOSE,RANDOM 134.0 mg/dL (74-106); TOT PROT 6.4 g/dl (6.4-8.2)
[2025-08-15 13:53] LABS: CO2 25.0 mmol/L (21-32)
[2025-08-15 13:55] LABS: ALK PHOS 81.0 U/L (40-150)
[2025-08-15 13:58] LABS: CREATININE 0.83 mg/dL (0.55-1.3); SGOT/AST 21.0 U/L (5-34); SGPT/ALT 22.0 U/L (0-55)
== END 2025-08-15 15:01 | disposition home or self-care (01) ==
LOC: JER 10:31
DX: S09.90XA Unspecified injury of head, initial encounter (principal); H11.31 Conjunctival hemorrhage, right eye; F99 Mental disorder, not otherwise specified; Y04.8XXA Assault by other bodily force, initial encounter
CPT/HCPCS: 36415; 70450-TC; 70480-TC; 80053; 80307; 83735; 85025; 93005; 93010; 99285-25